=== PATIENT | female | born 1960 | race Caucasian/White ===

== ENCOUNTER 2023-07-02 19:07 | Inpatient (IN) | payer OTHER, SELFPAY ==
--- OUTSIDE RECORDS SUMMARY | 2023-07-02 19:13 | XMS_ITS | Continuity of Care Document ---
Author Name Unknown Organization [facility] Address [address] [place] [address]- Care Team Providers Care Cannon Pinion Adjuster Name Role Phone Abiel Nickerson Primary Care Physician [phone] Encounter [facility] Date(s): 03/13/20 - 04/12/20 [facility] [address] [place] [address]- [facility] Attending Physician: Admtr, Ar8 Allergies, Adverse Reactions, Alerts Substance Reaction Severity Status penicillin hives Active sulfamethoxazole hives Active Latex Active Cortisporin Active Immunizations Given and Recorded Vaccine Date Status Refusal Reason influenza virus vaccine, inactivated 08/18/19 Give n influenza virus vaccine, inactivated 07/31/16 Give n influenza virus vaccine, inactivated 06/01/14 Give n influenza virus vaccine, inactivated 04/15/13 Give n influenza virus vaccine, inactivated 1 07/20/12 Gi cheri pneumococcal 23-valent vaccine 08/17/14 Given pneumococcal 23-valent vaccine 06/11/09 Given Tet/Diphth/Acel, Pertussis (oldterm) 2 10/17/09 Gi cheri 1Admin Note: flulaval vis given vis date 01/20/2012 2Admin Note: VIS given 05/2008 Medications acetaminophen 325 mg oral tablet 650 mg, 2, tablet, By Mouth, Every 6 hours, PRN, not to exceed 4000 mg/day, # 50 tablet, Refills 11, Tot. Refills 11, Maintenance, as needed for pain, 08/04/19 10:07:00 EST, Route to Pharmacy Electronically, [facility] #[id number], 176, cm, 08/04... Start Date: 08/04/19 Status: Ordered apixaban 5 mg oral tablet 1 tablet = 5 mg, By Mouth, 2 times a day, STOPPING WARFARIN., # 60 tablet, 11 Refills, Maintenance,11/15/19 12:12:00 EDT, [facility] #[id number], 176, cm, 09/16/19 14:40:00 EST, Height, 123.2, kg, 08/21/19 20:54:00 EST, Dry Weight Start Date: 11/15/19 Status: Ordered atorvastatin 20 mg oral tablet 1 tablet, By Mouth, Daily, # 30 tablet, 0 Refills, Maintenance, 03/13/20 10:14:00 EDT, [facility] #[id number], 176, cm, 12/08/19 10:38:00 EDT, Height, 123.2, kg, 08/21/19 20:54:00 EST, Dry Weight Start Date: 03/13/20 Status: Ordered cetirizine 10 mg oral tablet 1 tablet = 10 mg, By Mouth, Daily, # 30 tablet, 5 Refills, Maintenance, 11/15/19 11:43:00 EDT, Tablet, [facility] #[id number], 176, cm, 09/16/19 14:40:00 EST, Height, 123.2, kg, 08/21/19 20:54:00 EST, Dry Weight Start Date: 11/15/19 Stop Date: 05/13/20 Status: Ordered ciclopirox 0.77% topical cream 1 application, Topically, 2 times a day, to affected area, # 30 Gm, 0 Refills, Maintenance, 05/04/19 8:30:10 EDT, Cream, 1 application Topically 2 times a day,x30 days,Instr:to affected area Start Date: 05/04/19 Stop Date: 06/03/19 Status: Ordered DOK 100 mg oral tablet 1 tablet = 100 mg, By Mouth, 2 times a day, # 60 tablet, 5 Refills, Maintenance, 11/15/19 11:45:00 EDT, Tablet, [facility] #[id number], 176, cm, 09/16/19 14:40:00 EST, Height, 123.2, kg, 08/21/19 20:54:00 EST, Dry Weight Start Date: 11/15/19 Status: Ordered Flonase 50 mcg/inh nasal spray 1 sprays, Nares, Both, 2 times a day, # 1 each, 2 Refills, Maintenance, 04/04/20 17:25:00 EDT, [place], [facility] #[id number], 1 sprays Nares, Both 2 times a day,x30 days, 176, cm, 12/08/19 10:38:00 EDT, Height, 123.2, kg, 08/21/19 20:54:00 EST, D... Start Date: 04/04/20 Stop Date: 07/03/20 Status: Ordered hydrochlorothiazide-lisinopril 25 mg-20 mg oral tablet 1 tablet, By Mouth, Daily, # 30 tablet, 2 Refills, Maintenance, 03/30/20 18:29:00 EDT, Tablet, [facility] #[id number], 1 tablet By Mouth Daily,x30 days, 176, cm, 12/08/19 10:38:00 EDT, Height, 123.2, kg, 08/21/19 20:54:00 EST, Dry Weight Start Date: 03/30/20 Stop Date: 06/28/20 Status: Ordered ketoconazole 2% topical cream See Instructions, APPLY EXTERNALLY TO THE AFFECTED AREA TWICE DAILY TO THE AFFECTED AREA, # 60 Gm, 0 Refills, Acute, [facility] #[id number], 25, APPLY EXTERNALLY TO THE AFFECTED AREA TWICE DAILYTO THE AFFECTED AREA, 176, cm, 12/08/19 10:38:00 ED... Start Date: 03/07/20 Status: Ordered lidocaine 5% topical cream 1 application, Topically, 3 times a day, # 50 Gm, 2 Refills, Maintenance, 09/16/18 12:49:49 EST, Cream, 1 application Topically 3 times a day,x14 days Start Date: 09/16/18 Stop Date: 10/28/18 Status: Ordered Metamucil 3.4 gm/5.2 gm oral powder for reconstitution = 1.7 Gm, By Mouth, 3 times a day, PRN as needed for constipation, dissolve in 8 oz of fluid. drinkplenty of water., # 570 Gm, 5 Refills, Maintenance, 09/02/19 14:32:00 EST, REC Powder, [facility] #[id number], 176, cm, 09/02/19 13:59:00 EST, Hei... Start Date: 09/02/19 Status: Ordered Metoprolol Succinate ER 50 mg oral tablet, extended release 1 tablet, By Mouth, Daily, # 60 tablet, 0 Refills, Maintenance, 03/13/20 10:14:00 EDT, [facility] #[id number], 176, cm, 12/08/19 10:38:00 EDT, Height, 123.2, kg, 08/21/19 20:54:00 EST, Dry Weight Start Date: 03/13/20 Status: Ordered MiraLax oral powder for reconstitution = 17 Gm, By Mouth, Daily, PRN Constipation, dissolve in water before taking, # 12 each, 5 Refills, Maintenance, 09/02/19 14:32:00 EST, REC Powder, [facility] #[id number], 17 Gm By Mouth Daily,PRN:Constipation,Instr:dissolve in water before taking... Start Date: 09/02/19 Status: Ordered nitroglycerin 0.4 mg sublingual tablet 1 tablet = 0.4 mg, Sublingual, Every 5 minutes, PRN for chest pain, If chest pain not relieved in 5minutes after first dose, seek immediate medical attention, # 1 tablet, 0 Refills, Maintenance, 08/19/16 10:23:57, Tablet Start Date: 08/19/16 Status: Ordered nystatin topical 575052 u/gm powder 1 application, Topically, 2 times a day, for rash under breasts, # 60 Gm, 1 Refills, Maintenance, 04/20/19 11:09:55 EDT, Powder, 1 application Topically 2 times a day,Instr:for rash under breasts Start Date: 04/20/19 Status: Ordered omeprazole 20 mg oral enteric coated capsule 1 capsule = 20 mg, By Mouth, Daily, prn acid indigestion, # 90 capsule, 0 Refills, Maintenance, 03/17/20 19:11:00 EDT, EC Capsule, [facility] #[id number], 176, cm, 12/08/19 10:38:00 EDT, Height,123.2, kg, 08/21/19 20:54:00 EST, Dry Weight Start Date: 03/17/20 Stop Date: 06/15/20 Status: Ordered PARoxetine 10 mg oral tablet 10 mg, 1, tablet, By Mouth, Daily, please d/c 7.5mg order, # 30 tablet, Refills 5, Tot. Refills 5, Maintenance, 09/17/19 13:12:00 EST, Route to Pharmacy Electronically, [facility] #[id number], 176, cm, 09/16/19 14:40:00 EST, Height, 123.2, kg, 02... Start Date: 09/17/19 Status: Ordered PARoxetine 7.5 mg oral capsule 1 capsule = 7.5 mg, By Mouth, Daily at bedtime, # 30 capsule, 2 Refills, Maintenance, 09/16/19 15:43:00 EST, [facility] #[id number], 176, cm, 09/16/19 14:40:00 EST, Height, 123.2, kg, 08/21/19 20:54:00 EST, Dry Weight Start Date: 09/16/19 Status: Ordered potassium chloride 20 mEq oral tablet, extended release 1 tablet = 20 mEq, By Mouth, Daily, # 90 tablet, 1 Refills, Maintenance, 01/12/19 17:42:00 EDT Start Date: 01/12/19 Status: Ordered triamcinolone 0.025% topical cream 1 applicator, Topically, 3 times a day, apply a thin film for eczema, # 30 Gm, 3 Refills, Maintenance, 08/18/19 10:35:00 EST, [facility] #[id number], 1 applicator Topically 3 times a day,Instr:apply a thin film for eczema, 176, cm, 08/18/19 9:16:... Start Date: 08/18/19 Status: Ordered Triple Antibiotic topical ointment 1 application, Topically, 2 times a day, # 28 Gm, 0 Refills, Acute, 11/15/19 12:12:00 EDT, [facility] #[id number], 7, APPLY 1 APPLICATION TOPICALLY TWICE DAILY, 176, cm, 09/16/19 14:40:00 EST, Height, 123.2, kg, 08/21/19 20:54:00 EST, Dry Weight Start Date: 11/15/19 Status: Ordered Vitamin D3 1000 intl units oral tablet 1 tablet = 1,000 International_Units, By Mouth, Daily, # 90 tablet, 2 Refills, Maintenance, 05/11/19 7:51:38 EDT Start Date: 05/11/19 Stop Date: 02/05/20 Status: Ordered Problem List Condition Effective Dates Status Health Status Inform ant Atrial fibrillation(Confirmed) Active Breast lump present(Confirmed) Active Carpal tunnel syndrome, bilateral(Confirmed) Active Otitis externa, chronic(Confirmed) Active Colonic polyp(Confirmed) 1 Active Core needle biopsy of breast(Confirmed) 09/11/11 Active MRSA (methicillin resistant staph aureus) culture positive(Confirmed) Active Glucose intolerance(Confirmed) Active Hypertension(Confirmed) Active Impaired Fasting Glucose(Confirmed) Active Tubular adenoma of colon(Confirmed) 01/09/17 Active Ventricular tachycardia(Confirmed) Active 1Tubular Adenoma < 1 cm. F/u in December 2016. Social History Social History Type Response Smoking Status Current every day adrián smart; Type: Cigarettes entered on: 10/29/13 Sex Female
--- OUTSIDE RECORDS SUMMARY | 2023-07-02 19:13 | XMS_ITS | Continuity of Care Document ---
Author Name Unknown Organization [facility] Address [address] [place] [address]- Care Team Providers Care Oncology Social Worker Name Role Phone Abiel Nickerson Primary Care Physician [facility] Date[facility]): 03/26/23 - 04/25/23 [facility] [address] [place] [id number]- Allergies, Adverse Reactions, Alerts Substance Reaction Severity Status penicillin hives Active sulfamethoxazole hives Active Latex Active Cortisporin Active Immunizations Given and Recorded Vaccine Date Status Refusal Reason SARS-CoV-2 mRNA ([id number]) vax 08/28/21 Given influenza virus vaccine, inactivated 05/16/21 Give n influenza virus vaccine, inactivated 07/05/20 Give n influenza virus vaccine, inactivated 08/18/19 Give n influenza virus vaccine, inactivated 07/31/16 Give n influenza virus vaccine, inactivated 06/01/14 Give n influenza virus vaccine, inactivated 04/15/13 Give n influenza virus vaccine, inactivated 1 07/20/12 Gi cheri tetanus-diphtheria toxoids (Td) 03/21/21 Given SARS-CoV-2 (COVID-19) mRNA BNT-162b2 vac 02/15/21 Given SARS-CoV-2 (COVID-19) mRNA BNT-162b2 vac 01/24/21 Given pneumococcal 23-valent vaccine 08/17/14 Given pneumococcal 23-valent vaccine 06/11/09 Given Tet/Diphth/Acel, Pertussis (oldterm) 2 10/17/09 Gi cheri 1Admin Note: flulaval vis given vis date 01/20/2012 2Admin Note: VIS given 05/2008 Medications acetaminophen 500 mg oral tablet 2 tablet = 1,000 mg, By Mouth, Every 8 hours, for pain, # 100 tablet, 1 Refills, Maintenance, 02/04/23 12:49:00 EDT, [facility] #[id number], Partial fill upon patient request if the prescriptionis for a schedule II opioid drug., 175, cm, ... Start Date: 02/04/23 Status: Ordered aspirin 81 mg oral tablet, chewable 81 mg, By Mouth, Daily, # 30 tablet, Refills 2, Tot. Refills 2, Maintenance, 03/18/23 9:59:00 EDT, Route to Pharmacy Electronically, [facility] #[id number], Partial fill upon patient request if the prescription is for a schedule II opioid drug.,... Start Date: 03/18/23 Stop Date: 12/13/23 Status: Ordered benzonatate 100 mg oral capsule 1 capsule = 100 mg, By Mouth, 3 times a day, PRN as needed for cough, # 30 capsule, 0 Refills, Maintenance, 04/18/23 17:45:00 EDT, Capsule, [facility] #[id number], Partial fill upon patient request if the prescription is for a schedule II opioid... Start Date: 04/18/23 Stop Date: 04/28/23 Status: Ordered cetirizine 10 mg oral tablet 1 tablet = 10 mg, By Mouth, Daily Start Date: 12/10/22 Status: Ordered Colace sodium 100 mg oral capsule 100 mg, 1, capsule, By Mouth, 2 times a day, take twice a day to prevent constipation., # 60 capsule, Refills 5, Tot. Refills 5, Maintenance, 03/12/23 9:37:00 EDT, Route to Pharmacy Electronically, [facility] #[id number], Partial fill upon patien... Start Date: 03/12/23 Status: Ordered Eliquis 5 mg oral tablet See Instructions, TAKE 1 TABLET BY MOUTH TWICE DAILY STOPPING WARFARIN, # 60 tablet, 11 Refills, Maintenance, 05/06/22 9:53:00 EDT, [facility] #[id number], 170, cm, 03/27/22 8:35:00 EDT, Height,113, kg, 08/28/21 19:48:00 EST, Dry Weight Start Date: 05/06/22 Status: Ordered fluticasone 50 mcg/inh nasal spray See Instructions, SHAKE LIQUID AND USE 1 SPRAY IN EACH NOSTRIL TWICE DAILY, # 16 Gm, 0 Refills, Maintenance, [facility] #[id number], 30, SHAKE LIQUID AND USE 1 SPRAY IN EACH NOSTRIL TWICE DAILY,176, cm, 07/05/20 15:49:00 EST, Height, 123.2, kg,... Start Date: 01/29/21 Status: Ordered Freestyle Lite Lancets See Instructions, # 50 each, Refills 11, Tot. Refills 11, Maintenance, check daily fasting blood sugar for type 2 DM. E11.9, 03/27/22 8:22:00 EDT, Supply, 170, cm, 03/27/22 8:17:00 EDT, Height, 113, kg, 08/28/21 19:48:00 EST, Dry Weight Start Date: 03/27/22 Status: Ordered Freestyle Lite Monitor See Instructions, # 1 each, Maintenance, check daily fasting blood sugar for type 2 DM. E11.9, 03/21/21 8:33:00 EDT, Supply, 176, cm, 03/21/21 8:05:00 EDT, Height, 123.2, kg, 08/21/19 20:54:00 EST, Dry Weight Start Date: 03/21/21 Status: Ordered Freestyle Lite Test Strips See Instructions, # 50 each, Refills 11, Tot. Refills 11, Maintenance, check daily fasting blood sugar for type 2 DM. E11.9, 03/27/22 8:22:00 EDT, Supply, 170, cm, 03/27/22 8:17:00 EDT, Height, 113, kg, 08/28/21 19:48:00 EST, Dry Weight Start Date: 03/27/22 Status: Ordered hydrochlorothiazide-lisinopril 25 mg-20 mg oral tablet 1 tablet, By Mouth, Daily, TAKE 1 TABLET BY MOUTH DAILY Start Date: 12/10/22 Status: Ordered hydrOXYzine hydrochloride 50 mg oral tablet 1 tablet = 50 mg, By Mouth, 4 times a day, PRN for anxiety, # 40 tablet, 0 Refills, Maintenance, 03/13/23 21:59:00 EDT, Tablet, Partial fill upon patient request if the prescription is for a scheduleII opioid drug. Start Date: 03/13/23 Status: Ordered ipratropium nasal 21 mcg/inh spray See Instructions, USE 2 SPRAYS IN EACH NOSTRIL TWICE DAILY IN EACH NOSTRIL, NEEDED CONGESTION, #30 mL, 5 Refills, Maintenance, 09/03/22 9:40:00 EST, [facility] #[id number], 30, USE 2 SPRAYS IN EACH NOSTRIL TWICE DAILY IN EACH NOSTRIL, NEED... Start Date: 09/03/22 Status: Ordered isopropyl alcohol 70% topical pad See Instructions, CLEANSE SKIN BEFORE TESTING BLOOD SUGAR, # 100 Unknown, 5 Refills, Maintenance, 03/26/23 18:08:00 EDT, [facility] #[id number], 30, CLEANSE SKIN BEFORE TESTING BLOOD SUGAR, 166,cm, 03/18/23 7:51:00 EDT, Height, 99, kg, 03/15/23... Start Date: 03/26/23 Status: Ordered ketoconazole 2% topical cream See Instructions, APPLY BENEATH BREAST AND GROIN AREAS TWICE DAILY, # 120 Gm, 2 Refills, Maintenance, 03/12/23 9:33:00 EDT, [facility] #[id number], 30, APPLY BENEATH BREAST AND GROIN AREAS TWICEDAILY, 175, cm, 03/12/23 8:47:00 EDT, Height, 100.5... Start Date: 03/12/23 Status: Ordered Lipitor 40 mg oral tablet 1 tablet = 40 mg, By Mouth, Daily, # 30 tablet, 0 Refills, Maintenance, 03/18/23 10:00:00 EDT, Tablet, [facility] #[id number], Partial fill upon patient request if the prescription is for a schedule II opioid drug., 166, cm, 03/18/23 7:51:00 EDT,... Start Date: 03/18/23 Stop Date: 04/17/23 Status: Ordered Metoprolol Succinate ER 50 mg oral tablet, extended release 1 tablet, By Mouth, Daily, # 90 tablet, 3 Refills, Maintenance, 02/04/23 12:35:00 EDT, [facility] #[id number], 175, cm, 01/20/23 10:13:00 EDT, Height, 108.5, kg, 11/05/22 22:16:00 EDT, Dry Weight Start Date: 02/04/23 Status: Ordered nitroglycerin 0.4 mg sublingual tablet = 0.4 mg, Sublingual, Every 5 minutes, PRN Chest Pain, not to exceed 3 doses/15 min--if pain persists, seek medical attention If chest pain not relieved in 5 minutes after first dose, seek immediate medical attention, # 25 tablet, 0 Refills, Mainte... Start Date: 03/18/23 Status: Ordered omeprazole 20 mg oral enteric coated capsule 1 capsule = 20 mg, By Mouth, Daily, PRN Dyspepsia, TAKE 1 CAPSULE BY MOUTH DAILY NEEDED ACID INDIGESTION Start Date: 12/10/22 Status: Ordered PEG-3350 with Electrolytes (Eqv-NuLYTELY) oral powder for reconstitution See Instructions, Mix powder withn water according to the product label. Drink 8 oz of prep fluid every 15-20 minutes ion the evening before the colonoscopy., # 1 each, 0 Refills, Maintenance, 08/26/22 11:04:00 EST, [facility] #[id number], Parti... Start Date: 08/26/22 Status: Ordered polyethylene glycol 3350 oral powder for reconstitution See Instructions, DISSOLVE 17 GM IN WATER EVERY DAY NEEDED FOR CONSTIPATION, # 510 Gm, 0 Refills, Maintenance, 03/26/22 8:19:00 EDT, [facility] #[id number], 30, DISSOLVE 17 GM IN WATER EVERY DAY NEEDED FOR CONSTIPATION, 170, cm, 01/24/22 18... Start Date: 03/26/22 Status: Ordered potassium chloride 20 mEq oral powder for reconstitution = 10 mEq, By Mouth, Daily, # 30 pack/packet, 0 Refills, Maintenance, 03/18/23 9:58:00 EDT, REC Powder, [facility] #[id number], Partial fill upon patient request if the prescription is for a schedule II opioid drug., 166, cm, 03/18/23 7:51:00 EDT,... Start Date: 03/18/23 Stop Date: 04/17/23 Status: Ordered risperiDONE 1 mg oral tablet 1.5 mg, 1.5, tablet, By Mouth, 2 times a day, Refills 0, Maintenance, 03/13/23 21:56:00 EDT, Partial fill upon patient request if the prescription is for a schedule II opioid drug. Start Date: 03/13/23 Status: Ordered triamcinolone 0.5% topical ointment See Instructions, APPLY TOPICALLY TO THE AFFECTED AREA TWICE DAILY FOR UP TO 14 DAYS FOR ECZEMA, # 60 Gm, 1 Refills, Maintenance, 03/12/23 9:33:00 EDT, [facility] #[id number], APPLY TOPICALLY TOTHE AFFECTED AREA TWICE DAILY FOR UP TO 14 DAYS FOR... Start Date: 03/12/23 Status: Ordered Trulicity Pen 0.75 mg/0.5 mL subcutaneous solution 0.5 mL = 0.75 mg, Subcutaneous Injection, Every week, # 2 mL, 11 Refills, Maintenance, 03/27/22 8:27:00 EDT, Solution, [facility] #[id number], Partial fill upon patient request if the prescription is for a schedule II opioid drug., 170, cm, 03/27... Start Date: 03/27/22 Status: Ordered Vitamin D3 1000 intl units oral capsule 1 capsule = 25 mcg, By Mouth, Daily, with food, # 90 capsule, 3 Refills, Maintenance, 02/03/23 17:53:00 EDT, [facility] #[id number], Partial fill upon patient request if the prescription is for a schedule II opioid drug., 175, cm, 01/20/23 10:13:... Start Date: 02/03/23 Stop Date: 01/29/24 Status: Ordered Voltaren 1% topical gel = 2 Gm, Topically, 4 times a day, PRN arthritis pain, # 150 Gm, 3 Refills, Maintenance, 08/28/21 9:02:00 EST, [facility] #[id number], Partial fill upon patient request if the prescription is fora schedule II opioid drug., 2 Gm Topically 4 times... Start Date: 08/28/21 Status: Ordered Problem List Condition Confirmation Course Effective Dates Status H ealth Status Informant Atrial fibrillation Confirmed Active Breast lump present Confirmed Active Carpal tunnel syndrome, bilateral Confirmed Active Otitis externa, chronic Confirmed Active Colonic polyp 1 Confirmed Active Core needle biopsy of breast Confirmed 09/11/11 Active MRSA (methicillin resistant staph aureus) culture positive Confirmed Active Diabetes Confirmed Active H/O colonoscopy, next due 2021 2 Confirmed 12/2016 Active Hypertension Confirmed Active Impaired Fasting Glucose Confirmed Active Major depressive disorder, single episode, mild Confirmed Active Localized osteoarthritis of right ankle Confirmed Active Severe obesity (BMI 35.0-39.9) with comorbidity Confirmed Active Tubular adenoma of colon - next colonoscopy due 2021 Confirmed 01/09/17 Active Ventricular tachycardia Confirmed Active 1Tubular Adenoma < 1 cm. F/u in December 2016. 2per GI message after colonosocpy, 2 tubular adenomas so repeat 5 years- which is due in 2021 Social History Social History Type Response Smoking Status Current every day sm oker; Type: Cigarettes entered on: 10/29/13 Sex Female Patient Care team information Care Team Personnel Name: Abiel Nickerson Position: [facility] PCO Associate Professional Member Role: PCP Address: Address: [address] [place] [address] [place] [address]- Name: Germania Wynn RN Position: S RN Member Role: Primary Care Nurse Name: Bertha Valdes RN Position: S RN Member Role: Primary Care Nurse Name: Jennifer Rodriguez RN Position: S RN Member Role: Primary Care Nurse Name: Lyndsey Macias RN Position: S RN Member Role: Primary Care Nurse Care Team Related Persons Name: KINGA ACOSTA Address: [address] [address] Name: VELVET [place]COSTA Address: [place] [address]
--- OUTSIDE RECORDS SUMMARY | 2023-07-02 19:13 | XMS_ITS | Continuity of Care Document ---
Author Name Unknown Organization [facility] Address [address] [place] [address]- Care Team Providers Care Office Specialist Name Role Phone Abiel Nickerson Primary Care Physician [facility]): [facility] - 11/14/19 [facility] [address] [place] [address]- [facility] Attending Physician: Not on Staff, Attending MD Allergies, Adverse Reactions, Alerts Substance Reaction Severity Status penicillin hives Active sulfamethoxazole hives Active Cortisporin Active Latex Active Immunizations Given and Recorded Vaccine Date [...] 08/04/19 10:07:00 EST, Route to Pharmacy Electronically, [facility] #[id number], 176, cm, 08/04... Start Date: 08/04/19 Status: Ordered apixaban 5 mg oral tablet 1 tablet = 5 mg, By Mouth, 2 times a day, STOPPING WARFARIN., # 60 tablet, 11 Refills, Maintenance,12/01/18 8:43:58 EDT Start Date: 12/01/18 Status: Ordered atorvastatin 20 mg oral tablet 1 tablet = 20 mg, By Mouth, Daily, Dose increase to 20mg qd 12/04/16., # 30 tablet, 11 Refills, Maintenance, Route to Pharmacy Electronically, [id number], [facility] [id number] Start Date: 01/19/19 Status: Ordered bacitracin/neomycin/polymyxin B topical 400 u-3.5 mg-5000 u/gm ointment 1 application, Topically, 2 times a day, # 30 Gm, 0 Refills, Maintenance, 08/04/19 10:09:00 EST, Ointment, [facility] #[id number], 1 application Topically 2 times a day, 176, cm, 08/04/19 9:12:00 EST, Height, 124, kg, 04/07/18 17:51:00 EDT, Dry W... Start Date: 08/04/19 Status: Ordered cetirizine 10 mg oral tablet 1 tablet = 10 mg, By Mouth, Daily, # 30 tablet, 5 Refills, Maintenance, 08/18/19 10:35:00 EST, Tablet, [facility] #[id number], 176, cm, 08/18/19 9:16:00 EST, Height, 124, kg, 04/07/18 17:51:00 EDT, Dry Weight Start Date: 08/18/19 Stop Date: 02/14/20 Status: Ordered ciclopirox 0.77% topical cream 1 application, Topically, 2 times a day, to affected area, # 30 Gm, 0 Refills, Maintenance, 05/04/19 8:30:10 EDT, Cream, 1 application Topically 2 times a day,x30 days,Instr:to affected area Start Date: 05/04/19 Stop Date: 06/03/19 Status: Ordered DOK 100 mg oral tablet 1 tablet = 100 mg, By Mouth, 2 times a day, # 60 tablet, 11 Refills, Maintenance, 08/24/18 16:36:27EST, Tablet Start Date: 08/24/18 Status: Ordered Flonase 50 mcg/inh nasal spray 1 sprays, Nares, Both, 2 times a day, # 1 each, 2 Refills, Maintenance, 08/24/18 16:36:46 EST, [place], 1 sprays Nares, Both 2 times a day,x30 days Start Date: 08/24/18 Stop Date: 11/22/18 Status: Ordered hydrochlorothiazide-lisinopril 25 mg-20 mg oral tablet 1 tablet, By Mouth, Daily, # 30 tablet, 11 Refills, Maintenance, 12/01/18 8:44:50 EDT, Tablet, 1 tablet By Mouth Daily,x30 days Start Date: 12/01/18 Stop Date: 11/26/19 Status: Ordered lidocaine 5% topical cream 1 [...] Refills, Maintenance, 09/02/19 14:32:00 EST, REC Powder, [facility] #[id number], 176, cm, 09/02/19 13:59:00 EST, Hei... Start Date: 09/02/19 Status: Ordered MiraLax oral powder for reconstitution = 17 Gm, By Mouth, Daily, PRN Constipation, dissolve in water before taking, # 12 each, 5 Refills, Maintenance, 09/02/19 14:32:00 EST, REC Powder, [facility] #[id number], 17 Gm By Mouth Daily,PRN:Constipation,Instr:dissolve in water before taking... Start Date: 09/02/19 Status: Ordered nitroglycerin 0.4 mg sublingual tablet 1 tablet = 0.4 mg, Sublingual, Every 5 minutes, PRN for chest pain, If chest pain not relieved in 5minutes after first dose, seek immediate medical attention, # 1 tablet, 0 Refills, Maintenance, 08/19/16 10:23:57, Tablet Start Date: 08/19/16 Status: Ordered nystatin topical 190152 u/gm powder 1 application, Topically, 2 times a day, for rash under breasts, # 60 Gm, 1 Refills, Maintenance, 04/20/19 11:09:55 EDT, Powder, 1 application Topically 2 times a day,Instr:for rash under breasts Start Date: 04/20/19 Status: Ordered omeprazole 20 mg oral enteric coated capsule 1 capsule = 20 mg, By Mouth, Daily, prn acid indigestion, # 90 capsule, 0 Refills, Maintenance, 09/02/19 15:58:00 EST, EC Capsule, [facility] #[id number], 176, cm, 09/02/19 13:59:00 EST, Height,123.2, kg, 08/21/19 20:54:00 EST, Dry Weight Start Date: 09/02/19 Stop Date: 12/01/19 Status: Ordered PARoxetine 10 mg oral tablet 10 mg, 1, tablet, By Mouth, Daily, please d/c 7.5mg order, # 30 tablet, Refills 5, Tot. Refills 5, Maintenance, 09/17/19 13:12:00 EST, Route to Pharmacy Electronically, [facility] #[id number], 176, cm, 09/16/19 14:40:00 EST, Height, 123.2, kg, 02... Start Date: 09/17/19 Status: Ordered PARoxetine 7.5 mg oral capsule 1 capsule = 7.5 mg, By Mouth, Daily at bedtime, # 30 capsule, 2 Refills, Maintenance, 09/16/19 15:43:00 EST, [facility] #[id number], 176, cm, 09/16/19 14:40:00 EST, Height, 123.2, kg, 08/21/19 20:54:00 EST, Dry Weight Start Date: 09/16/19 Status: Ordered potassium chloride 20 mEq oral tablet, extended release 1 tablet = 20 mEq, By Mouth, Daily, # 90 tablet, 1 Refills, Maintenance, 01/12/19 17:42:00 EDT Start Date: 01/12/19 Status: Ordered Toprol XL 50 mg oral tablet, extended release 50 mg, 1, tablet, By Mouth, Daily, # 60 tablet, Refills 11, Tot. Refills 11, Maintenance, 12/01/18 8:44:39 EDT, Route to Pharmacy Electronically, [id number], [facility] [id number] Start Date: 12/01/18 Status: Ordered triamcinolone 0.025% topical cream 1 applicator, Topically, 3 times a day, apply a thin film for eczema, # 30 Gm, 3 Refills, Maintenance, 08/18/19 10:35:00 EST, [facility] #[id number], 1 applicator Topically 3 times a day,Instr:apply a thin film for eczema, 176, cm, 08/18/19 9:16:... Start Date: 08/18/19 Status: Ordered Vitamin D3 1000 intl units [...]
--- OUTSIDE RECORDS SUMMARY | 2023-07-02 19:13 | XMS_ITS | Continuity of Care Document ---
Author Name Unknown Organization [facility] Address [address] [place] [address]- Care Team Providers Care Security Specialist Name Role Phone Abiel Nickerson Primary Care Physician [phone] [facility]counter [facility]): 03/10/23 - 04/09/23 [facility] [address] [place] [id number]- Allergies, Adverse Reactions, Alerts Substance Reaction Severity Status penicillin hives Active sulfamethoxazole hives Active Latex Active Cortisporin Active Immunizations Given and Recorded Vaccine Date Status Refusal Reason SARS-CoV-2 mRNA ([id number]) vax 08/28/21 Given influenza virus vaccine, inactivated [...] tablet, 1 Refills, Maintenance, 02/04/23 12:49:00 EDT, [facility] #[id number], Partial fill upon patient request if the prescriptionis for a schedule II opioid drug., 175, cm, ... Start Date: 02/04/23 Status: Ordered aspirin 81 mg oral tablet, chewable 81 mg, By Mouth, Daily, # 30 tablet, Refills 2, Tot. Refills 2, Maintenance, 03/18/23 9:59:00 EDT, Route to Pharmacy Electronically, [facility] #[id number], Partial fill upon patient request if the prescription is for a schedule II opioid drug.,... Start Date: 03/18/23 Stop Date: 12/13/23 Status: Ordered cetirizine 10 mg oral tablet 1 tablet = 10 mg, By Mouth, Daily Start Date: 12/10/22 Status: Ordered Colace sodium 100 mg oral capsule 100 mg, 1, capsule, By Mouth, 2 times a day, take twice a day to prevent constipation., # 60 capsule, Refills 5, Tot. Refills 5, Maintenance, 03/12/23 9:37:00 EDT, Route to Pharmacy Electronically, [facility] #[id number], Partial fill upon patien... Start Date: 03/12/23 Status: Ordered Eliquis 5 mg oral tablet See Instructions, TAKE 1 TABLET BY MOUTH TWICE DAILY STOPPING WARFARIN, # 60 tablet, 11 Refills, Maintenance, 05/06/22 9:53:00 EDT, [facility] #[id number], 170, cm, 03/27/22 8:35:00 EDT, Height,113, kg, 08/28/21 19:48:00 EST, Dry Weight Start Date: 05/06/22 Status: Ordered fluticasone 50 mcg/inh nasal spray See Instructions, SHAKE LIQUID AND USE 1 SPRAY IN EACH NOSTRIL TWICE DAILY, # 16 Gm, 0 Refills, Maintenance, [facility] #[id number], 30, SHAKE LIQUID AND USE 1 SPRAY [...] mL, 5 Refills, Maintenance, 09/03/22 9:40:00 EST, [facility] #[id number], 30, USE 2 SPRAYS IN EACH NOSTRIL TWICE DAILY IN EACH NOSTRIL, NEED... Start Date: 09/03/22 Status: Ordered isopropyl alcohol 70% topical pad See Instructions, CLEANSE SKIN BEFORE TESTING BLOOD SUGAR, # 100 Unknown, 5 Refills, Maintenance, 03/26/23 18:08:00 EDT, [facility] #[id number], 30, CLEANSE SKIN BEFORE TESTING BLOOD SUGAR, 166,cm, 03/18/23 7:51:00 EDT, Height, 99, kg, 03/15/23... Start Date: 03/26/23 Status: Ordered ketoconazole 2% topical cream See Instructions, APPLY BENEATH BREAST AND GROIN AREAS TWICE DAILY, # 120 Gm, 2 Refills, Maintenance, 03/12/23 9:33:00 EDT, [facility] #[id number], 30, APPLY BENEATH BREAST AND GROIN AREAS TWICEDAILY, 175, cm, 03/12/23 8:47:00 EDT, Height, 100.5... Start Date: 03/12/23 Status: Ordered Lipitor 40 mg oral tablet 1 tablet = 40 mg, By Mouth, Daily, # 30 tablet, 0 Refills, Maintenance, 03/18/23 10:00:00 EDT, Tablet, [facility] #[id number], Partial fill upon patient request if the prescription is for a schedule II opioid drug., 166, cm, 03/18/23 7:51:00 EDT,... Start Date: 03/18/23 Stop Date: 04/17/23 Status: Ordered Metoprolol Succinate ER 50 mg oral tablet, extended release 1 tablet, By Mouth, Daily, # 90 tablet, 3 Refills, Maintenance, 02/04/23 12:35:00 EDT, [facility] #[id number], 175, cm, 01/20/23 10:13:00 EDT, Height, 108.5, [...] each, 0 Refills, Maintenance, 08/26/22 11:04:00 EST, [facility] #[id number], Parti... Start Date: 08/26/22 Status: Ordered polyethylene glycol 3350 oral powder for reconstitution See Instructions, DISSOLVE 17 GM IN WATER EVERY DAY NEEDED FOR CONSTIPATION, # 510 Gm, 0 Refills, Maintenance, 03/26/22 8:19:00 EDT, [facility] #[id number], 30, DISSOLVE 17 GM IN WATER EVERY DAY NEEDED FOR CONSTIPATION, 170, cm, 01/24/22 18... Start Date: 03/26/22 Status: Ordered potassium chloride 20 mEq oral powder for reconstitution = 10 mEq, By Mouth, Daily, # 30 pack/packet, 0 Refills, Maintenance, 03/18/23 9:58:00 EDT, REC Powder, [facility] #[id number], Partial fill upon patient request if the [...] Gm, 1 Refills, Maintenance, 03/12/23 9:33:00 EDT, [facility] #[id number], APPLY TOPICALLY TOTHE AFFECTED AREA TWICE DAILY FOR UP TO 14 DAYS FOR... Start Date: 03/12/23 Status: Ordered Trulicity Pen 0.75 mg/0.5 mL subcutaneous solution 0.5 mL = 0.75 mg, Subcutaneous Injection, Every week, # 2 mL, 11 Refills, Maintenance, 03/27/22 8:27:00 EDT, Solution, [facility] #[id number], Partial fill upon patient request if the prescription is for a schedule II opioid drug., 170, cm, 03/27... Start Date: 03/27/22 Status: Ordered Vitamin D3 1000 intl units oral capsule 1 capsule = 25 mcg, By Mouth, Daily, with food, # 90 capsule, 3 Refills, Maintenance, 02/03/23 17:53:00 EDT, [facility] #[id number], Partial fill upon patient request if the prescription is for a schedule II opioid drug., 175, cm, 01/20/23 10:13:... Start Date: 02/03/23 Stop Date: 01/29/24 Status: Ordered Voltaren 1% topical gel = 2 Gm, Topically, 4 times a day, PRN arthritis pain, # 150 Gm, 3 Refills, Maintenance, 08/28/21 9:02:00 EST, [facility] #[id number], Partial fill upon patient request if the [...] Response Smoking Status Current every day adrián bing; Type: Cigarettes entered on: 10/29/13 Sex Female Patient Care team information Care Team Personnel Name: Abiel Nickerson Position: [facility] Associate Professional Member Role: PCP Address: Address: [address] [place] [address] Name: Germania Wynn RN Position: S RN Member Role: Primary Care Nurse Name: Bertha Valdes RN Position: S RN Member Role: Primary Care Nurse Name: Jennifer Rodriguez RN Position: S RN Member Role: Primary Care Nurse Name: Lyndsey Macias RN Position: S RN Member Role: Primary Care Nurse Care Team Related Persons Name: KINGA ACOSTA Address: [address] [address] Name: VELVET ACOSTA Address: [place] [address]
--- OUTSIDE RECORDS SUMMARY | 2023-07-02 19:13 | XMS_ITS | Continuity of Care Document ---
Author Name Unknown Organization [facility] Address [address] [place] [address]- Care Team Providers Care Lingo Cleaner Name Role Phone Abiel Nickerson Primary Care Physician [facility] 02[facility]27[facility]23 - 03/29/23 [facility] [address] [place] [address]- Allergies, Adverse Reactions, Alerts Substance Reaction Severity Status penicillin hives Active sulfamethoxazole hives Active Cortisporin Active Latex Active Immunizations Given and Recorded Vaccine Date Status Refusal Reason SARS-CoV-2 mRNA ([id number]) vax 08/28/21 Given influenza virus vaccine, inactivated [...] tablet, 1 Refills, Maintenance, 02/04/23 12:49:00 EDT, [facility] #[id number], Partial fill upon patient request if the prescriptionis for a schedule II opioid drug., 175, cm, ... Start Date: 02/04/23 Status: Ordered aspirin 81 mg oral tablet, chewable 81 mg, By Mouth, Daily, # 30 tablet, Refills 2, Tot. Refills 2, Maintenance, 03/18/23 9:59:00 EDT, Route to Pharmacy Electronically, [facility] #[id number], Partial fill upon patient request if the [...] 03/12/23 9:37:00 EDT, Route to Pharmacy Electronically, [facility] #[id number], Partial fill upon patien... Start Date: 03/12/23 Status: Ordered Eliquis 5 mg oral tablet See Instructions, TAKE 1 TABLET BY MOUTH TWICE DAILY STOPPING WARFARIN, # 60 tablet, 11 Refills, Maintenance, 05/06/22 9:53:00 EDT, [facility] #[id number], 170, cm, 03/27/22 8:35:00 EDT, Height,113, kg, 08/28/21 19:48:00 EST, Dry Weight Start Date: 05/06/22 Status: Ordered fluticasone 50 mcg/inh nasal spray See Instructions, SHAKE LIQUID AND USE 1 SPRAY IN EACH NOSTRIL TWICE DAILY, # 16 Gm, 0 Refills, Maintenance, [facility] #[id number], 30, SHAKE LIQUID AND USE 1 SPRAY [...] mL, 5 Refills, Maintenance, 09/03/22 9:40:00 EST, [facility] #[id number], 30, USE 2 SPRAYS IN EACH NOSTRIL TWICE DAILY IN EACH NOSTRIL, NEED... Start Date: 09/03/22 Status: Ordered isopropyl alcohol 70% topical pad See Instructions, CLEANSE SKIN BEFORE TESTING BLOOD SUGAR, # 100 Unknown, 5 Refills, Maintenance, 03/26/23 18:08:00 EDT, [facility] #[id number], 30, CLEANSE SKIN BEFORE TESTING BLOOD SUGAR, 166,cm, 03/18/23 7:51:00 EDT, Height, 99, kg, 03/15/23... Start Date: 03/26/23 Status: Ordered ketoconazole 2% topical cream See Instructions, APPLY BENEATH BREAST AND GROIN AREAS TWICE DAILY, # 120 Gm, 2 Refills, Maintenance, 03/12/23 9:33:00 EDT, [facility] #[id number], 30, APPLY BENEATH BREAST AND GROIN AREAS TWICEDAILY, 175, cm, 03/12/23 8:47:00 EDT, Height, 100.5... Start Date: 03/12/23 Status: Ordered Lipitor 40 mg oral tablet 1 tablet = 40 mg, By Mouth, Daily, # 30 tablet, 0 Refills, Maintenance, 03/18/23 10:00:00 EDT, Tablet, [facility] #[id number], Partial fill upon patient request if the prescription is for a schedule II opioid drug., 166, cm, 03/18/23 7:51:00 EDT,... Start Date: 03/18/23 Stop Date: 04/17/23 Status: Ordered melatonin 5 mg oral tablet 1 tablet = 5 mg, By Mouth, Daily at bedtime, for 30 days, to help sleep, # 30 tablet, 1 Refills, Acute 04/05/23 12:48:00 EDT, 02/04/23 12:48:00 EDT, [facility] #[id number], Partial fill upon patient request if the prescription is for a schedule I... Start Date: 02/04/23 Stop Date: 04/05/23 Status: Ordered Metoprolol Succinate ER 50 mg oral tablet, extended release 1 tablet, By Mouth, Daily, # 90 tablet, 3 Refills, Maintenance, 02/04/23 12:35:00 EDT, [facility] #[id number], 175, cm, 01/20/23 10:13:00 EDT, Height, 108.5, [...] each, 0 Refills, Maintenance, 08/26/22 11:04:00 EST, [facility] #[id number], Parti... Start Date: 08/26/22 Status: Ordered polyethylene glycol 3350 oral powder for reconstitution See Instructions, DISSOLVE 17 GM IN WATER EVERY DAY NEEDED FOR CONSTIPATION, # 510 Gm, 0 Refills, Maintenance, 03/26/22 8:19:00 EDT, [facility] #[id number], 30, DISSOLVE 17 GM IN WATER EVERY DAY NEEDED FOR CONSTIPATION, 170, cm, 01/24/22 18... Start Date: 03/26/22 Status: Ordered potassium chloride 20 mEq oral powder for reconstitution = 10 mEq, By Mouth, Daily, # 30 pack/packet, 0 Refills, Maintenance, 03/18/23 9:58:00 EDT, REC Powder, [facility] #[id number], Partial fill upon patient request if the [...] Gm, 1 Refills, Maintenance, 03/12/23 9:33:00 EDT, [facility] #[id number], APPLY TOPICALLY TOTHE AFFECTED AREA TWICE DAILY FOR UP TO 14 DAYS FOR... Start Date: 03/12/23 Status: Ordered Trulicity Pen 0.75 mg/0.5 mL subcutaneous solution 0.5 mL = 0.75 mg, Subcutaneous Injection, Every week, # 2 mL, 11 Refills, Maintenance, 03/27/22 8:27:00 EDT, Solution, [facility] #[id number], Partial fill upon patient request if the prescription is for a schedule II opioid drug., 170, cm, 03/27... Start Date: 03/27/22 Status: Ordered Vitamin D3 1000 intl units oral capsule 1 capsule = 25 mcg, By Mouth, Daily, with food, # 90 capsule, 3 Refills, Maintenance, 02/03/23 17:53:00 EDT, [facility] #[id number], Partial fill upon patient request if the prescription is for a schedule II opioid drug., 175, cm, 01/20/23 10:13:... Start Date: 02/03/23 Stop Date: 01/29/24 Status: Ordered Voltaren 1% topical gel = 2 Gm, Topically, 4 times a day, PRN arthritis pain, # 150 Gm, 3 Refills, Maintenance, 08/28/21 9:02:00 EST, [facility] #[id number], Partial fill upon patient request if the [...] Care Team Personnel Name: Abiel Nickerson Position: [facility] Associate Professional Member Role: PCP Address: Address: [address] [place] [address] [place] [address]- Name: Germania Wynn RN Position: S RN Member Role: Primary Care Nurse Name: Bertha Valdes RN Position: S RN Member Role: Primary Care Nurse Name: Jennifer Rodriguez RN Position: S RN Member Role: Primary Care Nurse Name: Lyndsey Macias RN Position: S RN Member Role: Primary Care Nurse Care Team Related Persons Name: KINGA ACOSTA Address: [address] [address] Name: VELVET ACOSTA Address: [place] [address]
--- OUTSIDE RECORDS SUMMARY | 2023-07-02 19:13 | XMS_ITS | Continuity of Care Document ---
Author Name Unknown Organization [facility] Address [address] [place] [id number]- Care Team Providers Care Associate Software Engineer Name Role Phone Abiel Nickerson Primary Care Physician [place] [facility] [place]29/22 [facility] [address] [place] [id number]- Encounter Diagnosis H/O colonoscopy with polypectomy(Discharge Diagnosis) - 04/28/22 Attending Physician: Delta Zhang MD Admitting Physician: Delta Zhang MD Referring Physician: Abiel Nickerson Allergies, Adverse Reactions, Alerts Substance Reaction Severity Status penicillin hives Active sulfamethoxazole hives Active Cortisporin Active Latex Active Immunizations Given and Recorded Vaccine Date Status Refusal Reason SARS-CoV-2 mRNA ([id number]) vax 08/28/21 Given influenza virus vaccine, inactivated [...] 01/20/2012 2Admin Note: VIS given 05/2008 Medications Alcohol Wipes See Instructions, # 100 each, Refills 11, Tot. Refills 11, Maintenance, cleanse skin before testingblood sugar, 01/08/22 9:34:00 EDT, Supply, 170, cm, 12/03/21 8:28:00 EDT, Height, 113, kg, 08/28/2218:48:00 EST, Dry Weight Start Date: 01/08/22 Status: Ordered atorvastatin 20 mg oral tablet 1 tablet, By Mouth, Daily, # 90 tablet, 1 Refills, Maintenance, 02/25/22 11:19:00 EDT, [facility] #[id number], 170, cm, 01/24/22 18:11:00 EDT, Height, 113, kg, 08/28/21 19:48:00 EST, Dry Weight Start Date: 02/25/22 Status: Ordered cetirizine 10 mg oral tablet 1 tablet, By Mouth, Daily, # 30 tablet, 5 Refills, Maintenance, 04/08/22 11:24:00 EDT, [facility] #[id number], 170, cm, 03/27/22 8:35:00 EDT, Height, 113, kg, 08/28/21 19:48:00 EST, Dry Weight Start Date: 04/08/22 Status: Ordered Eliquis 5 mg oral tablet 1 tablet, By Mouth, 2 times a day, STOPPING WARFARIN., # 60 tablet, 0 Refills, Maintenance, 05/02/22 13:12:00 EDT, [facility] #[id number], 170, cm, 03/27/22 8:35:00 EDT, Height, 113, kg, 08/28/21 19:48:00 EST, Dry Weight Start Date: 05/02/22 Status: Ordered Eliquis 5 mg oral tablet See Instructions, TAKE 1 TABLET BY MOUTH TWICE DAILY STOPPING WARFARIN, # 60 tablet, 11 Refills, Maintenance, 05/06/22 9:53:00 EDT, [facility] #[id number], 170, cm, 03/27/22 8:35:00 EDT, Height,113, kg, 08/28/21 19:48:00 EST, Dry Weight Start Date: 05/06/22 Status: Ordered fluticasone 50 mcg/inh nasal spray See Instructions, SHAKE LIQUID AND USE 1 SPRAY IN EACH NOSTRIL TWICE DAILY, # 16 Gm, 0 Refills, Maintenance, [facility] #[id number], 30, SHAKE LIQUID AND USE 1 SPRAY [...] Mouth, Daily, # 30 tablet, 11 Refills, 03/27/22 8:29:00 EDT, [facility] #[id number], 30, 1 tablet By Mouth Daily, 170, cm, 03/27/22 8:17:00 EDT, Height, 113, kg, 08/28/21 19:48:00 EST, Dry Weight Start Date: 03/27/22 Status: Ordered ipratropium nasal 21 mcg/inh spray See Instructions, USE 2 SPRAYS IN EACH NOSTRIL TWICE DAILY IN EACH NOSTRIL, NEEDED CONGESTION, #30 mL, 0 Refills, Maintenance, 05/29/22 9:42:00 EST, [facility] #[id number], 30, USE 2 SPRAYS IN EACH NOSTRIL TWICE DAILY IN EACH NOSTRIL, NEED... Start Date: 05/29/22 Status: Ordered ketoconazole 2% topical cream See Instructions, APPLY BENEATH BREAST AND GROIN AREAS TWICE DAILY, # 120 Gm, 0 Refills, Maintenance, 05/06/22 8:40:00 EDT, [facility] #[id number], 30, APPLY BENEATH BREAST AND GROIN AREAS TWICEDAILY, 170, cm, 03/27/22 8:35:00 EDT, Height, 113,... Start Date: 05/06/22 Status: Ordered Metamucil 3.4 gm/5.2 gm oral powder for reconstitution = 1.7 Gm, By Mouth, 3 times a day, PRN as needed for constipation, dissolve in 8 oz of fluid. drinkplenty of water., # 570 Gm, 5 Refills, Maintenance, 09/02/19 14:32:00 EST, REC Powder, [facility] #[id number], 176, cm, 09/02/19 13:59:00 EST, Hei... Start Date: 09/02/19 Status: Ordered Metoprolol Succinate ER 50 mg oral tablet, extended release 1 tablet, By Mouth, Daily, # 90 tablet, 0 Refills, Maintenance, 02/25/22 11:18:00 EDT, [facility] #[id number], 170, cm, 01/24/22 18:11:00 EDT, Height, 113, kg, 08/28/21 19:48:00 EST, Dry Weight Start Date: 02/25/22 Status: Ordered omeprazole 20 mg oral enteric coated capsule 1 capsule, By Mouth, Daily, PRN NEEDED, ACID INDIGESTION., # 90 capsule, 0 Refills, [facility] #[id number], 170, cm, 12/03/21 8:28:00 EDT, Height, 113, kg, 08/28/21 19:48:00 EST, Dry Weight Start Date: 01/23/22 Status: Ordered polyethylene glycol 3350 oral powder for reconstitution See Instructions, DISSOLVE 17 GM IN WATER EVERY DAY NEEDED FOR CONSTIPATION, # 510 Gm, 0 Refills, Maintenance, 03/26/22 8:19:00 EDT, [facility] #[id number], 30, DISSOLVE 17 GM IN WATER EVERY DAY NEEDED FOR CONSTIPATION, 170, cm, 01/24/22 18... Start Date: 03/26/22 Status: Ordered Potassium Chloride (Hxa-Klwh-Ymy 10) 10 mEq oral tablet, extended release 1 tablet = 10 mEq, By Mouth, Daily, # 30 tablet, 5 Refills, Maintenance, 10/02/21 16:06:00 EDT, [facility] #[id number], Partial fill upon patient request if the prescription is for a schedule IIopioid drug., 170, cm, 10/02/21 15:32:00 EDT, Heigh... Start Date: 10/02/21 Status: Ordered Shingrix intramuscular injection = 0.5 mL, Intramuscular, Once, repeat dose in 2 to 6 months, # 2 each, 0 Refills, Soft Stop, 03/21/21 8:37:00 EDT, Powder, [facility] #[id number], Partial fill upon patient request if the prescription is for a schedule II opioid drug., 0.5 mL Int... Start Date: 03/21/21 Status: Ordered triamcinolone 0.5% topical ointment See Instructions, APPLY TOPICALLY TO THE AFFECTED AREA TWICE DAILY FOR UP TO 14 DAYS FOR ECZEMA, # 60 Gm, 1 Refills, Maintenance, 03/27/22 8:23:00 EDT, [facility] #[id number], 28, APPLY TOPICALLY TO THE AFFECTED AREA TWICE DAILY FOR UP TO 14 DAYS... Start Date: 03/27/22 Status: Ordered Trulicity Pen 0.75 mg/0.5 mL subcutaneous solution 0.5 mL = 0.75 mg, Subcutaneous Injection, Every week, # 2 mL, 11 Refills, Maintenance, 03/27/22 8:27:00 EDT, Solution, [facility] #[id number], Partial fill upon patient request if the prescription is for a schedule II opioid drug., 170, cm, 03/27... Start Date: 03/27/22 Status: Ordered Voltaren 1% topical gel = 2 Gm, Topically, 4 times a day, PRN arthritis pain, # 150 Gm, 3 Refills, Maintenance, 08/28/21 9:02:00 EST, [facility] #[id number], Partial fill upon patient request if the [...] resistant staph aureus) culture positive Confirmed Active Glucose intolerance Confirmed Active H/O colonoscopy, next due 2021 2 Confirmed 12/2016 Active Hypertension Confirmed Active Impaired Fasting Glucose Confirmed Active Obese class II Confirmed Active Localized osteoarthritis of right ankle Confirmed Active Tubular adenoma of colon - next colonoscopy due 2021 Confirmed 01/09/17 Active Ventricular tachycardia Confirmed Active 1Tubular Adenoma < 1 cm. F/u in December 2016. 2per GI message after colonosocpy, 2 tubular adenomas so repeat 5 years- which is due in 2021 Diagnosis Diagnosis Type Effective Dates Health Status Clinical Service Informant H/O colonoscopy with polypectomy Discharge Diagnosis 04/28/22 Social History Social History Type Response Smoking Status Current every day sm oker; Type: Cigarettes entered on: 10/29/13 Sex Female Patient Care team information Care Team Personnel Name: Abiel Nickerson Position: [facility] PCO Associate Professional Member Role: PCP Address: Address: [address] [place] [address] [place] [address]- Name: Jennifer Rodriguez RN Position: [facility] RN Member Role: Primary Care Nurse Care Team Related Persons Name: KINGA ACOSTA Address: home [address] [place] [address]
--- OUTSIDE RECORDS SUMMARY | 2023-07-02 19:13 | XMS_ITS | Continuity of Care Document ---
Author Name Unknown Organization [facility] Address [address] [place] [address]- Care Team Providers Care Cocktail Waitress Name Role Phone Abiel Nickerson Primary Care Physician [phone] Encounter [facility] Date(s): 12/03/21 - 01/02/22 [facility] [address] [place] [id number] Attending Physician: Admtr, Ar8 Allergies, Adverse Reactions, Alerts Substance Reaction Severity Status penicillin hives Active sulfamethoxazole hives Active Cortisporin Active Latex Active Immunizations Given and Recorded Vaccine Date Status Refusal Reason SARS-CoV-2 mRNA ([id number]-nffjr) vax 08/28/21 Given influenza virus vaccine, inactivated [...] 05/2008 Medications Alcohol Wipes See Instructions, # 1 kit, Refills 1, Tot. Refills 1, Maintenance, cleanse skin before testing blood sugar, 03/21/21 8:34:00 EDT, Supply, 176, cm, 03/21/21 8:05:00 EDT, Height, 123.2, kg, 08/21/19 20:54:00 EST, Dry Weight Start Date: 03/21/21 Status: Ordered apixaban 5 mg oral tablet 1 tablet = 5 mg, By Mouth, 2 times a day, STOPPING WARFARIN., # 60 tablet, 11 Refills, Maintenance,02/19/21 8:31:00 EDT, [facility] #[id number], 176, cm, 02/19/21 8:02:00 EDT, Height, 123.2, kg, 08/21/19 20:54:00 EST, Dry Weight Start Date: 02/19/21 Status: Ordered atorvastatin 20 mg oral tablet 1 tablet, By Mouth, Daily, # 30 tablet, 11 Refills, Maintenance, 02/19/21 8:31:00 EDT, [facility] #[id number], 176, cm, 02/19/21 8:02:00 EDT, Height, 123.2, kg, 08/21/19 20:54:00 EST, Dry Weight Start Date: 02/19/21 Status: Ordered cetirizine 10 mg oral tablet 1 tablet, By Mouth, Daily, # 30 tablet, 2 Refills, [facility] #[id number], 170, cm, 12/03/21 8:28:00 EDT, Height, 113, kg, 08/28/21 19:48:00 EST, Dry Weight Start Date: 12/25/21 Status: Ordered fluticasone 50 mcg/inh nasal spray See Instructions, SHAKE LIQUID AND USE 1 SPRAY IN EACH NOSTRIL TWICE DAILY, # 16 Gm, 0 Refills, Maintenance, [facility] #[id number], 30, SHAKE LIQUID AND USE 1 SPRAY IN EACH NOSTRIL TWICE DAILY,176, cm, 07/05/20 15:49:00 EST, Height, 123.2, kg,... Start Date: 01/29/21 Status: Ordered Freestyle Lite Lancets See Instructions, # 50 each, Refills 11, Tot. Refills 11, Maintenance, check daily fasting blood sugar for type 2 DM. E11.9, 03/21/21 8:34:00 EDT, Supply, 176, cm, 03/21/21 8:05:00 EDT, Height, 123.2, kg, 08/21/19 20:54:00 EST, Dry Weight Start Date: 03/21/21 Status: Ordered Freestyle Lite Monitor See Instructions, [...] sugar for type 2 DM. E11.9, 03/21/21 8:34:00 EDT, Supply, 176, cm, 03/21/21 8:05:00 EDT, Height, 123.2, kg, 08/21/19 20:54:00 EST, Dry Weight Start Date: 03/21/21 Status: Ordered hydrochlorothiazide-lisinopril 25 mg-20 mg oral tablet 1 tablet, By Mouth, Daily, # 30 tablet, 11 Refills, 03/23/21 11:53:00 EDT, [facility] #[id number], 30, 1 tablet By Mouth Daily, 176, cm, 03/21/21 8:05:00 EDT, Height, 123.2, kg, 08/21/19 20:54:00 EST, Dry Weight Start Date: 03/23/21 Status: Ordered ipratropium nasal 21 mcg/inh spray 2 sprays, Nares, Both, 2 times a day, for 30 days, in each nostril, prn congestion, # 1 each, 2 Refills, Acute 02/18/22 8:14:00 EDT, 11/20/21 8:14:00 EDT, [place], [facility] #[id number], Partial fill upon patient request if the prescription is for... Start Date: 11/20/21 Stop Date: 02/18/22 Status: Ordered Metamucil 3.4 gm/5.2 gm oral powder for reconstitution = 1.7 Gm, By Mouth, 3 times a day, PRN as needed for constipation, dissolve in 8 oz of fluid. drinkplenty of water., # 570 Gm, 5 Refills, Maintenance, 09/02/19 14:32:00 EST, REC Powder, [facility] #[id number], 176, cm, 09/02/19 13:59:00 EST, Hei... Start Date: 09/02/19 Status: Ordered Metoprolol Succinate ER 50 mg oral tablet, extended release 1 tablet, By Mouth, Daily, # 60 tablet, 11 Refills, Maintenance, 02/19/21 8:32:00 EDT, [facility] #[id number], 176, cm, 02/19/21 8:02:00 EDT, Height, 123.2, kg, 08/21/19 20:54:00 EST, Dry Weight Start Date: 02/19/21 Status: Ordered omeprazole 20 mg oral enteric coated capsule 1 capsule, By Mouth, Daily, PRN NEEDED, ACID INDIGESTION., # 90 capsule, 0 Refills, [facility] #[id number], 170, cm, 10/23/21 14:39:00 EDT, Height, 113, kg, 08/28/21 19:48:00 EST, Dry Weight Start Date: 11/01/21 Status: Ordered Potassium Chloride (Apa-Qcui-Gpc 10) 10 mEq oral tablet, extended release 1 tablet = 10 mEq, By Mouth, Daily, # 30 tablet, 5 Refills, Maintenance, 10/02/21 16:06:00 EDT, [facility] #[id number], Partial fill upon patient request if the prescription is for a schedule IIopioid drug., 170, cm, 10/02/21 15:32:00 EDT, Heigh... Start Date: 10/02/21 Status: Ordered Shingrix intramuscular injection = 0.5 mL, Intramuscular, Once, repeat dose in 2 to 6 months, # 2 each, 0 Refills, Soft Stop, 03/21/21 8:37:00 EDT, Powder, [facility] #[id number], Partial fill upon patient request if the prescription is for a schedule II opioid drug., 0.5 mL Int... Start Date: 03/21/21 Status: Ordered triamcinolone 0.5% topical ointment See Instructions, APPLY TOPICALLY TO THE AFFECTED AREA TWICE DAILY FOR UP TO 14 DAYS FOR ECZEMA, # 60 Gm, 0 Refills, [email or web address] #[id number], 28, APPLY TOPICALLY TO THE AFFECTED AREA TWICE DAILY FOR UP TO 14 DAYS FOR ECZEMA, 170, cm, 10/23/21 14:3... Start Date: 10/24/21 Status: Ordered Trulicity Pen 0.75 mg/0.5 mL subcutaneous solution 0.5 mL = 0.75 mg, Subcutaneous Injection, Every week, please d/c metformin. cannot take glipizide as allergic to sulfa, # 2 mL, 5 Refills, Maintenance, 10/02/21 16:07:00 EDT, Solution, [email or web address] #[id number], Partial fill upon patient request if... Start Date: 10/02/21 Status: Ordered Voltaren 1% topical gel = 2 Gm, Topically, 4 times a day, PRN arthritis pain, # 150 Gm, 3 Refills, Maintenance, 08/28/21 9:02:00 EST, [email or web address] #[id number], Partial fill upon patient request if the prescription is fora schedule II opioid drug., 2 Gm Topically 4 times... Start Date: 08/28/21 Status: Ordered Problem List Condition Effective Dates Status Health Status Inform ant Atrial fibrillation(Confirmed) Active Breast lump present(Confirmed) Active Carpal tunnel syndrome, bilateral(Confirmed) Active Otitis externa, chronic(Confirmed) Active Colonic polyp(Confirmed) 1 Active Core needle biopsy of breast(Confirmed) 09/11/11 Active MRSA (methicillin resistant staph aureus) culture positive(Confirmed) Active Glucose intolerance(Confirmed) Active H/O colonoscopy, next due 2021(Confirmed) 2 12/2016 Active Hypertension(Confirmed) Active Impaired Fasting Glucose(Confirmed) Active Obese class II(Confirmed) Active Localized osteoarthritis of right ankle(Confirmed) Active Tubular adenoma of colon - n ext colonoscopy due 2021(Confirmed) 01/09/17 Active Ventricular tachycardia(Confirmed) Active 1Tubular Adenoma < 1 cm. F/u in December 2016. 2per GI message after colonosocpy, 2 tubular adenomas so repeat 5 years- which is due in 2021 Social History Social History Type Response Smoking Status Current every day adrián smart; Type: Cigarettes entered on: 10/29/13 Sex Female
--- OUTSIDE RECORDS SUMMARY | 2023-07-02 19:13 | XMS_ITS | Continuity of Care Document ---
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 treatingpsychiatrist. -Seclusion or restraint may only be used as interventions of last resort in the management of severe agitation in patient. If they are used, seclusion and restraint episodes should be as short as possible, dignified, and as safe as possible for all involved. Patient preference should always be considered when feasible. -Consider RT consult to reinitiate CPAP (see PSG titration 03/13/2010) -Follow-up expanded urine toxicology. ?? -ECG for baseline QT/QTc??given potentially??QT-prolonging polypharmacy. ?? Please feel free to contact the Psychiatry consult service (call [phone] or page [phone]) with any questions or concerns.? Recommendations??cortexted to Dr. Marcie Simental ?? Abdias Ward PA-C (he/him) Emergency Psychiatry Services Division of Consultation-Liaison Psychiatry Department of Psychiatry [facility]?? Medications Inpatient aspirin 81 mg oral tablet, chewable, 81 mg, By Mouth, Daily Eliquis, 5 mg, By Mouth, 2 times a day Lipitor 40 mg oral tablet, 40 mg, By Mouth, Daily Melatonin Tablet, 3 mg, By Mouth, Daily at bedtime, PRN Metoprolol Succinate ER 50 mg oral tablet, extended release, 50 mg, By Mouth, Daily pantoprazole 20 mg oral delayed release tablet, 20 mg, By Mouth, Daily risperiDONE 1 mg oral tablet, 1.5 mg, By Mouth, 2 times a day risperiDONE 1 mg oral tablet, 0.5 mg, By Mouth, 2 times a day, PRN Allergies Cortisporin Latex penicillin??(hives) sulfamethoxazole??(hives) Lab Results Event Name?? Event Result?? Normal Range?? Date/Time?? WBC 6.4 k/mm3 4 k/mm3 - 11 k/mm3 03/29/23 11:42:00 RBC 4.39 m/mm3 4.2 m/mm3 - 5.4 m/mm3 03/29/23 11:42:00 Hgb 11.9 Gm/dL 11.7 Gm/dL - 15.5 Gm/dL 03/29/23 11:42:00 Hct 36.7 % 35.7 % - 45.8 % 03/29/23 11:42:00 MCV 83.6 femtoliters 80 femtoliters - 100 femtoliters 03/29/23 11:42:00 MCH 27.1 pg 27 pg - 34 pg 03/29/23 11:42:00 MCHC 32.4 g/dL??Low 33 g/dL - 37 g/dL 03/29/23 11:42:00 Platelet Count 216 k/mm3 150 k/mm3 - 460 k/mm3 03/29/23 11:42:00 RDW-SD 42.4 femtoliters ?? 03/29/23 11:42:00 MPV 9.8 femtoliters 9.4 femtoliters - 12.4 femtoliters 03/29/23 11:42:00 Nucleated RBC (Automated) 0 #/100 WBC'S ?? 03/29/23 11:42:00 Abs. NRBC 0 k/mm3 ?? 03/29/23 11:42:00 Abs. Neut 3.5 k/mm3 1.3 k/mm3 - 7 k/mm3 03/29/23 11:42:00 Abs. Lymph 2.5 k/mm3 0.8 k/mm3 - 3.1 k/mm3 03/29/23 11:42:00 Abs. Posey 0.4 k/mm3 0.4 k/mm3 - 0.9 k/mm3 03/29/23 11:42:00 Abs. Eo 0.1 k/mm3 0 k/mm3 - 0.4 k/mm3 03/29/23 11:42:00 Abs. Baso 0 k/mm3 0 k/mm3 - 0.1 k/mm3 03/29/23 11:42:00 Neut % 53.7 % 44 % - 76 % 03/29/23 11:42:00 Lymph % 38.6 % 15 % - 43 % 03/29/23 11:42:00 Posey % 6.1 % 4.5 % - 10.5 % 03/29/23 11:42:00 Eos % 1.1 % 0 % - 6 % 03/29/23 11:42:00 Baso % 0.3 % 0 % - 2 % 03/29/23 11:42:00 Imm Gran 0.2 % ?? 03/29/23 11:42:00 Abs. Imm Gran 0 k/mm3 ?? 03/29/23 11:42:00 Sodium 141 mmol/L 133 mmol/L - 145 mmol/L 03/29/23 11:42:00 Potassium 3.6 mmol/L 3.6 mmol/L - 5.2 mmol/L 03/29/23 11:42:00 Chloride 103 mmol/L 98 mmol/L - 107 mmol/L 03/29/23 11:42:00 Bicarbonate Level 29 mmol/L 22 mmol/L - 29 mmol/L 03/29/23 11:42:00 Anion Gap 9 4 ??- 17 03/29/23 11:42:00 Glucose Level 110 mg/dL??High 70 mg/dL - 99 mg/dL 03/29/23 11:42:00 Glucose, POC 128 mg/dL??High 70 mg/dL - 99 mg/dL 03/29/23 09:40:00 BUN 15 mg/dL 8 mg/dL - 23 mg/dL 03/29/23 11:42:00 Creatinine-Blood 1 mg/dL 0.5 mg/dL - 1 mg/dL 03/29/23 11:42:00 Estimated GFR Creatinine 61 ML/MIN/1.73 M2 ?? 03/29/23 11:42:00 Calcium 10.1 mg/dL 8.6 mg/dL - 10.5 mg/dL 03/29/23 11:42:00 TSH 0.72 uIU/mL 0.4 uIU/mL - 4.2 uIU/mL 03/29/23 11:42:00 Ethanol, Serum or Plasma NONE DETECTED ?? 03/29/23 11:42:00 COVID-19 by RT-PCR NEGATIVE ?? 03/29/23 12:29:00 ? Diagnostic Results (03/29/2023 11:[address] Head/Brain W/O Contrast) No acute abnormality of the head or cervical spine. [1] ?? (03/04/2023 14:20 EDT MRI Brain W+W/O Contrast) FINDINGS: ?? BRAIN and EXTRA-AXIAL SPACES: The ventricles and sulci are prominent reflecting volume loss. There are scattered nonspecific FLAIR hyperintensities in the white matter. There is no evidence of restricted diffusion to suggest acute infarction.? There is no hemorrhage, midline shift, or mass effect. There is no extra-axial collection. Flow voids are preserved in the dominant intracranial vessels. ?? EXTRACRANIAL SOFT TISSUES: Orbits are unremarkable. Mild scattered paranasal sinus mucosal thickening. Mucus retention cysts in the maxillary sinuses. ?? BONES: Marrow signal is preserved. ? IMPRESSION: ?? No acute intracranial findings. Nonspecific white matter signal changes which most likely reflect chronic small vessel disease. [2] [1]??CT Head/Brain W/O Contrast; Caitlin Hanley MD 03/29/2023 11:07 EDT [2]??MRI Brain W+W/O Contrast; Not on Staff , JIM HARE 03/04/2023 14:20 EDT Patient Care team information Care Team Personnel Name: Abiel Nickerson Position: [facility] PCO Associate Professional Member Role: PCP Address: Address: [address] [place] [address] [place] [address]- Name: Germania Wynn RN Position: [facility] RN Member Role: Primary Care Nurse Name: Bertha Valdes RN Position: [facility] RN Member Role: Primary Care Nurse Name: Jennifer Rodriguez RN Position: [facility] RN Member Role: Primary Care Nurse Name: Lyndsey Macias RN Position: [facility] RN Member Role: Primary Care Nurse [facility] ED Attending Position: [facility] ED Attendings Patient Name: Kori Lawrence MD Position: [facility] Resident Member Role: Admitting Physician Address: Address: [address] [place] [address] Emergency Medicine [address] Name: Laurie Pickett RN Position: [facility] ED RN W/OE and Tasks Member Role: Patient Care Provider Name: Lyndsey Mullen Position: [facility] ED TA [facility] Member Role: Pattern Carrier Care Team Related Persons Name: KINGA ACOSTA Address: [address] [address] Name: VELVET ACOSTA Address: [place] [address]
--- OUTSIDE RECORDS SUMMARY | 2023-07-02 19:13 | XMS_ITS | Continuity of Care Document ---
Author Name Unknown Organization [facility] Adult Medicine Address [address] [place] [address]- Care Team Providers Care Savings Counselor Name Role Phone Abiel Nickerson Primary Care Physician Encounter [facility] Date(s): 07/23/19 - 09/17/19 [facility] Adult [facility] [address] [place] [address]- [facility] Attending Physician: Satish Fabian MD Admitting Physician: Satish Fabian MD Allergies, Adverse Reactions, Alerts Substance Reaction [...] 08/04/19 10:07:00 EST, Route to Pharmacy Electronically, [facility] #[id number], 176, cm, 08/04... Start Date: 08/04/19 Status: [...] 11 Refills, Maintenance, Route to Pharmacy Electronically, [id number], [facility] [id number] Start Date: 01/19/19 Status: Ordered bacitracin/neomycin/polymyxin B topical 400 u-3.5 mg-5000 u/gm ointment 1 application, Topically, 2 times a day, # 30 Gm, 0 Refills, Maintenance, 08/04/19 10:09:00 EST, Ointment, [facility] #[id number], 1 application Topically 2 times a day, 176, cm, 08/04/19 9:12:00 EST, Height, 124, kg, 04/07/18 17:51:00 EDT, Dry W... Start Date: 08/04/19 Status: Ordered cetirizine 10 mg oral tablet 1 tablet = 10 mg, By Mouth, Daily, # 30 tablet, 5 Refills, Maintenance, 08/18/19 10:35:00 EST, Tablet, [facility] #[id number], 176, cm, 08/18/19 9:16:00 EST, Height, 124, [...] each, 2 Refills, Maintenance, 08/24/18 16:36:46 EST, [place], 1 sprays Nares, Both 2 times a [...] Refills, Maintenance, 09/02/19 14:32:00 EST, REC Powder, [facility] #[id number], 176, cm, 09/02/19 13:59:00 EST, Hei... Start Date: 09/02/19 Status: Ordered MiraLax oral powder for reconstitution = 17 Gm, By Mouth, Daily, PRN Constipation, dissolve in water before taking, # 12 each, 5 Refills, Maintenance, 09/02/19 14:32:00 EST, REC Powder, [facility] #[id number], 17 Gm By Mouth Daily,PRN:Constipation,Instr:dissolve in water before taking... Start Date: 09/02/19 Status: Ordered nitroglycerin 0.4 mg sublingual tablet 1 tablet = 0.4 mg, Sublingual, Every 5 minutes, PRN for chest pain, If chest pain not relieved in 5minutes after first dose, seek immediate medical attention, # 1 tablet, 0 Refills, Maintenance, 08/19/16 10:23:57, Tablet Start Date: 08/19/16 Status: Ordered nystatin topical 226873 u/gm powder 1 application, Topically, 2 times [...] Refills, Maintenance, 09/02/19 15:58:00 EST, EC Capsule, [facility] #[id number], 176, cm, 09/02/19 13:59:00 EST, Height,123.2, kg, 08/21/19 20:54:00 EST, Dry Weight Start Date: 09/02/19 Stop Date: 12/01/19 Status: Ordered PARoxetine 10 mg oral tablet 10 mg, 1, tablet, By Mouth, Daily, please d/c 7.5mg order, # 30 tablet, Refills 5, Tot. Refills 5, Maintenance, 09/17/19 13:12:00 EST, Route to Pharmacy Electronically, [facility] #[id number], 176, cm, 09/16/19 14:40:00 EST, Height, 123.2, kg, 02... Start Date: 09/17/19 Status: Ordered PARoxetine 7.5 mg oral capsule 1 capsule = 7.5 mg, By Mouth, Daily at bedtime, # 30 capsule, 2 Refills, Maintenance, 09/16/19 15:43:00 EST, [facility] #[id number], 176, cm, 09/16/19 14:40:00 EST, Height, 123.2, [...] 12/01/18 8:44:39 EDT, Route to Pharmacy Electronically, [id number], [id number] Start Date: 12/01/18 Status: Ordered triamcinolone 0.025% topical cream 1 applicator, Topically, 3 times a day, apply a thin film for eczema, # 30 Gm, 3 Refills, Maintenance, 08/18/19 10:35:00 EST, [facility] #[id number], 1 applicator Topically 3 times a day,Instr:apply [...]
--- OUTSIDE RECORDS SUMMARY | 2023-07-02 19:13 | XMS_ITS | Continuity of Care Document ---
Author Name Unknown Organization [facility] ter Address [address] [place] [id number] Care Team Providers Care Isotope Hydrologist Name Role Phone Abiel Nickerson Primary Care Physician Encounter [facility] [place] Date(s): 03/13/23 - 03/18/[address] [address]- Encounter Diagnosis Chest pain(Final) - 03/13/23 CAD (coronary artery disease)(Final) - 03/13/23 Hypertension(Final) - 03/13/23 Discharge Disposition: A-D/C Home Attending Physician: Bobby Mccarthy MD Admitting Physician: Magaly Adamson MD Referring Physician: Not on Staff, Referring MD Allergies, Adverse Reactions, Alerts Substance Reaction Severity Status penicillin hives Active sulfamethoxazole hives Active Cortisporin Active Latex Active Immunizations Given and Recorded Vaccine Date Status Refusal Reason SARS-CoV-2 mRNA ([id number]) vax 08/28/21 Given influenza virus vaccine, inactivated [...] tablet, 1 Refills, Maintenance, 02/04/23 12:49:00 EDT, [facility] #[id number], Partial fill upon patient request if the prescriptionis for a schedule II opioid drug., 175, cm, ... Start Date: 02/04/23 Status: Ordered Alcohol Wipes See Instructions, # 100 each, Refills 11, Tot. Refills 11, Maintenance, cleanse skin before testingblood sugar, 01/08/22 9:34:00 EDT, Supply, 170, cm, 12/03/21 8:28:00 EDT, Height, 113, kg, 08/28/2218:48:00 EST, Dry Weight Start Date: 01/08/22 Status: Ordered aspirin 81 mg oral tablet, chewable 81 mg, By Mouth, Daily, # 30 tablet, Refills 2, Tot. Refills 2, Maintenance, 03/18/23 9:59:00 EDT, Route to Pharmacy Electronically, [facility] #[id number], Partial fill upon patient request if the [...] 03/12/23 9:37:00 EDT, Route to Pharmacy Electronically, [facility] #[id number], Partial fill upon patien... Start Date: 03/12/23 Status: Ordered Eliquis 5 mg oral tablet See Instructions, TAKE 1 TABLET BY MOUTH TWICE DAILY STOPPING WARFARIN, # 60 tablet, 11 Refills, Maintenance, 05/06/22 9:53:00 EDT, [facility] #[id number], 170, cm, 03/27/22 8:35:00 EDT, Height,113, kg, 08/28/21 19:48:00 EST, Dry Weight Start Date: 05/06/22 Status: Ordered fluticasone 50 mcg/inh nasal spray See Instructions, SHAKE LIQUID AND USE 1 SPRAY IN EACH NOSTRIL TWICE DAILY, # 16 Gm, 0 Refills, Maintenance, [facility] #[id number], 30, SHAKE LIQUID AND USE 1 SPRAY [...] mL, 5 Refills, Maintenance, 09/03/22 9:40:00 EST, [facility] #[id number], 30, USE 2 SPRAYS IN EACH NOSTRIL TWICE DAILY IN EACH NOSTRIL, NEED... Start Date: 09/03/22 Status: Ordered isopropyl alcohol 70% topical pad See Instructions, CLEANSE SKIN BEFORE TESTING BLOOD SUGAR, # 100 Unknown, 5 Refills, Maintenance, 02/03/23 9:08:00 EDT, [facility] #[id number], 30, CLEANSE SKIN BEFORE TESTING BLOOD SUGAR, 175, cm, 01/20/23 10:13:00 EDT, Height, 108.5, kg, 11/05/... Start Date: 02/03/23 Status: Ordered ketoconazole 2% topical cream See Instructions, APPLY BENEATH BREAST AND GROIN AREAS TWICE DAILY, # 120 Gm, 2 Refills, Maintenance, 03/12/23 9:33:00 EDT, [facility] #[id number], 30, APPLY BENEATH BREAST AND GROIN AREAS TWICEDAILY, 175, cm, 03/12/23 8:47:00 EDT, Height, 100.5... Start Date: 03/12/23 Status: Ordered Lipitor 40 mg oral tablet 1 tablet = 40 mg, By Mouth, Daily, # 30 tablet, 0 Refills, Maintenance, 03/18/23 10:00:00 EDT, Tablet, [facility] #[id number], Partial fill upon patient request if the prescription is for a schedule II opioid drug., 166, cm, 03/18/23 7:51:00 EDT,... Start Date: 03/18/23 Stop Date: 04/17/23 Status: Ordered lisinopril 20 mg oral tablet 20 mg, Tablet, By Mouth, 03/18/23 9:00:00 EDT Start Date: 03/18/23 Stop Date: 03/18/23 Status: Completed melatonin 5 mg oral tablet 1 tablet = 5 mg, By Mouth, Daily at bedtime, for 30 days, to help sleep, # 30 tablet, 1 Refills, Acute 04/05/23 12:48:00 EDT, 02/04/23 12:48:00 EDT, [facility] #[id number], Partial fill upon patient request if the prescription is for a schedule I... Start Date: 02/04/23 Stop Date: 04/05/23 Status: Ordered Metamucil 3.4 gm/5.2 gm oral powder for reconstitution = 1.7 Gm, By Mouth, 3 times a day, PRN as needed for constipation, dissolve in 8 oz of fluid. drinkplenty of water., # 570 Gm, 5 Refills, Maintenance, 09/02/19 14:32:00 EST, REC Powder, [facility] #[id number], 176, cm, 09/02/19 13:59:00 EST, Hei... Start Date: 09/02/19 Status: Ordered Metoprolol Succinate ER 50 mg oral tablet, extended release 50 mg, XL Tablet, By Mouth, 03/18/23 9:00:00 EDT Start Date: 03/18/23 Stop Date: 03/18/23 Status: Completed Metoprolol Succinate ER 50 mg oral tablet, extended release 1 tablet, By Mouth, Daily, # 90 tablet, 3 Refills, Maintenance, 02/04/23 12:35:00 EDT, [facility] #[id number], 175, cm, 01/20/23 10:13:00 EDT, Height, 108.5, [...] each, 0 Refills, Maintenance, 08/26/22 11:04:00 EST, [facility] #[id number], Parti... Start Date: 08/26/22 Status: Ordered polyethylene glycol 3350 oral powder for reconstitution See Instructions, DISSOLVE 17 GM IN WATER EVERY DAY NEEDED FOR CONSTIPATION, # 510 Gm, 0 Refills, Maintenance, 03/26/22 8:19:00 EDT, [facility] #[id number], 30, DISSOLVE 17 GM IN WATER EVERY DAY NEEDED FOR CONSTIPATION, 170, cm, 01/24/22 18... Start Date: 03/26/22 Status: Ordered potassium chloride 20 mEq oral powder for reconstitution = 10 mEq, By Mouth, Daily, # 30 pack/packet, 0 Refills, Maintenance, 03/18/23 9:58:00 EDT, REC Powder, [facility] #[id number], Partial fill upon patient request if the [...] Gm, 1 Refills, Maintenance, 03/12/23 9:33:00 EDT, [facility] #[id number], APPLY TOPICALLY TOTHE AFFECTED AREA TWICE DAILY FOR UP TO 14 DAYS FOR... Start Date: 03/12/23 Status: Ordered Trulicity Pen 0.75 mg/0.5 mL subcutaneous solution 0.5 mL = 0.75 mg, Subcutaneous Injection, Every week, # 2 mL, 11 Refills, Maintenance, 03/27/22 8:27:00 EDT, Solution, [facility] #[id number], Partial fill upon patient request if the prescription is for a schedule II opioid drug., 170, cm, 03/27... Start Date: 03/27/22 Status: Ordered Vitamin D3 1000 intl units oral capsule 1 capsule = 25 mcg, By Mouth, Daily, with food, # 90 capsule, 3 Refills, Maintenance, 02/03/23 17:53:00 EDT, [facility] #[id number], Partial fill upon patient request if the prescription is for a schedule II opioid drug., 175, cm, 01/20/23 10:13:... Start Date: 02/03/23 Stop Date: 01/29/24 Status: Ordered Voltaren 1% topical gel = 2 Gm, Topically, 4 times a day, PRN arthritis pain, # 150 Gm, 3 Refills, Maintenance, 08/28/21 9:02:00 EST, [facility] #[id number], Partial fill upon patient request if the [...] 5 years- which is due in 2021 Results Radiology Reports * Exam Date Time Procedure Performing Provider Status 03/13/23 2:[address] Angio Abdomen and Pelvis Sigifredo Bright icole; Auth (Verified) Notes: (CT Angio Abdomen and Pelvis) Reason For Exam: aortic dissection;Other: RESULT: CT Angio Abdomen and Pelvis EXAMINATION: CT Angio Chest, CT Angio Abdomen and Pelvis INDICATION: Hx of Present Illness: pt comes from home. Lives by herself. Friend called out of concern for pt not acting right - patient arrives to ED A O but states she developed chest pain and SOBaround 9:30 this morning. Hx of A Fib; Reason: Other:; Aortic disease, nontraumatic; Clinical Question(s): Other:; Aortic Dissection TECHNIQUE: An initial noncontrast CT of the chest was performed. Spiral CTA of the chest, abdomen, and pelvis was performed after rapid IV contrast administration without cardiac gating triggered by an BLAINE on the aorta. Images are formatted in multiple planes using 2-D multiplanar and 3-D maximum intensity projection. Gated axial images through the aortic root were also acquired during a [id number] injection of IV contrast with separate reconstructions of this data set formatted in multiple planes using 2-D multiplanar and 3-D maximum intensity projection. 150 cc of Omnipaque 300 was administered intravenously. Weight-based protocol using automatic tube modulation was used to optimize expo sure parameters. CTDIvol Body: 15.95 mGy, DLP Body: 2498 mGy*cm. COMPARISONS: CTA chest 11/05/2022. ANGIOGRAPHIC FINDINGS: No aortic dissection or aneurysm. No intramural hematoma. Normal three vessel arch, with mild atherosclerotic calcifications. Mild narrowing of the left proximal subclavian artery. Remaining supra aortic branches demonstrate no significant stenosis. Pulmonary arteries are normal in caliber. No evidence of central pulmonary embolism on this study performed without dedicated technique. Heart: On gated images of the aortic root and heart, there is apparent high- grade stenosis of the LAD (703:[id number]) . Abdominal aorta: No aortic aneurysm or dissection. Mild atherosclerotic calcifications. Celiac axis: Patent. Mild calcification at the origin. Superior mesenteric artery: Patent. Right renal artery: Patent. Mild calcification at the origin. Left renal artery: Patent. Mild calcification at the origin. Inferior mesenteric artery: Patent. Mild calcification at the origin. Right common iliac artery: Patent. Moderate calcification. Right internal iliac artery: Patent. Moderate calcification. Right external iliac artery: Patent. Right common femoral artery: Patent. Mild calcification. Visualized right superficial and deep femoral arteries: Patent. Left common iliac artery: Patent. Moderate calcification. Left internal iliac artery: Patent. Moderate calcification. Left external iliac artery: Patent. Left common femoral artery: Patent. Mild calcification. Visualized left superficial and deep femoral arteries: Patent. NON-ANGIOGRAPHIC FINDINGS: Chronic Disease Manager View Findings, Lines and Tubes: None. Trachea and Airways: Patent without evidence of tracheal or endobronchial lesion. Lungs and Pleura: Clear lungs. No effusion or pneumothorax. Mediastinum and toni: No mass or hematoma. Enlarged subcarinal node measuring 1.8 cm short axis is not significantly changed. There is a well-circumscribed intrinsically dense oval focus in the distal esophagus immediately above the gastroesophageal junction measuring 1.5 x 0.5 cm, which is unchanged in position and configuration on noncontrast, arterial phase, and gated images. Esophagus is otherwise unremarkable. No thyroid nodule large enough to warrant follow up. Heart: Heart is normal in size. No pericardial effusion. Mild coronary artery calcification. Chest Wall Soft Tissues: Normal. Diaphragm: No significant abnormality. Liver: Normal. Gallbladder: No CT evidence of gallbladder pathology. Bile ducts: No biliary ductal dilation. Spleen: Normal. Pancreas: Normal. Adrenal glands: Normal. Kidneys and ureters: No hydronephrosis, stones, or suspicious masses. Bladder: Normal. Reproductive organs: Unremarkable. Stomach, small bowel, and large bowel: Moderate retained stool in the ascending colon. Small amountof stool in the rectum. No evidence of obstruction or inflammatory change.. Appendix: Normal. Peritoneum and retroperitoneum: No ascites or pneumoperitoneum. No omental or mesenteric lesions. Lymph nodes: No enlarged lymph nodes. Abdominal and pelvic wall: Unremarkable. Bones: No acute abnormality. Partial lumbarization of S1 is noted. There is mild stairstep grade 1 anterolisthesis between L4 and S1 with facet hypertrophy at L4-5 and L5-S1. Scattered endplate osteophyte formation. IMPRESSION: 1. No aortic aneurysm or dissection. 2. Suspected high-grade stenosis of the LAD. Correlate with any symptoms of coronary artery disease. 3. 1.5 cm hyperdense focus in the distal esophagus, likely retained pill. Correlate with history. The impression above was relayed to Verena Gore DO by Dr. Norma Costello over the phone on 03/13/2023 at 2:47 PM. WSN: [id number] Ordering Physician: Verena Gore Dictated By: Norma Costello MD Dictated Date/Time: 03/13/23 2:47 pm Reviewed By: Norma Costello MD Signed By: Norma Costello MD Signed Date/Time: 03/13/23 2:47 pm Transcribed By: STANLEY Transcribed Date/Time: 03/13/23 2:21 pm * Exam Date Time Procedure Performing Provider Status 03/13/23 2:[address] Angio Chest Debby Bright; Auth ( Verified) Notes: (CT Angio Chest) Reason For Exam: Aortic disease, nontraumatic;Other: RESULT: CT Angio Chest EXAMINATION: CT Angio Chest, CT Angio Abdomen and Pelvis INDICATION: Hx of Present Illness: pt comes from home. Lives by herself. Friend called out of concern for pt not acting right - patient arrives to ED A O but states she developed chest pain and SOBaround 9:30 this morning. Hx of A Fib; Reason: Other:; Aortic disease, nontraumatic; Clinical Question(s): Other:; Aortic Dissection TECHNIQUE: An initial noncontrast CT of the chest was performed. Spiral CTA of the chest, abdomen, and pelvis was performed after rapid IV contrast administration without cardiac gating triggered by an BLAINE on the aorta. Images are formatted in multiple planes using 2-D multiplanar and 3-D maximum intensity projection. Gated axial images through the aortic root were also acquired during a [id number] injection of IV contrast with separate reconstructions of this data set formatted in multiple planes using 2-D multiplanar and 3-D maximum intensity projection. 150 cc of Omnipaque 300 was administered intravenously. Weight-based protocol using automatic tube modulation was used to optimize expo sure parameters. CTDIvol Body: 15.95 mGy, DLP Body: 2498 mGy*cm. COMPARISONS: CTA chest 11/05/2022. ANGIOGRAPHIC FINDINGS: No aortic dissection or aneurysm. No intramural hematoma. Normal three vessel arch, with mild atherosclerotic calcifications. Mild narrowing of the left proximal subclavian artery. Remaining supra aortic branches demonstrate no significant stenosis. Pulmonary arteries are normal in caliber. No evidence of central pulmonary embolism on this study performed without dedicated technique. Heart: On gated images of the aortic root and heart, there is apparent high- grade stenosis of the LAD (703:269) . Abdominal aorta: No aortic aneurysm or dissection. Mild atherosclerotic calcifications. Celiac axis: Patent. Mild calcification at the origin. Superior mesenteric artery: Patent. Right renal artery: Patent. Mild calcification at the origin. Left renal artery: Patent. Mild calcification at the origin. Inferior mesenteric artery: Patent. Mild calcification at the origin. Right common iliac artery: Patent. Moderate calcification. Right internal iliac artery: Patent. Moderate calcification. Right external iliac artery: Patent. Right common femoral artery: Patent. Mild calcification. Visualized right superficial and deep femoral arteries: Patent. Left common iliac artery: Patent. Moderate calcification. Left internal iliac artery: Patent. Moderate calcification. Left external iliac artery: Patent. Left common femoral artery: Patent. Mild calcification. Visualized left superficial and deep femoral arteries: Patent. NON-ANGIOGRAPHIC FINDINGS: Chronic Disease Manager View Findings, Lines and Tubes: None. Trachea and Airways: Patent without evidence of tracheal or endobronchial lesion. Lungs and Pleura: Clear lungs. No effusion or pneumothorax. Mediastinum and toni: No mass or hematoma. Enlarged subcarinal node measuring 1.8 cm short axis is not significantly changed. There is a well-circumscribed intrinsically dense oval focus in the distal esophagus immediately above the gastroesophageal junction measuring 1.5 x 0.5 cm, which is unchanged in position and configuration on noncontrast, arterial phase, and gated images. Esophagus is otherwise unremarkable. No thyroid nodule large enough to warrant follow up. Heart: Heart is normal in size. No pericardial effusion. Mild coronary artery calcification. Chest Wall Soft Tissues: Normal. Diaphragm: No significant abnormality. Liver: Normal. Gallbladder: No CT evidence of gallbladder pathology. Bile ducts: No biliary ductal dilation. Spleen: Normal. Pancreas: Normal. Adrenal glands: Normal. Kidneys and ureters: No hydronephrosis, stones, or suspicious masses. Bladder: Normal. Reproductive organs: Unremarkable. Stomach, small bowel, and large bowel: Moderate retained stool in the ascending colon. Small amountof stool in the rectum. No evidence of obstruction or inflammatory change.. Appendix: Normal. Peritoneum and retroperitoneum: No ascites or pneumoperitoneum. No omental or mesenteric lesions. Lymph nodes: No enlarged lymph nodes. Abdominal and pelvic wall: Unremarkable. Bones: No acute abnormality. Partial lumbarization of S1 is noted. There is mild stairstep grade 1 anterolisthesis between L4 and S1 with facet hypertrophy at L4-5 and L5-S1. Scattered endplate osteophyte formation. IMPRESSION: 1. No aortic aneurysm or dissection. 2. Suspected high-grade stenosis of the LAD. Correlate with any symptoms of coronary artery disease. 3. 1.5 cm hyperdense focus in the distal esophagus, likely retained pill. Correlate with history. The impression above was relayed to Verena Gore DO by Dr. Norma Costello over the phone on 03/13/2023 at 2:47 PM. WSN: [id number] Ordering Physician: Verena Gore Dictated By: Norma Costello MD Dictated Date/Time: 03/13/23 2:47 pm Reviewed By: Norma Costello MD Signed By: Norma Costello MD Signed Date/Time: 03/13/23 2:47 pm Transcribed By: STANLEY Transcribed Date/Time: 03/13/23 2:21 pm Vital Signs Most recent to oldest [Reference Range]: 1 2 3 Height 166 cm (03/18/23 7:51 AM) 166 cm (03/18/23 5:24 AM) 166 cm (03/17/23 10:53 PM) Weight 100.4 kg (03/15/23 11:29 AM) 99 kg (03/13/23 8:23 PM) 99 kg (03/13/23 3:55 PM) Oxygen Saturation [94-100 %] 97 % (03/18/23 7:51 AM) 98 % (03/18/23 5:24 AM) 98 % (03/17/23 10:53 PM) Pulse Rate [55-90 bpm] 71 bpm (03/18/23 9:15 AM) 70 bpm (03/18/23 7:51 AM) 74 bpm (03/18/23 5:24 AM) Body Mass Index [18.5-24.99 kg/m2] 36.43 kg/m2 *>HHI* (03/15/23 11:29 AM) 35.93 kg/m2 *>HHI* (03/13/23 8:23 PM) 35.93 kg/m2 *>HHI* (03/13/23 3:55 PM) Blood Pressure [90-138/55-84 mm Hg] 122/76mm Hg (03/18/23 9:15 AM) 122/76mm Hg (03/18/23 9:14 AM) 98/47mm Hg (03/18/23 7:51 AM) Respiratory Rate [16-30 br/min] 16 br/min (03/18/23 7:51 AM) 20 br/min (03/18/23 5:24 AM) 20 br/min (03/17/23 10:53 PM) Temperature [96.8-100.4 DegF] 97.3 DegF (03/18/23 7:51 AM) 98.3 DegF (03/18/23 5:24 AM) 98.2 DegF (03/17/23 10:53 PM) Mode of Delivery (Oxygen) Room air (03/18/23 7:51 AM) Room air (03/18/23 5:24 AM) Room air (03/17/23 10:53 PM) Blood pressure sites Arm, left (03/18/23 7:51 AM) Arm, left (03/18/23 5:24 AM) Arm, left (03/17/23 10:53 PM) Temperature Route Oral (03/18/23 7:51 AM) Oral (03/18/23 5:24 AM) Oral (03/17/23 10:53 PM) Dry Weight 99 kg (03/15/23 11:29 AM) 99 kg (03/13/23 8:23 PM) 99 kg (03/13/23 3:55 PM) Social History Social History Type Response Smoking Status Current every day adrián smart; Type: Cigarettes entered on: 10/29/13 Sex Female Admission evaluation note * Maulik Prieto: PERFORM Event Display: Admission Note Authored Date: Patient: ??BRITTANY ACOSTA ? Age:??62 Years?Sex:??Female?:??1960?? Chief Complaint/Reason for Consultation Chest pain History of Present Illness 62-year-old female??with history??of A-fib on Eliquis, diabetes, hypertension, TIA??presents with chest pain.?? She is a poor historian. ??From what I can gather??the onset was at 9:30 AM while playing cards.?? She describes it as a pressure in the center of her chest.?? It radiated to her back. ??It did not seem to be??related to physical activity/exertional. ??She had some associated shortness of breath.?? In the emergency department serial troponin were??flat??17-16. ??EKG with nonspecific Twave inversions.?? In the emergency department??CT angiogram ruled out??a dissection??but noted??likely severe??LAD occlusion.?? She was admitted for ACS rule out.?? Her chest pain has resolved. ??I calculated her HEART score??as 6??so she is high risk. ??She had a pharmacologic??nuclear stress test??1-1/2 years ago??09/11??that was normal??and they thought she was having??atypical chest pain.?? Spoke with her daughter??who says her mother has dealing??with??psychiatric illness??and she has beenplaced on a medicine to help her with hallucinations.?? She said the medicine is working??well??buther mother often skips doses??and becomes agitated. 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 denies fever, CP, SOB, abdominal pain, bowel or bladder complaints. Review of Systems CONSTITUTIONAL: ??Denies any fever, chills, changes to weight or fatigue. EYES: Denies any changes to vision, burning or diplopia. HEENT: Denies any VIRK, nasal d/c, nose bleeds, changes to voice, vertigo, photophobia, hearing changes or dental problems. CV: See HPI PULM: See HPI ABD: Denies any abdominal pain, N/V/D, heartburn, PRBPR, melena, or changes to bowel habits. : Denies any changes to frequency. ??Denies dysuria, urgency, straining, hematuria, incontinence.? MS: Denies any joint or muscle pain, falls or changes to gait. NEURO: Denies any weakness, numbness, changes to speech confusion or memory loss. SKIN: Denies any rashes or lesions. ?? PSYCH: Denies any depression or anxiety. SIGECAPS negative. FUNCTIONAL: At baseline the patient is able to??walks with a cane Objective Vital Signs?? Temperature: 98 DegF (03/13/23 20:23:00) Temperature Route: Oral (03/13/23 20:23:00) Pulse Rate: 77 bpm (03/13/23 20:23:00) Respiratory Rate: 20 br/min (03/13/23 20:23:00) Systolic Blood Pressure: 137 mm Hg (03/13/23 20:23:00) Diastolic Blood Pressure:??90 mm Hg??High (03/13/23 20:23:00) Blood pressure sites: Arm, right (03/13/23 20:23:00) Mean Arterial Pressure: 106 mm Hg (03/13/23 20:23:00) Pulse Pressure: 47 mm Hg (03/13/23 20:23:00) Oxygen Saturation: 99 % (03/13/23 20:23:00) Mode of Delivery (Oxygen): Room air (03/13/23 20:23:00) Early Warning Score: 0 (03/13/23 20:24:06) ? Physical Exam General:??62 year old female??lies in bed comfortably in no acute distress HEENT: NCAT, moist oral mucosa, good dentition, oropharynx without erythema Card: RRR no murmur, non displaced PMI, no JVD, 2+ radial pulse B/L Resp: CTA B/L, no wheezing, rales, ronchi Abdomen: soft and non tender, bowel sounds WNL Extremities: no pitted edema B/L lower extremities Skin: Without rashes or lesions, good turgor Hem/Lymph: without bruising or lymphadenopathy Psych: appropriate affect Neuro: A&OX3, no focal motor deficits Assessment/Plan 62-year-old female??with history??of A-fib on Eliquis, diabetes, hypertension, TIA??presents with chest pain. ?? CAD (coronary artery disease) (I25.10):??. Chest pain (R07.9):?? ACS rule out . Patient is now chest pain-free considered dissection. CTA negative??for dissection??but noted likely??severe LAD occlusion Considered PE??less likely given no??tachycardia, shortness of breath,??signs??of DVT Presentation atypical for ACS, onset was??was while playing cards, nonexertional Troponin flat??17-16??EKG with nonspecific T wave changes She did have a negative??pharmacologic stress test??about??1-1/2 years ago??09/11 However, given her high heart score of 6??and stress test was over a year ago??and CTA with likely severe LAD occlusion??we will admit for formal echocardiogram If there are no new wall motion abnormalities??or CHF??she can??be discharged ?? Plan Telemetry Echo ordered Continue atorvastatin, metoprolol ?? Atrial fibrillation (I48.91):??Continue metoprolol and Eliquis ?? Hypertension (I10):??Continue lisinopril and hydrochlorothiazide ?? Psychosis (F29):??She is calm and cooperative with me.?Not actively endorsing any visual or auditory hallucinations . Does not seem to be??in need of??acute psychiatric evaluation at this time. 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 Plan Continue risperidone??and as needed hydroxyzine Outpatient MRI already ordered Follow-up??with psychiatrist outpatient??for further work-up and management ? Diabetes (E11.9):??On Trulicity at home We will use sliding scale while inpatient ?? VTE Prophylaxis:??On Eliquis ?VTE Prophylaxis Assessment:??VTE Prophylaxis Ordered ?? Code Status:??Full code, discussed at bedside ?Order Code Status:??Code Status Ordered ?? Ongoing Medical Necessity:??ACS rule out, echocardiogram ?? Discharge Planning:??Can likely go home??tomorrow after echocardiogram??if there are no??new wall motion abnormalities or CHF ? Histories Allergies Allergies ?(Active and Proposed Allergies Only) Cortisporin? (Severity: Unknown severity, Onset: Unknown) Latex? (Severity: Unknown severity, Onset: Unknown) sulfamethoxazole? (Severity: Unknown severity, Onset: Unknown) ?Reactions: hives penicillin? (Severity: Unknown severity, Onset: Unknown) ?Reactions: hives ? Past Medical History/Problem List Active Problems??(17) Atrial fibrillation Breast lump present Carpal tunnel syndrome, bilateral Colonic polyp Core needle biopsy of breast Diabetes H/O colonoscopy, next due 2021 Hypertension Impaired Fasting Glucose Localized osteoarthritis of right ankle Major depressive disorder, single episode, mild MRSA (methicillin resistant staph aureus) culture positive Otitis externa, chronic Severe obesity (BMI 35.0-39.9) with comorbidity TIA [Transient ischemic attack] Tubular adenoma of colon - next colonoscopy due 2021 Ventricular tachycardia ? Past Surgical History Colonoscopy: 12/30/16 Colonoscopy: 01/14/12 ? Social History Alcohol Details:??Use: Never. Substance Abuse Details:??Use: Never. Tobacco Details:??Use: Current every day smoker. ??Type: Cigarettes. ? Family History Mother: CAD - Coronary artery disease; Hypertension Father: Diabetes mellitus type II Mat. Grandmother: Cancer of lung ? Medications Home Medications Acetaminophen (acetaminophen 500 mg oral tablet)?2?tab(s)?1,000?Milligram?By Mouth?Every 8 hours?for pain apixaban (Eliquis 5 mg oral tablet)?See Instructions?TAKE 1 TABLET BY MOUTH TWICE DAILY STOPPING WARFARIN Atorvastatin (atorvastatin 20 mg oral tablet)?1?tab(s)?By Mouth?Daily Atorvastatin (atorvastatin 20 mg oral tablet)?1?tab(s)?20?Milligram?By Mouth?Daily?TAKE 1 TABLET BY MOUTH DAILY Cetirizine (cetirizine 10 mg oral tablet)?1?tab(s)?10?Milligram?By Mouth?Daily Cholecalciferol (Vitamin D3 1000 intl units oral capsule)?1?capsule?25?Microgram?By Mouth?Daily?for 90?Days?with food Diclofenac Topical (Voltaren 1% topical gel)?2?gram?Topically?4 times a day?as needed?arthritis pain Docusate (Colace sodium 100 mg oral capsule)?100?Milligram?1?capsule?By Mouth?2 times a day?take twice a day to prevent constipation. dulaglutide (Trulicity Pen 0.75 mg/0.5 mL subcutaneous solution)?0.5?Milliliter?0.75?Milligram?Subcutaneous Injection?Every week Durable Medical Equipment (Freestyle Lite Monitor)?See Instructions?check daily fasting bloodsugar for type 2 DM. E11.9 Durable Medical Equipment (Alcohol Wipes)?See Instructions?cleanse skin before testing blood sugar Durable Medical Equipment (Freestyle Lite Lancets)?See Instructions?check daily fasting bloodsugar for type 2 DM. E11.9 Durable Medical Equipment (Freestyle Lite Test Strips)?See Instructions?check daily fasting blood sugar for type 2 DM. E11.9 Fluticasone Nasal (fluticasone 50 mcg/inh nasal spray)?See Instructions?SHAKE LIQUID AND USE 1 SPRAY IN EACH NOSTRIL TWICE DAILY Hydrochlorothiazide-Lisinopril (hydrochlorothiazide-lisinopril 25 mg-20 mg oral tablet)?1?tab(s)?By Mouth?Daily?TAKE 1 TABLET BY MOUTH DAILY HydrOXYzine (hydrOXYzine hydrochloride 50 mg oral tablet)?1?tab(s)?50?Milligram?By Mouth?4 times a day?as needed?for anxiety Ipratropium Nasal (ipratropium nasal 21 mcg/inh spray)?See Instructions?USE 2 SPRAYS IN EACH NOSTRIL TWICE DAILY IN EACH NOSTRIL, NEEDED CONGESTION Isopropyl Alcohol Topical (isopropyl alcohol 70% topical pad)?See Instructions?CLEANSE SKIN BEFORE TESTING BLOOD SUGAR Ketoconazole (ketoconazole 2% topical cream)?See Instructions?APPLY BENEATH BREAST AND GROIN AREAS TWICE DAILY Melatonin (melatonin 5 mg oral tablet)?1?tab(s)?5?Milligram?By Mouth?Daily at bedtime?for 30?Days?to help sleep Metoprolol (Metoprolol Succinate ER 50 mg oral tablet, extended release)?1?tab(s)?By Mouth?Daily Milk of Magnesia (Hurt Milk of Magnesia 8% oral suspension)?30?Milliliter?2.4?gram?By Mouth?Daily at bedtime?as needed?for constipation Omeprazole (omeprazole 20 mg oral enteric coated capsule)?1?capsule?20?Milligram?By Mouth?Daily?as needed?Dyspepsia?TAKE 1 CAPSULE BY MOUTH DAILY NEEDED ACID INDIGESTION PEG Electrolyte Solution (PEG-3350 with Electrolytes (Eqv-NuLYTELY) oral powder for reconstitution)?See Instructions?Mix powder withn water according to the product label.Drink 8 oz of prep fluid every 15-20 minutes ion the evening before the colonoscopy. Polyethylene Glycol 3350 (polyethylene glycol 3350 oral powder for reconstitution)?See Instructions?DISSOLVE 17 GM IN WATER EVERY DAY NEEDED FOR CONSTIPATION Potassium Chloride (Potassium Chloride (Hxk-Hped-Bwc 10) 10 mEq oral tablet, extended release)?1?tab(s)?10?Milliequivalent?By Mouth?Daily Psyllium (Metamucil 3.4 gm/5.2 gm oral powder for reconstitution)?1.7?gram?By Mouth?3 times a day?as needed?as needed for constipation?dissolve in 8 oz of fluid. drink plenty of water. Risperidone (risperiDONE 1 mg oral tablet)?1.5?Milligram?1.5?tablet?By Mouth?2 times a day Senna (senna 8.8 mg/5 mL oral syrup)?10?Milliliter?17.6?Milligram?By Mouth?Daily at bedtime?as needed?for constipation Triamcinolone Topical (triamcinolone 0.5% topical ointment)?See Instructions?APPLY TOPICALLY TO THE AFFECTED AREA TWICE DAILY FOR UP TO 14 DAYS FOR ECZEMA ? Results Recent Labs BLOOD COUNT & DIFF WBC 7.4 k/mm3 ()?? 03/13/2023 13:36 RBC 5.26 m/mm3 ()?? 03/13/2023 13:36 Hgb 13.9 Gm/dL ()?? 03/13/2023 13:36 Hct 43.8 % ()?? 03/13/2023 13:36 MCV 83.3 femtoliters ()?? 03/13/2023 13:36 MCH 26.4 pg (Low)?? 03/13/2023 13:36 MCHC 31.7 g/dL (Low)?? 03/13/2023 13:36 Platelet Count 267 k/mm3 ()?? 03/13/2023 13:36 RDW-SD 41.1 femtoliters ()?? 03/13/2023 13:36 MPV 9.9 femtoliters ()?? 03/13/2023 13:36 Nucleated RBC (Automated) 0.0 #/100 WBC'S ()?? 03/13/2023 13:36 Abs. NRBC 0.0 k/mm3 ()?? 03/13/2023 13:36 Abs. Neut 3.5 k/mm3 ()?? 03/13/2023 13:36 Abs. Lymph 3.2 k/mm3 (High)?? 03/13/2023 13:36 Abs. [place] 0.4 k/mm3 ()?? 03/13/2023 13:36 Abs. Eo 0.1 k/mm3 ()?? 03/13/2023 13:36 Abs. Baso 0.0 k/mm3 ()?? 03/13/2023 13:36 Neut % 47.9 % ()?? 03/13/2023 13:36 Lymph % 43.8 % (High)?? 03/13/2023 13:36 [place] % 5.9 % ()?? 03/13/2023 13:36 Eos % 1.6 % ()?? 03/13/2023 13:36 Baso % 0.4 % ()?? 03/13/2023 13:36 Imm Gran 0.4 % ()?? 03/13/2023 13:36 Abs. Imm Gran 0.0 k/mm3 ()?? 03/13/2023 13:36 ?? BLOOD GAS pH, Venous 7.39 ()?? 03/13/2023 14:30 ?? CARDIAC Nt-Probnp 54 pg/mL ()?? 03/13/2023 13:36 High Sensitivity Troponin (HSTnT) 16 ng/L (High)?? 03/13/2023 16:35 ?? CHEM GENERAL Sodium 141 mmol/L ()?? 03/13/2023 13:36 Potassium 3.4 mmol/L (Low)?? 03/13/2023 13:36 Chloride 96 mmol/L (Low)?? 03/13/2023 13:36 Bicarbonate Level 29 mmol/L ()?? 03/13/2023 13:36 Anion Gap 16 ()?? 03/13/2023 13:36 Glucose Level 99 mg/dL ()?? 03/13/2023 13:36 BUN 8 mg/dL ()?? 03/13/2023 13:36 Creatinine-Blood 1.0 mg/dL ()?? 03/13/2023 13:36 Estimated GFR Creatinine 68 ML/MIN/1.73 M2 ()?? 03/13/2023 13:36 Calcium 11.1 mg/dL (High)?? 03/13/2023 13:36 Magnesium 2.4 mg/dL (High)?? 03/13/2023 13:36 Protein, Total 8.1 Gm/dL ()?? 03/13/2023 13:36 Albumin 4.6 Gm/dL ()?? 03/13/2023 13:36 AG Ratio 1.3 ()?? 03/13/2023 13:36 Alkaline Phosphatase 247 units/L (High)?? 03/13/2023 13:36 Lipase 40 units/L ()?? 03/13/2023 13:36 AST (SGOT) 29 units/L ()?? 03/13/2023 13:36 ALT (SGPT) 28 units/L ()?? 03/13/2023 13:36 Bilirubin, Total 0.5 mg/dL ()?? 03/13/2023 13:36 Lactate 1.5 mmol/L ()?? 03/13/2023 16:35 POC ??HBA1C 6.0 % (High)?? 03/12/2023 08:54 ?? ENDOCRINE/TUMOR MARKER TSH 1.35 uIU/mL ()?? 03/13/2023 13:36 ?? HEME OTHER Hold Blue Top SPECIMEN DISCARDED AFTER 4 HOURS. ()?? 03/13/2023 13:36 ?? TOXICOLOGY/TDM Barbiturate Screen, Urine NONE DETECTED ()?? 03/13/2023 13:00 Cannabinoid Screen, Urine NONE DETECTED ()?? 03/13/2023 13:00 Cocaine Metabolite Screen, Urine NONE DETECTED ()?? 03/13/2023 13:00 Benzodiazepine Screen, Urine NONE DETECTED ()?? 03/13/2023 13:00 Amphetamine Screen, Urine NONE DETECTED ()?? 03/13/2023 13:00 Opiate Screen, Urine NONE DETECTED ()?? 03/13/2023 13:00 ?? UA/URINALYSIS Appear/Color, Urine COLORLESS ()?? 03/13/2023 13:00 Specific [place], Urine 1.005 ()?? 03/13/2023 13:00 pH, Urine 6.5 ()?? 03/13/2023 13:00 Albumin, Urine NEGATIVE ()?? 03/13/2023 13:00 Glucose, Urine NEGATIVE ()?? 03/13/2023 13:00 Ketones, Urine NEGATIVE ()?? 03/13/2023 13:00 Bilirubin, Urine NEGATIVE ()?? 03/13/2023 13:00 Hemoglobin, Urine NEGATIVE ()?? 03/13/2023 13:00 Nitrite, Urine NEGATIVE ()?? 03/13/2023 13:00 Leukocyte, Urine NEGATIVE ()?? 03/13/2023 13:00 Urobilinogen NORMAL mg/dL ()?? 03/13/2023 13:00 WBC's, Urine 1 /HPF ()?? 03/13/2023 13:00 RBC's, Urine NONE SEEN /HPF ()?? 03/13/2023 13:00 Bacteria SLIGHT HPF (Abnormal)?? 03/13/2023 13:00 Squamous Epith 2 /HPF ()?? 03/13/2023 13:00 Hold Urine Culture Testing available 48 hours from time of collection. ()?? 03/13/2023 13:00 ?? URINE OTHER Est Creatinine Clearance 53.92 mL/min ()?? 03/13/2023 15:12 ?? VIROLOGY COVID-19 by RT-PCR NEGATIVE ()?? 03/13/2023 17:45 ? RESULT: CT Angio Chest EXAMINATION: CT Angio Chest, CT Angio Abdomen and Pelvis? IMPRESSION:? 1. ??No aortic aneurysm or dissection. 2. ??Suspected high-grade stenosis of the LAD. Correlate with any symptoms of coronary artery disease. 3. ??1.5 cm hyperdense focus in the distal esophagus, likely retained pill. Correlate with history. EKG study * Event Display: EKG Authored Date: * Event Display: ECG 12-Lead Authored Date: Please click on pdf link to open report * Event Display: ECG 12-Lead Authored Date: Ventricular Rate: 66 BPM Atrial Rate: 66 BPM P-R Interval: 208 ms QRS Duration: 104 ms Q-T Interval: 398 ms QTC Calculation(Bazett): 417 ms P [place]: 64 degrees R [place]: 21 degrees T [place]: 35 degrees Normal sinus rhythm Normal ECG When compared with ECG of 13-MAR-2023 13:26, Sinus rhythm has replaced Atrial fibrillation QT has shortened Confirmed by WALDEMAR COLMENARES MD ([id number]) on 03/17/2023 1:11:24 PM [place]: WALDEMAR COLMENARES MD * Event Display: ECG 12-Lead Authored Date: Please click on pdf link to open report * Event Display: ECG 12-Lead Authored Date: Ventricular Rate: 97 BPM QRS Duration: 106 ms Q-T Interval: 390 ms QTC Calculation(Bazett): 495 ms R [place]: 10 degrees T [place]: 51 degrees Atrial fibrillation Minimal voltage criteria for LVH, may be normal variant ( Pepito product ) Nonspecific T wave abnormality Prolonged QT Abnormal ECG When compared with ECG of 08-MAR-2023 16:03, Atrial fibrillation has replaced Sinus rhythm Vent. rate has increased BY 42 BPM QT has lengthened Confirmed by TREE TORRES ([id number]) on 03/13/2023 1:58:59 PM [place]: TREE TORRES Heart * Event Display: Echocardiogram - Complete Authored Date: [id number] Transthoracic Echocardiography Report (TTE) Patient Demographics Patient Name BRITTANY ACOSTA Date of Study 03/14/2023 Corporate Gender Female Facility Race Black Ethnicity Date of 1960 Height: 65.35 inches Age 62 year(s) Weight: 218.26 pounds Accession Number [id number] BSA: 2.06 m2 Room Number [id number] BMI: 35.93 kg/m2 Referring Physician Negro Willingham Interpreting Jeanna Gordon MD PA Physician Business Office Technician Mellisa Jeramy Indications Chest pain. Clinical History Hypertension. Diabetes Mellitus. Atrial fibrillation. Obesity. TIA. vtach Study Data Type of Study TTE procedure:Echo Complete-Doppler, Colorflow, M-Mode. Study Date03/14/2023 Start Time: 08:41 AM Study Location: [facility] – [place] Adult Echo Study Status: Echo lab Patient Status: Routine Technical Quality: Adequate Blood Pressure:115/76 mmHg EKG: Normal sinus rhythm HR: 73 bpm 2D Measurements LV Diastolic Dimension: 5 cm LV Systolic Dimension: 3.2 cm LV Septum Diastolic: 0.9 cm LV PW Diastolic: 1 cm AO Root Dimension: 2.7 cm LA ESV (BP):59.1 ml LVOT Stroke Volume: 60.93 ml LA ESV Index: 29 ml/m2 Stroke Volume Index29.58 ml/m2 LVOT: 1.9 cm Cardiac Index:2.16 l/min/m2 Ascending Aorta:2.6 cm Doppler Measurements AV Peak Velocity: 163 cm/s MV Peak E-Wave: 67.5 cm/s AV Peak Gradient: 10.63 mmHg MV Peak A-Wave: 94.4 cm/s MV E/A Ratio: 0.72 LVOT Peak Velocity: 110 cm/s LVOT VTI21.5 cm MV Deceleration Time: 259 msec E' Septal Velocity: 6.42 cm/s PV Peak Velocity: 129 cm/s E' Lateral Velocity: 11.4 cm/s PV Peak Gradient: 6.66 mmHg E/Med E':10.96442 E/Lat E':[id number] Cardiac Anatomy Left Ventricle/Interventricular Septum The left ventricle is upper limit of normal in size. Ejection fraction is 50-60%. No definite wall motion abnormalities detected. Diastolic function could not be determined. Left Atrium/Interatrial Septum The left atrium is normal in size. Aortic Valve No significant regurgitation or stenosis. Mitral Valve No significant regurgitation. Aorta The ascending aorta and aortic root are normal in size when indexed. Right Ventricle The right ventricle is normal in size. Function is preserved. Right Atrium The right atrial size is at the upper limit of normal. Pulmonic Valve No significant regurgitation. Tricuspid Valve No significant regurgitation. Pumonary Artery An accurate pulmonary artery pressure could not be obtained. Venous Structures IVC is normal in size. Inspiratory collapse is normal. Pericardium/Extracardiac No significant pericardial effusion detected. Summary The left ventricle is upper limit of normal in size. Ejection fraction is 50-60%. No definite wall motion abnormalities detected. Diastolic function could not be determined. The left atrium is normal in size. The right ventricle is normal in size. Function is preserved. The right atrial size is at the upper limit of normal. Signature * Event Display: Echocardiogram - Complete Authored Date: Hospital Progress note * Megan Herrera RN: VERIFY, PERFORM, MODIFY, SIGN Event Display: Progress Note Hospital Authored Date: [id number] Patient: BRITTANY ACOSTA Age: 62 years Sex: Female : 1960 Associated Diagnoses: None Author: Megan Herrera RN Findings Problem Related to Alteration in Cardiac Function (new) : Alteration in Cardiac Function/new 03/18/2023 1:03 EDT Alteration in Cardiac Status Related to ACS, Chest pain Goals & Outcomes, Cardiac Status Pt will resume/maintain adequate cardiac output Cardiac Interventions Implemented Assess/monitor cardiac status BH Goals/Interventions, Cardiac Yes Cardiac, Problem Start 03/15/2023 19:00 Reviewed Plan with, Cardiac Status Patient Patient Progression, Cardiac Status Patient progressing according to plan . Evaluation Pt. admitted for chest pain. Pt. underwent CTA that showed LAD stenosis. Plan to follow up outpt. to consider investigation of coronary ischemia. Pt. A+Ox4, on RA, denies pain. Pt. planned on potential discharge today if no chest pain. Call batista within reach. See biophysical for further assessment.. * Fabio HARE, Bobby Cassidy: PERFORM Event Display: Progress Note Hospital Authored Date: Patient: ??BRITTANY ACOSTA ? Age:??62 Years?Sex:??Female?:??1960?? Subjective She denied having any chest pain or shortness of breath or any symptoms Appeared calm and comfortable??during encounter. Review of Systems As noted above Allergies Allergies ?(Active and Proposed Allergies Only) Cortisporin? (Severity: Unknown severity, Onset: Unknown) Latex? (Severity: Unknown severity, Onset: Unknown) sulfamethoxazole? (Severity: Unknown severity, Onset: Unknown) ?Reactions: hives penicillin? (Severity: Unknown severity, Onset: Unknown) ?Reactions: hives ? Objective Measurements?? Height: 166 cm (03/17/23) Weight: 100.4 kg (03/15/23) Dry Weight: 99 kg (03/15/23) Body Mass Index:??36.43 kg/m2??Critical (03/15/23) ? Vital Signs?? Temperature: 97.9 DegF (03/17/23 16:37:00) Temperature Route: Oral (03/17/23 16:37:00) Pulse Rate: 73 bpm (03/17/23 16:37:00) Respiratory Rate: 18 br/min (03/17/23 16:37:00) Systolic Blood Pressure: 115 mm Hg (03/17/23 16:37:00) Diastolic Blood Pressure: 59 mm Hg (03/17/23 16:37:00) Blood pressure sites: Arm, left (03/17/23 16:37:00) Mean Arterial Pressure: 78 mm Hg (03/17/23 16:37:00) Pulse Pressure: 56 mm Hg (03/17/23 16:37:00) Oxygen Saturation: 100 % (03/17/23 16:37:00) Mode of Delivery (Oxygen): Room air (03/17/23 16:37:00) Early Warning Score: 2 (03/17/23 16:39:28) ? Intake/Output? 03/13 12:33 03/17 07:00 03/16 07:00 03/15 07:00 03/14 07:00 ?? 03/17 18:20 03/17 18:20 03/17 06:59 03/16 06:59 03/15 06:59 Intake ?360 ?0 ?360 ?0 ?0 Output ? 1550 ?0 ? 1550 ?0 ?0 Net Total ?-1190 ?0 ?-1190 ?0 ?0 ? Urine Count ?2 ?0 ?0 ?2 ?0 ? Physical Exam Constitutional: Alert, in no acute distress. Mental Status: Oriented to person, place and time. Head: Normocephalic. Respiratory: Clear to auscultation Cardiovascular: Regular rate and rythm. Gastrointestinal: Abdomen soft, non-tender, non-distended. Normal bowel sounds.?? Neurologic: Lying in bed Appears alert and oriented x4??to her medical situation Musculoskeletal: No Leg edema?? _ Inpatient Medications Medications (24) Active SCHEDULED: (10) Apixaban 5 mg Tablet (Eliquis) ??5 mg, By Mouth, 2 times a day Aspirin 81 mg Chew Tablet (aspirin 81 mg oral tablet, chewable) ??81 mg, By Mouth, Daily Atorvastatin 20 mg Tablet (atorvastatin 20 mg oral tablet) ??20 mg, By Mouth, Daily Hydrochlorothiazide 25 mg Tablet (hydrochlorothiazide 25 mg oral tablet) ??25 mg, By Mouth, Daily Insulin Lispro 100 units/mL Inj (3mL) (Insulin LISPRO Sliding Scale) ??2-10 units, Subcutaneous Injection, 3 times a day before meals Lisinopril 20 mg Tablet (lisinopril 20 mg oral tablet) ??20 mg, By Mouth, Daily Metoprolol 50 mg XL Tablet (Metoprolol Succinate ER 50 mg oral tablet, extended release) ??50 mg, By Mouth, Daily NaCl 0.9% Flush 3ml (NaCL 0.9% Flush) ??3 mL, IV Push, Every 8 hours Pantoprazole 20 mg EC Tablet (pantoprazole 20 mg oral delayed release tablet) ??20 mg, By Mouth, Daily Risperidone 1 mg Tablet (risperiDONE 1 mg oral tablet) ??1.5 mg, By Mouth, 2 times a day CONTINUOUS: (0) PRN: (14) Acetaminophen 325 mg Tablet (Acetaminophen Tablet) ??650 mg, By Mouth, Every 4 hours Dextromethorphan-Guaifenesin 20 mg-200 mg/10 mL Liqu UD (Robitussin DM Liquid) ??10 mL, By Mouth, Every 4 hours Dextrose Inj Syringe (Dextrose 50% Inj Syringe (25Gm)) ??12.5 Gm, IV Push Slowly, Every 20 minutes Dextrose Inj Syringe (Dextrose 50% Inj Syringe (25Gm)) ??25 Gm, IV Push Slowly, Every 15 minutes Glucagon 1 mg Inj (Glucagon Inj) ??1 mg, Intramuscular, Once Glucose 40% Gel (15 Gm) (Glucose Gel) ??15 Gm, By Mouth, Every 20 minutes Glucose 40% Gel (15 Gm) (Glucose Gel) ??30 Gm, By Mouth, Every 20 minutes HydrOXYzine Pamoate 25mg Capsule (hydrOXYzine pamoate 25 mg oral capsule) ??50 mg, By Mouth, 4 times a day Melatonin 3 mg Tablet (Melatonin Tablet) ??3 mg, By Mouth, Daily at bedtime NaCl 0.9% Flush 3ml (NaCL 0.9% Flush) ??3 mL, IV Push, Every 8 hours Nitroglycerin 0.4 mg Sublingual Tablet (nitroglycerin 0.4 mg sublingual tablet) ??0.4 mg, Sublingual, Every 5 minutes Polyethylene Glycol 17 Gm Powder (MiraLax Powder) ??17 Gm 1 pack/packet, By Mouth, Daily Senna 8.6 mg / Docusate 50 mg tablet (Docusate/Senna Tablet) ??1 tablet, By Mouth, 2 times a day Simethicone 80 mg Chewable Tablet (Simethicone Tablet) ??80 mg, Chew, 3 times a day ? Assessment/Plan Chief Complaint: Pt arrives via EMS from home. Friend at the house called because pt began to act off On EMS arrival, patient answering some questions and following some commands. Very hard to get further history or S/S from patient ??62-year-old female with history of A-fib on Eliquis, diabetes, hypertension, TIA presents with chest pain. ?? Chest pain LAD stenosis on CTA chest Presentation atypical for ACS, onset was was while playing cards, nonexertional Troponin flat 17-16 EKG with nonspecific T wave changes 08/[address] angio chest negative for PE,however showed severe LAD stenosis. Also retained large pill in distal esophagus Echo without any wall motion abnormalities. Continue atorvastatin, metoprolol, aspirin Cardiology consulted and discussed options with the patient and patient opted to pursue medical management only at this time. Outpatient f/u with Cardiology negative troponins She had an episode of chest pain on 03/17, resolved with sublingual nitro Troponin negative EKG normal sinus rhythm without significant ST-T changes Continue overnight monitoring ?? Possible retained pill in the distal esophagus At home on potassium tablets Ct chest shows large pill in the distal esophagus, likely potassium supplement. DCed tablets at discharge and switch to powder form. Patient denies current chest/ abdominal pain or dysphagia. Patient has a pillbox with multiple tablets filled on the same chamber and recognizes pills based on their size and shape. None of the pills are as large as described on the CT. She recently is out of potassium supplements. ?? Atrial fibrillation Continue metoprolol and Eliquis ?? Hypertension Continue lisinopril and hydrochlorothiazide ?? Recent diagnosis of psychotic disorder Unclear psychotic disorder developed in the past year. She is being maintained on risperidone currently 1.5 mg twice daily. She has an outpatient MRI ordered for further work-up Continue risperidone and as needed hydroxyzine She was noted to be medically stable for discharge. However, family members were unable to be reached at. ax survey worker followed the patient and expressed concern about safety??for discharge to home alone.??Refer to social problems specialist note from 03/16. Psychiatric consultation requested and??they have completed consultation ??from their standpoint,??no plans for inpatient psychiatric admission??and have cleared her. Patient asked to talk to her ??over the phone while in room Discussed with her further @[phone] He reports??that patient having??auditory hallucinations, delusions, paranoid behavior??since July and for his own safety, he has moved out??and living with one of his??daughters. He said that??patient lives by herself??and he does not want to stay with her for his safety.?He states that he is living with??his daughter??and he can have one of his daughters check on herfrequently??if she is discharged home ?? Diabetes ?? On Trulicity at home currently on sliding scale insulin Sliding scale insulin? OMN: If no further episodes of chest pain, plan to discharge 03/18/2023 to home.?? Will await further recommendations from social problems specialist??if any. * Lyndsey Macias RN: PERFORM, SIGN, VERIFY Event Display: Progress Note Hospital Authored Date: Patient: BRITTANY ACOSTA Age: 62 years Sex: Female : 1960 Associated Diagnoses: None Author: Lyndsey Macias RN patient c/o CP that radiated towards the abd 12/28 made aware new orders placed for troponin, EKG and nitro, nitro given x1 with good effect. [id number] BS was noted to be 64 at lunch patient was given juice and crackers, recheck was 67, protocol followed and recheck was 88, made aware Consult note * Lisa Meek MD: PERFORM, MODIFY Event Display: Consultation Note Authored Date: Patient: ??BRITTANY ACOSTA ? Age:??62 Years?Sex:??Female?:??1960?? Chief Complaint/Reason for Consultation safety due to mental health issues History of Present Illness ?? Pt is a 62-year-old female??with a history of unspecified psychotic disorder, major depressive disorder, and unspecified neurocognitive impairment, as well with history??of A-fib on Eliquis, diabetes, hypertension, TIA??presents with chest pain. ?? Pt known to this service through previous consults and recent outpatient behavioral health consult. ?? Pt seen in her room using a walker to ambulate from the restroom. She reports she came to the hospital due to CP and feels well and hoping to go home. Pt reports she lives alone in [place] but reports daughter helps her with errands and cleaning. Pt reports she remembers seeing a psychiatrist afew weeks ago due to her depression. Pt reports she does want to go home and feels safe at home butdoes endorse she often hears her neighbors talking about her. She currently denies depression, denies SI/HI, denies current [facility], denies darron symptoms. She endorses she does feel confused from time to time. She is able to use her phone, family called during the interview as well. ?? Psychiatric History Past??and??current psychiatric diagnoses: Major depressive disorder,??unspecified psychotic disorder, unspecified neurocognitive impairment History of psychiatric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 Risperidone 1 mg Tablet (risperiDONE 1 mg oral tablet) ??1.5 mg, By Mouth, 2 times a day CONTINUOUS: (0) PRN: (14) Acetaminophen 325 mg Tablet (Acetaminophen Tablet) ??650 mg, By Mouth, Every 4 hours Dextromethorphan-Guaifenesin 20 mg-200 mg/10 mL Liqu UD (Robitussin DM Liquid) ??10 mL, By Mouth, Every 4 hours Dextrose Inj Syringe (Dextrose 50% Inj Syringe (25Gm)) ??12.5 Gm, IV Push Slowly, Every 20 minutes Dextrose Inj Syringe (Dextrose 50% Inj Syringe (25Gm)) ??25 Gm, IV Push Slowly, Every 15 minutes Glucagon 1 mg Inj (Glucagon Inj) ??1 mg, Intramuscular, Once Glucose 40% Gel (15 Gm) (Glucose Gel) ??15 Gm, By Mouth, Every 20 minutes Glucose 40% Gel (15 Gm) (Glucose Gel) ??30 Gm, By Mouth, Every 20 minutes HydrOXYzine Pamoate 25mg Capsule (hydrOXYzine pamoate 25 mg oral capsule) ??50 mg, By Mouth, 4 times a day Melatonin 3 mg Tablet (Melatonin Tablet) ??3 mg, By Mouth, Daily at bedtime NaCl 0.9% Flush 3ml (NaCL 0.9% Flush) ??3 mL, IV Push, Every 8 hours Nitroglycerin 0.4 mg Sublingual Tablet (nitroglycerin 0.4 mg sublingual tablet) ??0.4 mg, Sublingual, Every 5 minutes Polyethylene Glycol 17 Gm Powder (MiraLax Powder) ??17 Gm 1 pack/packet, By Mouth, Daily Senna 8.6 mg / Docusate 50 mg tablet (Docusate/Senna Tablet) ??1 tablet, By Mouth, 2 times a day Simethicone 80 mg Chewable Tablet (Simethicone Tablet) ??80 mg, Chew, 3 times a day ? Medications Started aspirin, lipitor,?? nitro Allergies Allergies ?(Active and Proposed Allergies Only) Cortisporin? (Severity: Unknown severity, Onset: Unknown) Latex? (Severity: Unknown severity, Onset: Unknown) sulfamethoxazole? (Severity: Unknown severity, Onset: Unknown) ?Reactions: hives penicillin? (Severity: Unknown severity, Onset: Unknown) ?Reactions: hives ? PCP Follow-Up/Heads-Up Follow for recurrence of chest pain, OP followup with Cardiology for elective cardiac cath if needed Monitor blood counts periodically to ensure no occult bleeding ?? Future Appointments 2022 1:30 PM EDT ?? Where: [facility] [place] [facility] Status: Pending Hospital Course Chief Complaint: Pt arrives via EMS from home. Friend at the house called because pt began to act off On EMS arrival, patient answering some questions and following some commands. Very hard to get further history or S/S from patient ?62-year-old female with history of A-fib on Eliquis, diabetes, hypertension, TIA presents with chest pain. ?Chest pain???resolved ??LAD stenosis on CTA chest; CAD ??Presentation atypical for ACS, onset was was while playing cards, nonexertional ??Troponin flat - EKG with nonspecific T wave changes ??08/2021 negative pharmacologic stress test ??CT angio chest negative for PE,however??showed severe LAD stenosis. Also retained large pill in distal esophagus (takes potassium tablets at home) ??Echo without any wall motion abnormalities. ??Continue aspirin, atorvastatin, metoprolol Cardiology consulted and discussed options with the patient and patient opted to pursue medical management only at this time. Outpatient f/u with Cardiology negative troponins On 03/17, complained of chest pain, which resolved with sublingual nitro, however EKG was reassuringand negative troponins. Continue PPI ?? Possible retained pill in the distal esophagus ??At home on potassium supplements History of GERD ??Ct chest shows large pill in the distal esophagus, likely potassium supplement. DCed tablets at discharge and switched to powder form. Patient denies current??chest/ abdominal pain or dysphagia. Patient has a pillbox with multiple tablets filled on the same chamber and recognizes pills based on their size and shape. ??None of the pills are as large as described on the CT. She recently is out of potassium supplements. ?? Atrial fibrillation?? Continue metoprolol and Eliquis Monitor blood counts periodically to ensure??no evidence of occult bleeding. ? Hypertension Continue lisinopril and hydrochlorothiazide ? Recent diagnosis of psychotic disorder, auditory hallucinations, paranoia behavior, delusions Unclear psychotic disorder developed in the past year. She is being maintained on risperidone currently 1.5 mg twice daily. She has an outpatient MRI ordered for further work-up Continue risperidone and as needed hydroxyzine Psychiatry consulted??on 03/17???from their standpoint, no need of inpatient psychiatric??admission and has cleared. ax survey worker followed the patient while in hospital. Discussed with her further @[phone] He reports??that patient having??auditory hallucinations, delusions, paranoid behavior??since July and for his own safety, he has moved out??and living with one of his??daughters. He said that??patient lives by herself??and he does not want to stay with her for his safety.?He states that he is living with??his daughter??and he can have one of his daughters check on herfrequently??if she is discharged home. Home with [facility] upon discharge ? Diabetes ?On Trulicity at home ? Objective Vital Signs?? Temperature: 97.8 DegF (03/16/23 07:56:00) Temperature Route: Oral (03/16/23 07:56:00) Pulse Rate: 69 bpm (03/16/23 07:56:00) Respiratory Rate: 18 br/min (03/16/23 07:56:00) Systolic Blood Pressure:??148 mm Hg??High (03/16/23 07:56:00) Diastolic Blood Pressure: 82 mm Hg (03/16/23 07:56:00) Blood pressure sites: Arm, left (03/16/23 07:56:00) Mean Arterial Pressure: 104 mm Hg (03/16/23 07:56:00) Pulse Pressure: 66 mm Hg (03/16/23 07:56:00) Oxygen Saturation: 100 % (03/16/23 07:56:00) Mode of Delivery (Oxygen): Room air (03/16/23 07:56:00) Early Warning Score: 2 (03/16/23 07:57:10) ? . Physical Exam Constitutional: Alert, in no acute distress. Mental Status: Oriented to person, place and time. Head: Normocephalic. Respiratory: Clear to auscultation Cardiovascular: Regular rate and rythm. Gastrointestinal: Abdomen soft, non-tender, non-distended. Normal bowel sounds.?? Neurologic: No new focal deficits, uses a walker at baseline. Musculoskeletal: No Leg edema?? Consultants ax survey worker, cardiology, Psych Pending Results Hold Lavender Tube (BB) ordered on 03/13/2023 Patient Instructions During this hospitalization you were??treated for: Chest pain ? You will go home with the following NEW medications: aspirin Nitroglycerin tablets ? The following medications were CHANGED : ? lipitor ?? The following medications were?? STOPPED: ? Activity changes: -?As tolerated. - Monitor for any stool color changes to watch for bleeding ?? Who to follow up with after being discharged from the hospital: -??Please follow up at your primary??care doctor's office in 1-2 weeks. - FOllow up with your behavioral health provider - Follow up with Cardiology as an outpatient as needed Home Health Face to Face *Denotes mandatory roberts ?? *I certify that this patient is under my care and that I or an allowed non- physician working with me had a face to face encounter with the patient on this date:??03/18/2023 10:23 ?? *The encounter with the patient was in whole, or in part, for the following medical condition, which is the primary diagnosis(es) for home health care:??Atrial fibrillation (I48.91) CAD (coronary artery disease) (I25.10) Chest pain (R07.9) Diabetes (E11.9) Hypertension (I10) Psychosis (F29) ? *Select the indications for the discipline/s that are being arranged for this patient. Nursing (select all that apply): [_] None [x_] Medication management (reconciliation, teaching)?? [x_] Chronic disease management?? [_] Wound care and treatment?? [_] Home safety evaluation [_] Administer SQ/IM/IV medications?? [_] Cath care?? [_] Drain care?? [_] Trach or GT care?? Other _ Occupation Therapy (select all that apply): [_] None [_] ADL Management [_] Fall prevention training [_] Energy conservation [_] Cognitive training Other _ Physical Therapy (select all that apply): [_] None [_] Functional mobility training [_] Home exercise program to strengthen [_] Increase ROM?? [_] Falls prevention training [_] Home maintenance program for chronic disease Other _ Speech Therapy (select all that apply): [_] None [_] Swallow evaluation and training [_] Speech and language training [_] Cognitive training to process, organize, and/or recall information Other _ ? *Homebound due to (select all that apply): [x_] Inability to leave home without assistance/supervision [_] Inability to ambulate without assistance [_] Pain [_] Decreased strength and endurance [x_] Unsteady gait [_] Severe SOB and fatigue [_] Impaired transfers [_] Inability to negotiate stairs [_] Limited weight bearing [_x] Mental status change? *Physician Signature: Bobby mccarthy MD ?? *By signing this, I certify that I have personally evaluated the patient and agree with the findings and recommendations as documented above. ? HealthFTF Results Discharge Labs BLOOD COUNT & DIFF WBC 7.4 k/mm3 ()?? 03/13/2023 13:36 RBC 5.26 m/mm3 ()?? 03/13/2023 13:36 Hgb 13.9 Gm/dL ()?? 03/13/2023 13:36 Hct 43.8 % ()?? 03/13/2023 13:36 MCV 83.3 femtoliters ()?? 03/13/2023 13:36 MCH 26.4 pg (Low)?? 03/13/2023 13:36 MCHC 31.7 g/dL (Low)?? 03/13/2023 13:36 Platelet Count 267 k/mm3 ()?? 03/13/2023 13:36 RDW-SD 41.1 femtoliters ()?? 03/13/2023 13:36 MPV 9.9 femtoliters ()?? 03/13/2023 13:36 Nucleated RBC (Automated) 0.0 #/100 WBC'S ()?? 03/13/2023 13:36 Abs. NRBC 0.0 k/mm3 ()?? 03/13/2023 13:36 Abs. Neut 3.5 k/mm3 ()?? 03/13/2023 13:36 Abs. Lymph 3.2 k/mm3 (High)?? 03/13/2023 13:36 Abs. [place] 0.4 k/mm3 ()?? 03/13/2023 13:36 Abs. Eo 0.1 k/mm3 ()?? 03/13/2023 13:36 Abs. Baso 0.0 k/mm3 ()?? 03/13/2023 13:36 Neut % 47.9 % ()?? 03/13/2023 13:36 Lymph % 43.8 % (High)?? 03/13/2023 13:36 [place] % 5.9 % ()?? 03/13/2023 13:36 Eos % 1.6 % ()?? 03/13/2023 13:36 Baso % 0.4 % ()?? 03/13/2023 13:36 Imm Gran 0.4 % ()?? 03/13/2023 13:36 Abs. Imm Gran 0.0 k/mm3 ()?? 03/13/2023 13:36 ?? BLOOD GAS pH, Venous 7.39 ()?? 03/13/2023 14:30 ? CARDIAC Nt-Probnp 54 pg/mL ()?? 03/13/2023 13:36 High Sensitivity Troponin (HSTnT) 16 ng/L (High)?? 03/13/2023 16:35 ?? CHEM GENERAL Sodium 141 mmol/L ()?? 03/13/2023 13:36 Potassium 4.4 mmol/L ()?? 03/14/2023 04:20 Chloride 96 mmol/L (Low)?? 03/13/2023 13:36 Bicarbonate Level 29 mmol/L ()?? 03/13/2023 13:36 Anion Gap 16 ()?? 03/13/2023 13:36 Glucose Level 99 mg/dL ()?? 03/13/2023 13:36 Glucose, POC 106 mg/dL (High)?? 03/16/2023 07:49 BUN 8 mg/dL ()?? 03/13/2023 13:36 Creatinine-Blood 1.0 mg/dL ()?? 03/13/2023 13:36 Estimated GFR Creatinine 68 ML/MIN/1.73 M2 ()?? 03/13/2023 13:36 Calcium 11.1 mg/dL (High)?? 03/13/2023 13:36 Magnesium 2.4 mg/dL (High)?? 03/13/2023 13:36 Protein, Total 8.1 Gm/dL ()?? 03/13/2023 13:36 Albumin 4.6 Gm/dL ()?? 03/13/2023 13:36 AG Ratio 1.3 ()?? 03/13/2023 13:36 Alkaline Phosphatase 247 units/L (High)?? 03/13/2023 13:36 Lipase 40 units/L ()?? 03/13/2023 13:36 AST (SGOT) 29 units/L ()?? 03/13/2023 13:36 ALT (SGPT) 28 units/L ()?? 03/13/2023 13:36 Bilirubin, Total 0.5 mg/dL ()?? 03/13/2023 13:36 Lactate 1.5 mmol/L ()?? 03/13/2023 16:35 ? ENDOCRINE/TUMOR MARKER TSH 1.35 uIU/mL ()?? 03/13/2023 13:36 ? HEME OTHER Hold Lavender Top SPECIMEN DISCARDED AFTER 24 HOURS. ()?? 03/14/2023 04:20 Hold Blue Top SPECIMEN DISCARDED AFTER 4 HOURS. ()?? 03/13/2023 13:36 ?? TOXICOLOGY/TDM Barbiturate Screen, Urine NONE DETECTED ()?? 03/13/2023 13:00 Cannabinoid Screen, Urine NONE DETECTED ()?? 03/13/2023 13:00 Cocaine Metabolite Screen, Urine NONE DETECTED ()?? 03/13/2023 13:00 Benzodiazepine Screen, Urine NONE DETECTED ()?? 03/13/2023 13:00 Amphetamine Screen, Urine NONE DETECTED ()?? 03/13/2023 13:00 Opiate Screen, Urine NONE DETECTED ()?? 03/13/2023 13:00 ?? UA/URINALYSIS Appear/Color, Urine COLORLESS ()?? 03/13/2023 13:00 Specific [place], Urine 1.005 ()?? 03/13/2023 13:00 pH, Urine 6.5 ()?? 03/13/2023 13:00 Albumin, Urine NEGATIVE ()?? 03/13/2023 13:00 Glucose, Urine NEGATIVE ()?? 03/13/2023 13:00 Ketones, Urine NEGATIVE ()?? 03/13/2023 13:00 Bilirubin, Urine NEGATIVE ()?? 03/13/2023 13:00 Hemoglobin, Urine NEGATIVE ()?? 03/13/2023 13:00 Nitrite, Urine NEGATIVE ()?? 03/13/2023 13:00 Leukocyte, Urine NEGATIVE ()?? 03/13/2023 13:00 Urobilinogen NORMAL mg/dL ()?? 03/13/2023 13:00 WBC's, Urine 1 /HPF ()?? 03/13/2023 13:00 RBC's, Urine NONE SEEN /HPF ()?? 03/13/2023 13:00 Bacteria SLIGHT HPF (Abnormal)?? 03/13/2023 13:00 Squamous Epith 2 /HPF ()?? 03/13/2023 13:00 Hold Urine Culture Testing available 48 hours from time of collection. ()?? 03/13/2023 13:00 ?? URINE OTHER Est Creatinine Clearance 53.92 mL/min ()?? 03/13/2023 15:12 ? VIROLOGY COVID-19 by RT-PCR NEGATIVE ()?? 03/13/2023 17:45 ? 29 minutes spent on discharge * Abelardo HO, Neelam Soriano: PERFORM Event Display: Patient Education/Instruction Authored Date: [id number] Inpatient Adult Discharge Instructions [address] [address] Name: BRITTANY ACOSTA : 1960 Visit: 03/13/2023 12:33:00 Current Date: 03/18/2023 11:22 Account: [id number] Inpatient Adult Discharge Instructions We would like to thank you for allowing us to assist you with your healthcare needs. The following includes patient education materials and information regarding your injury/illness. Our entire staffstrives to provide an excellent experience for our patients and their families. PLEASE ENSURE YOU FOLLOW-UP PER THE INSTRUCTIONS BELOW! ?? YOUR OPINION IS IMPORTANT TO US! Please complete the survey you may receive by mail or email. Your feedback will be used to make improvements to the healthcare experiences of our patients and their families. Surveys are administered by [employer] ?? If further treatment with your primary care physician or another doctor is recommended, it is important for you to keep the appointment. Call your primary care physician or return to the Emergency Department immediately if your condition worsens, fails to improve, or new symptoms develop. If you need to find a doctor, you can call [facility] for a referral at [phone] or toll free at [phone] ([phone]) or log in to [email or web address] ?? [facility], in keeping with [facility] guidance, no longer requires face masks for staff, patientsor visitors in most situations. Similiar to time spent indoors at other locations, there is the chance that you were exposed to repiratory viruses during your time with us (such as flu or COVID-19). If you develop symptoms concerning for a viral respiratory infection, please seek testing (and treatment if indicated) from your medical provider or home test kit. ?? You can view and manage your care through the patient portal or by using a health care tj of your choosing. [employer] is a website that allows you to securely view your medical information including your hospital discharge summary, office visit summaries, medications and follow-up visits. You can also request appointments, renew medications, and request access to your medical information using a health care tj of your choosing, or just ask a question. You can enroll at [email or web address] or register during your next office visit. You have been discharged from [facility], Patient Care Unit: S3. If you have any questions regarding these instructions after you leave, please call us and we will be happy to assist you. [facility] Your Care Team Attending Physician Fabio HARE, Bobby Cassidy Consulting Providers Lisa Meek MD Discharging Providers Fabio HARE, Bobby Cassidy Reason for Admission Pt arrives via EMS from home. Friend at the house called because pt began to act off On EMS arrival, patient answering some questions and following some commands. Very hard to get further history or S/S from patient Your Diagnosis Chest pain CAD (coronary artery disease) Hypertension Atrial fibrillation Psychosis Diabetes Tests Performed Below is a partial list of the tests performed during your hospitalization. You may have had other tests and procedures not included in this list. Please discuss all test results with your provider. Amphetamine Urine Screen Barbiturate Urine Screen Benzodiazepine Urine Screen Cannabinoid Urine Screen CBC w/ Differential Cocaine Urine Screen Comprehensive Metabolic Panel COVID-19 (Novel Coronavirus), Rapid PCR GLUCOSE POC High??Sensitivity??Troponin T Hold Blue Top Tube HOLD LAVENDER TUBE Lactate Level Lipase Magnesium Level Opiate Screen Urine PH, VENOUS BLOOD Potassium Level ProBNP Troponin T, High Sensitivity TSH with T4 Reflex (Adults Only) Urinalysis w/hold for Urine Culture CT Angio Abdomen and Pelvis CT Angio Chest Primary Care Provider Abiel Nickerson Advance Directive Health Care Proxy on File Yes - Health Care Proxy Discharge Vitals Temperature: 97.3 DegF Height: 166 cm Pulse Rate: 71 bpm Weight: 100.4 kg Respiratory Rate: 16 br/min Body Mass Index:??36.43 kg/m2??Critical Systolic Blood Pressure: 122 mm Hg Body surface area: 2.15 Diastolic Blood Pressure: 76 mm Hg ?? Oxygen Saturation: 97 % ?? Studies Pending All tests and labs ordered during this hospital stay have been completed unless listed below. Please discuss all pending results with your provider listed above in these instructions. ?? Hold Lavender Tube (BB) What to do next Instructions From Your Doctor During this hospitalization you were??treated for: Chest pain ? You will go home with the following NEW medications: aspirin Nitroglycerin tablets ? The following medications were CHANGED : ? lipitor ?? The following medications were?? STOPPED: ? Activity changes: -?As tolerated. - Monitor for any stool color changes to watch for bleeding ?? Who to follow up with after being discharged from the hospital: -??Please follow up at your primary??care doctor's office in 1-2 weeks. - FOllow up with your behavioral health provider - Follow up with Cardiology as an outpatient as needed Discharge Orders Diet:??Cardiac diet Scheduled Follow-Up Appointments 2022 1:30 PM EDT ?? Where: [facility] [place] [facility] Status: Pending You Need to Schedule the Following Appointments Follow Up with??Abiel Nickerson When:??In 1 week Why: To schedule f/u appointment as soon as possible Where: ?? Discharge Medications BRITTANY ACOSTA :1960 Visit Date:03/13/2023 Medications: Please continue your medications until treatment is completed or stopped by your provider. Medications not listed below should be discontinued. Discuss any questions related to medications with your provider. What How Much When Instructions Next Dose New Aspirin (aspirin 81 mg oral tablet, chewable) 81 Milligram Oral Daily Duration: 90 Days Refills: 2 Pickup at [facility] #[id number] 03/19 tomorrow morning New Nitroglycerin (nitroglycerin 0.4 mg sublingual tablet) 0.4 Milligram Sublingual Every 5 minutes as needed for Chest Pain Duration: 3 doses/times not to exceed 3 doses/ 15 min--if pain persists, seek medical attention ?? If chest pain not relieved in 5 minutes after first dose, seek immediate medical attention ?? Pickup at [facility] #[id number] as needed Changed Atorvastatin (Lipitor 40 mg oral tablet) 1 tab(s) Oral Daily Duration: 30 Days Pickup at [facility] #[id number] 03/19 tomorrow morning Changed Cetirizine (cetirizine 10 mg oral tablet) 1 tab(s) Oral Daily 03/19 tomorrow morning Changed Hydrochlorothiazide-Lisinopril (hydrochlorothiazide-lisinopril 25 mg-20 mg oral tablet) 1 tab(s) Oral Daily TAKE 1 TABLET BY MOUTH DAILY ?? 03/19 tomorrow morning Changed Metoprolol (Metoprolol Succinate ER 50 mg oral tablet, extended release) 1 tab(s) Oral Daily 03/19 tomorrow morning Changed Omeprazole (omeprazole 20 mg oral enteric coated capsule) 1 capsule Oral Daily as needed for Dyspepsia TAKE 1 CAPSULE BY MOUTH DAILY NEEDED ACID INDIGESTION ?? as needed Changed Potassium Chloride (potassium chloride 20 mEq oral powder for reconstitution) 10 Milliequivalent Oral Daily Duration: 30 Days Pickup at [facility] #[id number] 03/19 tomorrow morning Changed Psyllium (Metamucil 3.4 gm/ 5.2 gm oral powder for reconstitution) 1.7 gram Oral 3 times a day as needed for as needed for constipation dissolve in 8 oz of fluid. drink plenty of water. ?? as needed Changed Risperidone (risperiDONE 1 mg oral tablet) 1.5 tab(s) Oral Twice a day 03/18 ton Changed apixaban (Eliquis 5 mg oral tablet) See instructions TAKE 1 TABLET BY MOUTH TWICE DAILY STOPPING WARFARIN ?? 03/18 tonight Unchanged Acetaminophen (acetaminophen 500 mg oral tablet) 2 tab(s) Oral Every 8 hours for pain ?? 03/18 at 3pm Unchanged Cholecalciferol (Vitamin D3 1000 intl units oral capsule) 1 capsule Oral Daily Duration: 90 Days with food ?? 03/19 tomorrow morning Unchanged Diclofenac Topical (Voltaren 1% topical gel) 2 gram Topically 4 times a day as needed for arthritis pain as needed Unchanged Docusate (Colace sodium 100 mg oral capsule) 1 capsule Oral Twice a day take twice a day to prevent constipation. ?? 03/18 tonight Unchanged dulaglutide (Trulicity Pen 0.75 mg/ 0.5 mL subcutaneous solution) 0.5 Milliliter Subcutaneous Injection Every week resume home schedule Unchanged Fluticasone Nasal (fluticasone 50 mcg/ inh nasal spray) See instructions SHAKE LIQUID AND USE 1 SPRAY IN EACH NOSTRIL TWICE DAILY ?? 03/18 ton Unchanged HydrOXYzine (hydrOXYzine hydrochloride 50 mg oral tablet) 1 tab(s) Oral 4 times a day as needed for for anxiety as?? needed Unchanged Ipratropium Nasal (ipratropium nasal 21 mcg/ inh spray) See instructions USE 2 SPRAYS IN EACH NOSTRIL TWICE DAILY IN EACH NOSTRIL, NEEDED CONGESTION ?? as needed Unchanged Ketoconazole (ketoconazole 2% topical cream) See instructions APPLY BENEATH BREAST AND GROIN AREAS TWICE DAILY ?? 03/18 tonight Unchanged Melatonin (melatonin 5 mg oral tablet) 1 tab(s) Oral Daily at Bedtime Duration: 30 Days to help sleep ?? 03/18 tonight Unchanged Polyethylene Glycol 3350 (polyethylene glycol 3350 oral powder for reconstitution) See instructions DISSOLVE 17 GM IN WATER EVERY DAY NEEDED FOR CONSTIPATION ?? as needed Unchanged Triamcinolone Topical (triamcinolone 0.5% topical ointment) See instructions APPLY TOPICALLY TO THE AFFECTED AREA TWICE DAILY FOR UP TO 14 DAYS FOR ECZEMA ?? 03/18 tonight Pharmacy Information [facility] #[id number]: [address] [place], [place] [id number] [phone] ?? What How Much When Comments Stop Taking Mineral Oil (Fleet Mineral Oil Enema 100% rectal enema) 60 Milliliter Per rectum Once as needed for as needed for constipation Stop Taking zoster vaccine, inactivated (Shingrix intramuscular injection) 0.5 Milliliter Intramuscular Once repeat dose in 2 to 6 months ?? Test Results Below is a partial list of the most recent Laboratory test results done prior to this discharge. You may have had other tests and procedures not included in this list. Please discuss all test resultswith your provider. Est Creatinine Clearance - 53.92 mL/min (03/13/2023) Amphetamine Urine Screen (03/13/2023) ???Amphetamine Screen, Urine - NONE DETECTED Barbiturate Urine Screen (03/13/2023) ???Barbiturate Screen, Urine - NONE DETECTED Benzodiazepine Urine Screen (03/13/2023) ???Benzodiazepine Screen, Urine - NONE DETECTED Cannabinoid Urine Screen (03/13/2023) ???Cannabinoid Screen, Urine - NONE DETECTED CBC w/ Differential (03/13/2023) ???WBC - 7.4 k/mm3???RBC - 5.26 m/mm3???Hgb - 13.9 Gm/dL???Hct - 43.8 %???MCV - 83.3 femtoliters???MCH - 26.4 pg???MCHC - 31.7 g/dL???Platelet Count - 267 k/mm3???RDW-SD - 41.1 femtoliters???MPV - 9.9 femtoliters???Nucleated RBC (Automated) - 0.0 #/100 WBC'S???Abs. NRBC - 0.0 k/mm3???Abs. Neut - 3.5 k/mm3???Abs. Lymph - 3.2 k/mm3???Abs. [place] - 0.4 k/mm3???Abs. Eo - 0.1 k/mm3???Abs. Baso - 0.0 k/mm3???Neut % - 47.9 %???Lymph % - 43.8 %???[place] % - 5.9 %???Eos % - 1.6 %???Baso % - 0.4 %???Imm Gran- 0.4 %???Abs. Imm Gran - 0.0 k/mm3 Cocaine Urine Screen (03/13/2023) ???Cocaine Metabolite Screen, Urine - NONE DETECTED Comprehensive Metabolic Panel (03/13/2023) ???Sodium - 141 mmol/L???Potassium - 3.4 mmol/L???Chloride - 96 mmol/L???Bicarbonate Level - 29 mmol/L???Anion Gap - 16???Glucose Level - 99 mg/dL???BUN - 8 mg/dL???Creatinine-Blood - 1.0 mg/dL???Estimated GFR Creatinine - 68 ML/MIN/1.73 M2???Calcium - 11.1 mg/dL???Protein, Total - 8.1 Gm/dL???Album in - 4.6 Gm/dL???AG Ratio - 1.3???Alkaline Phosphatase - 247 units/L???AST (SGOT) - 29 units/L???ALT (SGPT) - 28 units/L???Bilirubin, Total - 0.5 mg/dL COVID-19 (Novel Coronavirus), Rapid PCR (03/13/2023) ???COVID-19 by RT-PCR - NEGATIVE GLUCOSE POC (03/18/2023) ???Glucose, POC - 111 mg/dL High??Sensitivity??Troponin T (03/13/2023) ???High Sensitivity Troponin (HSTnT) - 15 ng/L Hold Blue Top Tube (03/13/2023) ???Hold Blue Top - SPECIMEN DISCARDED AFTER 4 HOURS. HOLD LAVENDER TUBE (03/14/2023) ???Hold Lavender Top - SPECIMEN DISCARDED AFTER 24 HOURS. Lactate Level (03/13/2023) ???Lactate - 1.5 mmol/L Lipase (03/13/2023) ???Lipase - 40 units/L Magnesium Level (03/13/2023) ???Magnesium - 2.4 mg/dL Opiate Screen Urine (03/13/2023) ???Opiate Screen, Urine - NONE DETECTED PH, VENOUS BLOOD (03/13/2023) ???pH, Venous - 7.39 Potassium Level (03/14/2023) ???Potassium - 4.4 mmol/L ProBNP (03/13/2023) ???Nt-Probnp - 54 pg/mL Troponin T, High Sensitivity (03/17/2023) ???High Sensitivity Troponin (HSTnT) - 9 ng/L TSH with T4 Reflex (Adults Only) (03/13/2023) ???TSH - 1.35 uIU/mL Urinalysis w/hold for Urine Culture (03/13/2023) ???Appear/Color, Urine - COLORLESS???Specific [place], Urine - 1.005???pH, Urine - 6.5???Albumin, Urine - NEGATIVE???Glucose, Urine - NEGATIVE???Ketones, Urine - NEGATIVE???Bilirubin, Urine - NEGATIVE???Hemoglobin, Urine - NEGATIVE???Nitrite, Urine - NEGATIVE???Leukocyte, Urine - NEGATIVE???Urobilin ogen - NORMAL???WBC's, Urine - 1 /HPF???RBC's, Urine - NONE SEEN???Bacteria - SLIGHT???Squamous Epith - 2 /HPF???Hold Urine Culture - Testing available 48 hours from time of collection. Allergies (NKA means No Known Allergies) Cortisporin Latex penicillin??(hives) sulfamethoxazole??(hives) Problems Active Problems??(18) Atrial fibrillation?? Breast lump present?? Carpal tunnel syndrome, bilateral?? Colonic polyp?? Colonoscopy?? Core needle biopsy of breast?? Diabetes?? H/O colonoscopy, next due 2021?? Hypertension?? Impaired Fasting Glucose?? Localized osteoarthritis of right ankle?? Major depressive disorder, single episode, mild?? MRSA (methicillin resistant staph aureus) culture positive?? Otitis externa, chronic?? Severe obesity (BMI 35.0-39.9) with comorbidity?? TIA [Transient ischemic attack]?? Tubular adenoma of colon - next colonoscopy due 2021?? Ventricular tachycardia?? Education Materials Below is the list of Educational Leaflet Providered with your Discharge Instructions. Uncertain Causes of Chest Pain?? Nitroglycerin Sublingual Tablet?? Atorvastatin Oral Tablet?? Aspirin Chewable Tablet?? Valuables and Belongings I fully understand and agree that [facility] accepts no responsibility for all my personal property including clothing, toilet articles, radios, jewelry, dentures, hearing aids, rings, money, or any other property that is in my possession or is brought to me after admission. I understand certain valuables may be placed in a hospital safe for a short period of time. I understand that the hospital is not liable for loss or damage due to accident, fire, or other natural occurrence while said property is in the safe. I accept full responsibility for any personal property that I keep with me, and will not hold the hospital responsible in case of loss or disappearance. I acknowledge that i have been encouraged to send valuables and belongings home. ?? Review of Valuable and Belonging List: With patient Possessions released to: No ??Medical ??Advices Date for Pt to Sign Valuables/Belongings: 03/14/23 00:25:00 ?? Other Discharge Information ? Case Management Discharge Plan?? Discharge Plan?? Discharge Level of Care at Discharge: Home/Retirement/Foster Care ?? Pulmonary Rehab Status?? Pulmonary Rehab Discharge Status?? Respiratory Rate: 16 br/min ? Common Emergency Awareness Tips IS IT A STROKE? Act FAST and Check for these signs: FACE Does the face look uneven? ARM Does one arm drift down? SPEECH Does their speech sound strange? TIME Call at any sign of stroke ?? Heart Attack Signs Chest discomfort: Most heart attacks involve discomfort in the center of the chest and lasts more than a few minutes, or goes away and comes back. It can feel like uncomfortable pressure, squeezing, fullness or pain. Discomfort in upper body: Symptoms can include pain or discomfort in one or both arms, back, neck, jaw or stomach. Shortness of breath: With or without discomfort. Other signs: Breaking out in a cold sweat, nausea, or lightheaded. Remember, MINUTES DO MATTER. If you experience any of these heart attack warning signs, call to get immediate medical attention! ?? Smoking can increase your chances of developing chronic health problems and can cause harmful effects to other family members in your house. If you smoke, you are strongly encouraged to quit. Please call [facility] at [phone] or [phone] (0017) or log in to [email or web address] for referrals to smoking cessation programs. ?? 984 Suicide & Crisis Lifeline is available 10/02 if you or someone you know needs to find a reason to keep living. By calling 081 you'll be connected to a skilled, trained counselor at a crisis center in your area. INPATIENT DISCHARGE INSTRUCTIONS SIGNATURE BRITTANY JUAREZ Location:[facility] Registration Date and Time:03/13/2023 12:33 EDT Primary Care Physician: Abiel Nickerson, Attending Physician: Fabio HARE, Bobby Cassidy, I BRITTANY ACOSTA, have received the above patient education materials/instructions and have verbalized understanding. If ambulance or transport services are being used I further acknowledge being given a choice of service. ?? If you need to contact me, please call me at this number: . Patient/Straightening Press Operator Helper Name: Patient/Straightening Press Operator Helper Signature: Relationship to Patient: Witness Name/Signature: Date: * Abelardo HO, Neelam Soriano: PERFORM Event Display: Patient Education Leaflets Authored Date: Uncertain Causes of Chest Pain ?? [id number] Uncertain Causes of Chest Pain Chest pain can happen for a number of reasons. Sometimes the cause can't be determined. If your??condition does not seem serious, and your pain does not appear to be coming from your heart, your healthcare provider may recommend watching it closely. Sometimes the signs of a serious problem take more time to appear. Many problems not related to your heart can cause chest pain. These include: ??? Musculoskeletal. Costochondritis is an inflammation of the tissues around the ribs that can occur from trauma or overuse injuries, or a strain of the muscles of the chest wall. ??? Respiratory. Pneumonia, collapsed lung (pneumothorax), or inflammation of the lining of the chest and lungs (pleurisy). ??? Gastrointestinal. Esophageal reflux, heartburn, ulcers, or gallbladder disease. ??? Anxiety and panic disorders ??? Nerve compression and inflammation ??? Rare problems such as aortic aneurysm or aortic dissection (a swelling of the large artery coming out of the heart or a tear in the wall of the artery), or pulmonary embolism (a blood clot in the lungs). Home care After your visit, follow these recommendations: ??? Rest today and avoid strenuous activity. ??? Take any prescribed medicine as directed. ??? Be aware of any recurrent chest pain and notice any changes ?? Follow-up care Follow up with your healthcare provider if you don't start to feel better within 24 hours, or as advised. ?? Call 911 Call 911 if any of these occur: ??? A change in the type of pain: if it feels different, becomes more severe, lasts longer, or begins to spread into your shoulder, arm, neck, jaw or back ??? Shortness of breath or increased pain with breathing ??? Weakness, dizziness, or fainting ??? Rapid heartbeat ??? Crushing sensation in your chest ??? Coughing up more than a small amount of blood. ?? When to seek medical advice Call your healthcare provider right away if any of the following occur: ??? Cough with dark coloredsputum (phlegm) or small amount of blood ??? Fever of 100.4??F??(38??C) or higher, or as directed by your healthcare provider ??? Swelling, pain or redness in one leg ?? Last Reviewed Date: 2021 ?? 2372-9115 [employer]. All rights reserved. This information is not intended as a substitute for professional medical care. Always follow your healthcare professional's instructions. ?? * Abelardo HO, Neelam Soriano: PERFORM Event Display: Patient Education Leaflets Authored Date: [id number] Nitroglycerin Sublingual Tablet ?? 68509-01 Nitroglycerin Sublingual Tablet Brands: Nitrostat Uses This medicine is used for the following purposes: ??? angina ??? heart attack ?? Instructions Place the pill under the tongue and let it dissolve. Keep the medicine in its original container. Use 1 tablet 5-10 minutes before activity to try to prevent chest pain. Keep this medicine at room temperature. Protect from moisture and high humidity. Keep the medicine away from heat and light. Drug interactions can change how medicines work or increase risk for side effects. Tell your healthcare providers about all medicines taken. Include prescription and gfly-pff-dbrdrxm medicines, vitamins, and herbal medicines. Speak with your doctor or pharmacist before starting or stopping any medicine. Tell your doctor if symptoms do not get better or if they get worse. ?? Cautions Tell your doctor and pharmacist if you ever had an allergic reaction to a medicine. Do not use the medication any more than instructed. Your ability to stay alert or to react quickly may be impaired by this medicine. Do not drive or operate machinery until you know how this medicine will affect you. It is unknown if this medicine passes into breast milk. Ask your doctor before . During , this medicine should be used only when clearly needed. Talk to your doctor about the risks and benefits. Do not take this medicine with other medicines called PDE5 inhibitors (Viagra, Levitra, Cialis). Your doctor will let you know if it is safe for you to do so. Do not share this medicine with anyone who has not been prescribed this medicine. ?? Side Effects The following is a list of some common side effects from this medicine. Please speak with your doctor about what you should do if you experience these or other side effects. ??? dizziness ??? feeling of heat or flushing ??? headaches ??? low blood pressure ??? nausea Call your doctor or get medical help right away if you notice any of these more serious side effects: ??? fainting ??? rapid heartbeat A few people may have an allergic reaction to this medicine. Symptoms can include difficulty breathing, skin rash, itching, swelling, or severe dizziness. If you notice any of these symptoms, seek medical help quickly. ?? Extra Please speak with your doctor, nurse, or pharmacist if you have any questions about this medicine. ?? [email or web address] IMPORTANT NOTE: This document tells you briefly how to take your medicine, but it does not tell youall there is to know about it. Your doctor or pharmacist may give you other documents about your medicine. Please talk to them if you have any questions. Always follow their advice. There is a more complete description of this medicine available in [employer]. Scan this code on your smartphone or tablet or use the web address below. You can also ask your pharmacist for a printout. If you have any questions, please ask your pharmacist. The display and use of this drug information is subject to Terms of Use. Copyright(c) 2022 [employer]. ?? [employer]. All rights reserved. This information is not intended as a substitute for professional medical care. Always follow your healthcare professional's instructions. ?? * Abelardo HO, Neelam Soriano: PERFORM Event Display: Patient Education Leaflets Authored Date: [id number] Atorvastatin Oral Tablet ?? [id number] Atorvastatin Oral Tablet Brands: Lipitor Uses To lower high fat levels in blood. ?? Instructions This medicine may be taken with or without food. Keep the medicine at room temperature. Avoid heat and direct light. Avoid grapefruit and grapefruit juice while on this medicine. It is important that you keep taking each dose of this medicine on time even if you are feeling well. If you forget to take a dose on time, take it as soon as you remember. If it is less than 12 hours to the next dose, do not take the missed dose. Return to your normal dosing schedule. Do not take 2 doses of this medicine at one time. Drug interactions can change how medicines work or increase risk for side effects. Tell your healthcare providers about all medicines taken. Include prescription and zhzt-qva-wvchvsa medicines, vitamins, and herbal medicines. Speak with your doctor or pharmacist before starting or stopping any medicine. It is very important that you follow your doctor's instructions for all blood tests. ?? Cautions Tell your doctor and pharmacist if you ever had an allergic reaction to a medicine. Do not use the medication any more than instructed. Please check with your doctor before drinking alcohol while on this medicine. Do not breastfeed while on this medicine. During , this medicine should be used only when clearly needed. Talk to your doctor about the risks and benefits. Do not share this medicine with anyone who has not been prescribed this medicine. ?? Side Effects Call your doctor or get medical help right away if you notice any of these more serious side effects: ??? signs of kidney damage (such as change in urine color or bubbly urine) ??? signs of liver damage (such as yellowing of eye or skin, dark urine, or unusual tiredness) ??? muscle pain ??? nausea ??? stomach upset or abdominal pain A few people may have an allergic reaction to this medicine. Symptoms can include difficulty breathing, skin rash, itching, swelling, or severe dizziness. If you notice any of these symptoms, seek medical help quickly. ?? Extra Please speak with your doctor, nurse, or pharmacist if you have any questions about this medicine. ?? [email or web address] IMPORTANT NOTE: This document tells you briefly how to take your medicine, but it does not tell youall there is to know about it. Your doctor or pharmacist may give you other documents about your medicine. Please talk to them if you have any questions. Always follow their advice. There is a more complete description of this medicine available in [employer]. Scan this code on your smartphone or tablet or use the web address below. You can also ask your pharmacist for a printout. If you have any questions, please ask your pharmacist. The display and use of this drug information is subject to Terms of Use. Copyright(c) 2022 [employer]. ?? [employer]. All rights reserved. This information is not intended as a substitute for professional medical care. Always follow your healthcare professional's instructions. ?? Patient Care team information Care Team Personnel Name: Abiel Nickerson Position: [facility] PCO Associate Professional Member Role: PCP Address: Address: [address] [place] [id number] Name: Germania Wynn RN Position: [facility] RN Member Role: Primary Care Nurse Name: Bertha Valdes RN Position: S RN Member Role: Primary Care Nurse Name: Jennifer Rodriguez RN Position: [facility] RN Member Role: Primary Care Nurse Name: Lyndsey Macias RN Position: [facility] RN Member Role: Primary Care Nurse Name: Paresh MONGE Attending Position: [facility] ED Medicine MD Name: Edith Moore Position: [facility] ED TA [facility] Member Role: Patient Care Provider Name: Max Aldana RN Position: [facility] ED RN W/OE and Tasks Member Role: Patient Care Provider Care Team Related Persons Name: KINGA ACOSTA Address: [facility] [address] [place] [id number] Name: VELVET ACOSTA Address: [place] [address]
--- OUTSIDE RECORDS SUMMARY | 2023-07-02 19:13 | XMS_ITS | Continuity of Care Document ---
Author Name Unknown Organization [facility] ter Address [address] [place] [address]- Care Team Providers Care Cloth Washer Operator Name Role Phone Abiel Nickerson Primary Care Physician [facility] Date[facility]): [facility]23 - 06/17/[address] [address]- Discharge Disposition: A-D/C Home Attending Physician: Marine Knox DO Admitting Physician: Marine Knox DO Referring Physician: Not on Staff, Referring MD Allergies, Adverse Reactions, Alerts Substance Reaction Severity Status penicillin hives Active sulfamethoxazole hives Active Cortisporin Active Latex Active Immunizations Given and Recorded Vaccine Date Status Refusal Reason SARS-CoV-2 mRNA ([id number]) vax 08/28/21 Given influenza virus vaccine, inactivated [...] tablet, 1 Refills, Maintenance, 02/04/23 12:49:00 EDT, [facility] #[id number], Partial fill upon patient request if the prescriptionis for a schedule II opioid drug., 175, cm, ... Start Date: 02/04/23 Status: Ordered aspirin 81 mg oral tablet, chewable 81 mg, By Mouth, Daily, # 30 tablet, Refills 2, Tot. Refills 2, Maintenance, 03/18/23 9:59:00 EDT, Route to Pharmacy Electronically, [facility] #[id number], Partial fill upon patient request if the prescription is for a schedule II opioid drug.,... Start Date: 03/18/23 Stop Date: 12/13/23 Status: Ordered benzonatate 100 mg oral capsule 1 capsule = 100 mg, By Mouth, 3 times a day, PRN as needed for cough, # 30 capsule, 0 Refills, Maintenance, 04/18/23 17:45:00 EDT, Capsule, [facility] #[id number], Partial fill upon patient request if the [...] 03/12/23 9:37:00 EDT, Route to Pharmacy Electronically, [facility] #[id number], Partial fill upon patien... Start Date: 03/12/23 Status: Ordered Eliquis 5 mg oral tablet See Instructions, TAKE 1 TABLET BY MOUTH TWICE DAILY STOPPING WARFARIN, # 60 tablet, 11 Refills, Maintenance, 05/01/23 17:19:00 EDT, [facility] #[id number], 166, cm, 05/01/23 16:30:00 EDT, Height, 99, kg, 03/15/23 11:34:00 EDT, Dry Weight Start Date: 05/01/23 Status: Ordered fluocinolone 0.01% otic solution See Instructions, Instill 2 drops into affected ear twice a week, as needed., # 20 mL, 0 Refills, Maintenance, 05/01/23 17:04:00 EDT, [facility] #[id number], Partial fill upon patient request ifthe prescription is for a schedule II opioid drug.,... Start Date: 05/01/23 Status: Ordered fluticasone 50 mcg/inh nasal spray See Instructions, SHAKE LIQUID AND USE 1 SPRAY IN EACH NOSTRIL TWICE DAILY, # 16 Gm, 0 Refills, Maintenance, [facility] #[id number], 30, SHAKE LIQUID AND USE 1 SPRAY [...] Mouth, Daily, TAKE 1 TABLET BY MOUTH DAILY, # 30 tablet, 11 Refills, Maintenance, 05/01/23 17:24:00 EDT, Tablet, [facility] #[id number], Partial fill upon patient request if the prescription is for a schedule II opioid drug., 1 table... Start Date: 05/01/23 Status: Ordered hydrOXYzine hydrochloride 50 mg oral [...] IN EACH NOSTRIL, NEEDED CONGESTION, #30 mL, 3 Refills, Maintenance, 05/01/23 17:20:00 EDT, [facility] #[id number], 30, USE 2 SPRAYSIN EACH NOSTRIL TWICE DAILY IN EACH NOSTRIL, NEE... Start Date: 05/01/23 Status: Ordered isopropyl alcohol 70% topical pad See Instructions, CLEANSE SKIN BEFORE TESTING BLOOD SUGAR, # 100 Unknown, 5 Refills, Maintenance, 03/26/23 18:08:00 EDT, [facility] #[id number], 30, CLEANSE SKIN BEFORE TESTING BLOOD SUGAR, 166,cm, 03/18/23 7:51:00 EDT, Height, 99, kg, 03/15/23... Start Date: 03/26/23 Status: Ordered ketoconazole 2% topical cream See Instructions, APPLY BENEATH BREAST AND GROIN AREAS TWICE DAILY, # 120 Gm, 2 Refills, Maintenance, 03/12/23 9:33:00 EDT, [facility] #[id number], 30, APPLY BENEATH BREAST AND GROIN AREAS TWICEDAILY, 175, cm, 03/12/23 8:47:00 EDT, Height, 100.5... Start Date: 03/12/23 Status: Ordered lactulose 10 gm/15 ml oral syrup 15 mL = 10 Gm, By Mouth, Daily, PRN as needed for constipation, # 480 mL, 0 Refills, Acute :02:00 EST, 06/17/23 7:02:00 EST, Syrup, [facility] #[id number], Partial fill upon patient request if the prescription is for a schedule II opioi... Start Date: 06/17/23 Stop Date: 06/18/24 Status: Ordered Lipitor 40 mg oral tablet 1 tablet = 40 mg, By Mouth, Daily, # 30 tablet, 11 Refills, Maintenance, 05/01/23 17:20:00 EDT, Tablet, [facility] #[id number], Partial fill upon patient request if the prescription is for a schedule II opioid drug., 166, cm, 05/01/23 16:30:00 ED... Start Date: 05/01/23 Stop Date: 04/25/24 Status: Ordered magnesium citrate 8.85% oral liquid 150 mL = 8.725 Gm, By Mouth, Once, # 300 mL, 0 Refills, Soft Stop, 06/17/23 7:02:00 EST, Liquid, [facility] #[id number], Partial fill upon patient request if the prescription is for a schedule II opioid drug., 150 mL By Mouth Once, 175, cm, 06/16... Start Date: 06/17/23 Status: Ordered Metoprolol Succinate ER 50 mg oral tablet, extended release 1 tablet, By Mouth, Daily, # 90 tablet, 3 Refills, Maintenance, 02/04/23 12:35:00 EDT, [facility] #[id number], 175, cm, 01/20/23 10:13:00 EDT, Height, 108.5, [...] ACID INDIGESTION., # 90 capsule, 0 Refills, Maintenance,06/13/23 17:30:00 EST, [facility] #[id number], 166, cm, 05/05/23 20:17:00 EDT, Height, 99, kg,03/15/23 11:34:00 EDT, Dry Weight Start Date: 06/13/23 Status: Ordered PEG-3350 with Electrolytes (Eqv-NuLYTELY) oral powder for reconstitution See Instructions, Mix powder withn water according to the product label. Drink 8 oz of prep fluid every 15-20 minutes ion the evening before the colonoscopy., # 1 each, 0 Refills, Maintenance, 08/26/22 11:04:00 EST, [facility] #[id number], Parti... Start Date: 08/26/22 Status: Ordered polyethylene glycol 3350 oral powder for reconstitution See Instructions, DISSOLVE 17 GM IN WATER EVERY DAY NEEDED FOR CONSTIPATION, # 510 Gm, 1 Refills, Maintenance, 05/01/23 17:21:00 EDT, [facility] #[id number], 30, DISSOLVE 17 GM IN WATER EVERYDAY NEEDED FOR CONSTIPATION, 166, cm, 05/01/23 1... Start Date: 05/01/23 Status: Ordered potassium chloride 20 mEq oral powder for reconstitution = 10 mEq, By Mouth, Daily, # 30 pack/packet, 0 Refills, Maintenance, 03/18/23 9:58:00 EDT, REC Powder, [facility] #[id number], Partial fill upon patient request if the [...] ECZEMA, # 60 Gm, 1 Refills, Maintenance, 05/01/23 17:23:00 EDT, [facility] #[id number], APPLY TOPICALLY TO THE AFFECTED AREA TWICE DAILY FOR UP TO 14 DAYS FO... Start Date: 05/01/23 Status: Ordered Vitamin D3 1000 intl units oral capsule 1 capsule = 25 mcg, By Mouth, Daily, with food, # 90 capsule, 3 Refills, Maintenance, 02/03/23 17:53:00 EDT, [facility] #[id number], Partial fill upon patient request if the prescription is for a schedule II opioid drug., 175, cm, 01/20/23 10:13:... Start Date: 02/03/23 Stop Date: 01/29/24 Status: Ordered Voltaren 1% topical gel = 2 Gm, Topically, 4 times a day, PRN arthritis pain, # 150 Gm, 3 Refills, Maintenance, 08/28/21 9:02:00 EST, [facility] #[id number], Partial fill upon patient request if the [...] depressive disorder, single episode, mild Confirmed Active Obese class I Confirmed Active Localized osteoarthritis of right ankle Confirmed Active Tubular adenoma of colon - next colonoscopy due 2021 Confirmed 01/09/17 Active Ventricular tachycardia Confirmed Active 1Tubular Adenoma < 1 cm. F/u in December 2016. 2per GI message after colonosocpy, 2 tubular adenomas so repeat 5 years- which is due in 2021 Results Radiology Reports * Exam Date Time Procedure Performing Provider Status 06/17/23 6:[address] Abd/Pelvis W/ IV Contrast Only Noy Atkins; Auth (Verified) Notes: (CT Abd/Pelvis W/ IV Contrast Only) Reason For Exam: RLQ abdominal pain;Other: RESULT: CT Abd/Pelvis W/ IV Contrast Only CT Abd/Pelvis W/ IV Contrast Only INDICATION: ABD pain; Reason: Other:; RLQ abdominal pain; Clinical Question(s): Appendicitis; OrderComment: TECHNIQUE: Spiral CT through the abdomen and pelvis with IV contrast formatted in 3 planes. 100 cc of Omnipaque 300 was administered intravenously. This study was performed without oral contrast. Weight-based protocol using automatic tube modulation was used to optimize exposure parameters. CTDIvol Body: 18.90 mGy, DLP Body: 1006 mGy*cm. COMPARISON: CT abdomen and pelvis 03/09/2023 and 08/21/2019 FINDINGS: Lamina Searcher View Findings, Lines and Tubes: None. Visualized Chest: Lung bases are clear. No pleural effusion. The heart is normal in size. No pericardial effusion. Diaphragm: Normal. Liver: Subcentimeter hypodensity left hepatic lobe is too small to characterize and unchanged from 2020.. Gallbladder: No CT evidence of gallbladder pathology. Bile ducts: No biliary ductal dilation. Spleen: Normal. Pancreas: Normal. Adrenal glands: Normal. Kidneys and ureters: No hydronephrosis, stones, or suspicious masses. Bladder: Normal. Reproductive organs: Status post hysterectomy. Stomach, small bowel, and large bowel: Normal. Appendix: Normal. Peritoneum and retroperitoneum: No ascites or pneumoperitoneum. No omental or mesenteric lesions. Lymph nodes: No enlarged lymph nodes. Blood vessels: Moderate atherosclerotic vascular calcification. No aortic aneurysm. No evidence of venous thrombosis. Abdominal and pelvic wall: Unremarkable. Bones: Mild degenerative changes of the thoracolumbar spine. IMPRESSION: No acute intra-abdominal pathology. I have personally reviewed the images and I agree with this report. WSN: [id number] Ordering Physician: Verena Gore Dictated By: Michelle King MD Dictated Date/Time: 06/17/23 7:49 am Reviewed By: Cuate Coyle MD Signed By: Cuate Coyle MD Signed Date/Time: 06/17/23 7:54 am Transcribed By: STANLEY Transcribed Date/Time: 06/17/23 6:39 am Vital Signs Most recent to oldest [Reference Range]: 1 2 3 Height 175 cm (06/16/23 8:37 PM) 175 cm (06/16/23 6:26 PM) Weight 100 kg (06/16/23 8:37 PM) 100 kg (06/16/23 6:26 PM) Oxygen Saturation [94-100 %] 100 % (06/17/23 2:59 AM) 99 % (06/17/23 1:20 AM) 100 % (06/16/23 6:26 PM) Pulse Rate [55-90 bpm] 65 bpm (06/17/23 2:59 AM) 68 bpm (06/17/23 1:20 AM) 74 bpm (06/16/23 6:26 PM) Body Mass Index [18.5-24.99 kg/m2] 32.65 kg/m2 *>HHI* (06/16/23 6:26 PM) Blood Pressure [90-138/55-84 mm Hg] 136/80mm Hg (06/17/23 2:59 AM) 153/85mm Hg *H* (06/17/23 1:20 AM) 151/77mm Hg *H* (06/16/23 6:26 PM) Respiratory Rate [16-30 br/min] 16 br/min (06/17/23 2:59 AM) 16 br/min (06/17/23 1:20 AM) 24 br/min (06/16/23 6:26 PM) Temperature [96.8-100.4 DegF] 97.4 DegF (06/17/23 2:59 AM) 97.8 DegF (06/17/23 1:20 AM) 98.0 DegF (06/16/23 6:26 PM) Mode of Delivery (Oxygen) Room air (06/17/23 2:59 AM) Room air (06/17/23 1:20 AM) Room air (06/16/23 6:26 PM) Blood pressure sites Arm, left (06/17/23 2:59 AM) Arm, left (06/17/23 1:20 AM) Arm, left (06/16/23 6:26 PM) Temperature Route Oral (06/17/23 2:59 AM) Oral (06/17/23 1:20 AM) Oral (06/16/23 6:26 PM) Weight Obtained Via Patient/family state d (06/16/23 6:26 PM) Social History Social History Type Response Smoking Status Current every day sm oker; Type: Cigarettes entered on: 10/29/13 Sex Female EKG study * Event Display: EKG Authored Date: Patient Care team information Care Team Personnel Name: Abiel Nickerson Position: [facility] PCO Associate Professional Member Role: PCP Address: Address: [address] [place] [address] [place] [address]- Name: Germania Wynn RN Position: [facility] RN Member Role: Primary Care Nurse Name: Bertha Valdes RN Position: [facility] RN Member Role: Primary Care Nurse Name: Jennifer Rodriguez RN Position: [facility] RN Member Role: Primary Care Nurse Name: Verena Gore DO Position: [facility] Resident Member Role: ED Resident Address: Address: [address] [place] [address] Name: Isha Crouch RN Position: [facility] ED RN W/OE and Tasks Member Role: Patient Care Provider Name: Marine Knox DO Position: [facility] ED Medicine MD Member Role: ED Attending Physician Address: Address: [address] [place] [address] [place] [address]- Care Team Related Persons Name: KINGA ACOSTA Address: [address] [address] Name: VELVET [place]COSTA Address: [place] [address]
--- OUTSIDE RECORDS SUMMARY | 2023-07-02 19:13 | XMS_ITS | Continuity of Care Document ---
Author Name Unknown Organization [facility] Address [address] [place] [address]- Care Team Providers Care Tankage Grinder Operator Name Role Phone Abiel Nickerson Primary Care Physician [phone] [facility] Date[facility]s): 08/18/19 - 08/28/19 [facility] [address] [place] [address]- [facility] Attending Physician: Admtr, Ar8 Allergies, [...] 08/04/19 10:07:00 EST, Route to Pharmacy Electronically, [facility] #[id number], 176, cm, 08/04... Start Date: 08/04/19 Status: [...] 11 Refills, Maintenance, Route to Pharmacy Electronically, [id number], [facility] [id number] Start Date: 01/19/19 Status: Ordered bacitracin/neomycin/polymyxin B topical 400 u-3.5 mg-5000 u/gm ointment 1 application, Topically, 2 times a day, # 30 Gm, 0 Refills, Maintenance, 08/04/19 10:09:00 EST, Ointment, [facility] #[id number], 1 application Topically 2 times a day, 176, cm, 08/04/19 9:12:00 EST, Height, 124, kg, 04/07/18 17:51:00 EDT, Dry W... Start Date: 08/04/19 Status: Ordered cetirizine 10 mg oral tablet 1 tablet = 10 mg, By Mouth, Daily, # 30 tablet, 5 Refills, Maintenance, 08/18/19 10:35:00 EST, Tablet, [facility] #[id number], 176, cm, 08/18/19 9:16:00 EST, Height, 124, [...] each, 2 Refills, Maintenance, 08/24/18 16:36:46 EST, [place], 1 sprays Nares, Both 2 times a [...] Date: 09/16/18 Stop Date: 10/28/18 Status: Ordered nitroglycerin 0.4 mg sublingual tablet 1 tablet = 0.4 mg, Sublingual, Every 5 minutes, PRN for chest pain, If chest pain not relieved in 5minutes after first dose, seek immediate medical attention, # 1 tablet, 0 Refills, Maintenance, 08/19/16 10:23:57, Tablet Start Date: 08/19/16 Status: Ordered nystatin topical 246953 u/gm powder 1 application, Topically, 2 times a day, for rash under breasts, # 60 Gm, 1 Refills, Maintenance, 04/20/19 11:09:55 EDT, Powder, 1 application Topically 2 times a day,Instr:for rash under breasts Start Date: 04/20/19 Status: Ordered omeprazole 20 mg oral enteric coated capsule 1 capsule = 20 mg, By Mouth, Daily, prn acid indigestion, # 30 capsule, 2 Refills, Maintenance, 05/04/19 8:34:32 EDT, EC Capsule Start Date: 05/04/19 Stop Date: 08/02/19 Status: Ordered potassium chloride 20 mEq oral tablet, extended release 1 tablet = 20 mEq, By Mouth, Daily, # 90 tablet, 1 Refills, Maintenance, 01/12/19 17:42:00 EDT Start Date: 01/12/19 Status: Ordered Toprol XL 50 mg oral tablet, extended release 50 mg, 1, tablet, By Mouth, Daily, # 60 tablet, Refills 11, Tot. Refills 11, Maintenance, 12/01/18 8:44:39 EDT, Route to Pharmacy Electronically, [id number], [facility] [id number] Start Date: 12/01/18 Status: Ordered triamcinolone 0.025% topical cream 1 applicator, Topically, 3 times a day, apply a thin film for eczema, # 30 Gm, 3 Refills, Maintenance, 08/18/19 10:35:00 EST, [facility] #[id number], 1 applicator Topically 3 times a day,Instr:apply [...]
--- OUTSIDE RECORDS SUMMARY | 2023-07-02 19:13 | XMS_ITS | Continuity of Care Document ---
Author Name Unknown Organization [facility] Address [address] [place] [address]- Care Team Providers Care Riveter Name Role Phone Abiel Nickerson Primary Care Physician [phone] [facility]): 12/18[facility]22 - 01/29/23 [facility] [address] [place] [address]- Attending Physician: Satish Fabian MD Admitting Physician: Satish Fabian MD Allergies, Adverse Reactions, Alerts Substance Reaction Severity Status penicillin hives Active sulfamethoxazole hives Active Latex Active Cortisporin Active Immunizations Given and Recorded Vaccine Date Status Refusal Reason SARS-CoV-2 mRNA (bacvltp-hpol-cebrq) vax 08/28/21 Given influenza virus vaccine, inactivated [...] Daily, # 90 tablet, 3 Refills, Maintenance, 09/30/22 10:07:00 EDT, [facility] #[id number], 170, cm, 09/30/22 9:28:00 EDT, Height, 113, kg, 08/28/21 19:48:00 EST, Dry Weight Start Date: 09/30/22 Status: Ordered atorvastatin 20 mg oral tablet 1 tablet = 20 mg, By Mouth, Daily, TAKE 1 TABLET BY MOUTH DAILY Start Date: 12/10/22 Status: Ordered cetirizine 10 mg oral tablet 1 tablet, By Mouth, Daily, # 30 tablet, 5 Refills, Maintenance, 11/26/22 17:55:00 EDT, [facility] #[id number], 175, cm, 11/05/22 22:16:00 EDT, Height, 108.5, kg, 11/05/22 22:16:00 EDT, Dry Weight Start Date: 11/26/22 Status: Ordered cetirizine 10 mg oral tablet 1 tablet = 10 mg, By Mouth, Daily Start Date: 12/10/22 Status: Ordered Eliquis 5 mg oral tablet 1 tablet, By Mouth, 2 times a day, STOPPING WARFARIN., # 60 tablet, 0 Refills, Maintenance, 05/02/22 13:12:00 EDT, [facility] #[id number], 170, cm, 03/27/22 8:35:00 EDT, Height, 113, kg, 08/28/21 19:48:00 EST, Dry Weight Start Date: 05/02/22 Status: Ordered Eliquis 5 mg oral tablet See Instructions, TAKE 1 TABLET BY MOUTH TWICE DAILY STOPPING WARFARIN, # 60 tablet, 11 Refills, Maintenance, 05/06/22 9:53:00 EDT, [facility] #[id number], 170, cm, 03/27/22 8:35:00 EDT, Height,113, kg, 08/28/21 19:48:00 EST, Dry Weight Start Date: 05/06/22 Status: Ordered Eliquis 5 mg oral tablet 1 tablet = 5 mg, By Mouth, 2 times a day, TAKE 1 TABLET BY MOUTH TWICE DAILY STOPPING WARFARIN Start Date: 12/10/22 Status: Ordered fluticasone 50 mcg/inh nasal spray See Instructions, SHAKE LIQUID AND USE 1 SPRAY IN EACH NOSTRIL TWICE DAILY, # 16 Gm, 0 Refills, Maintenance, [facility] #[id number], 30, SHAKE LIQUID AND USE 1 SPRAY [...] MOUTH DAILY Start Date: 12/10/22 Status: Ordered hydrochlorothiazide-lisinopril 25 mg-20 mg oral tablet 1 tablet, By Mouth, Daily, # 30 tablet, 11 Refills, 03/27/22 8:29:00 EDT, [facility] #[id number], 30, 1 tablet By Mouth Daily, 170, cm, 03/27/22 8:17:00 EDT, Height, 113, kg, 08/28/21 19:48:00 EST, Dry Weight Start Date: 03/27/22 Status: Ordered ipratropium nasal 21 mcg/inh spray See Instructions, USE 2 SPRAYS IN EACH NOSTRIL TWICE DAILY IN EACH NOSTRIL, NEEDED CONGESTION, #30 mL, 5 Refills, Maintenance, 09/03/22 9:40:00 EST, [facility] #[id number], 30, USE 2 SPRAYS IN EACH NOSTRIL TWICE DAILY IN EACH NOSTRIL, NEED... Start Date: 09/03/22 Status: Ordered ketoconazole 2% topical cream See Instructions, APPLY BENEATH BREAST AND GROIN AREAS TWICE DAILY, # 120 Gm, 2 Refills, Maintenance, 09/30/22 10:09:00 EDT, [facility] #[id number], 30, APPLY BENEATH BREAST AND GROIN AREAS TWICE DAILY, 170, cm, 09/30/22 9:28:00 EDT, Height, 113,... Start Date: 09/30/22 Status: Ordered Metamucil 3.4 gm/5.2 gm oral powder for reconstitution = 1.7 Gm, By Mouth, 3 times a day, PRN as needed for constipation, dissolve in 8 oz of fluid. drinkplenty of water., # 570 Gm, 5 Refills, Maintenance, 09/02/19 14:32:00 EST, REC Powder, [facility] #[id number], 176, cm, 09/02/19 13:59:00 EST, Hei... Start Date: 09/02/19 Status: Ordered Metoprolol Succinate ER 50 mg oral tablet, extended release 1 tablet = 50 mg, By Mouth, Daily, TAKE 1 TABLET BY MOUTH DAILY Start Date: 12/10/22 Status: Ordered Metoprolol Succinate ER 50 mg oral tablet, extended release 1 tablet, By Mouth, Daily, # 90 tablet, 0 Refills, Maintenance, 11/24/22 20:53:00 EDT, [facility] #[id number], 175, cm, 11/05/22 22:16:00 EDT, Height, 108.5, kg, 11/05/22 22:16:00 EDT, Dry Weight Start Date: 11/24/22 Status: Ordered omeprazole 20 mg oral enteric coated capsule 1 capsule = 20 mg, By Mouth, Daily, PRN Dyspepsia, TAKE 1 CAPSULE BY MOUTH DAILY NEEDED ACID INDIGESTION Start Date: 12/10/22 Status: Ordered omeprazole 20 mg oral enteric coated capsule 1 capsule, By Mouth, Daily, PRN NEEDED, ACID INDIGESTION., # 90 capsule, 0 Refills, Maintenance,11/24/22 20:54:00 EDT, [facility] #[id number], 175, cm, 11/05/22 22:16:00 EDT, Height, 108.5, kg, 11/05/22 22:16:00 EDT, Dry Weight Start Date: 11/24/22 Status: Ordered PEG-3350 with Electrolytes (Eqv-NuLYTELY) oral powder for reconstitution See Instructions, Mix powder withn water according to the product label. Drink 8 oz of prep fluid every 15-20 minutes ion the evening before the colonoscopy., # 1 each, 0 Refills, Maintenance, 08/26/22 11:04:00 EST, [facility] #[id number], Parti... Start Date: 08/26/22 Status: Ordered polyethylene glycol 3350 oral powder for reconstitution See Instructions, DISSOLVE 17 GM IN WATER EVERY DAY NEEDED FOR CONSTIPATION, # 510 Gm, 0 Refills, Maintenance, 03/26/22 8:19:00 EDT, [facility] #[id number], 30, DISSOLVE 17 GM IN WATER EVERY DAY NEEDED FOR CONSTIPATION, 170, cm, 01/24/22 18... Start Date: 03/26/22 Status: Ordered Potassium Chloride (Nyg-Iltj-Zji 10) 10 mEq oral tablet, extended release 1 tablet = 10 mEq, By Mouth, Daily, # 30 tablet, 5 Refills, Maintenance, 10/02/21 16:06:00 EDT, [facility] #[id number], Partial fill upon patient request if the prescription is for a schedule IIopioid drug., 170, cm, 10/02/21 15:32:00 EDT, Heigh... Start Date: 10/02/21 Status: Ordered Shingrix intramuscular injection = 0.5 mL, Intramuscular, Once, repeat dose in 2 to 6 months, # 2 each, 0 Refills, Soft Stop, 03/21/21 8:37:00 EDT, Powder, [facility] #[id number], Partial fill upon patient request if the prescription is for a schedule II opioid drug., 0.5 mL Int... Start Date: 03/21/21 Status: Ordered traZODone 50 mg oral tablet 75 mg, 1.5, tablet, By Mouth, Daily at bedtime, # 45 tablet, Refills 5, Tot. Refills 5, Maintenance, 10/21/22 15:02:00 EDT, Route to Pharmacy Electronically, [facility] #[id number], dose increase to 75mg qhs 10/21/22., 170, cm, 10/21/22 14:25:00 ED... Start Date: 10/21/22 Stop Date: 04/19/23 Status: Ordered traZODone 50 mg oral tablet 75 mg, 1.5, tablet, By Mouth, Daily at bedtime, TAKE 1 AND 1/2 TABLETS BY MOUTH DAILY AT BEDTIME Start Date: 12/10/22 Status: Ordered triamcinolone 0.5% topical ointment See Instructions, APPLY TOPICALLY TO THE AFFECTED AREA TWICE DAILY FOR UP TO 14 DAYS FOR ECZEMA, # 60 Gm, 1 Refills, Maintenance, 12/04/22 16:55:00 EDT, [facility] #[id number], APPLY TOPICALLY TO THE AFFECTED AREA TWICE DAILY FOR UP TO 14 DAYS FO... Start Date: 12/04/22 Status: Ordered Trulicity Pen 0.75 mg/0.5 mL subcutaneous solution 0.5 mL = 0.75 mg, Subcutaneous Injection, Every week, # 2 mL, 11 Refills, Maintenance, 03/27/22 8:27:00 EDT, Solution, [facility] #[id number], Partial fill upon patient request if the prescription is for a schedule II opioid drug., 170, cm, 03/27... Start Date: 03/27/22 Status: Ordered Vitamin D3 50,000 intl units oral capsule 1 capsule = 1,250 mcg, By Mouth, Every week, with food, # 4 each, 1 Refills, Maintenance, 10/23/22 16:25:00 EDT, [facility] #[id number], Partial fill upon patient request if the prescription is for a schedule II opioid drug., 170, cm, 10/21/22 14... Start Date: 10/23/22 Stop Date: 02/12/23 Status: Ordered Voltaren 1% topical gel = 2 Gm, Topically, 4 times a day, PRN arthritis pain, # 150 Gm, 3 Refills, Maintenance, 08/28/21 9:02:00 EST, [facility] #[id number], Partial fill upon patient request if the [...] Care Team Personnel Name: Abiel Nickerson Position: [facility]O Associate Professional Member Role: PCP Address: Address: [address] [place] [address] [place] [address]- [place] Name: Jennifer Rodriguez RN Position: S RN Member Role: Primary Care Nurse Care Team Related Persons Name: KINGA ACOSTA Address: home [address] [place] [address] Name: VELVET ACOSTA Address: [place] [address]
--- OUTSIDE RECORDS SUMMARY | 2023-07-02 19:13 | XMS_ITS | Continuity of Care Document ---
Author Name Unknown Organization [facility] Address [address] [place] [address]- Care Team Providers Care Single Pointed Operator Name Role Phone Abiel Nickerson Primary Care Physician [facility] Date[facility]): 02/06/23 - 03/08/23 [facility] [address] [place] [address]- Allergies, Adverse Reactions, Alerts Substance Reaction Severity Status penicillin hives Active sulfamethoxazole hives Active Cortisporin Active Latex Active Immunizations Given and Recorded Vaccine Date Status Refusal Reason SARS-CoV-2 mRNA ([id number]) vax 08/28/21 Given influenza virus vaccine, inactivated [...] tablet, 1 Refills, Maintenance, 02/04/23 12:49:00 EDT, [facility] #[id number], Partial fill upon patient request if the [...] tablet, 3 Refills, Maintenance, 09/30/22 10:07:00 EDT, [facility] #[id number], 170, cm, 09/30/22 9:28:00 EDT, Height, 113, kg, 08/28/21 19:48:00 EST, Dry Weight Start Date: 09/30/22 Status: Ordered atorvastatin 20 mg oral tablet 1 tablet = 20 mg, By Mouth, Daily, TAKE 1 TABLET BY MOUTH DAILY Start Date: 12/10/22 Status: Ordered cetirizine 10 mg oral tablet 1 tablet, By Mouth, Daily, # 30 tablet, 5 Refills, Maintenance, 11/26/22 17:55:00 EDT, [facility] #[id number], 175, cm, 11/05/22 22:16:00 EDT, Height, 108.5, kg, 11/05/22 22:16:00 EDT, Dry Weight Start Date: 11/26/22 Status: Ordered cetirizine 10 mg oral tablet 1 tablet = 10 mg, By Mouth, Daily Start Date: 12/10/22 Status: Ordered Eliquis 5 mg oral tablet 1 tablet, By Mouth, 2 times a day, STOPPING WARFARIN., # 60 tablet, 0 Refills, Maintenance, 05/02/22 13:12:00 EDT, [facility] #[id number], 170, cm, 03/27/22 8:35:00 EDT, Height, 113, kg, 08/28/21 19:48:00 EST, Dry Weight Start Date: 05/02/22 Status: Ordered Eliquis 5 mg oral tablet See Instructions, TAKE 1 TABLET BY MOUTH TWICE DAILY STOPPING WARFARIN, # 60 tablet, 11 Refills, Maintenance, 05/06/22 9:53:00 EDT, [facility] #[id number], 170, cm, 03/27/22 8:35:00 EDT, Height,113, kg, [...] DAILY, # 16 Gm, 0 Refills, Maintenance, [facility] #[id number], 30, SHAKE LIQUID AND USE 1 SPRAY [...] Mouth, Daily, # 30 tablet, 11 Refills, 02/04/23 12:38:00 EDT, [facility] #[id number], 30, 1 tablet By Mouth Daily, 175, cm, 01/20/23 10:13:00 EDT, Height, 108.5, kg, 11/05/22 22:16:00 EDT, Dry Weight Start Date: 02/04/23 Status: Ordered hydrochlorothiazide-lisinopril 25 mg-20 mg oral tablet 1 tablet, By Mouth, Daily, TAKE 1 TABLET BY MOUTH DAILY Start Date: 12/10/22 Status: Ordered hydrOXYzine hydrochloride 50 mg oral tablet 1 tablet = 50 mg, By Mouth, 2 times a day, PRN as needed for anxiety, # 60 tablet, 1 Refills, Maintenance, 02/04/23 12:47:00 EDT, [facility] #[id number], Partial fill upon patient request if theprescription is for a schedule II opioid drug., 175... Start Date: 02/04/23 Status: Ordered ipratropium nasal 21 mcg/inh spray See Instructions, USE 2 SPRAYS IN EACH NOSTRIL TWICE DAILY IN EACH NOSTRIL, NEEDED CONGESTION, #30 mL, 5 Refills, Maintenance, 09/03/22 9:40:00 EST, [facility] #[id number], 30, USE 2 SPRAYS IN EACH NOSTRIL TWICE DAILY IN EACH NOSTRIL, NEED... Start Date: 09/03/22 Status: Ordered isopropyl alcohol 70% topical pad See Instructions, CLEANSE SKIN BEFORE TESTING BLOOD SUGAR, # 100 Unknown, 5 Refills, Maintenance, 02/03/23 9:08:00 EDT, [facility] #[id number], 30, CLEANSE SKIN BEFORE TESTING BLOOD SUGAR, 175, cm, 01/20/23 10:13:00 EDT, Height, 108.5, kg, 04/18/... Start Date: 02/03/23 Status: Ordered ketoconazole 2% topical cream See Instructions, APPLY BENEATH BREAST AND GROIN AREAS TWICE DAILY, # 120 Gm, 2 Refills, Maintenance, 09/30/22 10:09:00 EDT, [facility] #[id number], 30, APPLY BENEATH BREAST AND GROIN AREAS TWICE DAILY, 170, cm, 09/30/22 9:28:00 EDT, Height, 113,... Start Date: 09/30/22 Status: Ordered melatonin 5 mg oral tablet 1 tablet = 5 mg, By Mouth, Daily at bedtime, for 30 days, to help sleep, # 30 tablet, 1 Refills, Acute 04/05/23 12:48:00 EDT, 02/04/23 12:48:00 EDT, [facility] #[id number], Partial fill upon patient request if the prescription is for a schedule I... Start Date: 02/04/23 Stop Date: 04/05/23 Status: Ordered Metamucil 3.4 gm/5.2 gm oral powder for reconstitution = 1.7 Gm, By Mouth, 3 times a day, PRN as needed for constipation, dissolve in 8 oz of fluid. drinkplenty of water., # 570 Gm, 5 Refills, Maintenance, 09/02/19 14:32:00 EST, REC Powder, [facility] #[id number], 176, cm, 09/02/19 13:59:00 EST, Hei... Start Date: 09/02/19 Status: Ordered Metoprolol Succinate ER 50 mg oral tablet, extended release 1 tablet, By Mouth, Daily, # 90 tablet, 3 Refills, Maintenance, 02/04/23 12:35:00 EDT, [facility] #[id number], 175, cm, 01/20/23 10:13:00 EDT, Height, 108.5, kg, 11/05/22 22:16:00 EDT, Dry Weight Start Date: 02/04/23 Status: Ordered Metoprolol Succinate ER 50 mg oral tablet, extended release 1 tablet = 50 mg, By Mouth, Daily, TAKE 1 TABLET BY MOUTH DAILY Start Date: 12/10/22 Status: Ordered omeprazole 20 mg oral enteric coated capsule 1 capsule, By Mouth, Daily, PRN NEEDED, ACID INDIGESTION., # 90 capsule, 0 Refills, Maintenance,02/04/23 12:36:00 EDT, [facility] #[id number], 175, cm, 01/20/23 10:13:00 EDT, Height, 108.5, kg, 11/05/22 22:16:00 EDT, Dry Weight Start Date: 02/04/23 Status: Ordered omeprazole 20 mg oral enteric [...] each, 0 Refills, Maintenance, 08/26/22 11:04:00 EST, [facility] #[id number], Parti... Start Date: 08/26/22 Status: Ordered polyethylene glycol 3350 oral powder for reconstitution See Instructions, DISSOLVE 17 GM IN WATER EVERY DAY NEEDED FOR CONSTIPATION, # 510 Gm, 0 Refills, Maintenance, 03/26/22 8:19:00 EDT, [facility] #[id number], 30, DISSOLVE 17 GM IN WATER EVERY DAY NEEDED FOR CONSTIPATION, 170, cm, 01/24/22 18... Start Date: 03/26/22 Status: Ordered Potassium Chloride ([id number] 10) 10 mEq oral tablet, extended release 1 tablet = 10 mEq, By Mouth, Daily, # 30 tablet, 5 Refills, Maintenance, 10/02/21 16:06:00 EDT, [facility] #[id number], Partial fill upon patient request if the prescription is for a schedule IIopioid drug., 170, cm, 10/02/21 15:32:00 EDT, [facility]... Start Date: 10/02/21 Status: Ordered risperiDONE 0.5 mg oral tablet 0.5 mg, 1, tablet, By Mouth, Daily, # 30 tablet, Refills 1, Tot. Refills 1, Maintenance, 02/04/23 12:45:00 EDT, Route to Pharmacy Electronically, [facility] #[id number], Partial fill upon patient request if the prescription is for a schedule II o... Start Date: 02/04/23 Status: Ordered Shingrix intramuscular injection = 0.5 mL, Intramuscular, Once, repeat dose in 2 to 6 months, # 2 each, 0 Refills, Soft Stop, 03/21/21 8:37:00 EDT, Powder, [facility] #[id number], Partial fill upon patient request if the [...] Gm, 1 Refills, Maintenance, 12/04/22 16:55:00 EDT, [facility] #[id number], APPLY TOPICALLY TO THE AFFECTED AREA TWICE DAILY FOR UP TO 14 DAYS FO... Start Date: 12/04/22 Status: Ordered Trulicity Pen 0.75 mg/0.5 mL subcutaneous solution 0.5 mL = 0.75 mg, Subcutaneous Injection, Every week, # 2 mL, 11 Refills, Maintenance, 03/27/22 8:27:00 EDT, Solution, [facility] #[id number], Partial fill upon patient request if the prescription is for a schedule II opioid drug., 170, cm, 03/27... Start Date: 03/27/22 Status: Ordered Vitamin D3 1000 intl units oral capsule 1 capsule = 25 mcg, By Mouth, Daily, with food, # 90 capsule, 3 Refills, Maintenance, 02/03/23 17:53:00 EDT, [facility] #[id number], Partial fill upon patient request if the prescription is for a schedule II opioid drug., 175, cm, 01/20/23 10:13:... Start Date: 02/03/23 Stop Date: 01/29/24 Status: Ordered Voltaren 1% topical gel = 2 Gm, Topically, 4 times a day, PRN arthritis pain, # 150 Gm, 3 Refills, Maintenance, 08/28/21 9:02:00 [facility], [email or web address] #[id number], Partial fill upon patient request if the [...] Care Team Personnel Name: Abiel Nickerson Position: [facility] PCO Associate Professional Member Role: PCP Address: Address: [address] [place] [address] [place] [address]- Name: Jennifer Rodriguez RN Position: [facility] RN Member Role: Primary Care Nurse Care Team Related Persons Name: KINGA ACOSTA Address: [address] [address] Name: VELVET ACOSTA Address: [place] [address]
--- OUTSIDE RECORDS SUMMARY | 2023-07-02 19:13 | XMS_ITS | Continuity of Care Document ---
Author Name Unknown Organization [facility] Address [address] [place] [address]- Care Team Providers Care Cotton Ginner Helper Name Role Phone Abiel Nickerson Primary Care Physician [facility]): [facility]23 - 05/03/23 [facility] [address] [place], [place] [address] Attending Physician: Not on Staff, Attending MD Allergies, Adverse Reactions, Alerts Substance Reaction Severity Status penicillin hives Active sulfamethoxazole hives Active Latex Active Cortisporin Active Immunizations Given and Recorded Vaccine Date Status Refusal Reason SARS-CoV-2 mRNA ([id number]) vax 08/28/21 Given influenza virus vaccine, inactivated [...] tablet, 1 Refills, Maintenance, 02/04/23 12:49:00 EDT, [facility] #[id number], Partial fill upon patient request if the prescriptionis for a schedule II opioid drug., 175, cm, ... Start Date: 02/04/23 Status: Ordered aspirin 81 mg oral tablet, chewable 81 mg, By Mouth, Daily, # 30 tablet, Refills 2, Tot. Refills 2, Maintenance, 03/18/23 9:59:00 EDT, Route to Pharmacy Electronically, [facility] #[id number], Partial fill upon patient request if the prescription is for a schedule II opioid drug.,... Start Date: 03/18/23 Stop Date: 12/13/23 Status: Ordered benzonatate 100 mg oral capsule 1 capsule = 100 mg, By Mouth, 3 times a day, PRN as needed for cough, # 30 capsule, 0 Refills, Maintenance, 04/18/23 17:45:00 EDT, Capsule, [facility] #[id number], Partial fill upon patient request if the [...] 03/12/23 9:37:00 EDT, Route to Pharmacy Electronically, [facility] #[id number], Partial fill upon patien... Start Date: 03/12/23 Status: Ordered Eliquis 5 mg oral tablet See Instructions, TAKE 1 TABLET BY MOUTH TWICE DAILY STOPPING WARFARIN, # 60 tablet, 11 Refills, Maintenance, 05/01/23 17:19:00 EDT, [facility] #[id number], 166, cm, 05/01/23 16:30:00 EDT, Height, 99, kg, 03/15/23 11:34:00 EDT, Dry Weight Start Date: 05/01/23 Status: Ordered fluocinolone 0.01% otic solution See Instructions, Instill 2 drops into affected ear twice a week, as needed., # 20 mL, 0 Refills, Maintenance, 05/01/23 17:04:00 EDT, [facility] #[id number], Partial fill upon patient request ifthe prescription is for a schedule II opioid drug.,... Start Date: 05/01/23 Status: Ordered fluticasone 50 mcg/inh nasal spray See Instructions, SHAKE LIQUID AND USE 1 SPRAY IN EACH NOSTRIL TWICE DAILY, # 16 Gm, 0 Refills, Maintenance, [facility] #[id number], 30, SHAKE LIQUID AND USE 1 SPRAY [...] 11 Refills, Maintenance, 05/01/23 17:24:00 EDT, Tablet, [facility] #[id number], Partial fill upon patient request if the [...] mL, 3 Refills, Maintenance, 05/01/23 17:20:00 EDT, [facility] #[id number], 30, USE 2 SPRAYSIN EACH NOSTRIL TWICE DAILY IN EACH NOSTRIL, NEE... Start Date: 05/01/23 Status: Ordered isopropyl alcohol 70% topical pad See Instructions, CLEANSE SKIN BEFORE TESTING BLOOD SUGAR, # 100 Unknown, 5 Refills, Maintenance, 03/26/23 18:08:00 EDT, [facility] #[id number], 30, CLEANSE SKIN BEFORE TESTING BLOOD SUGAR, 166,cm, 03/18/23 7:51:00 EDT, Height, 99, kg, 03/15/23... Start Date: 03/26/23 Status: Ordered ketoconazole 2% topical cream See Instructions, APPLY BENEATH BREAST AND GROIN AREAS TWICE DAILY, # 120 Gm, 2 Refills, Maintenance, 03/12/23 9:33:00 EDT, [facility] #[id number], 30, APPLY BENEATH BREAST AND GROIN AREAS TWICEDAILY, 175, cm, 03/12/23 8:47:00 EDT, Height, 100.5... Start Date: 03/12/23 Status: Ordered Lipitor 40 mg oral tablet 1 tablet = 40 mg, By Mouth, Daily, # 30 tablet, 11 Refills, Maintenance, 05/01/23 17:20:00 EDT, Tablet, [facility] #[id number], Partial fill upon patient request if the prescription is for a schedule II opioid drug., 166, cm, 05/01/23 16:30:00 ED... Start Date: 05/01/23 Stop Date: 04/25/24 Status: Ordered Metoprolol Succinate ER 50 mg oral tablet, extended release 1 tablet, By Mouth, Daily, # 90 tablet, 3 Refills, Maintenance, 02/04/23 12:35:00 EDT, [facility] #[id number], 175, cm, 01/20/23 10:13:00 EDT, Height, 108.5, [...] each, 0 Refills, Maintenance, 08/26/22 11:04:00 EST, [facility] #[id number], Parti... Start Date: 08/26/22 Status: Ordered polyethylene glycol 3350 oral powder for reconstitution See Instructions, DISSOLVE 17 GM IN WATER EVERY DAY NEEDED FOR CONSTIPATION, # 510 Gm, 1 Refills, Maintenance, 05/01/23 17:21:00 EDT, [facility] #[id number], 30, DISSOLVE 17 GM IN WATER EVERYDAY NEEDED FOR CONSTIPATION, 166, cm, 05/01/23 1... Start Date: 05/01/23 Status: Ordered potassium chloride 20 mEq oral powder for reconstitution = 10 mEq, By Mouth, Daily, # 30 pack/packet, 0 Refills, Maintenance, 03/18/23 9:58:00 EDT, REC Powder, [facility] #[id number], Partial fill upon patient request if the [...] Gm, 1 Refills, Maintenance, 05/01/23 17:23:00 EDT, [facility] #[id number], APPLY TOPICALLY TO THE AFFECTED AREA TWICE DAILY FOR UP TO 14 DAYS FO... Start Date: 05/01/23 Status: Ordered Vitamin D3 1000 intl units oral capsule 1 capsule = 25 mcg, By Mouth, Daily, with food, # 90 capsule, 3 Refills, Maintenance, 02/03/23 17:53:00 EDT, [facility] #[id number], Partial fill upon patient request if the prescription is for a schedule II opioid drug., 175, cm, 01/20/23 10:13:... Start Date: 02/03/23 Stop Date: 01/29/24 Status: Ordered Voltaren 1% topical gel = 2 Gm, Topically, 4 times a day, PRN arthritis pain, # 150 Gm, 3 Refills, Maintenance, 08/28/21 9:02:00 EST, [facility] #[id number], Partial fill upon patient request if the [...] Care Team Personnel Name: Abiel Nickerson Position: [facility] PCO Associate Professional Member Role: PCP Address: Address: [address] [place] [address] [place] [address]- Name: Germania Wynn RN Position: S RN Member Role: Primary Care Nurse Name: Bertha Valdes RN Position: S RN Member Role: Primary Care Nurse Name: Jennifer Rodriguez RN Position: S RN Member Role: Primary Care Nurse Name: Lyndsey Macias RN Position: S RN Member Role: Primary Care Nurse Care Team Related Persons Name: KINGA ACOSTA Address: [address] [address] Name: VELVET ACOSTA Address: [place] [address]
--- OUTSIDE RECORDS SUMMARY | 2023-07-02 19:13 | XMS_ITS | Continuity of Care Document ---
Author Name Unknown Organization [facility] ter Address [address] [place] [address]- Care Team Providers Care Apparel Machinery Instructor Name Role Phone Abiel Nickerson Primary Care Physician [facility] Date[facility] 09[facility]22 - 04/26/[address] [address] Attending Physician: Justine Medina MD Admitting Physician: Justine Medina MD Allergies, Adverse Reactions, Alerts Substance Reaction Severity Status penicillin hives Active sulfamethoxazole hives Active Latex Active Cortisporin Active Immunizations Given and Recorded Vaccine Date Status Refusal Reason SARS-CoV-2 mRNA ([id number]) vax 08/28/21 Given influenza virus vaccine, inactivated [...] tablet, 1 Refills, Maintenance, 02/04/23 12:49:00 EDT, [facility] #[id number], Partial fill upon patient request if the prescriptionis for a schedule II opioid drug., 175, cm, ... Start Date: 02/04/23 Status: Ordered aspirin 81 mg oral tablet, chewable 81 mg, By Mouth, Daily, # 30 tablet, Refills 2, Tot. Refills 2, Maintenance, 03/18/23 9:59:00 EDT, Route to Pharmacy Electronically, [facility] #[id number], Partial fill upon patient request if the prescription is for a schedule II opioid drug.,... Start Date: 03/18/23 Stop Date: 12/13/23 Status: Ordered benzonatate 100 mg oral capsule 1 capsule = 100 mg, By Mouth, 3 times a day, PRN as needed for cough, # 30 capsule, 0 Refills, Maintenance, 04/18/23 17:45:00 EDT, Capsule, [facility] #[id number], Partial fill upon patient request if the [...] 03/12/23 9:37:00 EDT, Route to Pharmacy Electronically, [facility] #[id number], Partial fill upon patien... Start Date: 03/12/23 Status: Ordered Eliquis 5 mg oral tablet See Instructions, TAKE 1 TABLET BY MOUTH TWICE DAILY STOPPING WARFARIN, # 60 tablet, 11 Refills, Maintenance, 05/06/22 9:53:00 EDT, [facility] #[id number], 170, cm, 03/27/22 8:35:00 EDT, Height,113, kg, 08/28/21 19:48:00 EST, Dry Weight Start Date: 05/06/22 Status: Ordered fluticasone 50 mcg/inh nasal spray See Instructions, SHAKE LIQUID AND USE 1 SPRAY IN EACH NOSTRIL TWICE DAILY, # 16 Gm, 0 Refills, Maintenance, [facility] #[id number], 30, SHAKE LIQUID AND USE 1 SPRAY [...] mL, 5 Refills, Maintenance, 09/03/22 9:40:00 EST, [facility] #[id number], 30, USE 2 SPRAYS IN EACH NOSTRIL TWICE DAILY IN EACH NOSTRIL, NEED... Start Date: 09/03/22 Status: Ordered isopropyl alcohol 70% topical pad See Instructions, CLEANSE SKIN BEFORE TESTING BLOOD SUGAR, # 100 Unknown, 5 Refills, Maintenance, 03/26/23 18:08:00 EDT, [facility] #[id number], 30, CLEANSE SKIN BEFORE TESTING BLOOD SUGAR, 166,cm, 03/18/23 7:51:00 EDT, Height, 99, kg, 03/15/23... Start Date: 03/26/23 Status: Ordered ketoconazole 2% topical cream See Instructions, APPLY BENEATH BREAST AND GROIN AREAS TWICE DAILY, # 120 Gm, 2 Refills, Maintenance, 03/12/23 9:33:00 EDT, [facility] #[id number], 30, APPLY BENEATH BREAST AND GROIN AREAS TWICEDAILY, 175, cm, 03/12/23 8:47:00 EDT, Height, 100.5... Start Date: 03/12/23 Status: Ordered Lipitor 40 mg oral tablet 1 tablet = 40 mg, By Mouth, Daily, # 30 tablet, 0 Refills, Maintenance, 03/18/23 10:00:00 EDT, Tablet, [facility] #[id number], Partial fill upon patient request if the prescription is for a schedule II opioid drug., 166, cm, 03/18/23 7:51:00 EDT,... Start Date: 03/18/23 Stop Date: 04/17/23 Status: Ordered Metoprolol Succinate ER 50 mg oral tablet, extended release 1 tablet, By Mouth, Daily, # 90 tablet, 3 Refills, Maintenance, 02/04/23 12:35:00 EDT, [facility] #[id number], 175, cm, 01/20/23 10:13:00 EDT, Height, 108.5, [...] each, 0 Refills, Maintenance, 08/26/22 11:04:00 EST, [facility] #[id number], Parti... Start Date: 08/26/22 Status: Ordered polyethylene glycol 3350 oral powder for reconstitution See Instructions, DISSOLVE 17 GM IN WATER EVERY DAY NEEDED FOR CONSTIPATION, # 510 Gm, 0 Refills, Maintenance, 03/26/22 8:19:00 EDT, [facility] #[id number], 30, DISSOLVE 17 GM IN WATER EVERY DAY NEEDED FOR CONSTIPATION, 170, cm, 01/24/22 18... Start Date: 03/26/22 Status: Ordered potassium chloride 20 mEq oral powder for reconstitution = 10 mEq, By Mouth, Daily, # 30 pack/packet, 0 Refills, Maintenance, 03/18/23 9:58:00 EDT, REC Powder, [facility] #[id number], Partial fill upon patient request if the [...] Gm, 1 Refills, Maintenance, 03/12/23 9:33:00 EDT, [facility] #[id number], APPLY TOPICALLY TOTHE AFFECTED AREA TWICE DAILY FOR UP TO 14 DAYS FOR... Start Date: 03/12/23 Status: Ordered Trulicity Pen 0.75 mg/0.5 mL subcutaneous solution 0.5 mL = 0.75 mg, Subcutaneous Injection, Every week, # 2 mL, 11 Refills, Maintenance, 03/27/22 8:27:00 EDT, Solution, [facility] #[id number], Partial fill upon patient request if the prescription is for a schedule II opioid drug., 170, cm, 03/27... Start Date: 03/27/22 Status: Ordered Vitamin D3 1000 intl units oral capsule 1 capsule = 25 mcg, By Mouth, Daily, with food, # 90 capsule, 3 Refills, Maintenance, 02/03/23 17:53:00 EDT, [facility] #[id number], Partial fill upon patient request if the prescription is for a schedule II opioid drug., 175, cm, 01/20/23 10:13:... Start Date: 02/03/23 Stop Date: 01/29/24 Status: Ordered Voltaren 1% topical gel = 2 Gm, Topically, 4 times a day, PRN arthritis pain, # 150 Gm, 3 Refills, Maintenance, 08/28/21 9:02:00 EST, [facility] #[id number], Partial fill upon patient request if the [...] 5 years- which is due in 2021 Vital Signs Most recent to oldest [Reference Range]: 1 Height 166 cm (03/26/23 6:11 PM) Weight 100.4 kg (03/26/23 6:11 PM) Social History Social History Type Response Smoking Status Current every day bing; Type: Cigarettes entered on: 10/29/13 Sex Female Patient Care team information Care Team Personnel Name: Abiel Nickerson Position: [facility] PCO Associate Professional Member Role: PCP Address: Address: [address] [place] [address] [place] [address]- Name: Germania Wynn RN Position: S RN Member Role: Primary Care Nurse Name: Bertha Valdes RN Position: S RN Member Role: Primary Care Nurse Name: Jennifer Rodriguez RN Position: S RN Member Role: Primary Care Nurse Name: Lyndsey Macias RN Position: S RN Member Role: Primary Care Nurse Care Team Related Persons Name: KINGA ACOSTA Address: [address] [address] Name: VELVET ACOSTA Address: [place] [address]
--- OUTSIDE RECORDS SUMMARY | 2023-07-02 19:13 | XMS_ITS | Continuity of Care Document ---
Author Name Unknown Organization [facility] Address [address] [place] [address]- Care Team Providers Care Assembly Technician Name Role Phone Abiel Nickerson Primary Care Physician Encounter [facility] Date(s): 03/20/23 - 04/19/23 [facility] [address] [place] [address]- Allergies, Adverse Reactions, Alerts Substance Reaction Severity Status penicillin hives Active sulfamethoxazole hives Active Latex Active Cortisporin Active Immunizations Given and Recorded Vaccine Date Status Refusal Reason SARS-CoV-2 mRNA (pvtesoo-kcwb-urxad) vax 08/28/21 Given influenza virus vaccine, inactivated [...] tablet, 1 Refills, Maintenance, 02/04/23 12:49:00 EDT, [facility] #[id number], Partial fill upon patient request if the prescriptionis for a schedule II opioid drug., 175, cm, ... Start Date: 02/04/23 Status: Ordered aspirin 81 mg oral tablet, chewable 81 mg, By Mouth, Daily, # 30 tablet, Refills 2, Tot. Refills 2, Maintenance, 03/18/23 9:59:00 EDT, Route to Pharmacy Electronically, [facility] #[id number], Partial fill upon patient request if the prescription is for a schedule II opioid drug.,... Start Date: 03/18/23 Stop Date: 12/13/23 Status: Ordered benzonatate 100 mg oral capsule 1 capsule = 100 mg, By Mouth, 3 times a day, PRN as needed for cough, # 30 capsule, 0 Refills, Maintenance, 04/18/23 17:45:00 EDT, Capsule, [facility] #[id number], Partial fill upon patient request if the [...] 03/12/23 9:37:00 EDT, Route to Pharmacy Electronically, [facility] #[id number], Partial fill upon patien... Start Date: 03/12/23 Status: Ordered Eliquis 5 mg oral tablet See Instructions, TAKE 1 TABLET BY MOUTH TWICE DAILY STOPPING WARFARIN, # 60 tablet, 11 Refills, Maintenance, 05/06/22 9:53:00 EDT, [facility] #[id number], 170, cm, 03/27/22 8:35:00 EDT, Height,113, kg, 08/28/21 19:48:00 EST, Dry Weight Start Date: 05/06/22 Status: Ordered fluticasone 50 mcg/inh nasal spray See Instructions, SHAKE LIQUID AND USE 1 SPRAY IN EACH NOSTRIL TWICE DAILY, # 16 Gm, 0 Refills, Maintenance, [facility] #[id number], 30, SHAKE LIQUID AND USE 1 SPRAY [...] mL, 5 Refills, Maintenance, 09/03/22 9:40:00 EST, [facility] #[id number], 30, USE 2 SPRAYS IN EACH NOSTRIL TWICE DAILY IN EACH NOSTRIL, NEED... Start Date: 09/03/22 Status: Ordered isopropyl alcohol 70% topical pad See Instructions, CLEANSE SKIN BEFORE TESTING BLOOD SUGAR, # 100 Unknown, 5 Refills, Maintenance, 03/26/23 18:08:00 EDT, [facility] #[id number], 30, CLEANSE SKIN BEFORE TESTING BLOOD SUGAR, 166,cm, 03/18/23 7:51:00 EDT, Height, 99, kg, 03/15/23... Start Date: 03/26/23 Status: Ordered ketoconazole 2% topical cream See Instructions, APPLY BENEATH BREAST AND GROIN AREAS TWICE DAILY, # 120 Gm, 2 Refills, Maintenance, 03/12/23 9:33:00 EDT, [facility] #[id number], 30, APPLY BENEATH BREAST AND GROIN AREAS TWICEDAILY, 175, cm, 03/12/23 8:47:00 EDT, Height, 100.5... Start Date: 03/12/23 Status: Ordered Lipitor 40 mg oral tablet 1 tablet = 40 mg, By Mouth, Daily, # 30 tablet, 0 Refills, Maintenance, 03/18/23 10:00:00 EDT, Tablet, [facility] #[id number], Partial fill upon patient request if the prescription is for a schedule II opioid drug., 166, cm, 03/18/23 7:51:00 EDT,... Start Date: 03/18/23 Stop Date: 04/17/23 Status: Ordered Metoprolol Succinate ER 50 mg oral tablet, extended release 1 tablet, By Mouth, Daily, # 90 tablet, 3 Refills, Maintenance, 02/04/23 12:35:00 EDT, [facility] #[id number], 175, cm, 01/20/23 10:13:00 EDT, Height, 108.5, [...] each, 0 Refills, Maintenance, 08/26/22 11:04:00 EST, [facility] #[id number], Parti... Start Date: 08/26/22 Status: Ordered polyethylene glycol 3350 oral powder for reconstitution See Instructions, DISSOLVE 17 GM IN WATER EVERY DAY NEEDED FOR CONSTIPATION, # 510 Gm, 0 Refills, Maintenance, 03/26/22 8:19:00 EDT, [facility] #[id number], 30, DISSOLVE 17 GM IN WATER EVERY DAY NEEDED FOR CONSTIPATION, 170, cm, 01/24/22 18... Start Date: 03/26/22 Status: Ordered potassium chloride 20 mEq oral powder for reconstitution = 10 mEq, By Mouth, Daily, # 30 pack/packet, 0 Refills, Maintenance, 03/18/23 9:58:00 EDT, REC Powder, [facility] #[id number], Partial fill upon patient request if the [...] Gm, 1 Refills, Maintenance, 03/12/23 9:33:00 EDT, [facility] #[id number], APPLY TOPICALLY TOTHE AFFECTED AREA TWICE DAILY FOR UP TO 14 DAYS FOR... Start Date: 03/12/23 Status: Ordered Trulicity Pen 0.75 mg/0.5 mL subcutaneous solution 0.5 mL = 0.75 mg, Subcutaneous Injection, Every week, # 2 mL, 11 Refills, Maintenance, 03/27/22 8:27:00 EDT, Solution, [facility] #[id number], Partial fill upon patient request if the prescription is for a schedule II opioid drug., 170, cm, 03/27... Start Date: 03/27/22 Status: Ordered Vitamin D3 1000 intl units oral capsule 1 capsule = 25 mcg, By Mouth, Daily, with food, # 90 capsule, 3 Refills, Maintenance, 02/03/23 17:53:00 EDT, [facility] #[id number], Partial fill upon patient request if the prescription is for a schedule II opioid drug., 175, cm, 01/20/23 10:13:... Start Date: 02/03/23 Stop Date: 01/29/24 Status: Ordered Voltaren 1% topical gel = 2 Gm, Topically, 4 times a day, PRN arthritis pain, # 150 Gm, 3 Refills, Maintenance, 08/28/21 9:02:00 EST, [facility] #[id number], Partial fill upon patient request if the [...] Care Team Personnel Name: Abiel Nickerson Position: [facility]O Associate Professional Member Role: PCP Address: Address: [address] [place] [address] [place] [address]- Name: Germania Wynn RN Position: S RN Member Role: Primary Care Nurse Name: Bertha Valdes RN Position: S RN Member Role: Primary Care Nurse Name: Jennifer Rodriguez RN Position: S RN Member Role: Primary Care Nurse Name: Lyndsey Macias RN Position: S RN Member Role: Primary Care Nurse Care Team Related Persons Name: KINGA ACOSTA Address: [address] [address] Name: VELVET ACOSTA Address: [place] [address]
--- OUTSIDE RECORDS SUMMARY | 2023-07-02 19:13 | XMS_ITS | Continuity of Care Document ---
Author Name Unknown Organization [facility] ter Address [address] [place] [address]- Care Team Providers Care Journeyman Welder Name Role Phone Abiel Nickerson Primary Care Physician Encounter [facility] Date(s): 12/10/22 - 12/10/[address] [address]- Encounter Diagnosis Auditory hallucinations(Final) - 12/10/22 Depression(Final) - 12/10/22 Discharge Disposition: Transfer to Psych Facility Attending Physician: Edith Flores MD Admitting Physician: Edith Flores MD Referring Physician: Not on Staff, Referring MD Allergies, Adverse Reactions, Alerts Substance Reaction Severity Status penicillin hives Active sulfamethoxazole hives Active Cortisporin Active Latex Active Immunizations Given and Recorded Vaccine Date Status Refusal Reason SARS-CoV-2 mRNA (nvsvmhj-wuag-jmhpi) vax 08/28/21 Given influenza virus vaccine, inactivated [...] tablet, 3 Refills, Maintenance, 09/30/22 10:07:00 EDT, [facility] #[id number], 170, cm, 09/30/22 9:28:00 EDT, Height, 113, kg, 08/28/21 19:48:00 EST, Dry Weight Start Date: 09/30/22 Status: Ordered atorvastatin 20 mg oral tablet 1 tablet = 20 mg, By Mouth, Daily, TAKE 1 TABLET BY MOUTH DAILY Start Date: 12/10/22 Status: Ordered cetirizine 10 mg oral tablet 1 tablet, By Mouth, Daily, # 30 tablet, 5 Refills, Maintenance, 11/26/22 17:55:00 EDT, [facility] #[id number], 175, cm, 11/05/22 22:16:00 EDT, Height, 108.5, kg, 11/05/22 22:16:00 EDT, Dry Weight Start Date: 11/26/22 Status: Ordered cetirizine 10 mg oral tablet 1 tablet = 10 mg, By Mouth, Daily Start Date: 12/10/22 Status: Ordered Eliquis 5 mg oral tablet 1 tablet, By Mouth, 2 times a day, STOPPING WARFARIN., # 60 tablet, 0 Refills, Maintenance, 05/02/22 13:12:00 EDT, [facility] #[id number], 170, cm, 03/27/22 8:35:00 EDT, Height, 113, kg, 08/28/21 19:48:00 EST, Dry Weight Start Date: 05/02/22 Status: Ordered Eliquis 5 mg oral tablet See Instructions, TAKE 1 TABLET BY MOUTH TWICE DAILY STOPPING WARFARIN, # 60 tablet, 11 Refills, Maintenance, 05/06/22 9:53:00 EDT, [facility] #[id number], 170, cm, 03/27/22 8:35:00 EDT, Height,113, kg, [...] DAILY, # 16 Gm, 0 Refills, Maintenance, [facility] #[id number], 30, SHAKE LIQUID AND USE 1 SPRAY [...] 30 tablet, 11 Refills, 03/27/22 8:29:00 EDT, [facility] #[id number], 30, 1 tablet By Mouth Daily, 170, cm, 03/27/22 8:17:00 EDT, Height, 113, kg, 08/28/21 19:48:00 EST, Dry Weight Start Date: 03/27/22 Status: Ordered ipratropium nasal 21 mcg/inh spray See Instructions, USE 2 SPRAYS IN EACH NOSTRIL TWICE DAILY IN EACH NOSTRIL, NEEDED CONGESTION, #30 mL, 5 Refills, Maintenance, 09/03/22 9:40:00 EST, [facility] #[id number], 30, USE 2 SPRAYS IN EACH NOSTRIL TWICE DAILY IN EACH NOSTRIL, NEED... Start Date: 09/03/22 Status: Ordered ketoconazole 2% topical cream See Instructions, APPLY BENEATH BREAST AND GROIN AREAS TWICE DAILY, # 120 Gm, 2 Refills, Maintenance, 09/30/22 10:09:00 EDT, [facility] #[id number], 30, APPLY BENEATH BREAST AND GROIN AREAS TWICE DAILY, 170, cm, 09/30/22 9:28:00 EDT, Height, 113,... Start Date: 09/30/22 Status: Ordered Metamucil 3.4 gm/5.2 gm oral powder for reconstitution = 1.7 Gm, By Mouth, 3 times a day, PRN as needed for constipation, dissolve in 8 oz of fluid. drinkplenty of water., # 570 Gm, 5 Refills, Maintenance, 09/02/19 14:32:00 EST, REC Powder, [facility] #[id number], 176, cm, 09/02/19 13:59:00 EST, Hei... Start Date: 09/02/19 Status: Ordered Metoprolol Succinate ER 50 mg oral tablet, extended release 1 tablet = 50 mg, By Mouth, Daily, TAKE 1 TABLET BY MOUTH DAILY Start Date: 12/10/22 Status: Ordered Metoprolol Succinate ER 50 mg oral tablet, extended release 1 tablet, By Mouth, Daily, # 90 tablet, 0 Refills, Maintenance, 11/24/22 20:53:00 EDT, [facility] #[id number], 175, cm, 11/05/22 22:16:00 EDT, Height, 108.5, [...] 90 capsule, 0 Refills, Maintenance,11/24/22 20:54:00 EDT, [facility] #[id number], 175, cm, 11/05/22 22:16:00 EDT, Height, 108.5, kg, 11/05/22 22:16:00 EDT, Dry Weight Start Date: 11/24/22 Status: Ordered PEG-3350 with Electrolytes (Eqv-NuLYTELY) oral powder for reconstitution See Instructions, Mix powder withn water according to the product label. Drink 8 oz of prep fluid every 15-20 minutes ion the evening before the colonoscopy., # 1 each, 0 Refills, Maintenance, 08/26/22 11:04:00 EST, [facility] #[id number], Parti... Start Date: 08/26/22 Status: Ordered polyethylene glycol 3350 oral powder for reconstitution See Instructions, DISSOLVE 17 GM IN WATER EVERY DAY NEEDED FOR CONSTIPATION, # 510 Gm, 0 Refills, Maintenance, 03/26/22 8:19:00 EDT, [facility] #[id number], 30, DISSOLVE 17 GM IN WATER EVERY DAY NEEDED FOR CONSTIPATION, 170, cm, 01/24/22 18... Start Date: 03/26/22 Status: Ordered Potassium Chloride (Tvw-Pnak-Dzj 10) 10 mEq oral tablet, extended release 1 tablet = 10 mEq, By Mouth, Daily, # 30 tablet, 5 Refills, Maintenance, 10/02/21 16:06:00 EDT, [facility] #[id number], Partial fill upon patient request if the prescription is for a schedule IIopioid drug., 170, cm, 10/02/21 15:32:00 EDT, [facility]... Start Date: 10/02/21 Status: Ordered Shingrix intramuscular injection = 0.5 mL, Intramuscular, Once, repeat dose in 2 to 6 months, # 2 each, 0 Refills, Soft Stop, 03/21/21 8:37:00 EDT, Powder, [facility] #[id number], Partial fill upon patient request if the prescription is for a schedule II opioid drug., 0.5 mL Int... Start Date: 03/21/21 Status: Ordered traZODone 50 mg oral tablet 75 mg, 1.5, tablet, By Mouth, Daily at bedtime, # 45 tablet, Refills 5, Tot. Refills 5, Maintenance, 10/21/22 15:02:00 EDT, Route to Pharmacy Electronically, [facility] #[id number], dose increase to 75mg qhs 10/21/22., 170, [...] Gm, 1 Refills, Maintenance, 12/04/22 16:55:00 EDT, [facility] #[id number], APPLY TOPICALLY TO THE AFFECTED AREA TWICE DAILY FOR UP TO 14 DAYS FO... Start Date: 12/04/22 Status: Ordered Trulicity Pen 0.75 mg/0.5 mL subcutaneous solution 0.5 mL = 0.75 mg, Subcutaneous Injection, Every week, # 2 mL, 11 Refills, Maintenance, 03/27/22 8:27:00 EDT, Solution, [facility] #[id number], Partial fill upon patient request if the prescription is for a schedule II opioid drug., 170, cm, 03/27... Start Date: 03/27/22 Status: Ordered Vitamin D3 50,000 intl units oral capsule 1 capsule = 1,250 mcg, By Mouth, Every week, with food, # 4 each, 1 Refills, Maintenance, 10/23/22 16:25:00 EDT, [facility] #[id number], Partial fill upon patient request if the prescription is for a schedule II opioid drug., 170, cm, 10/21/22 14... Start Date: 10/23/22 Stop Date: 02/12/23 Status: Ordered Voltaren 1% topical gel = 2 Gm, Topically, 4 times a day, PRN arthritis pain, # 150 Gm, 3 Refills, Maintenance, 08/28/21 9:02:00 EST, [facility] #[id number], Partial fill upon patient request if the [...] 3 Oxygen Saturation [94-100 %] 100 % (12/10/22 2:00 PM) 100 % (12/10/22 9:35 AM) 100 % (12/10/22 6:32 AM) Pulse Rate [55-90 bpm] 72 bpm (12/10/22 2:00 PM) 82 bpm (12/10/22 9:35 AM) 86 bpm (12/10/22 6:32 AM) Blood Pressure [90-138/55-84 mm Hg] 90/68mm Hg (12/10/22 2:00 PM) 90/72mm Hg (12/10/22 9:35 AM) 98/64mm Hg (12/10/22 6:32 AM) Respiratory Rate [16-30 br/min] 18 br/min (12/10/22 2:00 PM) 18 br/min (12/10/22 9:35 AM) 24 br/min (12/10/22 6:32 AM) Temperature [96.8-100.4 DegF] 98 DegF (12/10/22 2:00 PM) 98.1 DegF (12/10/22 9:35 AM) 98.2 DegF (12/10/22 2:03 AM) Mode of Delivery (Oxygen) Room air (12/10/22 2:00 PM) Room air (12/10/22 9:35 AM) Room air (12/10/22 6:32 AM) Blood pressure sites Arm, right (12/10/22 2:00 PM) Arm, right (12/10/22 9:35 AM) Arm, right (12/10/22 6:32 AM) Temperature Route Oral (12/10/22 2:00 PM) Oral (12/10/22 9:35 AM) Oral (12/10/22 2:03 AM) Social History Social History Type Response Smoking Status Current every day sm oker; Type: Cigarettes entered on: 10/29/13 Sex Female EKG study * Event Display: EKG Authored Date: Hospital Progress note * Event Display: Progress Note Hospital Authored Date: Patient Care team information Care Team Personnel Name: Abiel Nickerson Position: [facility] Associate Professional Member Role: PCP Address: Address: [address] [place] [address] Name: Jennifer Rodriguez RN Position: [facility] RN Member Role: Primary Care Nurse Name: *[facility], ED Attending Position: [facility] ED Attendings Patient Name: Adela Veliz Position: [facility] ED RN W/OE and Tasks Member Role: Patient Care Provider Name: Matilda Bar Position: [facility] ED TA [facility] Member Role: Servicenow Administrator Name: Sandra HARE, Edith Huggins Position: [facility] ED Medicine MD Member Role: Admitting Physician Address: Address: [address] [place] [address] [place] [address]- [place] Care Team Related Persons Name: ACOSTAKINGA Address: [address] [address] Name: VELVET ACOSTA Address: [place] [address]
--- OUTSIDE RECORDS SUMMARY | 2023-07-02 19:13 | XMS_ITS | Continuity of Care Document ---
Author Name Unknown Organization [facility] Address [address] [place] [address]- Care Team Providers Care Patient Manager Name Role Phone Abiel Nickerson Primary Care Physician [facility]counter [facility] Date(s): 11/05/22 - 12/05/22 [facility] [address] [place], [place] [address] [[email or web address]] Allergies, Adverse Reactions, Alerts Substance Reaction Severity Status penicillin hives Active sulfamethoxazole hives Active Cortisporin Active Latex Active Immunizations Given and Recorded Vaccine Date Status Refusal Reason SARS-CoV-2 mRNA (kpqleys-sizo-angcv) vax 08/28/21 Given influenza virus vaccine, inactivated [...] tablet, 3 Refills, Maintenance, 09/30/22 10:07:00 EDT, [facility] #[id number], 170, cm, 09/30/22 9:28:00 EDT, Height, 113, kg, 08/28/21 19:48:00 EST, Dry Weight Start Date: 09/30/22 Status: Ordered cetirizine 10 mg oral tablet 1 tablet, By Mouth, Daily, # 30 tablet, 5 Refills, Maintenance, 11/26/22 17:55:00 EDT, [facility] #[id number], 175, cm, 11/05/22 22:16:00 EDT, Height, 108.5, kg, 11/05/22 22:16:00 EDT, Dry Weight Start Date: 11/26/22 Status: Ordered Eliquis 5 mg oral tablet 1 tablet, By Mouth, 2 times a day, STOPPING WARFARIN., # 60 tablet, 0 Refills, Maintenance, 05/02/22 13:12:00 EDT, [facility] #[id number], 170, cm, 03/27/22 8:35:00 EDT, Height, 113, kg, 08/28/21 19:48:00 EST, Dry Weight Start Date: 05/02/22 Status: Ordered Eliquis 5 mg oral tablet See Instructions, TAKE 1 TABLET BY MOUTH TWICE DAILY STOPPING WARFARIN, # 60 tablet, 11 Refills, Maintenance, 05/06/22 9:53:00 EDT, [facility] #[id number], 170, cm, 03/27/22 8:35:00 EDT, Height,113, kg, 08/28/21 19:48:00 EST, Dry Weight Start Date: 05/06/22 Status: Ordered fluticasone 50 mcg/inh nasal spray See Instructions, SHAKE LIQUID AND USE 1 SPRAY IN EACH NOSTRIL TWICE DAILY, # 16 Gm, 0 Refills, Maintenance, [facility] #[id number], 30, SHAKE LIQUID AND USE 1 SPRAY [...] 30 tablet, 11 Refills, 03/27/22 8:29:00 EDT, [facility] #[id number], 30, 1 tablet By Mouth Daily, 170, cm, 03/27/22 8:17:00 EDT, Height, 113, kg, 08/28/21 19:48:00 EST, Dry Weight Start Date: 03/27/22 Status: Ordered ipratropium nasal 21 mcg/inh spray See Instructions, USE 2 SPRAYS IN EACH NOSTRIL TWICE DAILY IN EACH NOSTRIL, NEEDED CONGESTION, #30 mL, 5 Refills, Maintenance, 09/03/22 9:40:00 EST, [facility] #[id number], 30, USE 2 SPRAYS IN EACH NOSTRIL TWICE DAILY IN EACH NOSTRIL, NEED... Start Date: 09/03/22 Status: Ordered ketoconazole 2% topical cream See Instructions, APPLY BENEATH BREAST AND GROIN AREAS TWICE DAILY, # 120 Gm, 2 Refills, Maintenance, 09/30/22 10:09:00 EDT, [facility] #[id number], 30, APPLY BENEATH BREAST AND GROIN AREAS TWICE DAILY, 170, cm, 09/30/22 9:28:00 EDT, Height, 113,... Start Date: 09/30/22 Status: Ordered Metamucil 3.4 gm/5.2 gm oral powder for reconstitution = 1.7 Gm, By Mouth, 3 times a day, PRN as needed for constipation, dissolve in 8 oz of fluid. drinkplenty of water., # 570 Gm, 5 Refills, Maintenance, 09/02/19 14:32:00 EST, REC Powder, [facility] #[id number], 176, cm, 09/02/19 13:59:00 EST, Hei... Start Date: 09/02/19 Status: Ordered Metoprolol Succinate ER 50 mg oral tablet, extended release 1 tablet, By Mouth, Daily, # 90 tablet, 0 Refills, Maintenance, 11/24/22 20:53:00 EDT, [facility] #[id number], 175, cm, 11/05/22 22:16:00 EDT, Height, 108.5, kg, 11/05/22 22:16:00 EDT, Dry Weight Start Date: 11/24/22 Status: Ordered omeprazole 20 mg oral enteric coated capsule 1 capsule, By Mouth, Daily, PRN NEEDED, ACID INDIGESTION., # 90 capsule, 0 Refills, Maintenance,11/24/22 20:54:00 EDT, [facility] #[id number], 175, cm, 11/05/22 22:16:00 EDT, Height, 108.5, kg, 11/05/22 22:16:00 EDT, Dry Weight Start Date: 11/24/22 Status: Ordered PEG-3350 with Electrolytes (Eqv-NuLYTELY) oral powder for reconstitution See Instructions, Mix powder withn water according to the product label. Drink 8 oz of prep fluid every 15-20 minutes ion the evening before the colonoscopy., # 1 each, 0 Refills, Maintenance, 08/26/22 11:04:00 EST, [facility] #[id number], Parti... Start Date: 08/26/22 Status: Ordered polyethylene glycol 3350 oral powder for reconstitution See Instructions, DISSOLVE 17 GM IN WATER EVERY DAY NEEDED FOR CONSTIPATION, # 510 Gm, 0 Refills, Maintenance, 03/26/22 8:19:00 EDT, [facility] #[id number], 30, DISSOLVE 17 GM IN WATER EVERY DAY NEEDED FOR CONSTIPATION, 170, cm, 01/24/22 18... Start Date: 03/26/22 Status: Ordered Potassium Chloride (Mus-Vloz-Uxm 10) 10 mEq oral tablet, extended release 1 tablet = 10 mEq, By Mouth, Daily, # 30 tablet, 5 Refills, Maintenance, 10/02/21 16:06:00 EDT, [facility] #[id number], Partial fill upon patient request if the prescription is for a schedule IIopioid drug., 170, cm, 10/02/21 15:32:00 EDT, [facility]... Start Date: 10/02/21 Status: Ordered Shingrix intramuscular injection = 0.5 mL, Intramuscular, Once, repeat dose in 2 to 6 months, # 2 each, 0 Refills, Soft Stop, 03/21/21 8:37:00 EDT, Powder, [facility] #[id number], Partial fill upon patient request if the prescription is for a schedule II opioid drug., 0.5 mL Int... Start Date: 03/21/21 Status: Ordered traZODone 50 mg oral tablet 75 mg, 1.5, tablet, By Mouth, Daily at bedtime, # 45 tablet, Refills 5, Tot. Refills 5, Maintenance, 10/21/22 15:02:00 EDT, Route to Pharmacy Electronically, [facility] #[id number], dose increase to 75mg qhs 10/21/22., 170, cm, 10/21/22 14:25:00 ED... Start Date: 10/21/22 Stop Date: 04/19/23 Status: Ordered triamcinolone 0.5% topical ointment See Instructions, APPLY TOPICALLY TO THE AFFECTED AREA TWICE DAILY FOR UP TO 14 DAYS FOR ECZEMA, # 60 Gm, 1 Refills, Maintenance, 12/04/22 16:55:00 EDT, [facility] #[id number], APPLY TOPICALLY TO THE AFFECTED AREA TWICE DAILY FOR UP TO 14 DAYS FO... Start Date: 12/04/22 Status: Ordered Trulicity Pen 0.75 mg/0.5 mL subcutaneous solution 0.5 mL = 0.75 mg, Subcutaneous Injection, Every week, # 2 mL, 11 Refills, Maintenance, 03/27/22 8:27:00 EDT, [facility], [facility] #[id number], Partial fill upon patient request if the prescription is for a schedule II opioid drug., 170, cm, 03/27... Start Date: 03/27/22 Status: Ordered Vitamin D3 50,000 intl units oral capsule 1 capsule = 1,250 mcg, By Mouth, Every week, with food, # 4 each, 1 Refills, Maintenance, 10/23/22 16:25:00 EDT, [facility] #[id number], Partial fill upon patient request if the prescription is for a schedule II opioid drug., 170, cm, 10/21/22 14... Start Date: 10/23/22 Stop Date: 02/12/23 Status: Ordered Voltaren 1% topical gel = 2 Gm, Topically, 4 times a day, PRN arthritis pain, # 150 Gm, 3 Refills, Maintenance, 08/28/21 9:02:00 EST, [facility] #[id number], Partial fill upon patient request if the [...] Care Team Personnel Name: Abiel Nickerson Position: [facility] PCO Associate Professional Member Role: PCP Address: Address: [address] [place] [address] [place] [address]- Name: Jennifer Rodriguez RN Position: S RN Member Role: Primary Care Nurse Care Team Related Persons Name: KINGA ACOSTA Address: home [address] [place] [id number] Name: VELVET [place]STA [place]: [place] [address]
--- OUTSIDE RECORDS SUMMARY | 2023-07-02 19:14 | XMS_ITS | Continuity of Care Document ---
Author Name Unknown Organization [facility] Address [address] [place] [address]- Care Team Providers Care Antiquer Name Role Phone Abiel Nickerson Primary Care Physician [facility] Date[facility]): 03/27/22 - 04/26/22 [facility] [address] [place] [id number] Attending Physician: Paulina Gay Allergies, Adverse Reactions, Alerts Substance Reaction Severity Status penicillin hives Active sulfamethoxazole hives Active Latex Active Cortisporin Active Immunizations Given and Recorded Vaccine Date Status Refusal Reason SARS-CoV-2 mRNA (rlmqzme-bveb-jxplq) vax 08/28/21 Given influenza virus vaccine, inactivated [...] tablet, 1 Refills, Maintenance, 02/25/22 11:19:00 EDT, [facility] #[id number], 170, cm, 01/24/22 18:11:00 EDT, Height, 113, kg, 08/28/21 19:48:00 EST, Dry Weight Start Date: 02/25/22 Status: Ordered cetirizine 10 mg oral tablet 1 tablet, By Mouth, Daily, # 30 tablet, 5 Refills, Maintenance, 04/08/22 11:24:00 EDT, [facility] #[id number], 170, cm, 03/27/22 8:35:00 EDT, Height, 113, kg, 08/28/21 19:48:00 EST, Dry Weight Start Date: 04/08/22 Status: Ordered Eliquis 5 mg oral tablet 1 tablet, By Mouth, 2 times a day, STOPPING WARFARIN., # 60 tablet, 0 Refills, Maintenance, 04/08/22 11:24:00 EDT, [facility] #[id number], 170, cm, 03/27/22 8:35:00 EDT, Height, 113, kg, 08/28/21 19:48:00 EST, Dry Weight Start Date: 04/08/22 Status: Ordered fluticasone 50 mcg/inh nasal spray See Instructions, SHAKE LIQUID AND USE 1 SPRAY IN EACH NOSTRIL TWICE DAILY, # 16 Gm, 0 Refills, Maintenance, [facility] #[id number], 30, SHAKE LIQUID AND USE 1 SPRAY [...] 30 tablet, 11 Refills, 03/27/22 8:29:00 EDT, [facility] #[id number], 30, 1 tablet By Mouth Daily, 170, cm, 03/27/22 8:17:00 EDT, Height, 113, kg, 08/28/21 19:48:00 EST, Dry Weight Start Date: 03/27/22 Status: Ordered ipratropium nasal 21 mcg/inh spray See Instructions, USE 2 SPRAYS IN EACH NOSTRIL TWICE DAILY IN EACH NOSTRIL, NEEDED CONGESTION, #30 mL, 0 Refills, Maintenance, 03/27/22 13:39:00 EDT, [facility] #[id number], 30, USE 2 SPRAYSIN EACH NOSTRIL TWICE DAILY IN EACH NOSTRIL, NEE... Start Date: 03/27/22 Status: Ordered ketoconazole 2% topical cream See Instructions, APPLY BENEATH BREAST AND GROIN AREAS TWICE DAILY, # 120 Gm, 0 Refills, [facility] #[id number], 30, APPLY BENEATH BREAST AND GROIN AREAS TWICE DAILY, 170, cm, 01/24/22 18:11:00 EDT, Height, 113, kg, 08/28/21 19:48:00 EST, Dry Weight Start Date: 02/25/22 Status: Ordered Metamucil 3.4 gm/5.2 gm oral powder for reconstitution = 1.7 Gm, By Mouth, 3 times a day, PRN as needed for constipation, dissolve in 8 oz of fluid. drinkplenty of water., # 570 Gm, 5 Refills, Maintenance, 09/02/19 14:32:00 EST, REC Powder, [facility] #[id number], 176, cm, 09/02/19 13:59:00 EST, Hei... Start Date: 09/02/19 Status: Ordered Metoprolol Succinate ER 50 mg oral tablet, extended release 1 tablet, By Mouth, Daily, # 90 tablet, 0 Refills, Maintenance, 02/25/22 11:18:00 EDT, [facility] #[id number], 170, cm, 01/24/22 18:11:00 EDT, Height, 113, kg, 08/28/21 19:48:00 EST, Dry Weight Start Date: 02/25/22 Status: Ordered omeprazole 20 mg oral enteric coated capsule 1 capsule, By Mouth, Daily, PRN NEEDED, ACID INDIGESTION., # 90 capsule, 0 Refills, [facility] #54132, 170, cm, 12/03/21 8:28:00 EDT, Height, 113, kg, 08/28/21 19:48:00 EST, Dry Weight Start Date: 01/23/22 Status: Ordered polyethylene glycol 3350 oral powder for reconstitution See Instructions, DISSOLVE 17 GM IN WATER EVERY DAY NEEDED FOR CONSTIPATION, # 510 Gm, 0 Refills, Maintenance, 03/26/22 8:19:00 EDT, [facility] #[id number], 30, DISSOLVE 17 GM IN WATER EVERY DAY NEEDED FOR CONSTIPATION, 170, cm, 01/24/22 18... Start Date: 03/26/22 Status: Ordered Potassium Chloride (Hbl-Dygj-Hoj 10) 10 mEq oral tablet, extended release 1 tablet = 10 mEq, By Mouth, Daily, # 30 tablet, 5 Refills, Maintenance, 10/02/21 16:06:00 EDT, [facility] #[id number], Partial fill upon patient request if the prescription is for a schedule IIopioid drug., 170, cm, 10/02/21 15:32:00 EDT, [facility]... Start Date: 10/02/21 Status: Ordered Shingrix intramuscular injection = 0.5 mL, Intramuscular, Once, repeat dose in 2 to 6 months, # 2 each, 0 Refills, Soft Stop, 03/21/21 8:37:00 EDT, Powder, [facility] #[id number], Partial fill upon patient request if the prescription is for a schedule II opioid drug., 0.5 mL Int... Start Date: 03/21/21 Status: Ordered triamcinolone 0.5% topical ointment See Instructions, APPLY TOPICALLY TO THE AFFECTED AREA TWICE DAILY FOR UP TO 14 DAYS FOR ECZEMA, # 60 Gm, 1 Refills, Maintenance, 03/27/22 8:23:00 EDT, [facility] #[id number], 28, APPLY TOPICALLY TO THE AFFECTED AREA TWICE DAILY FOR UP TO 14 DAYS... Start Date: 03/27/22 Status: Ordered Trulicity Pen 0.75 mg/0.5 mL subcutaneous solution 0.5 mL = 0.75 mg, Subcutaneous Injection, Every week, # 2 mL, 11 Refills, Maintenance, 03/27/22 8:27:00 EDT, Solution, [facility] #[id number], Partial fill upon patient request if the prescription is for a schedule II opioid drug., 170, cm, 03/27... Start Date: 03/27/22 Status: Ordered Voltaren 1% topical gel = 2 Gm, Topically, 4 times a day, PRN arthritis pain, # 150 Gm, 3 Refills, Maintenance, 08/28/21 9:02:00 EST, [facility] #[id number], Partial fill upon patient request if the [...] 10/29/13 Sex Female Patient Care team information Personnel Name: Abiel Nickerson Address: Address: [address] [place] [address]
--- OUTSIDE RECORDS SUMMARY | 2023-07-02 19:14 | XMS_ITS | Continuity of Care Document ---
Author Name Unknown Organization [facility] Address [address] [place] [address]- Care Team Providers Care Mixer Diamond Powder Name Role Phone Abiel Nickerson Primary Care Physician [facility]): 02/26/23 - 03/28/23 [facility] [address] [place], [place] [address] Allergies, Adverse Reactions, Alerts Substance Reaction Severity Status penicillin hives Active sulfamethoxazole hives Active Cortisporin Active Latex Active Immunizations Given and Recorded Vaccine Date Status Refusal Reason SARS-CoV-2 mRNA (fdjbkhs-ggkj-arghy) vax 08/28/21 Given influenza virus vaccine, inactivated [...] tablet, 1 Refills, Maintenance, 02/04/23 12:49:00 EDT, [facility] #[id number], Partial fill upon patient request if the prescriptionis for a schedule II opioid drug., 175, cm, ... Start Date: 02/04/23 Status: Ordered aspirin 81 mg oral tablet, chewable 81 mg, By Mouth, Daily, # 30 tablet, Refills 2, Tot. Refills 2, Maintenance, 03/18/23 9:59:00 EDT, Route to Pharmacy Electronically, [facility] #[id number], Partial fill upon patient request if the [...] 03/12/23 9:37:00 EDT, Route to Pharmacy Electronically, [facility] #[id number], Partial fill upon patien... Start Date: 03/12/23 Status: Ordered Eliquis 5 mg oral tablet See Instructions, TAKE 1 TABLET BY MOUTH TWICE DAILY STOPPING WARFARIN, # 60 tablet, 11 Refills, Maintenance, 05/06/22 9:53:00 EDT, [facility] #[id number], 170, cm, 03/27/22 8:35:00 EDT, Height,113, kg, 08/28/21 19:48:00 EST, Dry Weight Start Date: 05/06/22 Status: Ordered fluticasone 50 mcg/inh nasal spray See Instructions, SHAKE LIQUID AND USE 1 SPRAY IN EACH NOSTRIL TWICE DAILY, # 16 Gm, 0 Refills, Maintenance, [facility] #[id number], 30, SHAKE LIQUID AND USE 1 SPRAY [...] mL, 5 Refills, Maintenance, 09/03/22 9:40:00 EST, [facility] #[id number], 30, USE 2 SPRAYS IN EACH NOSTRIL TWICE DAILY IN EACH NOSTRIL, NEED... Start Date: 09/03/22 Status: Ordered isopropyl alcohol 70% topical pad See Instructions, CLEANSE SKIN BEFORE TESTING BLOOD SUGAR, # 100 Unknown, 5 Refills, Maintenance, 03/26/23 18:08:00 EDT, [facility] #[id number], 30, CLEANSE SKIN BEFORE TESTING BLOOD SUGAR, 166,cm, 03/18/23 7:51:00 EDT, Height, 99, kg, 03/15/23... Start Date: 03/26/23 Status: Ordered ketoconazole 2% topical cream See Instructions, APPLY BENEATH BREAST AND GROIN AREAS TWICE DAILY, # 120 Gm, 2 Refills, Maintenance, 03/12/23 9:33:00 EDT, [facility] #[id number], 30, APPLY BENEATH BREAST AND GROIN AREAS TWICEDAILY, 175, cm, 03/12/23 8:47:00 EDT, Height, 100.5... Start Date: 03/12/23 Status: Ordered Lipitor 40 mg oral tablet 1 tablet = 40 mg, By Mouth, Daily, # 30 tablet, 0 Refills, Maintenance, 03/18/23 10:00:00 EDT, Tablet, [facility] #[id number], Partial fill upon patient request if the prescription is for a schedule II opioid drug., 166, cm, 03/18/23 7:51:00 EDT,... Start Date: 03/18/23 Stop Date: 04/17/23 Status: Ordered melatonin 5 mg oral tablet 1 tablet = 5 mg, By Mouth, Daily at bedtime, for 30 days, to help sleep, # 30 tablet, 1 Refills, Acute 04/05/23 12:48:00 EDT, 02/04/23 12:48:00 EDT, [facility] #[id number], Partial fill upon patient request if the prescription is for a schedule I... Start Date: 02/04/23 Stop Date: 04/05/23 Status: Ordered Metoprolol Succinate ER 50 mg oral tablet, extended release 1 tablet, By Mouth, Daily, # 90 tablet, 3 Refills, Maintenance, 02/04/23 12:35:00 EDT, [facility] #[id number], 175, cm, 01/20/23 10:13:00 EDT, Height, 108.5, [...] each, 0 Refills, Maintenance, 08/26/22 11:04:00 EST, [facility] #[id number], Parti... Start Date: 08/26/22 Status: Ordered polyethylene glycol 3350 oral powder for reconstitution See Instructions, DISSOLVE 17 GM IN WATER EVERY DAY NEEDED FOR CONSTIPATION, # 510 Gm, 0 Refills, Maintenance, 03/26/22 8:19:00 EDT, [facility] #[id number], 30, DISSOLVE 17 GM IN WATER EVERY DAY NEEDED FOR CONSTIPATION, 170, cm, 01/24/22 18... Start Date: 03/26/22 Status: Ordered potassium chloride 20 mEq oral powder for reconstitution = 10 mEq, By Mouth, Daily, # 30 pack/packet, 0 Refills, Maintenance, 03/18/23 9:58:00 EDT, REC Powder, [facility] #[id number], Partial fill upon patient request if the [...] Gm, 1 Refills, Maintenance, 03/12/23 9:33:00 EDT, [facility] #[id number], APPLY TOPICALLY TOTHE AFFECTED AREA TWICE DAILY FOR UP TO 14 DAYS FOR... Start Date: 03/12/23 Status: Ordered Trulicity Pen 0.75 mg/0.5 mL subcutaneous solution 0.5 mL = 0.75 mg, Subcutaneous Injection, Every week, # 2 mL, 11 Refills, Maintenance, 03/27/22 8:27:00 EDT, Solution, [facility] #[id number], Partial fill upon patient request if the prescription is for a schedule II opioid drug., 170, cm, 03/27... Start Date: 03/27/22 Status: Ordered Vitamin D3 1000 intl units oral capsule 1 capsule = 25 mcg, By Mouth, Daily, with food, # 90 capsule, 3 Refills, Maintenance, 02/03/23 17:53:00 EDT, [facility] #[id number], Partial fill upon patient request if the prescription is for a schedule II opioid drug., 175, cm, 01/20/23 10:13:... Start Date: 02/03/23 Stop Date: 01/29/24 Status: Ordered Voltaren 1% topical gel = 2 Gm, Topically, 4 times a day, PRN arthritis pain, # 150 Gm, 3 Refills, Maintenance, 08/28/21 9:02:00 EST, [facility] #[id number], Partial fill upon patient request if the [...] Care Team Personnel Name: Abiel Nickerson Position: [facility] Associate Professional Member Role: PCP Address: Address: [address] [place] [address] [place] [address]- Name: Germania Wynn RN Position: S RN Member Role: Primary Care Nurse Name: Bertha Valdes RN Position: S RN Member Role: Primary Care Nurse Name: Jennifer Rodriguez RN Position: S RN Member Role: Primary Care Nurse Name: Lyndsey Macias RN Position: S RN Member Role: Primary Care Nurse Care Team Related Persons Name: KINGA ACOSTA Address: [address] [address] Name: VELVET ACOSTA Address: [place] [address]
--- OUTSIDE RECORDS SUMMARY | 2023-07-02 19:14 | XMS_ITS | Continuity of Care Document ---
Author Name Unknown Organization [facility] ter Address [address] [place] [address]- Care Team Providers Care Senior Mechanical Project Manager Name Role Phone Abiel Nickerson Primary Care Physician [phone] Encounter [facility] Date(s): 08/21/19 - 08/21/[address] [address]- [facility] Encounter Diagnosis Abdominal pain(Final) - 08/21/19 Discharge Disposition: A-D/C Home Attending Physician: Barney Balderas DO Admitting Physician: Banrey Balderas DO Referring Physician: Not on Staff, Referring [...] 08/04/19 10:07:00 EST, Route to Pharmacy Electronically, [facility] #[id number], 827, cm, 01/15... Start Date: 08/04/19 Status: Ordered apixaban 5 [...] 11 Refills, Maintenance, Route to Pharmacy Electronically, [id number], [facility] [id number] Start Date: 01/19/19 Status: Ordered bacitracin/neomycin/polymyxin B topical 400 u-3.5 mg-5000 u/gm ointment 1 application, Topically, 2 times a day, # 30 Gm, 0 Refills, Maintenance, 08/04/19 10:09:00 EST, Ointment, [facility] #[id number], 1 application Topically 2 times a day, 176, cm, 08/04/19 9:12:00 EST, Height, 124, kg, 04/07/18 17:51:00 EDT, Dry W... Start Date: 08/04/19 Status: Ordered cetirizine 10 mg oral tablet 1 tablet = 10 mg, By Mouth, Daily, # 30 tablet, 5 Refills, Maintenance, 08/18/19 10:35:00 EST, Tablet, [facility] #[id number], 176, cm, 08/18/19 9:16:00 EST, Height, 124, [...] each, 2 Refills, Maintenance, 08/24/18 16:36:46 EST, [place], 1 sprays Nares, Both 2 times a [...] Start Date: 08/19/16 Status: Ordered nystatin topical 669261 u/gm powder 1 application, Topically, 2 times [...] 12/01/18 8:44:39 EDT, Route to Pharmacy Electronically, [id number], [facility] [id number] Start Date: 12/01/18 Status: Ordered triamcinolone 0.025% topical cream 1 applicator, Topically, 3 times a day, apply a thin film for eczema, # 30 Gm, 3 Refills, Maintenance, 08/18/19 10:35:00 EST, [facility] #[id number], 1 applicator Topically 3 times a day,Instr:apply [...] < 1 cm. F/u in December 2016. Vital Signs Most recent to oldest [Reference Range]: 1 2 3 Weight 123.2 kg (08/21/19 8:54 PM) 123.2 kg (08/21/19 6:00 PM) 123.2 kg (08/21/19 3:30 PM) Oxygen Saturation [94-100 %] 100 % (08/21/19 8:54 PM) 98 % (08/21/19 6:00 PM) 100 % (08/21/19 3:30 PM) Pulse Rate [55-90 bpm] 66 bpm (08/21/19 8:54 PM) 83 bpm (08/21/19 6:00 PM) 79 bpm (08/21/19 3:30 PM) Blood Pressure [90-138/55-84 mm Hg] 166/93mm Hg *H* (08/21/19 8:54 PM) 167/69mm Hg *H* (08/21/19 6:00 PM) 164/71mm Hg *H* (08/21/19 3:30 PM) Respiratory Rate [16-30 br/min] 16 br/min (08/21/19 8:54 PM) 18 br/min (08/21/19 8:17 PM) 15 br/min *L* (08/21/19 6:00 PM) Temperature [96.8-100.4 DegF] 97.9 DegF (08/21/19 3:30 PM) 97.8 DegF (08/21/19 1:17 PM) Mode of Delivery (Oxygen) Room air (08/21/19 8:54 PM) Room air (08/21/19 6:00 PM) Room air (08/21/19 3:30 PM) Blood pressure sites Arm, left (08/21/19 6:00 PM) Arm, right (08/21/19 3:30 PM) Temperature Route Oral (08/21/19 3:30 PM) Oral (08/21/19 1:17 PM) Dry Weight 123.2 kg (08/21/19 8:54 PM) 123.2 kg (08/21/19 6:00 PM) 123.2 kg (08/21/19 3:30 PM) Social History Social History Type Response Smoking Status Current every day adrián smart; Type: Cigarettes entered on: 10/29/13 Sex Female
--- OUTSIDE RECORDS SUMMARY | 2023-07-02 19:14 | XMS_ITS | Continuity of Care Document ---
Author Name Unknown Organization [facility] Address [address] [place] [address]- Care Team Providers Care Projection Welding Machine Operator Name Role Phone Abiel Nickerson Primary Care Physician [facility]): 10/11/22 - 11/10/22 [facility] [address] [place], [place] [address] Allergies, Adverse Reactions, Alerts Substance Reaction Severity Status penicillin hives Active sulfamethoxazole hives Active Cortisporin Active Latex Active Immunizations Given and Recorded Vaccine Date Status Refusal Reason SARS-CoV-2 mRNA (stlrdja-fned-[id number]) vax 08/28/21 Given influenza virus vaccine, inactivated [...] tablet, 3 Refills, Maintenance, 09/30/22 10:07:00 EDT, [facility] #[id number], 170, cm, 09/30/22 9:28:00 EDT, Height, 113, kg, 08/28/21 19:48:00 EST, Dry Weight Start Date: 09/30/22 Status: Ordered cetirizine 10 mg oral tablet 1 tablet, By Mouth, Daily, # 30 tablet, 5 Refills, Maintenance, 09/30/22 10:07:00 EDT, [facility] #[id number], 170, cm, 09/30/22 9:28:00 EDT, Height, 113, kg, 08/28/21 19:48:00 EST, Dry Weight Start Date: 09/30/22 Status: Ordered Eliquis 5 mg oral tablet 1 tablet, By Mouth, 2 times a day, STOPPING WARFARIN., # 60 tablet, 0 Refills, Maintenance, 05/02/22 13:12:00 EDT, [facility] #[id number], 170, cm, 03/27/22 8:35:00 EDT, Height, 113, kg, 08/28/21 19:48:00 EST, Dry Weight Start Date: 05/02/22 Status: Ordered Eliquis 5 mg oral tablet See Instructions, TAKE 1 TABLET BY MOUTH TWICE DAILY STOPPING WARFARIN, # 60 tablet, 11 Refills, Maintenance, 05/06/22 9:53:00 EDT, [facility] #[id number], 170, cm, 03/27/22 8:35:00 EDT, Height,113, kg, 08/28/21 19:48:00 EST, Dry Weight Start Date: 05/06/22 Status: Ordered fluticasone 50 mcg/inh nasal spray See Instructions, SHAKE LIQUID AND USE 1 SPRAY IN EACH NOSTRIL TWICE DAILY, # 16 Gm, 0 Refills, Maintenance, [facility] #[id number], 30, SHAKE LIQUID AND USE 1 SPRAY [...] 30 tablet, 11 Refills, 03/27/22 8:29:00 EDT, [facility] #[id number], 30, 1 tablet By Mouth Daily, 170, cm, 03/27/22 8:17:00 EDT, Height, 113, kg, 08/28/21 19:48:00 EST, Dry Weight Start Date: 03/27/22 Status: Ordered ipratropium nasal 21 mcg/inh spray See Instructions, USE 2 SPRAYS IN EACH NOSTRIL TWICE DAILY IN EACH NOSTRIL, NEEDED CONGESTION, #30 mL, 5 Refills, Maintenance, 09/03/22 9:40:00 EST, [facility] #[id number], 30, USE 2 SPRAYS IN EACH NOSTRIL TWICE DAILY IN EACH NOSTRIL, NEED... Start Date: 09/03/22 Status: Ordered ketoconazole 2% topical cream See Instructions, APPLY BENEATH BREAST AND GROIN AREAS TWICE DAILY, # 120 Gm, 2 Refills, Maintenance, 09/30/22 10:09:00 EDT, [facility] #[id number], 30, APPLY BENEATH BREAST AND GROIN AREAS TWICE DAILY, 170, cm, 09/30/22 9:28:00 EDT, Height, 113,... Start Date: 09/30/22 Status: Ordered Metamucil 3.4 gm/5.2 gm oral powder for reconstitution = 1.7 Gm, By Mouth, 3 times a day, PRN as needed for constipation, dissolve in 8 oz of fluid. drinkplenty of water., # 570 Gm, 5 Refills, Maintenance, 09/02/19 14:32:00 EST, REC Powder, [facility] #[id number], 176, cm, 09/02/19 13:59:00 EST, Hei... Start Date: 09/02/19 Status: Ordered Metoprolol Succinate ER 50 mg oral tablet, extended release 1 tablet, By Mouth, Daily, # 90 tablet, 0 Refills, Maintenance, 09/03/22 9:40:00 EST, [facility] #[id number], 170, cm, 08/28/22 14:45:00 EST, Height, 113, kg, 08/28/21 19:48:00 EST, Dry Weight Start Date: 09/03/22 Status: Ordered omeprazole 20 mg oral enteric coated capsule 1 capsule, By Mouth, Daily, PRN NEEDED, ACID INDIGESTION., # 90 capsule, 0 Refills, Maintenance,09/03/22 9:40:00 EST, [facility] #[id number], 170, cm, 08/28/22 14:45:00 EST, Height, 113, kg,08/28/21 19:48:00 EST, Dry Weight Start Date: 09/03/22 Status: Ordered PEG-3350 with Electrolytes (Eqv-NuLYTELY) oral powder for reconstitution See Instructions, Mix powder withn water according to the product label. Drink 8 oz of prep fluid every 15-20 minutes ion the evening before the colonoscopy., # 1 each, 0 Refills, Maintenance, 08/26/22 11:04:00 EST, [facility] #[id number], Parti... Start Date: 08/26/22 Status: Ordered polyethylene glycol 3350 oral powder for reconstitution See Instructions, DISSOLVE 17 GM IN WATER EVERY DAY NEEDED FOR CONSTIPATION, # 510 Gm, 0 Refills, Maintenance, 03/26/22 8:19:00 EDT, [facility] #[id number], 30, DISSOLVE 17 GM IN WATER EVERY DAY NEEDED FOR CONSTIPATION, 170, cm, 01/24/22 18... Start Date: 03/26/22 Status: Ordered Potassium Chloride (Xxm-Sgbv-Wcd 10) 10 mEq oral tablet, extended release 1 tablet = 10 mEq, By Mouth, Daily, # 30 tablet, 5 Refills, Maintenance, 10/02/21 16:06:00 EDT, [facility] #[id number], Partial fill upon patient request if the prescription is for a schedule IIopioid drug., 170, cm, 10/02/21 15:32:00 EDT, [facility]... Start Date: 10/02/21 Status: Ordered Shingrix intramuscular injection = 0.5 mL, Intramuscular, Once, repeat dose in 2 to 6 months, # 2 each, 0 Refills, Soft Stop, 03/21/21 8:37:00 EDT, Powder, [facility] #[id number], Partial fill upon patient request if the prescription is for a schedule II opioid drug., 0.5 mL Int... Start Date: 03/21/21 Status: Ordered traZODone 50 mg oral tablet 75 mg, 1.5, tablet, By Mouth, Daily at bedtime, # 45 tablet, Refills 5, Tot. Refills 5, Maintenance, 10/21/22 15:02:00 EDT, Route to Pharmacy Electronically, [facility] #[id number], dose increase to 75mg qhs 10/21/22., 170, cm, 10/21/22 14:25:00 ED... Start Date: 10/21/22 Stop Date: 04/19/23 Status: Ordered triamcinolone 0.5% topical ointment See Instructions, APPLY TOPICALLY TO THE AFFECTED AREA TWICE DAILY FOR UP TO 14 DAYS FOR ECZEMA, # 60 Gm, 1 Refills, Maintenance, 09/30/22 10:09:00 EDT, [facility] #[id number], 28, APPLY TOPICALLY TO THE AFFECTED AREA TWICE DAILY FOR UP TO 14 DAY... Start Date: 09/30/22 Status: Ordered Trulicity Pen 0.75 mg/0.5 mL subcutaneous solution 0.5 mL = 0.75 mg, Subcutaneous Injection, Every week, # 2 mL, 11 Refills, Maintenance, 03/27/22 8:27:00 EDT, Solution, [facility] #[id number], Partial fill upon patient request if the prescription is for a schedule II opioid drug., 170, cm, 03/27... Start Date: 03/27/22 Status: Ordered Vitamin D3 50,000 intl units oral capsule 1 capsule = 1,250 mcg, By Mouth, Every week, with food, # 4 each, 1 Refills, Maintenance, 10/23/22 16:25:00 EDT, [facility] #[id number], Partial fill upon patient request if the prescription is for a schedule II opioid drug., 170, cm, 10/21/22 14... Start Date: 10/23/22 Stop Date: 02/12/23 Status: Ordered Voltaren 1% topical gel = 2 Gm, Topically, 4 times a day, PRN arthritis pain, # 150 Gm, 3 Refills, Maintenance, 08/28/21 9:02:00 EST, [facility] #[id number], Partial fill upon patient request if the [...] Care Team Personnel Name: Abiel Nickerson Position: [facility] PCO Associate Professional Member Role: PCP Address: Address: [address] [place] [address] [place] [address]- Name: Jennifer Rodriguez RN Position: [facility] RN Member Role: Primary Care Nurse Care Team Related Persons Name: KINGA ACOSTA Address: [address] [address] Name: VELVET ACOSTA Address: [place] [address]
--- OUTSIDE RECORDS SUMMARY | 2023-07-02 19:14 | XMS_ITS | Continuity of Care Document ---
Author Name Unknown Organization [facility] Address [address] [place] [address]- Care Team Providers Care Language Assistant Name Role Phone Abiel Nickerson Primary Care Physician [phone] [place] [facility] [place]): [place]22 [facility] [address] [place] [id number]- Attending Physician: Paulina Gay Admitting Physician: Paulina Gay Referring Physician: Paulina Gay Allergies, Adverse Reactions, Alerts Substance Reaction Severity Status penicillin hives Active sulfamethoxazole hives Active Cortisporin Active Latex Active Immunizations Given and Recorded Vaccine Date Status Refusal Reason SARS-CoV-2 mRNA ([id number]) vax 08/28/21 Given influenza virus vaccine, inactivated [...] tablet, 1 Refills, Maintenance, 02/25/22 11:19:00 EDT, [facility] #[id number], 170, cm, 01/24/22 18:11:00 EDT, Height, 113, kg, 08/28/21 19:48:00 EST, Dry Weight Start Date: 02/25/22 Status: Ordered cetirizine 10 mg oral tablet 1 tablet, By Mouth, Daily, # 30 tablet, 5 Refills, Maintenance, 04/08/22 11:24:00 EDT, [facility] #[id number], 170, cm, 03/27/22 8:35:00 EDT, Height, 113, kg, 08/28/21 19:48:00 EST, Dry Weight Start Date: 04/08/22 Status: Ordered Eliquis 5 mg oral tablet 1 tablet, By Mouth, 2 times a day, STOPPING WARFARIN., # 60 tablet, 0 Refills, Maintenance, 05/02/22 13:12:00 EDT, [facility] #[id number], 170, cm, 03/27/22 8:35:00 EDT, Height, 113, kg, 08/28/21 19:48:00 EST, Dry Weight Start Date: 05/02/22 Status: Ordered Eliquis 5 mg oral tablet See Instructions, TAKE 1 TABLET BY MOUTH TWICE DAILY STOPPING WARFARIN, # 60 tablet, 11 Refills, Maintenance, 05/06/22 9:53:00 EDT, [facility] #[id number], 170, cm, 03/27/22 8:35:00 EDT, Height,113, kg, 08/28/21 19:48:00 EST, Dry Weight Start Date: 05/06/22 Status: Ordered fluticasone 50 mcg/inh nasal spray See Instructions, SHAKE LIQUID AND USE 1 SPRAY IN EACH NOSTRIL TWICE DAILY, # 16 Gm, 0 Refills, Maintenance, [facility] #[id number], 30, SHAKE LIQUID AND USE 1 SPRAY [...] 30 tablet, 11 Refills, 03/27/22 8:29:00 EDT, [facility] #[id number], 30, 1 tablet By Mouth Daily, 170, cm, 03/27/22 8:17:00 EDT, Height, 113, kg, 08/28/21 19:48:00 EST, Dry Weight Start Date: 03/27/22 Status: Ordered ipratropium nasal 21 mcg/inh spray See Instructions, USE 2 SPRAYS IN EACH NOSTRIL TWICE DAILY IN EACH NOSTRIL, NEEDED CONGESTION, #30 mL, 0 Refills, Maintenance, 05/29/22 9:42:00 EST, [facility] #[id number], 30, USE 2 SPRAYS IN EACH NOSTRIL TWICE DAILY IN EACH NOSTRIL, NEED... Start Date: 05/29/22 Status: Ordered ketoconazole 2% topical cream See Instructions, APPLY BENEATH BREAST AND GROIN AREAS TWICE DAILY, # 120 Gm, 0 Refills, Maintenance, 05/06/22 8:40:00 EDT, [facility] #[id number], 30, APPLY BENEATH BREAST AND GROIN AREAS TWICEDAILY, 170, cm, 03/27/22 8:35:00 EDT, Height, 113,... Start Date: 05/06/22 Status: Ordered Metamucil 3.4 gm/5.2 gm oral powder for reconstitution = 1.7 Gm, By Mouth, 3 times a day, PRN as needed for constipation, dissolve in 8 oz of fluid. drinkplenty of water., # 570 Gm, 5 Refills, Maintenance, 09/02/19 14:32:00 EST, REC Powder, [facility] #[id number], 176, cm, 09/02/19 13:59:00 EST, Hei... Start Date: 09/02/19 Status: Ordered Metoprolol Succinate ER 50 mg oral tablet, extended release 1 tablet, By Mouth, Daily, # 90 tablet, 0 Refills, Maintenance, 02/25/22 11:18:00 EDT, [facility] #[id number], 170, cm, 01/24/22 18:11:00 EDT, Height, 113, kg, 08/28/21 19:48:00 EST, Dry Weight Start Date: 02/25/22 Status: Ordered omeprazole 20 mg oral enteric coated capsule 1 capsule, By Mouth, Daily, PRN NEEDED, ACID INDIGESTION., # 90 capsule, 0 Refills, [facility] #[id number], 170, cm, 12/03/21 8:28:00 EDT, Height, 113, kg, 08/28/21 19:48:00 EST, Dry Weight Start Date: 01/23/22 Status: Ordered polyethylene glycol 3350 oral powder for reconstitution See Instructions, DISSOLVE 17 GM IN WATER EVERY DAY NEEDED FOR CONSTIPATION, # 510 Gm, 0 Refills, Maintenance, 03/26/22 8:19:00 EDT, [facility] #[id number], 30, DISSOLVE 17 GM IN WATER EVERY DAY NEEDED FOR CONSTIPATION, 170, cm, 01/24/22 18... Start Date: 03/26/22 Status: Ordered Potassium Chloride ([id number]) 10 mEq oral tablet, extended release 1 tablet = 10 mEq, By Mouth, Daily, # 30 tablet, 5 Refills, Maintenance, 10/02/21 16:06:00 EDT, [facility] #[id number], Partial fill upon patient request if the prescription is for a schedule IIopioid drug., 170, cm, 10/02/21 15:32:00 EDT, Heigh... Start Date: 10/02/21 Status: Ordered Shingrix intramuscular injection = 0.5 mL, Intramuscular, Once, repeat dose in 2 to 6 months, # 2 each, 0 Refills, Soft Stop, 03/21/21 8:37:00 EDT, Powder, [facility] #[id number], Partial fill upon patient request if the prescription is for a schedule II opioid drug., 0.5 mL Int... Start Date: 03/21/21 Status: Ordered triamcinolone 0.5% topical ointment See Instructions, APPLY TOPICALLY TO THE AFFECTED AREA TWICE DAILY FOR UP TO 14 DAYS FOR ECZEMA, # 60 Gm, 1 Refills, Maintenance, 03/27/22 8:23:00 EDT, [facility] #[id number], 28, APPLY TOPICALLY TO THE AFFECTED AREA TWICE DAILY FOR UP TO 14 DAYS... Start Date: 03/27/22 Status: Ordered Trulicity Pen 0.75 mg/0.5 mL subcutaneous solution 0.5 mL = 0.75 mg, Subcutaneous Injection, Every week, # 2 mL, 11 Refills, Maintenance, 03/27/22 8:27:00 EDT, Solution, [facility] #[id number], Partial fill upon patient request if the prescription is for a schedule II opioid drug., 170, cm, 03/27... Start Date: 03/27/22 Status: Ordered Voltaren 1% topical gel = 2 Gm, Topically, 4 times a day, PRN arthritis pain, # 150 Gm, 3 Refills, Maintenance, 08/28/21 9:02:00 [facility] #[id number], Partial fill upon patient request if the [...] Care Team Personnel Name: Abiel Nickerson Position: [facility] Associate Professional Member Role: PCP Address: Address: [address] [place] [address] [place] [address]- Name: Jennifer Rodriguez RN Position: S RN Member Role: Primary Care Nurse Care Team Related Persons Name: KINGA ACOSTA Address: home [address] [place] [address]
--- OUTSIDE RECORDS SUMMARY | 2023-07-02 19:14 | XMS_ITS | Continuity of Care Document ---
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 Name Role Phone Abiel Nickerson Primary Care Physician [phone] Encounter [facility] Date(s): 03/08/23 - 03/09/[address] [address]- Encounter Diagnosis Abdominal pain(Final) - 03/09/23 Discharge Disposition: A-D/C Home Attending Physician: Anthony Jolley MD Admitting Physician: Anthony Jolley MD Referring Physician: Not on Staff, Referring MD Allergies, Adverse Reactions, Alerts Substance Reaction Severity Status penicillin hives Active sulfamethoxazole hives Active Latex Active Cortisporin Active Immunizations Given and Recorded Vaccine Date Status Refusal Reason SARS-CoV-2 mRNA ([id number]) vax 08/28/21 Given influenza virus vaccine, inactivated [...] tablet, 1 Refills, Maintenance, 02/04/23 12:49:00 EDT, [facility] #[id number], Partial fill upon patient request if the [...] tablet, 3 Refills, Maintenance, 09/30/22 10:07:00 EDT, [id number], 170, cm, 09/30/22 9:28:00 EDT, Height, 113, kg, 08/28/21 19:48:00 EST, Dry Weight Start Date: 09/30/22 Status: Ordered atorvastatin 20 mg oral tablet 1 tablet = 20 mg, By Mouth, Daily, TAKE 1 TABLET BY MOUTH DAILY Start Date: 12/10/22 Status: Ordered cetirizine 10 mg oral tablet 1 tablet, By Mouth, Daily, # 30 tablet, 5 Refills, Maintenance, 11/26/22 17:55:00 EDT, [facility] #[id number], 175, cm, 11/05/22 22:16:00 EDT, Height, 108.5, kg, 11/05/22 22:16:00 EDT, Dry Weight Start Date: 11/26/22 Status: Ordered cetirizine 10 mg oral tablet 1 tablet = 10 mg, By Mouth, Daily Start Date: 12/10/22 Status: Ordered Eliquis 5 mg oral tablet 1 tablet, By Mouth, 2 times a day, STOPPING WARFARIN., # 60 tablet, 0 Refills, Maintenance, 05/02/22 13:12:00 EDT, [facility] #[id number], 170, cm, 03/27/22 8:35:00 EDT, Height, 113, kg, 08/28/21 19:48:00 EST, Dry Weight Start Date: 05/02/22 Status: Ordered Eliquis 5 mg oral tablet See Instructions, TAKE 1 TABLET BY MOUTH TWICE DAILY STOPPING WARFARIN, # 60 tablet, 11 Refills, Maintenance, 05/06/22 9:53:00 EDT, [facility] #[id number], 170, cm, 03/27/22 8:35:00 EDT, Height,113, kg, 08/28/21 19:48:00 EST, Dry Weight Start Date: 05/06/22 Status: Ordered Eliquis 5 mg oral tablet 1 tablet = 5 mg, By Mouth, 2 times a day, TAKE 1 TABLET BY MOUTH TWICE DAILY STOPPING WARFARIN Start Date: 12/10/22 Status: Ordered Fleet Mineral Oil Enema 100% rectal enema 60 mL, Rectally, Once, PRN as needed for constipation, # 133 mL, 0 Refills, Soft Stop, 03/09/23 16:40:00 EDT, Enema, [facility] #[id number], Partial fill upon patient request if the prescriptionis for a schedule II opioid drug., 60 mL Rectally O... Start Date: 03/09/23 Status: Ordered fluticasone 50 mcg/inh nasal spray See Instructions, SHAKE LIQUID AND USE 1 SPRAY IN EACH NOSTRIL TWICE DAILY, # 16 Gm, 0 Refills, Maintenance, [facility] #[id number], 30, SHAKE LIQUID AND USE 1 SPRAY [...] 30 tablet, 11 Refills, 02/04/23 12:38:00 EDT, [facility] #[id number], 30, 1 tablet By Mouth Daily, 175, [...] tablet, 1 Refills, Maintenance, 02/04/23 12:47:00 EDT, [facility] #[id number], Partial fill upon patient request if theprescription is for a schedule II opioid drug., 175... Start Date: 02/04/23 Status: Ordered ipratropium nasal 21 mcg/inh spray See Instructions, USE 2 SPRAYS IN EACH NOSTRIL TWICE DAILY IN EACH NOSTRIL, NEEDED CONGESTION, #30 mL, 5 Refills, Maintenance, 09/03/22 9:40:00 EST, [facility] #[id number], 30, USE 2 SPRAYS IN EACH NOSTRIL TWICE DAILY IN EACH NOSTRIL, NEED... Start Date: 09/03/22 Status: Ordered isopropyl alcohol 70% topical pad See Instructions, CLEANSE SKIN BEFORE TESTING BLOOD SUGAR, # 100 Unknown, 5 Refills, Maintenance, 02/03/23 9:08:00 EDT, [facility] #[id number], 30, CLEANSE SKIN BEFORE TESTING BLOOD SUGAR, 175, cm, 01/20/23 10:13:00 EDT, Height, 108.5, kg, ... Start Date: 02/03/23 Status: Ordered ketoconazole 2% topical cream See Instructions, APPLY BENEATH BREAST AND GROIN AREAS TWICE DAILY, # 120 Gm, 2 Refills, Maintenance, 09/30/22 10:09:00 EDT, [facility] #[id number], 30, APPLY BENEATH BREAST AND GROIN AREAS TWICE DAILY, 170, cm, 09/30/22 9:28:00 EDT, Height, 113,... Start Date: 09/30/22 Status: Ordered melatonin 5 mg oral tablet 1 tablet = 5 mg, By Mouth, Daily at bedtime, for 30 days, to help sleep, # 30 tablet, 1 Refills, Acute 04/05/23 12:48:00 EDT, 02/04/23 12:48:00 EDT, [facility] #[id number], Partial fill upon patient request if the prescription is for a schedule I... Start Date: 02/04/23 Stop Date: 04/05/23 Status: Ordered Metamucil 3.4 gm/5.2 gm oral powder for reconstitution = 1.7 Gm, By Mouth, 3 times a day, PRN as needed for constipation, dissolve in 8 oz of fluid. drinkplenty of water., # 570 Gm, 5 Refills, Maintenance, 09/02/19 14:32:00 EST, REC Powder, [facility] #[id number], 176, cm, 09/02/19 13:59:00 EST, Hei... Start Date: 09/02/19 Status: Ordered Metoprolol Succinate ER 50 mg oral tablet, extended release 1 tablet, By Mouth, Daily, # 90 tablet, 3 Refills, Maintenance, 02/04/23 12:35:00 EDT, [facility] #[id number], 175, cm, 01/20/23 10:13:00 EDT, Height, 108.5, [...] 90 capsule, 0 Refills, Maintenance,02/04/23 12:36:00 EDT, [facility] #[id number], 175, cm, 01/20/23 10:13:00 EDT, Height, 108.5, [...] each, 0 Refills, Maintenance, 08/26/22 11:04:00 EST, [facility] #[id number], Parti... Start Date: 08/26/22 Status: Ordered Hurt Milk of Magnesia 8% oral suspension 30 mL = 2.4 Gm, By Mouth, Daily at bedtime, PRN for constipation, # 300 mL, 0 Refills, Acute 03/16/23 12:00:00 EDT, 03/09/23 16:39:00 EDT, Suspension, [facility] #[id number], Partial fill upon patient request if the prescription is for a schedule... Start Date: 03/09/23 Stop Date: 03/16/23 Status: Ordered polyethylene glycol 3350 oral powder for reconstitution See Instructions, DISSOLVE 17 GM IN WATER EVERY DAY NEEDED FOR CONSTIPATION, # 510 Gm, 0 Refills, Maintenance, 03/26/22 8:19:00 EDT, [facility] #[id number], 30, DISSOLVE 17 GM IN WATER EVERY DAY NEEDED FOR CONSTIPATION, 170, cm, 01/24/22 18... Start Date: 03/26/22 Status: Ordered Potassium Chloride ([id number] 10) 10 mEq oral tablet, extended release 1 tablet = 10 mEq, By Mouth, Daily, # 30 tablet, 5 Refills, Maintenance, 10/02/21 16:06:00 EDT, [facility] #[id number], Partial fill upon patient request if the prescription is for a schedule IIopioid drug., 170, cm, 10/02/21 15:32:00 EDT, Heigh... Start Date: 10/02/21 Status: Ordered risperiDONE 0.5 mg oral tablet 0.5 mg, 1, tablet, By Mouth, Daily, # 30 tablet, Refills 1, Tot. Refills 1, Maintenance, 02/04/23 12:45:00 EDT, Route to Pharmacy Electronically, [facility] #[id number], Partial fill upon patient request if the prescription is for a schedule II o... Start Date: 02/04/23 Status: Ordered senna 8.8 mg/5 mL oral syrup 10 mL = 17.6 mg, By Mouth, Daily at bedtime, PRN for constipation, # 240 mL, 0 Refills, Acute 03/16/23 12:00:00 EDT, 03/09/23 16:39:00 EDT, Syrup, [facility] #[id number], Partial fill upon patient request if the prescription is for a schedule II... Start Date: 03/09/23 Stop Date: 03/16/23 Status: Ordered Shingrix intramuscular injection = 0.5 mL, Intramuscular, Once, repeat dose in 2 to 6 months, # 2 each, 0 Refills, Soft Stop, 03/21/21 8:37:00 EDT, Powder, [facility][id number], Partial fill upon patient request if the [...] Gm, 1 Refills, Maintenance, 12/04/22 16:55:00 EDT, [facility] #[id number], APPLY TOPICALLY TO THE AFFECTED AREA TWICE DAILY FOR UP TO 14 DAYS FO... Start Date: 12/04/22 Status: Ordered Trulicity Pen 0.75 mg/0.5 mL subcutaneous solution 0.5 mL = 0.75 mg, Subcutaneous Injection, Every week, # 2 mL, 11 Refills, Maintenance, 03/27/22 8:27:00 EDT, Solution, [facility] #[id number], Partial fill upon patient request if the prescription is for a schedule II opioid drug., 170, cm, 03/27... Start Date: 03/27/22 Status: Ordered Vitamin D3 1000 intl units oral capsule 1 capsule = 25 mcg, By Mouth, Daily, with food, # 90 capsule, 3 Refills, Maintenance, 02/03/23 17:53:00 EDT, [facility] #[id number], Partial fill upon patient request if the prescription is for a schedule II opioid drug., 175, cm, 01/20/23 10:13:... Start Date: 02/03/23 Stop Date: 01/29/24 Status: Ordered Voltaren 1% topical gel = 2 Gm, Topically, 4 times a day, PRN arthritis pain, # 150 Gm, 3 Refills, Maintenance, 08/28/21 9:02:00 EST, [facility] #[id number], Partial fill upon patient request if the [...] Exam Date Time Procedure Performing Provider Status 03/09/23 2:[address] Abd/Pelvis W/ IV Contrast Only Liyah Bruno; Auth (Verified) Notes: (CT Abd/Pelvis W/ IV Contrast Only) Reason For Exam: LLQ abdominal pain;Other: RESULT: CT Abd/Pelvis W/ IV Contrast Only CT Abd/Pelvis W/ IV Contrast Only HX OF PRESENT ILLNESS: Pt here with mulitiple complaints- lower abd pain and constipaiton, headache, chest pain and weakness. Symptoms have improved per pt.; Reason: LLQ abdominal pain; Clinical Question(s): Appendicitis; TECHNIQUE: Spiral CT through the abdomen and pelvis with IV contrast formatted in 3 planes. 100 cc of Omnipaque 300 was administered intravenously. This study was performed without oral contrast. Weight-based protocol using automatic tube modulation was used to optimize exposure parameters. CTDIvol Body: 20.10 mGy, DLP Body: 1154 mGy*cm. COMPARISON: CT abdomen and pelvis from 08/21/2019. FINDINGS: Metal Tube Cutter View Findings, Lines and Tubes: None. Visualized Chest: Lung bases are clear. No pleural effusion. The heart is normal in size. No pericardial effusion. Diaphragm: Normal. Liver: Mild focal fatty sparing surrounding the falciform ligament. Gallbladder: No CT evidence of gallbladder pathology. Bile ducts: No biliary ductal dilation. Spleen: Normal. Pancreas: Normal. Adrenal glands: Normal. Kidneys and ureters: No hydronephrosis, stones, or suspicious masses. Bladder: Normal. Reproductive organs: Status post hysterectomy. Stomach, small bowel, and large bowel: Stomach is underdistended. Normal caliber small bowel loops.Significant colonic stool retention without evidence of acute obstruction. Redundant sigmoid with mild gaseous distention measuring up to 6 cm. There is a large stool ball within the rectum resultingin mild rectal wall thickness and perirectal fat stranding, raising concern for stercoral colitis/fe fawn impaction. Appendix: Normal. Peritoneum and retroperitoneum: No ascites or pneumoperitoneum. No omental or mesenteric lesions. Lymph nodes: No enlarged lymph nodes. Blood vessels: Mild vascular calcifications but no aneurysm. No evidence of venous thrombosis. Abdominal and pelvic wall: Unremarkable. Bones: No acute abnormality. Mild degenerative changes of the lumbosacral spine, with mild right facet hypertrophy at the L4-L5 level. IMPRESSION: 1. Rectal stool ball with surrounding wall thickening and perirectal fat stranding, raising concernfor fecal impaction/stercoral colitis with diffuse upstream gaseous distention of the colon, potentially partially obstructive. Normal caliber small bowel loops. No pneumatosis or pneumoperitoneum. 2. No evidence of acute appendicitis. I have personally reviewed the images and I agree with this report. WSN: [id number] Ordering Physician: Paolo Montes De Oca Dictated By: Gissell Rae MD Dictated Date/Time: 03/09/23 3:06 pm Reviewed By: Danial Waite MD Signed By: Danial Waite MD Signed Date/Time: 03/09/23 3:11 pm Transcribed By: STANLEY Transcribed Date/Time: 03/09/23 2:48 pm * Exam Date Time Procedure Performing Provider Status 03/08/23 4:28 PM Chest 2 Views Frontal and Lat Elsa Antonio; Esdras (Verified) Notes: (Chest 2 Views Frontal and Lat) Reason For Exam: Shortness of Breath RESULT: Chest 2 Views Frontal and Lat Chest 2 Views Frontal and Lat Reason: Shortness of Breath; Clinical Question(s): CHF COMPARISON: Multiple prior chest x-rays, the most recent of which is dated 11/05/2022. FINDINGS: LINES AND TUBES: None. LUNGS AND PLEURA: Clear lungs. Normal pulmonary vascularity. No pleural effusion. No pneumothorax. HEART, MEDIASTINUM AND KRISTIAN: Heart is normal in size. Normal mediastinal and hilar contour. BONES AND SOFT TISSUES: No acute abnormality. IMPRESSION: No acute abnormality. WSN: [id number] Ordering Physician: Marine Knox Dictated By: Holly Berg MD Dictated Date/Time: 03/08/23 4:46 pm Reviewed By: Holly Berg MD Signed By: Holly Berg MD Signed Date/Time: 03/08/23 4:46 pm Transcribed By: STANLEY Transcribed Date/Time: 03/08/23 4:45 pm Vital Signs Most recent to oldest [Reference Range]: 1 2 3 Height 175 cm (03/08/23 3:28 PM) Oxygen Saturation [94-100 %] 100 % (03/09/23 6:30 PM) 100 % (03/09/23 3:18 PM) 100 % (03/09/23 11:12 AM) Pulse Rate [55-90 bpm] 58 bpm (03/09/23 6:30 PM) 69 bpm (03/09/23 3:18 PM) 78 bpm (03/09/23 11:12 AM) Blood Pressure [90-138/55-84 mm Hg] 147/74mm Hg *H* (03/09/23 6:30 PM) 147/89mm Hg *H* (03/09/23 3:18 PM) 130/78mm Hg (03/09/23 11:12 AM) Respiratory Rate [16-30 br/min] 18 br/min (03/09/23 6:30 PM) 19 br/min (03/09/23 3:18 PM) 18 br/min (03/09/23 11:12 AM) Temperature [96.8-100.4 DegF] 98.3 DegF (03/09/23 6:30 PM) 98.1 DegF (03/09/23 3:18 PM) 98.0 DegF (03/09/23 9:58 AM) Liters per Minute 2 L/min (03/08/23 3:17 PM) Mode of Delivery (Oxygen) Room air (03/09/23 6:30 PM) Room air (03/09/23 3:18 PM) Room air (03/09/23 11:12 AM) Blood pressure sites Arm, right (03/09/23 6:30 PM) Arm, right (03/09/23 3:18 PM) Arm, left (03/09/23 11:12 AM) Temperature Route Oral (03/09/23 6:30 PM) Oral (03/09/23 3:18 PM) Oral (03/09/23 9:58 AM) Dry Weight 100.5 kg (03/08/23 3:28 PM) Social History Social History Type Response Smoking Status Current every day adrián smart; Type: Cigarettes entered on: 10/29/13 Sex Female EKG study * Event Display: ECG 12-Lead Authored Date: Please click on pdf link to open report * Event Display: ECG 12-Lead Authored Date: Ventricular Rate: 55 BPM Atrial Rate: 55 BPM P-R Interval: 204 ms QRS Duration: 116 ms Q-T Interval: 454 ms QTC Calculation(Bazett): 434 ms P [place]: 68 degrees R [place]: 14 degrees T [place]: 42 degrees Sinus bradycardia Minimal voltage criteria for LVH, may be normal variant ( Marcus product ) Borderline ECG When compared with ECG of 07-JAN-2023 14:17, No significant change was found Confirmed by ANTHONY ZARAGOZA ([id number]) on 03/09/2023 8:01:25 AM [place]: ANTHONY ZARAGOZA Note * Falguni CERON, Paolo: PERFORM Event Display: Patient Education Leaflets Authored Date: [id number] Constipation (Adult) ?? [id number] Constipation (Adult) Constipation means that you have bowel movements that are less frequent than usual. Stools often become very hard and difficult to pass. Constipation is very common. At some point in life, it affects almost everyone. Since everyone's bowel habits are different, what is constipation to one person may not be to another. Your healthcare provider may do tests to diagnose constipation. It depends on what??they??find when evaluating you. Symptoms of constipation include: ??? Abdominal pain ??? Bloating ??? Vomiting ??? Painful bowel movements ??? Itching, swelling, bleeding, or pain around the anus Causes Constipation can have many causes. These include: ??? Diet low in fiber ??? Too much dairy ??? Not drinking enough liquids ??? Lack of exercise or physical activity (especially true for older adults)??? Changes in lifestyle or daily routine, including , aging, work, and travel ??? Frequent use or misuse of laxatives ??? Ignoring the urge to have a bowel movement or delaying it until later ??? Medicines, such as certain prescription pain medicines, iron supplements, antacids, certain antidepressants, and calcium supplements ??? Diseases like irritable bowel syndrome, bowel obstructions, stroke, diabetes, thyroid disease, Parkinson disease, hemorrhoids, and colon cancer ?? Complications Possible complications of constipation can include: ??? Hemorrhoids ??? Rectal bleeding from hemorrhoids or anal fissures??(skin tears) ??? Hernias ??? Chronic constipation ??? Fecal impaction, a severe form of constipation in which a large amount of hard stool is in your rectum that you can't pass??? Bowel obstruction or perforation ?? Home care All treatment should be done after talking with your healthcare provider. This is especially true if you have another medical problem, are taking prescription medicines, or are an older adult. Treatment most often involves lifestyle changes. You may also need medicines. Your healthcare provider will tell you which will work best for you. Follow the advice below to help avoid this problem in the future. ?? Lifestyle changes These lifestyle changes can help prevent constipation: ??? Diet. Eat a high- fiber diet, with fresh fruit and vegetables, and reduce dairy intake, meats, and processed foods ??? Fluids. It's importantto get enough fluids each day. Drink plenty of water when you eat more fiber. If you are on diet that limits the amount of fluid you can have, talk about this with your healthcare provider. ??? Regular exercise. Check with your healthcare provider first. ?? Medicines Take any medicines as directed. Some laxatives are safe to use only every now and then. Others can be taken on a regular basis. While laxatives don't cause bowel dependence, they are treating the symptoms. So your constipation may return if you don't make other changes. Talk with your healthcare provider or pharmacist if you have questions. Prescription pain medicines can cause constipation. If you are taking this kind of medicine, ask your healthcare provider if you should also take a stool softener. Medicines you may take to treat constipation include: ??? Fiber supplements ??? Stool softeners ???Laxatives ??? Enemas ??? Rectal suppositories ?? Follow-up care Follow up with your healthcare provider if symptoms don't get better in the next few days. You may need to have more tests or see a specialist. ?? Call 911 Call 911 if any of these occur: ??? Trouble breathing ??? Stiff, rigid abdomen that is severely painful to touch ??? Large amount of blood in the stool ??? Confusion ??? Fainting or loss of consciousness ??? Rapid heart rate ??? Chest pain ?? When to seek medical advice Call your healthcare provider right away if any of these occur: ??? Fever of 100.4??F (38??C) or higher, or as directed by your healthcare provider ??? Failure to resume normal bowel movements ??? Pain in your abdomen or back gets worse ??? Nausea or vomiting ??? Swelling in your abdomen ??? Small amount of blood in the stool ??? Black, tarry stool ??? Involuntary weight loss ??? Weakness ?? Last Reviewed Date: 2021 ?? [id number] [employer]. All rights reserved. This information is not intended as a substitute for professional medical care. Always follow your healthcare professional's instructions. ?? Patient Care team information Care Team Personnel Name: Abiel Nickerson Position: [facility] PCO Associate Professional Member Role: PCP Address: Address: [address] [place] [address] [place] [address]- Name: Jennifer Rodriguez RN Position: [facility] RN Member Role: Primary Care Nurse Name: Paolo Montes De Oca DO Position: [facility] Resident Member Role: ED Resident Address: Address: [address] [place] [address] Emergency Medicine [place], [place] [address]R[place] Name: Anthoyn Jolley MD Position: [facility] ED Medicine MD Member Role: Admitting Physician Address: Address: [address] [place] [address]- Name: Meliza Sewell Position: [facility] ED TA [facility] Member Role: Safety And Occupational Health Manager Care Team Related Persons Name: KINGA ACOSTA Address: [address] [address] Name: VELVET ACOSTA Address: [place] [address]
--- OUTSIDE RECORDS SUMMARY | 2023-07-02 19:14 | XMS_ITS | Continuity of Care Document ---
Author Name Unknown Organization [facility] Address [address] [place] [address]- Care Team Providers Care Avp Name Role Phone Abiel Nickerson Primary Care Physician [facility]counter [facility] Date(s): 04/17/20 - 05/17/20 [facility] [address] [place] [address]- [facility] Attending Physician: AdmtrPaulina Allergies, Adverse Reactions, Alerts Substance Reaction Severity [...] 08/04/19 10:07:00 EST, Route to Pharmacy Electronically, [facility] #[id number], 904, cm, 08/04... Start Date: 08/04/19 Status: Ordered apixaban 5 mg oral tablet 1 tablet = 5 mg, By Mouth, 2 times a day, STOPPING WARFARIN., # 60 tablet, 11 Refills, Maintenance,11/15/19 12:12:00 EDT, [facility] #[id number], 176, cm, 09/16/19 14:40:00 EST, Height, 123.2, kg, 08/21/19 20:54:00 EST, Dry Weight Start Date: 11/15/19 Status: Ordered atorvastatin 20 mg oral tablet 1 tablet, By Mouth, Daily, # 30 tablet, 11 Refills, Maintenance, 04/21/20 12:04:00 EDT, [facility] #[id number], 176, cm, 04/17/20 16:08:00 EDT, Height, 123.2, kg, 08/21/19 20:54:00 EST, Dry Weight Start Date: 04/21/20 Status: Ordered cetirizine 10 mg oral tablet 1 tablet = 10 mg, By Mouth, Daily, # 30 tablet, 5 Refills, Maintenance, 11/15/19 11:43:00 EDT, Tablet, [facility] #[id number], 176, cm, 09/16/19 14:40:00 EST, Height, 123.2, [...] 5 Refills, Maintenance, 11/15/19 11:45:00 EDT, Tablet, [facility] #[id number], 176, cm, 09/16/19 14:40:00 EST, Height, 123.2, kg, 08/21/19 20:54:00 EST, Dry Weight Start Date: 11/15/19 Status: Ordered Flonase 50 mcg/inh nasal spray 1 sprays, Nares, Both, 2 times a day, # 1 each, 2 Refills, Maintenance, 04/04/20 17:25:00 EDT, [place], [facility] #[id number], 1 sprays Nares, Both 2 times a day,x30 days, 176, cm, 12/08/19 10:38:00 EDT, Height, 123.2, kg, 08/21/19 20:54:00 EST, D... Start Date: 04/04/20 Stop Date: 07/03/20 Status: Ordered hydrochlorothiazide-lisinopril 25 mg-20 mg oral tablet 1 tablet, By Mouth, Daily, # 30 tablet, 2 Refills, Maintenance, 03/30/20 18:29:00 EDT, Tablet, [facility] #[id number], 1 tablet By Mouth Daily,x30 days, 176, cm, 12/08/19 10:38:00 EDT, Height, 123.2, kg, 08/21/19 20:54:00 EST, Dry Weight Start Date: 03/30/20 Stop Date: 06/28/20 Status: Ordered ketoconazole 2% topical cream See Instructions, APPLY EXTERNALLY TO THE AFFECTED AREA TWICE DAILY TO THE AFFECTED AREA, # 100 Gm,2 Refills, Maintenance, 04/17/20 16:42:00 EDT, [facility] #[id number], APPLY EXTERNALLY TO THEAFFECTED AREA TWICE DAILY TO THE AFFECTED AREA, 176... Start Date: 04/17/20 Status: Ordered lidocaine 5% topical cream 1 application, Topically, 3 times a day, # 100 Gm, 2 Refills, Maintenance, 04/17/20 16:42:00 EDT, Cream, [facility] #[id number], 1 application Topically 3 times a day,x14 days, 176, cm, 04/17/2016:08:00 EDT, Height, 123.2, kg, 08/21/19 20:54:00... Start Date: 04/17/20 Stop Date: 05/29/20 Status: Ordered Metamucil 3.4 gm/5.2 gm oral powder for reconstitution = 1.7 Gm, By Mouth, 3 times a day, PRN as needed for constipation, dissolve in 8 oz of fluid. drinkplenty of water., # 570 Gm, 5 Refills, Maintenance, 09/02/19 14:32:00 EST, REC Powder, [facility] #[id number], 176, cm, 09/02/19 13:59:00 EST, Hei... Start Date: 09/02/19 Status: Ordered Metoprolol Succinate ER 50 mg oral tablet, extended release 1 tablet, By Mouth, Daily, # 60 tablet, 0 Refills, Maintenance, 03/13/20 10:14:00 EDT, [facility] #[id number], 176, cm, 12/08/19 10:38:00 EDT, Height, 123.2, kg, 08/21/19 20:54:00 EST, Dry Weight Start Date: 03/13/20 Status: Ordered MiraLax oral powder for reconstitution = 17 Gm, By Mouth, Daily, PRN Constipation, dissolve in water before taking, # 12 each, 5 Refills, Maintenance, 09/02/19 14:32:00 EST, REC Powder, [facility] #[id number], 17 Gm By Mouth Daily,PRN:Constipation,Instr:dissolve in water before taking... Start Date: 09/02/19 Status: Ordered nitroglycerin 0.4 mg sublingual tablet 1 tablet = 0.4 mg, Sublingual, Every 5 minutes, PRN for chest pain, If chest pain not relieved in 5minutes after first dose, seek immediate medical attention, # 1 tablet, 0 Refills, Maintenance, 08/19/16 10:23:57, Tablet Start Date: 08/19/16 Status: Ordered nystatin topical 755273 u/gm powder 1 application, Topically, 2 times [...] Refills, Maintenance, 03/17/20 19:11:00 EDT, EC Capsule, [facility] #[id number], 176, cm, 12/08/19 10:38:00 EDT, Height,123.2, kg, 08/21/19 20:54:00 EST, Dry Weight Start Date: 03/17/20 Stop Date: 06/15/20 Status: Ordered PARoxetine 10 mg oral tablet 1, tablet, By Mouth, Daily, # 30 tablet, Refills 0, Tot. Refills 0, Maintenance, 05/05/20 17:32:00 EDT, Route to Pharmacy Electronically, [facility] #[id number], 176, cm, 04/17/20 16:08:00 EDT, Height, 123.2, kg, 08/21/19 20:54:00 EST, Dry Weight Start Date: 05/05/20 Status: Ordered potassium chloride 20 mEq oral tablet, extended release 1 tablet = 20 mEq, By Mouth, Daily, # 90 tablet, 1 Refills, Maintenance, 01/12/19 17:42:00 EDT Start Date: 01/12/19 Status: Ordered triamcinolone 0.025% topical cream 1 applicator, Topically, 3 times a day, apply a thin film for eczema, # 30 Gm, 3 Refills, Maintenance, 08/18/19 10:35:00 EST, [facility] #[id number], 1 applicator Topically 3 times a day,Instr:apply a thin film for eczema, 176, cm, 08/18/19 9:16:... Start Date: 08/18/19 Status: Ordered Triple Antibiotic topical ointment 1 application, Topically, 2 times a day, # 28 Gm, 0 Refills, Acute, 11/15/19 12:12:00 EDT, [facility] #[id number], 7, APPLY 1 APPLICATION TOPICALLY TWICE DAILY, [...] Active Hypertension(Confirmed) Active Impaired Fasting Glucose(Confirmed) Active Localized osteoarthritis of right ankle(Confirmed) Active Tubular adenoma of colon(Confirmed) 01/09/17 Active Ventricular tachycardia(Confirmed) Active 1Tubular Adenoma < 1 cm. F/u in December 2016. Social History Social History Type Response Smoking Status Current every day adrián smart; Type: Cigarettes entered on: 10/29/13 Sex Female
--- OUTSIDE RECORDS SUMMARY | 2023-07-02 19:14 | XMS_ITS | Continuity of Care Document ---
Author Name Unknown Organization [facility] Address [address] [place] [address]- Care Team Providers Care Jewel Hole Rough Opener Name Role Phone Abiel Nickerson Primary Care Physician [phone] Encounter [facility] Date(s): 03/29/21 - 04/28/21 [facility] [address] [place] [address]- Allergies, Adverse Reactions, Alerts Substance Reaction Severity Status penicillin hives Active sulfamethoxazole hives Active Cortisporin Active Latex Active Immunizations Given and Recorded Vaccine Date Status Refusal Reason tetanus-diphtheria toxoids (Td) 03/21/21 Given SARS-CoV-2 (COVID-19) mRNA BNT-162b2 vac 02/15/21 Given SARS-CoV-2 (COVID-19) mRNA BNT-162b2 vac 01/24/21 Given influenza virus vaccine, inactivated 07/05/20 Give n [...] 08/04/19 10:07:00 EST, Route to Pharmacy Electronically, [facility] #[id number], 176, cm, 08/04... Start Date: 08/04/19 Status: Ordered Alcohol Wipes See Instructions, # 1 kit, [...] 60 tablet, 11 Refills, Maintenance,02/19/21 8:31:00 EDT, [facility] #[id number], 176, cm, 02/19/21 8:02:00 EDT, Height, 123.2, kg, 08/21/19 20:54:00 EST, Dry Weight Start Date: 02/19/21 Status: Ordered atorvastatin 20 mg oral tablet 1 tablet, By Mouth, Daily, # 30 tablet, 11 Refills, Maintenance, 02/19/21 8:31:00 EDT, [facility] #[id number], 176, cm, 02/19/21 8:02:00 EDT, Height, 123.2, kg, 08/21/19 20:54:00 EST, Dry Weight Start Date: 02/19/21 Status: Ordered cetirizine 10 mg oral tablet See Instructions, TAKE 1 TABLET BY MOUTH DAILY, # 30 tablet, 0 Refills, Maintenance, [facility] #[id number], 176, cm, 02/19/21 8:02:00 EDT, Height, 123.2, kg, 08/21/19 20:54:00 EST, Dry Weight Start Date: 02/19/21 Status: Ordered cetirizine 10 mg oral tablet 1 tablet = 10 mg, By Mouth, Daily, # 90 tablet, 1 Refills, Maintenance, 12/29/20 8:36:00 EDT, Tablet, [facility] #[id number], 176, cm, 07/05/20 15:49:00 EST, Height, 123.2, kg, 08/21/19 20:54:00EST, Dry Weight Start Date: 12/29/20 Status: Ordered ciclopirox 0.77% topical cream 1 [...] day, # 60 tablet, 11 Refills, Maintenance, 07/05/20 17:16:00EST, Tablet, [facility] #[id number], 176, cm, 07/05/20 15:49:00 EST, Height, 123.2, kg, 08/21/19 20:54:00 EST, Dry Weight Start Date: 07/05/20 Status: Ordered fluticasone 50 mcg/inh nasal spray See Instructions, SHAKE LIQUID AND USE 1 SPRAY IN EACH NOSTRIL TWICE DAILY, # 16 Gm, 0 Refills, Maintenance, [facility] #[id number], 30, SHAKE LIQUID AND USE 1 SPRAY [...] 30 tablet, 11 Refills, 03/23/21 11:53:00 EDT, [facility] #[id number], 30, 1 tablet By Mouth Daily, 176, cm, 03/21/21 8:05:00 EDT, Height, 123.2, kg, 08/21/19 20:54:00 EST, Dry Weight Start Date: 03/23/21 Status: Ordered ketoconazole 2% topical cream See Instructions, APPLY EXTERNALLY TO THE AFFECTED AREA TWICE DAILY TO THE AFFECTED AREA, # 100 Gm,2 Refills, Maintenance, 02/19/21 8:43:00 EDT, [facility] #[id number], APPLY EXTERNALLY TO THE AFFECTED AREA TWICE DAILY TO THE AFFECTED AREA, 176,... Start Date: 02/19/21 Status: Ordered lidocaine 5% topical cream 1 application, Topically, 3 times a day, # 100 Gm, 2 Refills, Maintenance, 04/17/20 16:42:00 EDT, Cream, [facility] #[id number], 1 application Topically 3 times a day,x14 [...] Refills, Maintenance, 09/02/19 14:32:00 EST, REC Powder, [facility] #[id number], 176, cm, 09/02/19 13:59:00 EST, Hei... Start Date: 09/02/19 Status: Ordered metFORMIN 500 mg oral tablet, extended release 1 tablet = 500 mg, By Mouth, Daily, with evening meal, # 30 tablet, 5 Refills, Maintenance, 03/21/21 8:33:00 EDT, [facility] #[id number], Partial fill upon patient request if the prescription isfor a schedule II opioid drug., 176, cm, 03/21/21 8... Start Date: 03/21/21 Status: Ordered Metoprolol Succinate ER 50 mg oral tablet, extended release 1 tablet, By Mouth, Daily, # 60 tablet, 11 Refills, Maintenance, 02/19/21 8:32:00 EDT, [facility] #[id number], 176, cm, 02/19/21 8:02:00 EDT, Height, 123.2, kg, 08/21/19 20:54:00 EST, Dry Weight Start Date: 02/19/21 Status: Ordered MiraLax oral powder for reconstitution = 17 Gm, By Mouth, Daily, PRN Constipation, dissolve in water before taking, # 12 each, 5 Refills, Maintenance, 09/04/20 11:17:00 EST, REC Powder, [email or web address] #[id number], 17 Gm By Mouth Daily,PRN:Constipation,Instr:dissolve in water before taking... Start Date: 09/04/20 Status: Ordered nitroglycerin 0.4 mg sublingual tablet 1 tablet = 0.4 mg, Sublingual, Every 5 minutes, PRN for chest pain, If chest pain not relieved in 5minutes after first dose, seek immediate medical attention, # 1 tablet, 0 Refills, Maintenance, 08/19/16 10:23:57, Tablet Start Date: 08/19/16 Status: Ordered nystatin topical 479201 u/gm powder 1 application, Topically, 2 times a day, for rash under breasts, # 60 Gm, 1 Refills, Maintenance, 04/20/19 11:09:55 EDT, Powder, 1 application Topically 2 times a day,Instr:for rash under breasts Start Date: 04/20/19 Status: Ordered omeprazole 20 mg oral enteric coated capsule 1 capsule, By Mouth, Daily, PRN NEEDED, ACID INDIGESTION., # 90 capsule, 0 Refills, [facility] #[id number], 176, cm, 03/21/21 8:05:00 EDT, Height, 123.2, kg, 08/21/19 20:54:00 EST, Dry Weight Start Date: 03/29/21 Status: Ordered potassium chloride 20 mEq oral tablet, extended release 1 tablet = 20 mEq, By Mouth, Daily, # 90 tablet, 1 Refills, Maintenance, 01/12/19 17:42:00 EDT Start Date: 01/12/19 Status: Ordered Shingrix intramuscular injection = 0.5 mL, Intramuscular, Once, repeat dose in 2 to 6 months, # 2 each, 0 Refills, Soft Stop, 03/21/21 8:37:00 EDT, Powder, [facility] #[id number], Partial fill upon patient request if the prescription is for a schedule II opioid drug., 0.5 mL Int... Start Date: 03/21/21 Status: Ordered triamcinolone 0.025% topical cream 1 applicator, Topically, 3 times a day, apply a thin film for eczema, # 30 Gm, 3 Refills, Maintenance, 02/19/21 8:34:00 EDT, [facility] #[id number], 1 applicator Topically 3 times a day,Instr:apply a thin film for eczema, 176, cm, 02/19/21 8:02:0... Start Date: 02/19/21 Status: Ordered Triple Antibiotic topical ointment 1 application, Topically, 2 times a day, # 28 Gm, 0 Refills, Acute, 11/15/19 12:12:00 EDT, [facility] #[id number], 7, APPLY 1 APPLICATION TOPICALLY TWICE DAILY, [...]
--- OUTSIDE RECORDS SUMMARY | 2023-07-02 19:14 | XMS_ITS | Continuity of Care Document ---
Author Name Unknown Organization [facility] Address [address] [place] [address]- Care Team Providers Care Learning And Development Coordinator Name Role Phone Abiel Nickerson Primary Care Physician [phone] [place] [facility] [place]s): 10/27/19 - 02/24/20 [facility] [address] [place] [address] Attending Physician: Zenon Wilson MD Admitting Physician: Zenon Wilson MD Referring Physician: Abiel Nickerson Allergies, Adverse [...] 08/04/19 10:07:00 EST, Route to Pharmacy Electronically, [facility] #[id number], 912, cm, 08/04... Start Date: 08/04/19 Status: Ordered apixaban 5 mg oral tablet 1 tablet = 5 mg, By Mouth, 2 times a day, STOPPING WARFARIN., # 60 tablet, 11 Refills, Maintenance,11/15/19 12:12:00 EDT, [facility] #[id number], 176, cm, 09/16/19 14:40:00 EST, Height, 123.2, kg, 08/21/19 20:54:00 EST, Dry Weight Start Date: 11/15/19 Status: Ordered atorvastatin 20 mg oral tablet 1 tablet, By Mouth, Daily, # 30 tablet, 0 Refills, Maintenance, 02/09/20 8:24:00 EDT, [facility] #[id number], 176, cm, 12/08/19 10:38:00 EDT, Height, 123.2, kg, 08/21/19 20:54:00 EST, Dry Weight Start Date: 02/09/20 Status: Ordered cetirizine 10 mg oral tablet 1 tablet = 10 mg, By Mouth, Daily, # 30 tablet, 5 Refills, Maintenance, 11/15/19 11:43:00 EDT, Tablet, [facility] #[id number], 176, cm, 09/16/19 14:40:00 EST, Height, 123.2, [...] 5 Refills, Maintenance, 11/15/19 11:45:00 EDT, Tablet, [facility] #[id number], 176, cm, 09/16/19 14:40:00 EST, Height, 123.2, kg, 08/21/19 20:54:00 EST, Dry Weight Start Date: 11/15/19 Status: Ordered Flonase 50 mcg/inh nasal spray 1 sprays, Nares, Both, 2 times a day, # 1 each, 2 Refills, Maintenance, 12/31/19 12:09:00 EDT, [place], [facility] #[id number], 1 sprays Nares, Both 2 times a day,x30 days, 176, cm, 12/08/19 10:38:00 EDT, Height, 123.2, kg, 08/21/19 20:54:00 EST, D... Start Date: 12/31/19 Stop Date: 03/30/20 Status: Ordered hydrochlorothiazide-lisinopril 25 mg-20 mg oral tablet 1 tablet, By Mouth, Daily, # 30 tablet, 2 Refills, Maintenance, 12/31/19 9:24:00 EDT, Tablet, [facility] #[id number], 1 tablet By Mouth Daily,x30 days, 176, cm, 12/08/19 10:38:00 EDT, Height, 123.2, kg, 08/21/19 20:54:00 EST, Dry Weight Start Date: 12/31/19 Stop Date: 03/30/20 Status: Ordered lidocaine 5% topical cream 1 [...] Refills, Maintenance, 09/02/19 14:32:00 EST, REC Powder, [facility] #[id number], 176, cm, 09/02/19 13:59:00 EST, Hei... Start Date: 09/02/19 Status: Ordered MiraLax oral powder for reconstitution = 17 Gm, By Mouth, Daily, PRN Constipation, dissolve in water before taking, # 12 each, 5 Refills, Maintenance, 09/02/19 14:32:00 EST, REC Powder, [facility] #[id number], 17 Gm By Mouth Daily,PRN:Constipation,Instr:dissolve in water before taking... Start Date: 09/02/19 Status: Ordered nitroglycerin 0.4 mg sublingual tablet 1 tablet = 0.4 mg, Sublingual, Every 5 minutes, PRN for chest pain, If chest pain not relieved in 5minutes after first dose, seek immediate medical attention, # 1 tablet, 0 Refills, Maintenance, 08/19/16 10:23:57, Tablet Start Date: 08/19/16 Status: Ordered nystatin topical 571423 u/gm powder 1 application, Topically, 2 times a day, for rash under breasts, # 60 Gm, 1 Refills, Maintenance, 04/20/19 11:09:55 EDT, Powder, 1 application Topically 2 times a day,Instr:for rash under breasts Start Date: 04/20/19 Status: Ordered omeprazole 20 mg oral enteric coated capsule 1 capsule = 20 mg, By Mouth, Daily, prn acid indigestion, # 90 capsule, 0 Refills, Maintenance, 11/15/19 11:44:00 EDT, EC Capsule, [facility] #[id number], 176, cm, 09/16/19 14:40:00 EST, Height,123.2, kg, 08/21/19 20:54:00 EST, Dry Weight Start Date: 11/15/19 Stop Date: 02/13/20 Status: Ordered PARoxetine 10 mg oral tablet 10 mg, 1, tablet, By Mouth, Daily, please d/c 7.5mg order, # 30 tablet, Refills 5, Tot. Refills 5, Maintenance, 09/17/19 13:12:00 EST, Route to Pharmacy Electronically, [facility] #[id number], 176, cm, 09/16/19 14:40:00 EST, Height, 123.2, kg, 02... Start Date: 09/17/19 Status: Ordered PARoxetine 7.5 mg oral capsule 1 capsule = 7.5 mg, By Mouth, Daily at bedtime, # 30 capsule, 2 Refills, Maintenance, 09/16/19 15:43:00 EST, [facility] #[id number], 176, cm, 09/16/19 14:40:00 EST, Height, 123.2, [...] By Mouth, Daily, # 60 tablet, Refills 1, Tot. Refills 1, Maintenance, 12/14/19 8:51:00 EDT, Route to Pharmacy Electronically, [facility] #[id number], 176, cm, 12/08/19 10:38:00EDT, Height, 123.2, kg, 08/21/19 20:54:00 EST, Dry... Start Date: 12/14/19 Status: Ordered triamcinolone 0.025% topical cream 1 applicator, Topically, 3 times a day, apply a thin film for eczema, # 30 Gm, 3 Refills, Maintenance, 08/18/19 10:35:00 EST, [facility] #[id number], 1 applicator Topically 3 times a day,Instr:apply a thin film for eczema, 176, cm, 08/18/19 9:16:... Start Date: 08/18/19 Status: Ordered Triple Antibiotic topical ointment 1 application, Topically, 2 times a day, # 28 Gm, 0 Refills, Acute, 11/15/19 12:12:00 EDT, [facility] #[id number], 7, APPLY 1 APPLICATION TOPICALLY TWICE DAILY, [...]
--- OUTSIDE RECORDS SUMMARY | 2023-07-02 19:14 | XMS_ITS | Continuity of Care Document ---
Author Name Unknown Organization [facility] ter Address [address] [place] [address]- Care Team Providers Care Mathematics Technician Name Role Phone Abiel Nickerson Primary Care Physician Encounter [facility] Date(s): 11/05/22 - 11/05/[address] [address]- Encounter Diagnosis Chest pain(Final) - 11/05/22 Discharge Disposition: A-D/C Home Attending Physician: Shilpa Nino MD Admitting Physician: Shilpa Nino MD Referring Physician: Not on Staff, Referring MD Allergies, Adverse Reactions, Alerts Substance Reaction Severity Status penicillin hives Active sulfamethoxazole hives Active Cortisporin Active Latex Active Immunizations Given and Recorded Vaccine Date Status Refusal Reason SARS-CoV-2 mRNA (atydesy-vnew-ysypv) vax 08/28/21 Given influenza virus vaccine, inactivated [...] tablet, 3 Refills, Maintenance, 09/30/22 10:07:00 EDT, [facility] #[id number], 170, cm, 09/30/22 9:28:00 EDT, Height, 113, kg, 08/28/21 19:48:00 EST, Dry Weight Start Date: 09/30/22 Status: Ordered cetirizine 10 mg oral tablet 1 tablet, By Mouth, Daily, # 30 tablet, 5 Refills, Maintenance, 09/30/22 10:07:00 EDT, [facility] #[id number], 170, cm, 09/30/22 9:28:00 EDT, Height, 113, kg, 08/28/21 19:48:00 EST, Dry Weight Start Date: 09/30/22 Status: Ordered Eliquis 5 mg oral tablet 1 tablet, By Mouth, 2 times a day, STOPPING WARFARIN., # 60 tablet, 0 Refills, Maintenance, 05/02/22 13:12:00 EDT, [facility] #[id number], 170, cm, 03/27/22 8:35:00 EDT, Height, 113, kg, 08/28/21 19:48:00 EST, Dry Weight Start Date: 05/02/22 Status: Ordered Eliquis 5 mg oral tablet See Instructions, TAKE 1 TABLET BY MOUTH TWICE DAILY STOPPING WARFARIN, # 60 tablet, 11 Refills, Maintenance, 05/06/22 9:53:00 EDT, [facility] #[id number], 170, cm, 03/27/22 8:35:00 EDT, Height,113, kg, 08/28/21 19:48:00 EST, Dry Weight Start Date: 05/06/22 Status: Ordered fluticasone 50 mcg/inh nasal spray See Instructions, SHAKE LIQUID AND USE 1 SPRAY IN EACH NOSTRIL TWICE DAILY, # 16 Gm, 0 Refills, Maintenance, [facility] #[id number], 30, SHAKE LIQUID AND USE 1 SPRAY [...] 30 tablet, 11 Refills, 03/27/22 8:29:00 EDT, [facility] #[id number], 30, 1 tablet By Mouth Daily, 170, cm, 03/27/22 8:17:00 EDT, Height, 113, kg, 08/28/21 19:48:00 EST, Dry Weight Start Date: 03/27/22 Status: Ordered ipratropium nasal 21 mcg/inh spray See Instructions, USE 2 SPRAYS IN EACH NOSTRIL TWICE DAILY IN EACH NOSTRIL, NEEDED CONGESTION, #30 mL, 5 Refills, Maintenance, 09/03/22 9:40:00 EST, [facility] #[id number], 30, USE 2 SPRAYS IN EACH NOSTRIL TWICE DAILY IN EACH NOSTRIL, NEED... Start Date: 09/03/22 Status: Ordered ketoconazole 2% topical cream See Instructions, APPLY BENEATH BREAST AND GROIN AREAS TWICE DAILY, # 120 Gm, 2 Refills, Maintenance, 09/30/22 10:09:00 EDT, [facility] #[id number], 30, APPLY BENEATH BREAST AND GROIN AREAS TWICE DAILY, 170, cm, 09/30/22 9:28:00 EDT, Height, 113,... Start Date: 09/30/22 Status: Ordered Metamucil 3.4 gm/5.2 gm oral powder for reconstitution = 1.7 Gm, By Mouth, 3 times a day, PRN as needed for constipation, dissolve in 8 oz of fluid. drinkplenty of water., # 570 Gm, 5 Refills, Maintenance, 09/02/19 14:32:00 EST, REC Powder, [facility] #[id number], 176, cm, 09/02/19 13:59:00 EST, Hei... Start Date: 09/02/19 Status: Ordered Metoprolol Succinate ER 50 mg oral tablet, extended release 1 tablet, By Mouth, Daily, # 90 tablet, 0 Refills, Maintenance, 09/03/22 9:40:00 EST, [facility] #[id number], 170, cm, 08/28/22 14:45:00 EST, Height, 113, kg, 08/28/21 19:48:00 EST, Dry Weight Start Date: 09/03/22 Status: Ordered omeprazole 20 mg oral enteric coated capsule 1 capsule, By Mouth, Daily, PRN NEEDED, ACID INDIGESTION., # 90 capsule, 0 Refills, Maintenance,09/03/22 9:40:00 EST, [facility] #[id number], 170, cm, 08/28/22 14:45:00 EST, Height, 113, kg,08/28/21 19:48:00 EST, Dry Weight Start Date: 09/03/22 Status: Ordered PEG-3350 with Electrolytes (Eqv-NuLYTELY) oral powder for reconstitution See Instructions, Mix powder withn water according to the product label. Drink 8 oz of prep fluid every 15-20 minutes ion the evening before the colonoscopy., # 1 each, 0 Refills, Maintenance, 08/26/22 11:04:00 EST, [facility] #[id number], Parti... Start Date: 08/26/22 Status: Ordered polyethylene glycol 3350 oral powder for reconstitution See Instructions, DISSOLVE 17 GM IN WATER EVERY DAY NEEDED FOR CONSTIPATION, # 510 Gm, 0 Refills, Maintenance, 03/26/22 8:19:00 EDT, [facility] #[id number], 30, DISSOLVE 17 GM IN WATER EVERY DAY NEEDED FOR CONSTIPATION, 170, cm, 01/24/22 18... Start Date: 03/26/22 Status: Ordered Potassium Chloride (Okl-Ujbl-Igr 10) 10 mEq oral tablet, extended release 1 tablet = 10 mEq, By Mouth, Daily, # 30 tablet, 5 Refills, Maintenance, 10/02/21 16:06:00 EDT, [facility] #[id number], Partial fill upon patient request if the prescription is for a schedule IIopioid drug., 170, cm, 10/02/21 15:32:00 EDT, Heigh... Start Date: 10/02/21 Status: Ordered Shingrix intramuscular injection = 0.5 mL, Intramuscular, Once, repeat dose in 2 to 6 months, # 2 each, 0 Refills, Soft Stop, 03/21/21 8:37:00 EDT, Powder, [facility] #[id number], Partial fill upon patient request if the prescription is for a schedule II opioid drug., 0.5 mL Int... Start Date: 03/21/21 Status: Ordered traZODone 50 mg oral tablet 75 mg, 1.5, tablet, By Mouth, Daily at bedtime, # 45 tablet, Refills 5, Tot. Refills 5, Maintenance, 10/21/22 15:02:00 EDT, Route to Pharmacy Electronically, [facility] #[id number], dose increase to 75mg qhs 10/21/22., 170, cm, 10/21/22 14:25:00 ED... Start Date: 10/21/22 Stop Date: 04/19/23 Status: Ordered triamcinolone 0.5% topical ointment See Instructions, APPLY TOPICALLY TO THE AFFECTED AREA TWICE DAILY FOR UP TO 14 DAYS FOR ECZEMA, # 60 Gm, 1 Refills, Maintenance, 09/30/22 10:09:00 EDT, [facility] #[id number], 28, APPLY TOPICALLY TO THE AFFECTED AREA TWICE DAILY FOR UP TO 14 DAY... Start Date: 09/30/22 Status: Ordered Trulicity Pen 0.75 mg/0.5 mL subcutaneous solution 0.5 mL = 0.75 mg, Subcutaneous Injection, Every week, # 2 mL, 11 Refills, Maintenance, 03/27/22 8:27:00 EDT, Solution, [facility] #[id number], Partial fill upon patient request if the prescription is for a schedule II opioid drug., 170, cm, 03/27... Start Date: 03/27/22 Status: Ordered Vitamin D3 50,000 intl units oral capsule 1 capsule = 1,250 mcg, By Mouth, Every week, with food, # 4 each, 1 Refills, Maintenance, 10/23/22 16:25:00 EDT, [facility] #[id number], Partial fill upon patient request if the prescription is for a schedule II opioid drug., 170, cm, 10/21/22 14... Start Date: 10/23/22 Stop Date: 02/12/23 Status: Ordered Voltaren 1% topical gel = 2 Gm, Topically, 4 times a day, PRN arthritis pain, # 150 Gm, 3 Refills, Maintenance, 08/28/21 9:02:00 EST, [facility] #[id number], Partial fill upon patient request if the [...] Exam Date Time Procedure Performing Provider Status 11/05/22 7:[address] Angio Chest Pura Ch; Au th (Verified) Notes: (CT Angio Chest) Reason For Exam: PE suspected, Intermediate prob, positive D-dimer;Other: RESULT: CT Angio Chest EXAMINATION: CT Angio Chest INDICATION: Hx of Present Illness: CP started this morning and continues. Feels like bricks that are traveling from arm to back to chest. Trace SOB. Received nitro from EMS. Pain in lefts agus of chest. C o b l flank pain as well.; Reason: Other:; PE suspected, Intermediate probe, positive D-dimer; Clinical Question(s): Pulmonary Embolism; Order Comment: TECHNIQUE: Spiral CTA of the chest was performed after rapid IV contrast administration without cardiac gating, triggered by an BLAINE on the main pulmonary artery. Images are formatted in multiple planes using 2-D multiplanar and 3-D maximum intensity projection. 100 cc of Omnipaque 300 was administered intravenously. Weight-based protocol using automatic tube modulation was used to optimize exposure parameters. CTDIvol Body: 13.90 mGy, DLP Body: 773 mGy*cm. COMPARISONS: None. ANGIOGRAPHIC FINDINGS: No pulmonary embolism to the subsegmental level. Normal caliber pulmonary arteries. No acute aortic abnormality seen on this study performed without cardiac gating. 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 Trachea and Airways: Patent without evidence of tracheal or endobronchial lesion. Lungs and Pleura: Bibasilar atelectasis. No effusion or pneumothorax. Mediastinum and toni: No mass or hematoma. As on the prior examination there is a enlarged subcarinal lymph node measuring 3 x 1.8 cm, not significantly changed. No esophageal abnormality. Heart: Heart is normal in size. No pericardial effusion. Chest Wall Soft Tissues: Normal. Diaphragm and upper abdomen: No significant abnormality. Bones: No acute abnormality. IMPRESSION: No evidence of pulmonary embolism. Stable enlarged subcarinal lymph node when compared to previous exam from 08/11/2015. WSN: [id number] Ordering Physician: Sharlene Larson Dictated By: Brian Kaplan MD Dictated Date/Time: 11/05/22 7:42 pm Reviewed By: Brian Kaplan MD Signed By: Brian Kaplan MD Signed Date/Time: 11/05/22 7:42 pm Transcribed By: STANLEY Transcribed Date/Time: 11/05/22 7:33 pm * Exam Date Time Procedure Performing Provider Status 11/05/22 1:36 PM Chest 2 Views Frontal and Lat Esther Waite (Verified) Notes: (Chest 2 Views Frontal and Lat) Reason For Exam: Chest Pain;Other: RESULT: Chest 2 Views Frontal and Lat Chest 2 Views Frontal and Lat Hx of Present Illness: Left chest pain, chest pressure and mild shortness of breath COMPARISON: 08/28/2021 FINDINGS: LINES AND TUBES: None. LUNGS AND PLEURA: Clear lungs. Normal pulmonary vascularity. No pleural effusion. No pneumothorax. HEART, MEDIASTINUM AND TONI: Heart is normal in size. Normal mediastinal and hilar contour. BONES AND SOFT TISSUES: Normal. IMPRESSION: Normal. WSN: [id number] Ordering Physician: Wallace Ac Dictated By: Prakash Ross MD Dictated Date/Time: 11/05/22 1:37 pm Reviewed By: Prakash Ross MD Signed By: Prakash Ross MD Signed Date/Time: 11/05/22 1:37 pm Transcribed By: STANLEY Transcribed Date/Time: 11/05/22 1:36 pm Vital Signs Most recent to oldest [Reference Range]: 1 2 3 Height 175 cm (11/05/22 10:16 PM) 175 cm (11/05/22 2:28 PM) Oxygen Saturation [94-100 %] 100 % (11/05/22 10:16 PM) 100 % (11/05/22 6:14 PM) 100 % (11/05/22 2:28 PM) Pulse Rate [55-90 bpm] 80 bpm (11/05/22 10:16 PM) 64 bpm (11/05/22 6:14 PM) 64 bpm (11/05/22 2:28 PM) Blood Pressure [90-138/55-84 mm Hg] 142/88mm Hg *H* (11/05/22 10:16 PM) 111/68mm Hg (11/05/22 6:14 PM) 114/67mm Hg (11/05/22 2:28 PM) Respiratory Rate [16-30 br/min] 18 br/min (11/05/22 10:16 PM) 18 br/min (11/05/22 6:14 PM) Temperature [96.8-100.4 DegF] 98.1 DegF (11/05/22 6:14 PM) 98.3 DegF (11/05/22 2:28 PM) Mode of Delivery (Oxygen) Room air (11/05/22 10:16 PM) Room air (11/05/22 6:14 PM) Room air (11/05/22 2:28 PM) Blood pressure sites Arm, left (11/05/22 10:16 PM) Temperature Route Oral (11/05/22 6:14 PM) Oral (11/05/22 2:28 PM) Dry Weight 108.5 kg (11/05/22 10:16 PM) 108.5 kg (11/05/22 2:28 PM) Dry Weight Obtained Via Patient/family s tated (11/05/22 2:28 PM) Social History Social History Type Response Smoking Status Current every day adrián smart; Type: Cigarettes entered on: 10/29/13 Sex Female Note * Sharlene Larson DO: PERFORM Event Display: Patient Education Leaflets Authored Date: [id number] Uncertain Causes of Chest Pain ?? [id number] Uncertain Causes of Chest Pain Chest pain [...] leg ?? Last Reviewed Date: 2021 ?? [id number] [employer]. All rights reserved. This information is not intended as a substitute for professional medical care. Always follow your healthcare professional's instructions. ?? * BHSPowerscriabdullahi , CIS S: TRANSCRIPrakash Rodriguez MD: VERIFY Event Display: Result: Authored Date: [id number] Chest 2 Views Frontal and Lat Hx of Present Illness: Left chest pain, chest pressure and mild shortness of breath COMPARISON: 08/28/2021 FINDINGS: LINES AND TUBES: None. LUNGS AND PLEURA: Clear lungs. Normal pulmonary vascularity. No pleural effusion. No pneumothorax. HEART, MEDIASTINUM AND TONI: Heart is normal in size. Normal mediastinal and hilar contour. BONES AND SOFT TISSUES: Normal. IMPRESSION: Normal. WSN: [id number] Ordering Physician: Wallace Ac Dictated By: Prakash Ross MD Dictated Date/Time: 11/05/22 1:37 pm Reviewed By: Prakash Ross MD Signed By: Prakash Ross MD Signed Date/Time: 11/05/22 1:37 pm Transcribed By: STANLEY Transcribed Date/Time: 11/05/22 1:36 pm CTA Chest vessels W contrast IV * BHSPowerscribe , CIS S: TRANSCRIBE Eusebio HARE, Brian H: VERIFY Event Display: Result: Authored Date: [id number] EXAMINATION: CT Angio Chest INDICATION: Hx of Present Illness: CP started this morning and continues. Feels like bricks that are traveling from arm to back to chest. Trace SOB. Received nitro from EMS. Pain in lefts agus of chest. C o b l flank pain as well.; Reason: Other:; PE suspected, Intermediate probe, positive D-dimer; Clinical Question(s): Pulmonary Embolism; Order Comment: TECHNIQUE: Spiral CTA of the chest was performed after rapid IV contrast administration without cardiac gating, triggered by an BLAINE on the main pulmonary artery. Images are formatted in multiple planes using 2-D multiplanar and 3-D maximum intensity projection. 100 cc of Omnipaque 300 was administered intravenously. Weight-based protocol using automatic tube modulation was used to optimize exposure parameters. CTDIvol Body: 13.90 mGy, DLP Body: 773 mGy*cm. COMPARISONS: None. ANGIOGRAPHIC FINDINGS: No pulmonary embolism to the subsegmental level. Normal caliber pulmonary arteries. No acute aortic abnormality seen on this study performed without cardiac gating. 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 Trachea and Airways: Patent without evidence of tracheal or endobronchial lesion. Lungs and Pleura: Bibasilar atelectasis. No effusion or pneumothorax. Mediastinum and toni: No mass or hematoma. As on the prior examination there is a enlarged subcarinal lymph node measuring 3 x 1.8 cm, not significantly changed. No esophageal abnormality. Heart: Heart is normal in size. No pericardial effusion. Chest Wall Soft Tissues: Normal. Diaphragm and upper abdomen: No significant abnormality. Bones: No acute abnormality. IMPRESSION: No evidence of pulmonary embolism. Stable enlarged subcarinal lymph node when compared to previous exam from 08/11/2015. WSN: [id number] Ordering Physician: Sharlene Larson Dictated By: Brian Kaplan MD Dictated Date/Time: 11/05/22 7:42 pm Reviewed By: Brian Kaplan MD Signed By: Brian Kaplan MD Signed Date/Time: 11/05/22 7:42 pm Transcribed By: STANLEY Transcribed Date/Time: 11/05/22 7:33 pm Patient Care team information Care Team Personnel Name: Abiel Nickerson Position: [facility] PCO Associate Professional Member Role: PCP Address: Address: [address] [place] [address] Name: Jennifer Rodriguez RN Position: [facility] RN Member Role: Primary Care Nurse Name: Shilpa Nino MD Position: [facility] ED Medicine MD Member Role: Admitting Physician Address: Address: [address] [place] [address] Emergency Medicine [address] Name: Yoanna Bonner RN Position: [facility] ED RN W/OE and Tasks Member Role: Patient Care Provider Name: Sharlene Larson DO Position: [facility] Resident Member Role: ED Resident Address: Address: [address] [place] [address] Name: Kia Mahmood Position: [facility] ED TA [facility] Member Role: Cone Classifier Tender Care Team Related Persons Name: KINAG ACOSTA Address: [address] [address] Name: VELVET ACOSTA Address: [place] [address]
--- OUTSIDE RECORDS SUMMARY | 2023-07-02 19:14 | XMS_ITS | Continuity of Care Document ---
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 week, 11 refills Vitamin D3 50,000 intl units oral capsule, 1250 mcg= 1 capsule, By Mouth, Every week, 1 refills Voltaren 1% topical gel, 2 Gm, Topically, 4 times a day, PRN, 3 refills Allergies Cortisporin Latex penicillin??(hives) sulfamethoxazole??(hives) Social History Alcohol Use: Never. Substance Abuse Use: Never. Tobacco Use: Current every day smoker. Type: Cigarettes. Family History CAD - Coronary artery disease: Mother. Cancer of lung: Mat. Grandmother. Diabetes mellitus type II: Father. Hypertension: Mother. Immunizations Vaccine Date Status SARS-CoV-2 mRNA (attirki-eaoh-imdrt) vax 08/28/2021 Given influenza virus vaccine, inactivated - Not Given Comments : Expectation Not Necessary influenza virus vaccine, inactivated 05/16/2021 Given tetanus-diphtheria toxoids (Td) 03/21/2021 Given SARS-CoV-2 (COVID-19) mRNA BNT-162b2 vac 02/15/2021 Given SARS-CoV-2 (COVID-19) mRNA BNT-162b2 vac 01/24/2021 Given influenza virus vaccine, inactivated 07/05/2020 Given influenza virus vaccine, inactivated 08/18/2019 Given influenza virus vaccine, inactivated 07/31/2016 Given pneumococcal 23-valent vaccine 08/17/2014 Given influenza virus vaccine, inactivated 06/01/2014 Given influenza virus vaccine, inactivated 04/15/2013 Given influenza virus vaccine, inactivated 07/20/2012 Given Comments : flulaval vis given vis date 01/20/2012 Tet/Diphth/Acel, Pertussis (oldterm) 10/17/2009 Given Comments : VIS given 05/2008 pneumococcal 23-valent vaccine 06/11/2009 Given influenza virus vaccine, inactivated - Not Given Comments : Not Appropriate at this Time Patient Care team information Care Team Personnel Name: Abiel Nickerson Position: [facility] PCO Associate Professional Member Role: PCP Address: Address: [address] [place] [address] [place] [address]- Name: Jennifer Rodriguez RN Position: [facility] RN Member Role: Primary Care Nurse Name: *[facility], ED Attending Position: [facility] ED Attendings Patient Name: Pankaj Crouch RN Position: [facility] ED RN W/OE and Tasks Member Role: Patient Care Provider Name: Analy Nguyen Position: [facility] ED TA [facility] Name: Ghislaine Gamboa RN Position: [facility] ED RN W/OE and Tasks Name: Bre Lassiter DO Position: [facility] Resident Member Role: ED Resident Address: Address: [address] [place] [address] [place] [address]- Care Team Related Persons Name: KINGA BEST Address: [address] [address] Name: VELVET BEST Address: [place] [address]
--- OUTSIDE RECORDS SUMMARY | 2023-07-02 19:14 | XMS_ITS | Continuity of Care Document ---
Author Name Unknown Organization [facility] Address [address] [place] [address]- Care Team Providers Care Crater And Packer Name Role Phone Abiel Nickerson Primary Care Physician [facility]counter [facility] Date(s): 05/24/23 - 06/23/23 [facility] [address] [place], [place] [address] Allergies, Adverse Reactions, Alerts Substance Reaction Severity Status penicillin hives Active sulfamethoxazole hives Active Cortisporin Active Latex Active Immunizations Given and Recorded Vaccine Date Status Refusal Reason SARS-CoV-2 mRNA ([id number]-dimk-[id number]) vax 08/28/21 Given influenza virus vaccine, inactivated [...] tablet, 1 Refills, Maintenance, 02/04/23 12:49:00 EDT, [facility] #[id number], Partial fill upon patient request if the prescriptionis for a schedule II opioid drug., 175, cm, ... Start Date: 02/04/23 Status: Ordered aspirin 81 mg oral tablet, chewable 81 mg, By Mouth, Daily, # 30 tablet, Refills 2, Tot. Refills 2, Maintenance, 03/18/23 9:59:00 EDT, Route to Pharmacy Electronically, [facility] #[id number], Partial fill upon patient request if the prescription is for a schedule II opioid drug.,... Start Date: 03/18/23 Stop Date: 12/13/23 Status: Ordered benzonatate 100 mg oral capsule 1 capsule = 100 mg, By Mouth, 3 times a day, PRN as needed for cough, # 30 capsule, 0 Refills, Maintenance, 04/18/23 17:45:00 EDT, Capsule, [facility] #[id number], Partial fill upon patient request if the [...] 03/12/23 9:37:00 EDT, Route to Pharmacy Electronically, [facility] #[id number], Partial fill upon patien... Start Date: 03/12/23 Status: Ordered Eliquis 5 mg oral tablet See Instructions, TAKE 1 TABLET BY MOUTH TWICE DAILY STOPPING WARFARIN, # 60 tablet, 11 Refills, Maintenance, 05/01/23 17:19:00 EDT, [facility] #[id number], 166, cm, 05/01/23 16:30:00 EDT, Height, 99, kg, 03/15/23 11:34:00 EDT, Dry Weight Start Date: 05/01/23 Status: Ordered fluocinolone 0.01% otic solution See Instructions, Instill 2 drops into affected ear twice a week, as needed., # 20 mL, 0 Refills, Maintenance, 05/01/23 17:04:00 EDT, [facility] #[id number], Partial fill upon patient request ifthe prescription is for a schedule II opioid drug.,... Start Date: 05/01/23 Status: Ordered fluticasone 50 mcg/inh nasal spray See Instructions, SHAKE LIQUID AND USE 1 SPRAY IN EACH NOSTRIL TWICE DAILY, # 16 Gm, 0 Refills, Maintenance, [facility] #[id number], 30, SHAKE LIQUID AND USE 1 SPRAY [...] 11 Refills, Maintenance, 05/01/23 17:24:00 EDT, Tablet, [facility] #[id number], Partial fill upon patient request if the [...] mL, 3 Refills, Maintenance, 05/01/23 17:20:00 EDT, [facility] #[id number], 30, USE 2 SPRAYSIN EACH NOSTRIL TWICE DAILY IN EACH NOSTRIL, NEE... Start Date: 05/01/23 Status: Ordered isopropyl alcohol 70% topical pad See Instructions, CLEANSE SKIN BEFORE TESTING BLOOD SUGAR, # 100 Unknown, 5 Refills, Maintenance, 03/26/23 18:08:00 EDT, [facility] #[id number], 30, CLEANSE SKIN BEFORE TESTING BLOOD SUGAR, 166,cm, 03/18/23 7:51:00 EDT, Height, 99, kg, 03/15/23... Start Date: 03/26/23 Status: Ordered ketoconazole 2% topical cream See Instructions, APPLY BENEATH BREAST AND GROIN AREAS TWICE DAILY, # 120 Gm, 2 Refills, Maintenance, 03/12/23 9:33:00 EDT, [facility] #[id number], 30, APPLY BENEATH BREAST AND GROIN AREAS TWICEDAILY, 175, cm, 03/12/23 8:47:00 EDT, Height, 100.5... Start Date: 03/12/23 Status: Ordered lactulose 10 gm/15 ml oral syrup 15 mL = 10 Gm, By Mouth, Daily, PRN as needed for constipation, # 480 mL, 0 Refills, Acute 247:02:00 EST, 06/17/23 7:02:00 EST, Syrup, [facility] #[id number], Partial fill upon patient request if the prescription is for a schedule II opioi... Start Date: 06/17/23 Stop Date: 06/18/24 Status: Ordered Lipitor 40 mg oral tablet 1 tablet = 40 mg, By Mouth, Daily, # 30 tablet, 11 Refills, Maintenance, 05/01/23 17:20:00 EDT, Tablet, [facility] #[id number], Partial fill upon patient request if the prescription is for a schedule II opioid drug., 166, cm, 05/01/23 16:30:00 ED... Start Date: 05/01/23 Stop Date: 04/25/24 Status: Ordered magnesium citrate 8.85% oral liquid 150 mL = 8.725 Gm, By Mouth, Once, # 300 mL, 0 Refills, Soft Stop, 06/17/23 7:02:00 EST, Liquid, [facility] #[id number], Partial fill upon patient request if the prescription is for a schedule II opioid drug., 150 mL By Mouth Once, 175, cm, 06/16... Start Date: 06/17/23 Status: Ordered Metoprolol Succinate ER 50 mg oral tablet, extended release 1 tablet, By Mouth, Daily, # 90 tablet, 3 Refills, Maintenance, 02/04/23 12:35:00 EDT, [facility] #[id number], 175, cm, 01/20/23 10:13:00 EDT, Height, 108.5, [...] 90 capsule, 0 Refills, Maintenance,06/13/23 17:30:00 EST, [facility] #[id number], 166, cm, 05/05/23 20:17:00 EDT, Height, 99, kg,03/15/23 11:34:00 EDT, Dry Weight Start Date: 06/13/23 Status: Ordered PEG-3350 with Electrolytes (Eqv-NuLYTELY) oral powder for reconstitution See Instructions, Mix powder withn water according to the product label. Drink 8 oz of prep fluid every 15-20 minutes ion the evening before the colonoscopy., # 1 each, 0 Refills, Maintenance, 08/26/22 11:04:00 EST, [facility] #[id number], Parti... Start Date: 08/26/22 Status: Ordered polyethylene glycol 3350 oral powder for reconstitution See Instructions, DISSOLVE 17 GM IN WATER EVERY DAY NEEDED FOR CONSTIPATION, # 510 Gm, 1 Refills, Maintenance, 05/01/23 17:21:00 EDT, [facility] #[id number], 30, DISSOLVE 17 GM IN WATER EVERYDAY NEEDED FOR CONSTIPATION, 166, cm, 05/01/23 1... Start Date: 05/01/23 Status: Ordered potassium chloride 20 mEq oral powder for reconstitution = 10 mEq, By Mouth, Daily, # 30 pack/packet, 0 Refills, Maintenance, 03/18/23 9:58:00 EDT, REC Powder, [facility] #[id number], Partial fill upon patient request if the [...] Gm, 1 Refills, Maintenance, 05/01/23 17:23:00 EDT, [facility] #[id number], APPLY TOPICALLY TO THE AFFECTED AREA TWICE DAILY FOR UP TO 14 DAYS FO... Start Date: 05/01/23 Status: Ordered Vitamin D3 1000 intl units oral capsule 1 capsule = 25 mcg, By Mouth, Daily, with food, # 90 capsule, 3 Refills, Maintenance, 02/03/23 17:53:00 EDT, [facility] #[id number], Partial fill upon patient request if the prescription is for a schedule II opioid drug., 175, cm, 01/20/23 10:13:... Start Date: 02/03/23 Stop Date: 01/29/24 Status: Ordered Voltaren 1% topical gel = 2 Gm, Topically, 4 times a day, PRN arthritis pain, # 150 Gm, 3 Refills, Maintenance, 08/28/21 9:02:00 EST, [facility] #[id number], Partial fill upon patient request if the [...] Response Smoking Status Current every day adrián oker; Type: Cigarettes entered on: 10/29/13 Sex Female Patient Care team information Care Team Personnel Name: Abiel Nickerson Position: S PCO Associate Professional Member Role: PCP Address: Address: [address] [place] [address] [place] [address]- Name: Germania Wynn RN Position: S RN Member Role: Primary Care Nurse Name: Bertha Valdes RN Position: S RN Member Role: Primary Care Nurse Name: Jennifer Rodriguez RN Position: S RN Member Role: Primary Care Nurse Care Team Related Persons Name: KINGA ACOSTA Address: [address] [address] Name: VELVET ACOSTA Address: [place] [address]
--- OUTSIDE RECORDS SUMMARY | 2023-07-02 19:14 | XMS_ITS | Continuity of Care Document ---
Author Name Unknown Organization [facility] Address [address] [place] [address]- Care Team Providers Care Cut Out Press Operator Name Role Phone Abiel Nickerson Primary Care Physician [facility]counter [facility] Date[facility]): 06[facility]21 - 09/07/21 [facility] [address] [place] [id number] Attending Physician: Abiel Nickerson Admitting Physician: Abiel Nickerson Referring Physician: Abiel Nickerson Allergies, Adverse Reactions, Alerts Substance Reaction Severity Status penicillin hives Active sulfamethoxazole hives Active Cortisporin Active Latex Active Immunizations Given and Recorded Vaccine Date Status Refusal Reason SARS-CoV-2 mRNA (wswdqaz-[id number]-[id number]) vax 08/28/21 Given influenza virus vaccine, inactivated [...] 08/04/19 10:07:00 EST, Route to Pharmacy Electronically, [facility] #[id number], 176, cm, 08/04... Start Date: 08/04/19 Status: [...] 60 tablet, 11 Refills, Maintenance,02/19/21 8:31:00 EDT, [facility] #[id number], 176, cm, 02/19/21 8:02:00 EDT, Height, 123.2, kg, 08/21/19 20:54:00 EST, Dry Weight Start Date: 02/19/21 Status: Ordered atorvastatin 20 mg oral tablet 1 tablet, By Mouth, Daily, # 30 tablet, 11 Refills, Maintenance, 02/19/21 8:31:00 EDT, [facility] #[id number], 176, cm, 02/19/21 8:02:00 EDT, Height, 123.2, kg, 08/21/19 20:54:00 EST, Dry Weight Start Date: 02/19/21 Status: Ordered cetirizine 10 mg oral tablet 1 tablet = 10 mg, By Mouth, Daily, # 30 tablet, 5 Refills, Maintenance, 06/04/21 8:15:00 EST, Tablet, [facility] #[id number], 176, cm, 06/04/21 8:04:00 EST, Height, 123.2, kg, 08/21/19 20:54:00 EST, Dry Weight Start Date: 06/04/21 Stop Date: 12/01/21 Status: Ordered ciclopirox 0.77% topical cream 1 [...] tablet, 11 Refills, Maintenance, 07/05/20 17:16:00EST, Tablet, [facility] #[id number], 176, cm, 07/05/20 15:49:00 EST, Height, 123.2, kg, 08/21/19 20:54:00 EST, Dry Weight Start Date: 07/05/20 Status: Ordered fluticasone 50 mcg/inh nasal spray See Instructions, SHAKE LIQUID AND USE 1 SPRAY IN EACH NOSTRIL TWICE DAILY, # 16 Gm, 0 Refills, Maintenance, [facility] #[id number], 30, SHAKE LIQUID AND USE 1 SPRAY [...] 30 tablet, 11 Refills, 03/23/21 11:53:00 EDT, [facility] #[id number], 30, 1 tablet By Mouth Daily, 176, cm, 03/21/21 8:05:00 EDT, Height, 123.2, kg, 08/21/19 20:54:00 EST, Dry Weight Start Date: 03/23/21 Status: Ordered lidocaine 5% topical cream 1 application, Topically, 3 times a day, # 100 Gm, 2 Refills, Maintenance, 04/17/20 16:42:00 EDT, Cream, [facility] #[id number], 1 application Topically 3 times a day,x14 [...] Refills, Maintenance, 09/02/19 14:32:00 EST, REC Powder, [facility] #[id number], 176, cm, 09/02/19 13:59:00 EST, Hei... Start Date: 09/02/19 Status: Ordered Metoprolol Succinate ER 50 mg oral tablet, extended release 1 tablet, By Mouth, Daily, # 60 tablet, 11 Refills, Maintenance, 02/19/21 8:32:00 EDT, [facility] #[id number], 176, cm, 02/19/21 8:02:00 EDT, Height, 123.2, kg, 08/21/19 20:54:00 EST, Dry Weight Start Date: 02/19/21 Status: Ordered nitroglycerin 0.4 mg sublingual tablet 1 tablet = 0.4 mg, Sublingual, Every 5 minutes, PRN for chest pain, If chest pain not relieved in 5minutes after first dose, seek immediate medical attention, # 1 tablet, 0 Refills, Maintenance, 08/19/16 10:23:57, Tablet Start Date: 08/19/16 Status: Ordered omeprazole 20 mg oral enteric coated capsule 1 capsule, By Mouth, Daily, PRN NEEDED, ACID INDIGESTION., # 90 capsule, 0 Refills, 05/18/21 13:29:00 EDT, [facility] #[id number], 176, cm, 05/04/21 16:07:00 EDT, Height, 123.2, kg, 08/21/19 20:54:00 EST, Dry Weight Start Date: 05/18/21 Status: Ordered Potassium Chloride ([id number]-Mtpn-Vot 10) 10 mEq oral tablet, extended release 1 tablet = 10 mEq, By Mouth, Daily, # 30 tablet, 1 Refills, Maintenance, 08/29/21 14:12:00 EST[facility], Partial fill upon patient request if the prescription is for a schedule II opioid drug., 170, cm, 08/29/21 10:56:00 EST, Height,... Start Date: 08/29/21 Status: Ordered Shingrix intramuscular injection = 0.5 mL, Intramuscular, Once, repeat dose in 2 to 6 months, # 2 each, 0 Refills, Soft Stop, 03/21/21 8:37:00 EDT, Powder, [facility] #[id number], Partial fill upon patient request if the prescription is for a schedule II opioid drug., 0.5 mL Int... Start Date: 03/21/21 Status: Ordered triamcinolone 0.5% topical ointment See Instructions, apply to areas of eczema twice a day for up to 14 days., # 60 Gm, 0 Refills, Maintenance, 08/28/21 9:20:00 EST, [facility] #[id number], 28, apply to areas of eczema twice a dayfor up to 14 days., 176, cm, 08/28/21 8:23:00 EST,... Start Date: 08/28/21 Status: Ordered Triple Antibiotic topical ointment 1 application, Topically, 2 times a day, # 28 Gm, 0 Refills, Acute, 11/15/19 12:12:00 EDT, [facility] #[id number], 7, APPLY 1 APPLICATION TOPICALLY TWICE DAILY, 176, cm, 09/16/19 14:40:00 EST, Height, 123.2, kg, 08/21/19 20:54:00 EST, Dry Weight Start Date: 11/15/19 Status: Ordered Trulicity Pen 0.75 mg/0.5 mL subcutaneous solution 0.5 mL = 0.75 mg, Subcutaneous Injection, Every week, please d/c metformin. cannot take glipizide as allergic to sulfa, # 2 mL, 5 Refills, Maintenance, 05/10/21 14:46:00 EDT, Solution, [facility] #[id number], Partial fill upon patient request if... Start Date: 05/10/21 Status: Ordered Vitamin D3 1000 intl units oral tablet 1 tablet = 1,000 International_Units, By Mouth, Daily, # 90 tablet, 2 Refills, Maintenance, 05/11/19 7:51:38 EDT Start Date: 05/11/19 Stop Date: 02/05/20 Status: Ordered Voltaren 1% topical gel = 2 Gm, Topically, 4 times a day, PRN arthritis pain, # 150 Gm, 3 Refills, Maintenance, 08/28/21 9:02:00 EST, [facility] #[id number], Partial fill upon patient request if the [...]
--- OUTSIDE RECORDS SUMMARY | 2023-07-02 19:14 | XMS_ITS | Continuity of Care Document ---
Author Name Unknown Organization [facility] ter Address [address] [place] [address]- Care Team Providers Care Ag Equipment Field Service Technician Name Role Phone Abiel Nickerson Primary Care Physician [place] [facility] [place] 08/28/21 - 08/29/[address] [address]- Encounter Diagnosis Chest pain(Final) - 08/28/21 DM (diabetes mellitus)(Final) - 08/28/21 HTN (hypertension)(Final) - 08/28/21 Afib(Final) - 08/28/21 T wave inversion in EKG(Final) - 08/28/21 Discharge Disposition: A-D/C Home Attending Physician: Whit Live MD Admitting Physician: Jon Hill MD Referring Physician: Not on Staff, Referring MD Allergies, Adverse Reactions, Alerts Substance Reaction Severity Status penicillin hives Active sulfamethoxazole hives Active Cortisporin Active Latex Active Immunizations Given and Recorded Vaccine Date Status Refusal Reason SARS-CoV-2 mRNA (fdpzeet-[id number]-[id number]) vax 08/28/21 Given influenza virus vaccine, inactivated 05/16/21 Give n influenza virus vaccine, inactivated 07/05/20 Give n influenza virus vaccine, inactivated 08/18/19 Give n influenza virus vaccine, inactivated 07/31/16 Give n influenza virus vaccine, inactivated 06/01/14 Give n influenza virus vaccine, inactivated 04/15/13 Give n influenza virus vaccine, inactivated 07/20/12 Gi cheri tetanus-diphtheria toxoids (Td) 03/21/21 [...] 08/04/19 10:07:00 EST, Route to Pharmacy Electronically, [facility] #[id number], 176, cm, 08/04... Start Date: 08/04/19 Status: [...] 60 tablet, 11 Refills, Maintenance,02/19/21 8:31:00 EDT, [facility] #[id number], 176, cm, 02/19/21 8:02:00 EDT, Height, 123.2, kg, 08/21/19 20:54:00 EST, Dry Weight Start Date: 02/19/21 Status: Ordered atorvastatin 20 mg oral tablet 1 tablet, By Mouth, Daily, # 30 tablet, 11 Refills, Maintenance, 02/19/21 8:31:00 EDT, [facility] #[id number], 176, cm, 02/19/21 8:02:00 EDT, Height, 123.2, kg, 08/21/19 20:54:00 EST, Dry Weight Start Date: 02/19/21 Status: Ordered cetirizine 10 mg oral tablet 1 tablet = 10 mg, By Mouth, Daily, # 30 tablet, 5 Refills, Maintenance, 06/04/21 8:15:00 EST, Tablet, [facility] #[id number], 176, cm, 06/04/21 8:04:00 EST, Height, 123.2, [...] tablet, 11 Refills, Maintenance, 07/05/20 17:16:00EST, Tablet, [facility] #[id number], 176, cm, 07/05/20 15:49:00 EST, Height, 123.2, kg, 08/21/19 20:54:00 EST, Dry Weight Start Date: 07/05/20 Status: Ordered fluticasone 50 mcg/inh nasal spray See Instructions, SHAKE LIQUID AND USE 1 SPRAY IN EACH NOSTRIL TWICE DAILY, # 16 Gm, 0 Refills, Maintenance, [facility] #[id number], 30, SHAKE LIQUID AND USE 1 SPRAY [...] 30 tablet, 11 Refills, 03/23/21 11:53:00 EDT, [facility] #[id number], 30, 1 tablet By Mouth Daily, 176, cm, 03/21/21 8:05:00 EDT, Height, 123.2, kg, 08/21/19 20:54:00 EST, Dry Weight Start Date: 03/23/21 Status: Ordered lidocaine 5% topical cream 1 application, Topically, 3 times a day, # 100 Gm, 2 Refills, Maintenance, 04/17/20 16:42:00 EDT, Cream, [facility] #[id number], 1 application Topically 3 times a day,x14 days, 176, cm, 04/17/2016:08:00 EDT, Height, 123.2, kg, 08/21/19 20:54:00... Start Date: 04/17/20 Stop Date: 05/29/20 Status: Ordered lisinopril 20 mg oral tablet 20 mg, Tablet, By Mouth, 08/29/21 9:00:00 EST Start Date: 08/29/21 Stop Date: 08/29/21 Status: Completed Metamucil 3.4 gm/5.2 gm oral powder for reconstitution = 1.7 Gm, By Mouth, 3 times a day, PRN as needed for constipation, dissolve in 8 oz of fluid. drinkplenty of water., # 570 Gm, 5 Refills, Maintenance, 09/02/19 14:32:00 EST, [facility]der[id number], 176, cm, 09/02/19 13:59:00 EST, Hei... Start Date: 09/02/19 Status: Ordered Metoprolol Succinate ER 50 mg oral tablet, extended release 1 tablet, By Mouth, Daily, # 60 tablet, 11 Refills, Maintenance, 02/19/21 8:32:00 EDT, [id number], 176, cm, 02/19/21 8:02:00 EDT, Height, 123.2, [...] 90 capsule, 0 Refills, 05/18/21 13:29:00 EDT, [id number], 176, cm, 05/04/21 16:07:00 EDT, Height, 123.2, kg, 08/21/19 20:54:00 EST, Dry Weight Start Date: 05/18/21 Status: Ordered Potassium Chloride (Vip-Vvtp-Odx 10) 10 mEq oral tablet, extended release 1 tablet = 10 mEq, By Mouth, Daily, # 30 tablet, 1 Refills, Maintenance, 08/29/21 14:12:00 EST, [facility], Partial fill upon patient request if the prescription is for a schedule II opioid drug., 170, cm, 08/29/21 10:56:00 EST, Height,... Start Date: 08/29/21 Status: Ordered Shingrix intramuscular injection = 0.5 mL, Intramuscular, Once, repeat dose in 2 to 6 months, # 2 each, 0 Refills, Soft Stop, 03/21/21 8:37:00 EDT, Powder, [facility] #[id number], Partial fill upon patient request if the prescription is for a schedule II opioid drug., 0.5 mL Int... Start Date: 03/21/21 Status: Ordered Toprol XL 50 mg oral tablet, extended release 50 mg, XL Tablet, By Mouth, 08/29/21 9:00:00 EST Start Date: 08/29/21 Stop Date: 08/29/21 Status: Completed triamcinolone 0.5% topical ointment See Instructions, apply to areas of eczema twice a day for up to 14 days., # 60 Gm, 0 Refills, Maintenance, 08/28/21 9:20:00 EST, [facility] #[id number], 28, apply to areas of eczema twice a dayfor up to 14 days., 176, cm, 08/28/21 8:23:00 EST,... Start Date: 08/28/21 Status: Ordered Triple Antibiotic topical ointment 1 application, Topically, 2 times a day, # 28 Gm, 0 Refills, Acute, 11/15/19 12:12:00 EDT, [facility] #[id number], 7, APPLY 1 APPLICATION TOPICALLY TWICE DAILY, 176, cm, 09/16/19 14:40:00 EST, Height, 123.2, kg, 08/21/19 20:54:00 EST, Dry Weight Start Date: 11/15/19 Status: Ordered Trulicity Pen 0.75 mg/0.5 mL subcutaneous solution 0.5 mL = 0.75 mg, Subcutaneous Injection, Every week, please d/c metformin. cannot take glipizide as allergic to sulfa, # 2 mL, 5 Refills, Maintenance, 05/10/21 14:46:00 EDT, Solution, [facility] #[id number], Partial fill upon patient request if... Start [...] 150 Gm, 3 Refills, Maintenance, 08/28/21 9:02:[address] [facility] #[id number], Partial fill upon patient request if the [...] Exam Date Time Procedure Performing Provider Status 08/28/21 1:56 PM Chest 2 Views Frontal and Lat Juany Menchaca; Auth (Verified) Notes: (Chest 2 Views Frontal and Lat) Reason For Exam: Chest Pain;Other: RESULT: Chest 2 Views Frontal and Lat Chest 2 Views Frontal and Lat Hx of Present Illness: pt had Pfizer booster at 10 am, started having cp and dizziness found to have T wave abnormalities on EKG; COMPARISON: 06/14/2018. FINDINGS: LINES AND TUBES: None. LUNGS AND PLEURA: Clear lungs. Normal pulmonary vascularity. No pleural effusion. No pneumothorax. HEART, MEDIASTINUM AND KRISTIAN: Heart is normal in size. Normal upper mediastinal and hilar contour. BONES AND SOFT TISSUES: No acute abnormality. IMPRESSION: No acute abnormality. WSN: [id number] Ordering Physician: Paul Lim Dictated By: Jose Alberto Eckert MD Dictated Date/Time: 08/28/21 2:05 pm Reviewed By: Jose Alberto Eckert MD Signed By: Jose Alberto Eckert MD Signed Date/Time: 08/28/21 2:05 pm Transcribed By: STANLEY Transcribed Date/Time: 08/28/21 2:04 pm Vital Signs Most recent to oldest [Reference Range]: 1 2 3 Height 170 cm (08/29/21 10:56 AM) 170 cm (08/29/21 7:36 AM) 170 cm (08/29/21 3:17 AM) Weight 113 kg (08/28/21 7:48 PM) Oxygen Saturation [94-100 %] 100 % (08/29/21 10:56 AM) 99 % (08/29/21 7:36 AM) 98 % (08/29/21 3:17 AM) Pulse Rate [55-90 bpm] 65 bpm (08/29/21 10:56 AM) 68 bpm (08/29/21 9:39 AM) 68 bpm (08/29/21 7:36 AM) Body Mass Index [18.5-24.99] 39.1 *>HHI* (08/28/21 7:48 PM) Blood Pressure [90-138/55-84 mm Hg] 149/73mm Hg *H* (08/29/21 10:56 AM) 146/83mm Hg *H* (08/29/21 9:39 AM) 146/83mm Hg *H* (08/29/21 9:39 AM) Respiratory Rate [16-30 br/min] 17 br/min (08/29/21 10:56 AM) 16 br/min (08/29/21 9:47 AM) 18 br/min (08/29/21 7:36 AM) Temperature [96.8-100.4 DegF] 97.4 DegF (08/29/21 10:56 AM) 98.0 DegF (08/29/21 7:36 AM) 97.6 DegF (08/29/21 3:17 AM) Mode of Delivery (Oxygen) Room air (08/29/21 10:56 AM) Room air (08/29/21 7:36 AM) Room air (08/29/21 3:17 AM) Blood pressure sites Arm, left (08/29/21 7:36 AM) Arm, right (08/29/21 3:17 AM) Arm, right (08/28/21 10:57 PM) Temperature Route Oral (08/29/21 10:56 AM) Oral (08/29/21 7:36 AM) Oral (08/29/21 3:17 AM) Dry Weight 113 kg (08/28/21 7:48 PM) Social History Social History Type Response Smoking Status Current every day adrián smart; Type: Cigarettes entered on: 10/29/13 Sex Female
--- OUTSIDE RECORDS SUMMARY | 2023-07-02 19:14 | XMS_ITS | Continuity of Care Document ---
Author Name Unknown Organization [facility] Address [address] [place] [address]- Care Team Providers Care Pie Baker Name Role Phone Abiel Nickerson Primary Care Physician Encounter [facility] Date(s): 02/26/23 - 03/28/23 [facility] [address], [place] [address] Allergies, Adverse Reactions, Alerts Substance Reaction Severity Status penicillin hives Active sulfamethoxazole hives Active Latex Active Cortisporin Active Immunizations Given and Recorded Vaccine Date Status Refusal Reason SARS-CoV-2 mRNA (fefyczj-agsx-njjpu) vax 08/28/21 Given influenza virus vaccine, inactivated [...] tablet, 1 Refills, Maintenance, 02/04/23 12:49:00 EDT, [facility] #[id number], Partial fill upon patient request if the prescriptionis for a schedule II opioid drug., 175, cm, ... Start Date: 02/04/23 Status: Ordered aspirin 81 mg oral tablet, chewable 81 mg, By Mouth, Daily, # 30 tablet, Refills 2, Tot. Refills 2, Maintenance, 03/18/23 9:59:00 EDT, Route to Pharmacy Electronically, [facility] #[id number], Partial fill upon patient request if the [...] 03/12/23 9:37:00 EDT, Route to Pharmacy Electronically, [facility] #[id number], Partial fill upon patien... Start Date: 03/12/23 Status: Ordered Eliquis 5 mg oral tablet See Instructions, TAKE 1 TABLET BY MOUTH TWICE DAILY STOPPING WARFARIN, # 60 tablet, 11 Refills, Maintenance, 05/06/22 9:53:00 EDT, [facility] #[id number], 170, cm, 03/27/22 8:35:00 EDT, Height,113, kg, 08/28/21 19:48:00 EST, Dry Weight Start Date: 05/06/22 Status: Ordered fluticasone 50 mcg/inh nasal spray See Instructions, SHAKE LIQUID AND USE 1 SPRAY IN EACH NOSTRIL TWICE DAILY, # 16 Gm, 0 Refills, Maintenance, [facility] #[id number], 30, SHAKE LIQUID AND USE 1 SPRAY [...] mL, 5 Refills, Maintenance, 09/03/22 9:40:00 EST, [facility] #[id number], 30, USE 2 SPRAYS IN EACH NOSTRIL TWICE DAILY IN EACH NOSTRIL, NEED... Start Date: 09/03/22 Status: Ordered isopropyl alcohol 70% topical pad See Instructions, CLEANSE SKIN BEFORE TESTING BLOOD SUGAR, # 100 Unknown, 5 Refills, Maintenance, 03/26/23 18:08:00 EDT, [facility] #[id number], 30, CLEANSE SKIN BEFORE TESTING BLOOD SUGAR, 166,cm, 03/18/23 7:51:00 EDT, Height, 99, kg, 03/15/23... Start Date: 03/26/23 Status: Ordered ketoconazole 2% topical cream See Instructions, APPLY BENEATH BREAST AND GROIN AREAS TWICE DAILY, # 120 Gm, 2 Refills, Maintenance, 03/12/23 9:33:00 EDT, [facility] #[id number], 30, APPLY BENEATH BREAST AND GROIN AREAS TWICEDAILY, 175, cm, 03/12/23 8:47:00 EDT, Height, 100.5... Start Date: 03/12/23 Status: Ordered Lipitor 40 mg oral tablet 1 tablet = 40 mg, By Mouth, Daily, # 30 tablet, 0 Refills, Maintenance, 03/18/23 10:00:00 EDT, Tablet, [facility] #[id number], Partial fill upon patient request if the prescription is for a schedule II opioid drug., 166, cm, 03/18/23 7:51:00 EDT,... Start Date: 03/18/23 Stop Date: 04/17/23 Status: Ordered melatonin 5 mg oral tablet 1 tablet = 5 mg, By Mouth, Daily at bedtime, for 30 days, to help sleep, # 30 tablet, 1 Refills, Acute 04/05/23 12:48:00 EDT, 02/04/23 12:48:00 EDT, [facility] #[id number], Partial fill upon patient request if the prescription is for a schedule I... Start Date: 02/04/23 Stop Date: 04/05/23 Status: Ordered Metoprolol Succinate ER 50 mg oral tablet, extended release 1 tablet, By Mouth, Daily, # 90 tablet, 3 Refills, Maintenance, 02/04/23 12:35:00 EDT, [facility] #[id number], 175, cm, 01/20/23 10:13:00 EDT, Height, 108.5, [...] each, 0 Refills, Maintenance, 08/26/22 11:04:00 EST, [facility] #[id number], Parti... Start Date: 08/26/22 Status: Ordered polyethylene glycol 3350 oral powder for reconstitution See Instructions, DISSOLVE 17 GM IN WATER EVERY DAY NEEDED FOR CONSTIPATION, # 510 Gm, 0 Refills, Maintenance, 03/26/22 8:19:00 EDT, [facility] #[id number], 30, DISSOLVE 17 GM IN WATER EVERY DAY NEEDED FOR CONSTIPATION, 170, cm, 01/24/22 18... Start Date: 03/26/22 Status: Ordered potassium chloride 20 mEq oral powder for reconstitution = 10 mEq, By Mouth, Daily, # 30 pack/packet, 0 Refills, Maintenance, 03/18/23 9:58:00 EDT, REC Powder, [facility] #[id number], Partial fill upon patient request if the [...] Gm, 1 Refills, Maintenance, 03/12/23 9:33:00 EDT, [facility] #[id number], APPLY TOPICALLY TOTHE AFFECTED AREA TWICE DAILY FOR UP TO 14 DAYS FOR... Start Date: 03/12/23 Status: Ordered Trulicity Pen 0.75 mg/0.5 mL subcutaneous solution 0.5 mL = 0.75 mg, Subcutaneous Injection, Every week, # 2 mL, 11 Refills, Maintenance, 03/27/22 8:27:00 EDT, Solution, [facility] #64211, Partial fill upon patient request if the prescription is for a schedule II opioid drug., 170, cm, 03/27... Start Date: 03/27/22 Status: Ordered Vitamin D3 1000 intl units oral capsule 1 capsule = 25 mcg, By Mouth, Daily, with food, # 90 capsule, 3 Refills, Maintenance, 02/03/23 17:53:00 EDT, [facility] #[id number], Partial fill upon patient request if the prescription is for a schedule II opioid drug., 175, cm, 01/20/23 10:13:... Start Date: 02/03/23 Stop Date: 01/29/24 Status: Ordered Voltaren 1% topical gel = 2 Gm, Topically, 4 times a day, PRN arthritis pain, # 150 Gm, 3 Refills, Maintenance, 08/28/21 9:02:00 EST, [facility] #[id number], Partial fill upon patient request if the [...] Care Team Personnel Name: Abiel Nickerson Position: [facility] PC[facility] Associate Professional Member Role: PCP Address: Address: [address] [place] [address] [place] [address]- Name: Germania Wynn RN Position: S RN Member Role: Primary Care Nurse Name: Bertha Valdes RN Position: S RN Member Role: Primary Care Nurse Name: Jennifer Rodriguez RN Position: S RN Member Role: Primary Care Nurse Name: Lyndsey Macias RN Position: S RN Member Role: Primary Care Nurse Care Team Related Persons Name: KINGA ACOSTA Address: [address] [address] Name: VELVET ACOSTA Address: [place] [address]
--- OUTSIDE RECORDS SUMMARY | 2023-07-02 19:14 | XMS_ITS | Continuity of Care Document ---
Author Name Unknown Organization [facility] [place] Address [address] [place] [address]- Care Team Providers Care Continuity Person Name Role Phone Abiel Nickerson Primary Care Physician Encounter [facility] Date(s): 08/26/22 - 09/25/22 [facility] [place] [address] [place], [place] [address] Attending Physician: AdmPaulina ramos Admitting Physician: Admtr, Paulina Referring Physician: Admtr, Ar8 Allergies, Adverse Reactions, Alerts Substance Reaction Severity Status penicillin hives Active sulfamethoxazole hives Active Cortisporin Active Latex Active Immunizations Given and Recorded Vaccine Date Status Refusal Reason SARS-CoV-2 mRNA (icmleav-ujkx-lvynl) vax 08/28/21 Given influenza virus vaccine, inactivated [...] tablet, 1 Refills, Maintenance, 02/25/22 11:19:00 EDT, [facility] #[id number], 170, cm, 01/24/22 18:11:00 EDT, Height, 113, kg, 08/28/21 19:48:00 EST, Dry Weight Start Date: 02/25/22 Status: Ordered cetirizine 10 mg oral tablet 1 tablet, By Mouth, Daily, # 30 tablet, 5 Refills, Maintenance, 04/08/22 11:24:00 EDT, [facility] #[id number], 170, cm, 03/27/22 8:35:00 EDT, Height, 113, kg, 08/28/21 19:48:00 EST, Dry Weight Start Date: 04/08/22 Status: Ordered Eliquis 5 mg oral tablet 1 tablet, By Mouth, 2 times a day, STOPPING WARFARIN., # 60 tablet, 0 Refills, Maintenance, 05/02/22 13:12:00 EDT, [facility] #[id number], 170, cm, 03/27/22 8:35:00 EDT, Height, 113, kg, 08/28/21 19:48:00 EST, Dry Weight Start Date: 05/02/22 Status: Ordered Eliquis 5 mg oral tablet See Instructions, TAKE 1 TABLET BY MOUTH TWICE DAILY STOPPING WARFARIN, # 60 tablet, 11 Refills, Maintenance, 05/06/22 9:53:00 EDT, [facility] #[id number], 170, cm, 03/27/22 8:35:00 EDT, Height,113, kg, 08/28/21 19:48:00 EST, Dry Weight Start Date: 05/06/22 Status: Ordered fluticasone 50 mcg/inh nasal spray See Instructions, SHAKE LIQUID AND USE 1 SPRAY IN EACH NOSTRIL TWICE DAILY, # 16 Gm, 0 Refills, Maintenance, [facility] #[id number], 30, SHAKE LIQUID AND USE 1 SPRAY [...] 30 tablet, 11 Refills, 03/27/22 8:29:00 EDT, [facility] #[id number], 30, 1 tablet By Mouth Daily, 170, cm, 03/27/22 8:17:00 EDT, Height, 113, kg, 08/28/21 19:48:00 EST, Dry Weight Start Date: 03/27/22 Status: Ordered ipratropium nasal 21 mcg/inh spray See Instructions, USE 2 SPRAYS IN EACH NOSTRIL TWICE DAILY IN EACH NOSTRIL, NEEDED CONGESTION, #30 mL, 5 Refills, Maintenance, 09/03/22 9:40:00 EST, [facility] #[id number], 30, USE 2 SPRAYS IN EACH NOSTRIL TWICE DAILY IN EACH NOSTRIL, NEED... Start Date: 09/03/22 Status: Ordered ketoconazole 2% topical cream See Instructions, APPLY BENEATH BREAST AND GROIN AREAS TWICE DAILY, # 120 Gm, 0 Refills, Maintenance, 05/06/22 8:40:00 EDT, [facility] #[id number], 30, APPLY BENEATH BREAST AND GROIN AREAS TWICEDAILY, 170, cm, 03/27/22 8:35:00 EDT, Height, 113,... Start Date: 05/06/22 Status: Ordered Metamucil 3.4 gm/5.2 gm oral powder for reconstitution = 1.7 Gm, By Mouth, 3 times a day, PRN as needed for constipation, dissolve in 8 oz of fluid. drinkplenty of water., # 570 Gm, 5 Refills, Maintenance, 09/02/19 14:32:00 EST, REC Powder, [facility] #[id number], 176, cm, 09/02/19 13:59:00 EST, Hei... Start Date: 09/02/19 Status: Ordered Metoprolol Succinate ER 50 mg oral tablet, extended release 1 tablet, By Mouth, Daily, # 90 tablet, 0 Refills, Maintenance, 09/03/22 9:40:00 EST, [facility] #[id number], 170, cm, 08/28/22 14:45:00 EST, Height, 113, kg, 08/28/21 19:48:00 EST, Dry Weight Start Date: 09/03/22 Status: Ordered omeprazole 20 mg oral enteric coated capsule 1 capsule, By Mouth, Daily, PRN NEEDED, ACID INDIGESTION., # 90 capsule, 0 Refills, Maintenance,09/03/22 9:40:00 EST, [facility] #[id number], 170, cm, 08/28/22 14:45:00 EST, Height, 113, kg,08/28/21 19:48:00 EST, Dry Weight Start Date: 09/03/22 Status: Ordered PEG-3350 with Electrolytes (Eqv-NuLYTELY) oral powder for reconstitution See Instructions, Mix powder withn water according to the product label. Drink 8 oz of prep fluid every 15-20 minutes ion the evening before the colonoscopy., # 1 each, 0 Refills, Maintenance, 08/26/22 11:04:00 EST, [facility] #[id number], Parti... Start Date: 08/26/22 Status: Ordered polyethylene glycol 3350 oral powder for reconstitution See Instructions, DISSOLVE 17 GM IN WATER EVERY DAY NEEDED FOR CONSTIPATION, # 510 Gm, 0 Refills, Maintenance, 03/26/22 8:19:00 EDT, [facility] #[id number], 30, DISSOLVE 17 GM IN WATER EVERY DAY NEEDED FOR CONSTIPATION, 170, cm, 01/24/22 18... Start Date: 03/26/22 Status: Ordered Potassium Chloride (Oom-Vdke-Uao 10) 10 mEq oral tablet, extended release 1 tablet = 10 mEq, By Mouth, Daily, # 30 tablet, 5 Refills, Maintenance, 10/02/21 16:06:00 EDT, [facility] #[id number], Partial fill upon patient request if the prescription is for a schedule IIopioid drug., 170, cm, 10/02/21 15:32:00 EDT, Heigh... Start Date: 10/02/21 Status: Ordered Shingrix intramuscular injection = 0.5 mL, Intramuscular, Once, repeat dose in 2 to 6 months, # 2 each, 0 Refills, Soft Stop, 03/21/21 8:37:00 EDT, Powder, [facility] #[id number], Partial fill upon patient request if the prescription is for a schedule II opioid drug., 0.5 mL Int... Start Date: 03/21/21 Status: Ordered triamcinolone 0.5% topical ointment See Instructions, APPLY TOPICALLY TO THE AFFECTED AREA TWICE DAILY FOR UP TO 14 DAYS FOR ECZEMA, # 60 Gm, 0 Refills, Maintenance, 09/03/22 12:03:00 EST, [facility] #[id number], 28, APPLY TOPICALLY TO THE AFFECTED AREA TWICE DAILY FOR UP TO 14 DAY... Start Date: 09/03/22 Status: Ordered Trulicity Pen 0.75 mg/0.5 mL subcutaneous solution 0.5 mL = 0.75 mg, Subcutaneous Injection, Every week, # 2 mL, 11 Refills, Maintenance, 03/27/22 8:27:00 EDT, Solution, [facility] #[id number], Partial fill upon patient request if the prescription is for a schedule II opioid drug., 170, cm, 03/27... Start Date: 03/27/22 Status: Ordered Voltaren 1% topical gel = 2 Gm, Topically, 4 times a day, PRN arthritis pain, # 150 Gm, 3 Refills, Maintenance, 08/28/21 9:02:00 EST, [facility] #[id number], Partial fill upon patient request if the [...] Response Smoking Status Current every day adrián cantreller; Type: Cigarettes entered on: 10/29/13 Sex Female Patient Care team information Care Team Personnel Name: Abiel Nickerson Position: [facility] Associate Professional Member Role: PCP Address: Address: [address] [place] [address] [place], [place] [address] Name: Jennifer Rodriguez RN Position: Stephon RN Member Role: Primary Care Nurse Care Team Related Persons Name: KINGA ACOSTA Address: [address] [address] Name: VELVET ACOSTA Address: [place] [address]
--- OUTSIDE RECORDS SUMMARY | 2023-07-02 19:14 | XMS_ITS | Continuity of Care Document ---
Author Name Unknown Organization [facility] Address [address] [place] [address]- Care Team Providers Care Science Education Professor Name Role Phone Abiel Nickerson Primary Care Physician [facility]): 03/03/23 - 04/02/23 [facility] [address] [place] [address]- Allergies, Adverse Reactions, Alerts Substance Reaction Severity Status penicillin hives Active sulfamethoxazole hives Active Cortisporin Active Latex Active Immunizations Given and Recorded Vaccine Date Status Refusal Reason SARS-CoV-2 mRNA (lbqncji-efei-kffyh) vax 08/28/21 Given influenza virus vaccine, inactivated [...] tablet, 1 Refills, Maintenance, 02/04/23 12:49:00 EDT, [facility] #[id number], Partial fill upon patient request if the prescriptionis for a schedule II opioid drug., 175, cm, ... Start Date: 02/04/23 Status: Ordered aspirin 81 mg oral tablet, chewable 81 mg, By Mouth, Daily, # 30 tablet, Refills 2, Tot. Refills 2, Maintenance, 03/18/23 9:59:00 EDT, Route to Pharmacy Electronically, [facility] #[id number], Partial fill upon patient request if the [...] 03/12/23 9:37:00 EDT, Route to Pharmacy Electronically, [facility] #[id number], Partial fill upon patien... Start Date: 03/12/23 Status: Ordered Eliquis 5 mg oral tablet See Instructions, TAKE 1 TABLET BY MOUTH TWICE DAILY STOPPING WARFARIN, # 60 tablet, 11 Refills, Maintenance, 05/06/22 9:53:00 EDT, [facility] #[id number], 170, cm, 03/27/22 8:35:00 EDT, Height,113, kg, 08/28/21 19:48:00 EST, Dry Weight Start Date: 05/06/22 Status: Ordered fluticasone 50 mcg/inh nasal spray See Instructions, SHAKE LIQUID AND USE 1 SPRAY IN EACH NOSTRIL TWICE DAILY, # 16 Gm, 0 Refills, Maintenance, [facility] #[id number], 30, SHAKE LIQUID AND USE 1 SPRAY [...] mL, 5 Refills, Maintenance, 09/03/22 9:40:00 EST, [facility] #[id number], 30, USE 2 SPRAYS IN EACH NOSTRIL TWICE DAILY IN EACH NOSTRIL, NEED... Start Date: 09/03/22 Status: Ordered isopropyl alcohol 70% topical pad See Instructions, CLEANSE SKIN BEFORE TESTING BLOOD SUGAR, # 100 Unknown, 5 Refills, Maintenance, 03/26/23 18:08:00 EDT, [facility] #[id number], 30, CLEANSE SKIN BEFORE TESTING BLOOD SUGAR, 166,cm, 03/18/23 7:51:00 EDT, Height, 99, kg, 03/15/23... Start Date: 03/26/23 Status: Ordered ketoconazole 2% topical cream See Instructions, APPLY BENEATH BREAST AND GROIN AREAS TWICE DAILY, # 120 Gm, 2 Refills, Maintenance, 03/12/23 9:33:00 EDT, [facility] #[id number], 30, APPLY BENEATH BREAST AND GROIN AREAS TWICEDAILY, 175, cm, 03/12/23 8:47:00 EDT, Height, 100.5... Start Date: 03/12/23 Status: Ordered Lipitor 40 mg oral tablet 1 tablet = 40 mg, By Mouth, Daily, # 30 tablet, 0 Refills, Maintenance, 03/18/23 10:00:00 EDT, Tablet, [email or web address] #[id number], Partial fill upon patient request if the prescription is for a schedule II opioid drug., 166, cm, 03/18/23 7:51:00 EDT,... Start Date: 03/18/23 Stop Date: 04/17/23 Status: Ordered melatonin 5 mg oral tablet 1 tablet = 5 mg, By Mouth, Daily at bedtime, for 30 days, to help sleep, # 30 tablet, 1 Refills, Acute 04/05/23 12:48:00 EDT, 02/04/23 12:48:00 EDT, [facility] #[id number], Partial fill upon patient request if the prescription is for a schedule I... Start Date: 02/04/23 Stop Date: 04/05/23 Status: Ordered Metoprolol Succinate ER 50 mg oral tablet, extended release 1 tablet, By Mouth, Daily, # 90 tablet, 3 Refills, Maintenance, 02/04/23 12:35:00 EDT, [facility] #[id number], 175, cm, 01/20/23 10:13:00 EDT, Height, 108.5, [...] each, 0 Refills, Maintenance, 08/26/22 11:04:00 EST, [facility] #[id number], Parti... Start Date: 08/26/22 Status: Ordered polyethylene glycol 3350 oral powder for reconstitution See Instructions, DISSOLVE 17 GM IN WATER EVERY DAY NEEDED FOR CONSTIPATION, # 510 Gm, 0 Refills, Maintenance, 03/26/22 8:19:00 EDT, [email or web address] #[id number], 30, DISSOLVE 17 GM IN WATER EVERY DAY NEEDED FOR CONSTIPATION, 170, cm, 01/24/22 18... Start Date: 03/26/22 Status: Ordered potassium chloride 20 mEq oral powder for reconstitution = 10 mEq, By Mouth, Daily, # 30 pack/packet, 0 Refills, Maintenance, 03/18/23 9:58:00 EDT, REC Powder, [facility] #[id number], Partial fill upon patient request if the [...] Gm, 1 Refills, Maintenance, 03/12/23 9:33:00 EDT, [facility] #[id number], APPLY TOPICALLY TOTHE AFFECTED AREA TWICE DAILY FOR UP TO 14 DAYS FOR... Start Date: 03/12/23 Status: Ordered Trulicity Pen 0.75 mg/0.5 mL subcutaneous solution 0.5 mL = 0.75 mg, Subcutaneous Injection, Every week, # 2 mL, 11 Refills, Maintenance, 03/27/22 8:27:00 EDT, Solution, [facility] #[id number], Partial fill upon patient request if the prescription is for a schedule II opioid drug., 170, cm, 03/27... Start Date: 03/27/22 Status: Ordered Vitamin D3 1000 intl units oral capsule 1 capsule = 25 mcg, By Mouth, Daily, with food, # 90 capsule, 3 Refills, Maintenance, 02/03/23 17:53:00 EDT, [facility] #[id number], Partial fill upon patient request if the prescription is for a schedule II opioid drug., 175, cm, 01/20/23 10:13:... Start Date: 02/03/23 Stop Date: 01/29/24 Status: Ordered Voltaren 1% topical gel = 2 Gm, Topically, 4 times a day, PRN arthritis pain, # 150 Gm, 3 Refills, Maintenance, 08/28/21 9:02:00 EST, [facility] #[id number], Partial fill upon patient request if the [...] Care Team Personnel Name: Abiel Nickerson Position: [facility] PCO Associate Professional Member Role: PCP Address: Address: [address] [place] [address] [place] [address]- Name: Germania Wynn RN Position: S RN Member Role: Primary Care Nurse Name: Bertha Valdes RN Position: S RN Member Role: Primary Care Nurse Name: Jennifer Rodriguez RN Position: S RN Member Role: Primary Care Nurse Name: Lyndsey Macias RN Position: S RN Member Role: Primary Care Nurse Care Team Related Persons Name: KINGA ACOSTA Address: [address] [address] Name: VELVET ACOSTA Address: [place] [address]
--- OUTSIDE RECORDS SUMMARY | 2023-07-02 19:14 | XMS_ITS | Continuity of Care Document ---
Author Name Unknown Organization [facility] Address [address] [place] [address]- Care Team Providers Care Academic Affairs Specialist Name Role Phone Abiel Nickerson Primary Care Physician [phone] [facility]counter [facility] Date[facility]s): 09/10/22 - 10/10/22 [facility] [address] [place], [place] [address] Allergies, Adverse Reactions, Alerts Substance Reaction Severity Status penicillin hives Active sulfamethoxazole hives Active Latex Active Cortisporin Active Immunizations Given and Recorded Vaccine Date Status Refusal Reason SARS-CoV-2 mRNA (ibljwrw-artu-rutaq) vax 08/28/21 Given influenza virus vaccine, inactivated [...] tablet, 3 Refills, Maintenance, 09/30/22 10:07:00 EDT, [facility] #[id number], 170, cm, 09/30/22 9:28:00 EDT, Height, 113, kg, 08/28/21 19:48:00 EST, Dry Weight Start Date: 09/30/22 Status: Ordered cetirizine 10 mg oral tablet 1 tablet, By Mouth, Daily, # 30 tablet, 5 Refills, Maintenance, 09/30/22 10:07:00 EDT, [facility] #[id number], 170, cm, 09/30/22 9:28:00 EDT, Height, 113, kg, 08/28/21 19:48:00 EST, Dry Weight Start Date: 09/30/22 Status: Ordered Eliquis 5 mg oral tablet 1 tablet, By Mouth, 2 times a day, STOPPING WARFARIN., # 60 tablet, 0 Refills, Maintenance, 05/02/22 13:12:00 EDT, [facility] #[id number], 170, cm, 03/27/22 8:35:00 EDT, Height, 113, kg, 08/28/21 19:48:00 EST, Dry Weight Start Date: 05/02/22 Status: Ordered Eliquis 5 mg oral tablet See Instructions, TAKE 1 TABLET BY MOUTH TWICE DAILY STOPPING WARFARIN, # 60 tablet, 11 Refills, Maintenance, 05/06/22 9:53:00 EDT, [facility] #[id number], 170, cm, 03/27/22 8:35:00 EDT, Height,113, kg, 08/28/21 19:48:00 EST, Dry Weight Start Date: 05/06/22 Status: Ordered fluticasone 50 mcg/inh nasal spray See Instructions, SHAKE LIQUID AND USE 1 SPRAY IN EACH NOSTRIL TWICE DAILY, # 16 Gm, 0 Refills, Maintenance, [facility] #[id number], 30, SHAKE LIQUID AND USE 1 SPRAY [...] 30 tablet, 11 Refills, 03/27/22 8:29:00 EDT, [facility] #[id number], 30, 1 tablet By Mouth Daily, 170, cm, 03/27/22 8:17:00 EDT, Height, 113, kg, 08/28/21 19:48:00 EST, Dry Weight Start Date: 03/27/22 Status: Ordered ipratropium nasal 21 mcg/inh spray See Instructions, USE 2 SPRAYS IN EACH NOSTRIL TWICE DAILY IN EACH NOSTRIL, NEEDED CONGESTION, #30 mL, 5 Refills, Maintenance, 09/03/22 9:40:00 EST, [facility] #[id number], 30, USE 2 SPRAYS IN EACH NOSTRIL TWICE DAILY IN EACH NOSTRIL, NEED... Start Date: 09/03/22 Status: Ordered ketoconazole 2% topical cream See Instructions, APPLY BENEATH BREAST AND GROIN AREAS TWICE DAILY, # 120 Gm, 2 Refills, Maintenance, 09/30/22 10:09:00 EDT, [facility] #[id number], 30, APPLY BENEATH BREAST AND GROIN AREAS TWICE DAILY, 170, cm, 09/30/22 9:28:00 EDT, Height, 113,... Start Date: 09/30/22 Status: Ordered Metamucil 3.4 gm/5.2 gm oral powder for reconstitution = 1.7 Gm, By Mouth, 3 times a day, PRN as needed for constipation, dissolve in 8 oz of fluid. drinkplenty of water., # 570 Gm, 5 Refills, Maintenance, 09/02/19 14:32:00 EST, REC Powder, [facility] #[id number], 176, cm, 09/02/19 13:59:00 EST, Hei... Start Date: 09/02/19 Status: Ordered Metoprolol Succinate ER 50 mg oral tablet, extended release 1 tablet, By Mouth, Daily, # 90 tablet, 0 Refills, Maintenance, 09/03/22 9:40:00 EST, [facility] #[id number], 170, cm, 08/28/22 14:45:00 EST, Height, 113, kg, 08/28/21 19:48:00 EST, Dry Weight Start Date: 09/03/22 Status: Ordered omeprazole 20 mg oral enteric coated capsule 1 capsule, By Mouth, Daily, PRN NEEDED, ACID INDIGESTION., # 90 capsule, 0 Refills, Maintenance,09/03/22 9:40:00 EST, [facility] #[id number], 170, cm, 08/28/22 14:45:00 EST, Height, 113, kg,08/28/21 19:48:00 EST, Dry Weight Start Date: 09/03/22 Status: Ordered PEG-3350 with Electrolytes (Eqv-NuLYTELY) oral powder for reconstitution See Instructions, Mix powder withn water according to the product label. Drink 8 oz of prep fluid every 15-20 minutes ion the evening before the colonoscopy., # 1 each, 0 Refills, Maintenance, 08/26/22 11:04:00 EST, [facility] #[id number], Parti... Start Date: 08/26/22 Status: Ordered polyethylene glycol 3350 oral powder for reconstitution See Instructions, DISSOLVE 17 GM IN WATER EVERY DAY NEEDED FOR CONSTIPATION, # 510 Gm, 0 Refills, Maintenance, 03/26/22 8:19:00 EDT, [facility] #[id number], 30, DISSOLVE 17 GM IN WATER EVERY DAY NEEDED FOR CONSTIPATION, 170, cm, 01/24/22 18... Start Date: 03/26/22 Status: Ordered Potassium Chloride (Upf-Baix-Bfp 10) 10 mEq oral tablet, extended release 1 tablet = 10 mEq, By Mouth, Daily, # 30 tablet, 5 Refills, Maintenance, 10/02/21 16:06:00 EDT, [facility] #[id number], Partial fill upon patient request if the prescription is for a schedule IIopioid drug., 170, cm, 10/02/21 15:32:00 EDT, [facility]... Start Date: 10/02/21 Status: Ordered Shingrix intramuscular injection = 0.5 mL, Intramuscular, Once, repeat dose in 2 to 6 months, # 2 each, 0 Refills, Soft Stop, 03/21/21 8:37:00 EDT, Powder, [facility] #[id number], Partial fill upon patient request if the prescription is for a schedule II opioid drug., 0.5 mL Int... Start Date: 03/21/21 Status: Ordered traZODone 50 mg oral tablet 50 mg, 1, tablet, By Mouth, Daily at bedtime, # 30 tablet, Refills 5, Tot. Refills 5, Maintenance, 09/30/22 10:00:00 EDT, Route to Pharmacy Electronically, [facility] #[id number], Partial fill upon patient request if the prescription is for a brenda... Start Date: 09/30/22 Status: Ordered triamcinolone 0.5% topical ointment See Instructions, APPLY TOPICALLY TO THE AFFECTED AREA TWICE DAILY FOR UP TO 14 DAYS FOR ECZEMA, # 60 Gm, 1 Refills, Maintenance, 09/30/22 10:09:00 EDT, [facility] #[id number], 28, APPLY TOPICALLY TO THE AFFECTED AREA TWICE DAILY FOR UP TO 14 DAY... Start Date: 09/30/22 Status: Ordered Trulicity Pen 0.75 mg/0.5 mL subcutaneous solution 0.5 mL = 0.75 mg, Subcutaneous Injection, Every week, # 2 mL, 11 Refills, Maintenance, 03/27/22 8:27:00 EDT, Solution, [facility] #[id number], Partial fill upon patient request if the prescription is for a schedule II opioid drug., 170, cm, 03/27... Start Date: 03/27/22 Status: Ordered Voltaren 1% topical gel = 2 Gm, Topically, 4 times a day, PRN arthritis pain, # 150 Gm, 3 Refills, Maintenance, 08/28/21 9:02:00 EST, [facility] #[id number], Partial fill upon patient request if the [...] Associate Professional Member Role: PCP Address: Address: [address] [place] [address] [place] [address]- Name: Jennifer Rodriguez RN Position: [facility] RN Member Role: Primary Care Nurse Care Team Related Persons Name: KINGA ACOSTA Address: [facility] [address] [place] [id number] Name: VELVET ACOSTA Address: [place] [address]
--- OUTSIDE RECORDS SUMMARY | 2023-07-02 19:14 | XMS_ITS | Continuity of Care Document ---
Author Name Unknown Organization [facility] Address [address] [place] [address]- Care Team Providers Care Facility Manager Name Role Phone Abiel Nickerson Primary Care Physician [facility]s): 03/07/23 - 04/06/23 [facility] [address] [place] [address]- Allergies, Adverse Reactions, Alerts Substance Reaction Severity Status penicillin hives Active sulfamethoxazole hives Active Latex Active Cortisporin Active Immunizations Given and Recorded Vaccine Date Status Refusal Reason SARS-CoV-2 mRNA (vufqqmr-qqsg-cvqyh) vax 08/28/21 Given influenza virus vaccine, inactivated [...] tablet, 1 Refills, Maintenance, 02/04/23 12:49:00 EDT, [facility] #[id number], Partial fill upon patient request if the prescriptionis for a schedule II opioid drug., 175, cm, ... Start Date: 02/04/23 Status: Ordered aspirin 81 mg oral tablet, chewable 81 mg, By Mouth, Daily, # 30 tablet, Refills 2, Tot. Refills 2, Maintenance, 03/18/23 9:59:00 EDT, Route to Pharmacy Electronically, [facility] #[id number], Partial fill upon patient request if the [...] 03/12/23 9:37:00 EDT, Route to Pharmacy Electronically, [facility] #[id number], Partial fill upon patien... Start Date: 03/12/23 Status: Ordered Eliquis 5 mg oral tablet See Instructions, TAKE 1 TABLET BY MOUTH TWICE DAILY STOPPING WARFARIN, # 60 tablet, 11 Refills, Maintenance, 05/06/22 9:53:00 EDT, [facility] #[id number], 170, cm, 03/27/22 8:35:00 EDT, Height,113, kg, 08/28/21 19:48:00 EST, Dry Weight Start Date: 05/06/22 Status: Ordered fluticasone 50 mcg/inh nasal spray See Instructions, SHAKE LIQUID AND USE 1 SPRAY IN EACH NOSTRIL TWICE DAILY, # 16 Gm, 0 Refills, Maintenance, [facility] #[id number], 30, SHAKE LIQUID AND USE 1 SPRAY [...] mL, 5 Refills, Maintenance, 09/03/22 9:40:00 EST, [facility] #[id number], 30, USE 2 SPRAYS IN EACH NOSTRIL TWICE DAILY IN EACH NOSTRIL, NEED... Start Date: 09/03/22 Status: Ordered isopropyl alcohol 70% topical pad See Instructions, CLEANSE SKIN BEFORE TESTING BLOOD SUGAR, # 100 Unknown, 5 Refills, Maintenance, 03/26/23 18:08:00 EDT, [facility] #[id number], 30, CLEANSE SKIN BEFORE TESTING BLOOD SUGAR, 166,cm, 03/18/23 7:51:00 EDT, Height, 99, kg, 03/15/23... Start Date: 03/26/23 Status: Ordered ketoconazole 2% topical cream See Instructions, APPLY BENEATH BREAST AND GROIN AREAS TWICE DAILY, # 120 Gm, 2 Refills, Maintenance, 03/12/23 9:33:00 EDT, [facility] #[id number], 30, APPLY BENEATH BREAST AND GROIN AREAS TWICEDAILY, 175, cm, 03/12/23 8:47:00 EDT, Height, 100.5... Start Date: 03/12/23 Status: Ordered Lipitor 40 mg oral tablet 1 tablet = 40 mg, By Mouth, Daily, # 30 tablet, 0 Refills, Maintenance, 03/18/23 10:00:00 EDT, Tablet, [facility] #[id number], Partial fill upon patient request if the prescription is for a schedule II opioid drug., 166, cm, 03/18/23 7:51:00 EDT,... Start Date: 03/18/23 Stop Date: 04/17/23 Status: Ordered Metoprolol Succinate ER 50 mg oral tablet, extended release 1 tablet, By Mouth, Daily, # 90 tablet, 3 Refills, Maintenance, 02/04/23 12:35:00 EDT, [facility] #[id number], 175, cm, 01/20/23 10:13:00 EDT, Height, 108.5, [...] each, 0 Refills, Maintenance, 08/26/22 11:04:00 EST, [facility] #[id number], Parti... Start Date: 08/26/22 Status: Ordered polyethylene glycol 3350 oral powder for reconstitution See Instructions, DISSOLVE 17 GM IN WATER EVERY DAY NEEDED FOR CONSTIPATION, # 510 Gm, 0 Refills, Maintenance, 03/26/22 8:19:00 EDT, [facility] #[id number], 30, DISSOLVE 17 GM IN WATER EVERY DAY NEEDED FOR CONSTIPATION, 170, cm, 01/24/22 18... Start Date: 03/26/22 Status: Ordered potassium chloride 20 mEq oral powder for reconstitution = 10 mEq, By Mouth, Daily, # 30 pack/packet, 0 Refills, Maintenance, 03/18/23 9:58:00 EDT, REC Powder, [facility] #[id number], Partial fill upon patient request if the [...] Gm, 1 Refills, Maintenance, 03/12/23 9:33:00 EDT, [facility] #[id number], APPLY TOPICALLY TOTHE AFFECTED AREA TWICE DAILY FOR UP TO 14 DAYS FOR... Start Date: 03/12/23 Status: Ordered Trulicity Pen 0.75 mg/0.5 mL subcutaneous solution 0.5 mL = 0.75 mg, Subcutaneous Injection, Every week, # 2 mL, 11 Refills, Maintenance, 03/27/22 8:27:00 EDT, Solution, [facility] #[id number], Partial fill upon patient request if the prescription is for a schedule II opioid drug., 170, cm, 03/27... Start Date: 03/27/22 Status: Ordered Vitamin D3 1000 intl units oral capsule 1 capsule = 25 mcg, By Mouth, Daily, with food, # 90 capsule, 3 Refills, Maintenance, 02/03/23 17:53:00 EDT, [facility] #[id number], Partial fill upon patient request if the prescription is for a schedule II opioid drug., 175, cm, 01/20/23 10:13:... Start Date: 02/03/23 Stop Date: 01/29/24 Status: Ordered Voltaren 1% topical gel = 2 Gm, Topically, 4 times a day, PRN arthritis pain, # 150 Gm, 3 Refills, Maintenance, 08/28/21 9:02:00 EST, [facility] #[id number], Partial fill upon patient request if the [...] Care Team Personnel Name: Abiel Nickerson Position: [facility] PCO Associate Professional Member Role: PCP Address: Address: [address] [place] [address] Name: Germania Wynn RN Position: S RN Member Role: Primary Care Nurse Name: Bertha Valdes RN Position: S RN Member Role: Primary Care Nurse Name: Jennifer Rodriguez RN Position: S RN Member Role: Primary Care Nurse Name: Lyndsey Macias RN Position: S RN Member Role: Primary Care Nurse Care Team Related Persons Name: KINGA ACOSTA Address: [address] [address] Name: VELVET ACOSTA Address: [place] [address]
--- OUTSIDE RECORDS SUMMARY | 2023-07-02 19:14 | XMS_ITS | Continuity of Care Document ---
Author Name Unknown Organization [facility] Address [address] [place] [address]- Care Team Providers Care Forester Aide Name Role Phone Abiel Nickerson Primary Care Physician [facility]): [facility] - 02/24/20 [facility] [address] [place] [id number] [facility] Attending Physician: Admrachel, Paulina Admitting Physician: AdmtrPaulina Referring Physician: Admtr, Ar8 Allergies, Adverse Reactions, [...] 08/04/19 10:07:00 EST, Route to Pharmacy Electronically, [facility] #[id number], 176, cm, 08/04... Start Date: 08/04/19 Status: Ordered apixaban 5 mg oral tablet 1 tablet = 5 mg, By Mouth, 2 times a day, STOPPING WARFARIN., # 60 tablet, 11 Refills, Maintenance,11/15/19 12:12:00 EDT, [facility] #[id number], 176, cm, 09/16/19 14:40:00 EST, Height, 123.2, kg, 08/21/19 20:54:00 EST, Dry Weight Start Date: 11/15/19 Status: Ordered atorvastatin 20 mg oral tablet 1 tablet, By Mouth, Daily, # 30 tablet, 0 Refills, Maintenance, 02/09/20 8:24:00 EDT, [facility] #[id number], 176, cm, 12/08/19 10:38:00 EDT, Height, 123.2, kg, 08/21/19 20:54:00 EST, Dry Weight Start Date: 02/09/20 Status: Ordered cetirizine 10 mg oral tablet 1 tablet = 10 mg, By Mouth, Daily, # 30 tablet, 5 Refills, Maintenance, 11/15/19 11:43:00 EDT, Tablet, [facility] #[id number], 176, cm, 09/16/19 14:40:00 EST, Height, 123.2, [...] 5 Refills, Maintenance, 11/15/19 11:45:00 EDT, Tablet, [facility] #[id number], 176, cm, 09/16/19 14:40:00 EST, Height, 123.2, kg, 08/21/19 20:54:00 EST, Dry Weight Start Date: 11/15/19 Status: Ordered Flonase 50 mcg/inh nasal spray 1 sprays, Nares, Both, 2 times a day, # 1 each, 2 Refills, Maintenance, 12/31/19 12:09:00 EDT, [place], [facility] #[id number], 1 sprays Nares, Both 2 times a day,x30 days, 176, cm, 12/08/19 10:38:00 EDT, Height, 123.2, kg, 08/21/19 20:54:00 EST, D... Start Date: 12/31/19 Stop Date: 03/30/20 Status: Ordered hydrochlorothiazide-lisinopril 25 mg-20 mg oral tablet 1 tablet, By Mouth, Daily, # 30 tablet, 2 Refills, Maintenance, 12/31/19 9:24:00 EDT, Tablet, [facility] #[id number], 1 tablet By Mouth Daily,x30 days, 176, [...] Refills, Maintenance, 09/02/19 14:32:00 EST, REC Powder, [facility] #[id number], 176, cm, 09/02/19 13:59:00 EST, Hei... Start Date: 09/02/19 Status: Ordered MiraLax oral powder for reconstitution = 17 Gm, By Mouth, Daily, PRN Constipation, dissolve in water before taking, # 12 each, 5 Refills, Maintenance, 09/02/19 14:32:00 EST, REC Powder, [facility] #[id number], 17 Gm By Mouth Daily,PRN:Constipation,Instr:dissolve in water before taking... Start Date: 09/02/19 Status: Ordered nitroglycerin 0.4 mg sublingual tablet 1 tablet = 0.4 mg, Sublingual, Every 5 minutes, PRN for chest pain, If chest pain not relieved in 5minutes after first dose, seek immediate medical attention, # 1 tablet, 0 Refills, Maintenance, 08/19/16 10:23:57, Tablet Start Date: 08/19/16 Status: Ordered nystatin topical 039866 u/gm powder 1 application, Topically, 2 times [...] Refills, Maintenance, 11/15/19 11:44:00 EDT, EC Capsule, [facility] #[id number], 176, cm, 09/16/19 14:40:00 EST, Height,123.2, kg, 08/21/19 20:54:00 EST, Dry Weight Start Date: 11/15/19 Stop Date: 02/13/20 Status: Ordered PARoxetine 10 mg oral tablet 10 mg, 1, tablet, By Mouth, Daily, please d/c 7.5mg order, # 30 tablet, Refills 5, Tot. Refills 5, Maintenance, 09/17/19 13:12:00 EST, Route to Pharmacy Electronically, [facility] #[id number], 176, cm, 09/16/19 14:40:00 EST, Height, 123.2, kg, 02... Start Date: 09/17/19 Status: Ordered PARoxetine 7.5 mg oral capsule 1 capsule = 7.5 mg, By Mouth, Daily at bedtime, # 30 capsule, 2 Refills, Maintenance, 09/16/19 15:43:00 EST, [facility] #[id number], 176, cm, 09/16/19 14:40:00 EST, Height, 123.2, [...] 12/14/19 8:51:00 EDT, Route to Pharmacy Electronically, [facility] #[id number], 176, cm, 12/08/19 10:38:00EDT, Height, 123.2, kg, 08/21/19 20:54:00 EST, Dry... Start Date: 12/14/19 Status: Ordered triamcinolone 0.025% topical cream 1 applicator, Topically, 3 times a day, apply a thin film for eczema, # 30 Gm, 3 Refills, Maintenance, 08/18/19 10:35:00 EST, [facility] #[id number], 1 applicator Topically 3 times a day,Instr:apply a thin film for eczema, 176, cm, 08/18/19 9:16:... Start Date: 08/18/19 Status: Ordered Triple Antibiotic topical ointment 1 application, Topically, 2 times a day, # 28 Gm, 0 Refills, Acute, 11/15/19 12:12:00 EDT, [facility] #[id number], 7, APPLY 1 APPLICATION TOPICALLY TWICE DAILY, [...]
--- OUTSIDE RECORDS SUMMARY | 2023-07-02 19:14 | XMS_ITS | Continuity of Care Document ---
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 Discharge Disposition: A-D/C Home Attending Physician: Katlyn Mercado DO Admitting Physician: Katlyn Mercado DO Referring Physician: Not on Staff, Referring MD Allergies, Adverse Reactions, Alerts Substance Reaction Severity Status penicillin hives Active sulfamethoxazole hives Active Latex Active Cortisporin Active Immunizations Given and Recorded Vaccine Date Status Refusal Reason SARS-CoV-2 mRNA (nqhuhvc-them-[id number]) vax 08/28/21 Given influenza virus vaccine, inactivated [...] tablet, 3 Refills, Maintenance, 09/30/22 10:07:00 EDT, [facility] #[id number], 170, cm, 09/30/22 9:28:00 EDT, Height, 113, kg, 08/28/21 19:48:00 EST, Dry Weight Start Date: 09/30/22 Status: Ordered atorvastatin 20 mg oral tablet 1 tablet = 20 mg, By Mouth, Daily, TAKE 1 TABLET BY MOUTH DAILY Start Date: 12/10/22 Status: Ordered cetirizine 10 mg oral tablet 1 tablet, By Mouth, Daily, # 30 tablet, 5 Refills, Maintenance, 11/26/22 17:55:00 EDT, [facility] #[id number], 175, cm, 11/05/22 22:16:00 EDT, Height, 108.5, kg, 11/05/22 22:16:00 EDT, Dry Weight Start Date: 11/26/22 Status: Ordered cetirizine 10 mg oral tablet 1 tablet = 10 mg, By Mouth, Daily Start Date: 12/10/22 Status: Ordered Eliquis 5 mg oral tablet 1 tablet, By Mouth, 2 times a day, STOPPING WARFARIN., # 60 tablet, 0 Refills, Maintenance, 05/02/22 13:12:00 EDT, [facility] #[id number], 170, cm, 03/27/22 8:35:00 EDT, Height, 113, kg, 08/28/21 19:48:00 EST, Dry Weight Start Date: 05/02/22 Status: Ordered Eliquis 5 mg oral tablet See Instructions, TAKE 1 TABLET BY MOUTH TWICE DAILY STOPPING WARFARIN, # 60 tablet, 11 Refills, Maintenance, 05/06/22 9:53:00 EDT, [facility] #[id number], 170, cm, 03/27/22 8:35:00 EDT, Height,113, kg, [...] DAILY, # 16 Gm, 0 Refills, Maintenance, [facility] #[id number], 30, SHAKE LIQUID AND USE 1 SPRAY [...] 30 tablet, 11 Refills, 03/27/22 8:29:00 EDT, [facility] #[id number], 30, 1 tablet By Mouth Daily, 170, cm, 03/27/22 8:17:00 EDT, Height, 113, kg, 08/28/21 19:48:00 EST, Dry Weight Start Date: 03/27/22 Status: Ordered ipratropium nasal 21 mcg/inh spray See Instructions, USE 2 SPRAYS IN EACH NOSTRIL TWICE DAILY IN EACH NOSTRIL, NEEDED CONGESTION, #30 mL, 5 Refills, Maintenance, 09/03/22 9:40:00 EST, [facility] #[id number], 30, USE 2 SPRAYS IN EACH NOSTRIL TWICE DAILY IN EACH NOSTRIL, NEED... Start Date: 09/03/22 Status: Ordered ketoconazole 2% topical cream See Instructions, APPLY BENEATH BREAST AND GROIN AREAS TWICE DAILY, # 120 Gm, 2 Refills, Maintenance, 09/30/22 10:09:00 EDT, [facility] #[id number], 30, APPLY BENEATH BREAST AND GROIN AREAS TWICE DAILY, 170, cm, 09/30/22 9:28:00 EDT, Height, 113,... Start Date: 09/30/22 Status: Ordered lisinopril 20 mg oral tablet 20 mg, Tablet, By Mouth, 01/08/23 9:00:00 EDT Start Date: 01/08/23 Stop Date: 01/08/23 Status: Completed Metamucil 3.4 gm/5.2 gm oral powder for reconstitution = 1.7 Gm, By Mouth, 3 times a day, PRN as needed for constipation, dissolve in 8 oz of fluid. drinkplenty of water., # 570 Gm, 5 Refills, Maintenance, 09/02/19 14:32:00 EST, REC Powder, [facility] #[id number], 176, cm, 09/02/19 13:59:00 EST, Hei... Start Date: 09/02/19 Status: Ordered Metoprolol Succinate ER 50 mg oral tablet, extended release 50 mg, XL Tablet, By Mouth, 01/08/23 9:00:00 EDT Start Date: 01/08/23 Stop Date: 01/08/23 Status: Completed Metoprolol Succinate ER 50 mg oral tablet, extended release 1 tablet = 50 mg, By Mouth, Daily, TAKE 1 TABLET BY MOUTH DAILY Start Date: 12/10/22 Status: Ordered Metoprolol Succinate ER 50 mg oral tablet, extended release 1 tablet, By Mouth, Daily, # 90 tablet, 0 Refills, Maintenance, 11/24/22 20:53:00 EDT, [facility] #[id number], 175, cm, 11/05/22 22:16:00 EDT, Height, 108.5, [...] 90 capsule, 0 Refills, Maintenance,11/24/22 20:54:00 EDT, [facility] #[id number], 175, cm, 11/05/22 22:16:00 EDT, Height, 108.5, kg, 11/05/22 22:16:00 EDT, Dry Weight Start Date: 11/24/22 Status: Ordered PEG-3350 with Electrolytes (Eqv-NuLYTELY) oral powder for reconstitution See Instructions, Mix powder withn water according to the product label. Drink 8 oz of prep fluid every 15-20 minutes ion the evening before the colonoscopy., # 1 each, 0 Refills, Maintenance, 08/26/22 11:04:00 EST, [facility] #[id number], Parti... Start Date: 08/26/22 Status: Ordered polyethylene glycol 3350 oral powder for reconstitution See Instructions, DISSOLVE 17 GM IN WATER EVERY DAY NEEDED FOR CONSTIPATION, # 510 Gm, 0 Refills, Maintenance, 03/26/22 8:19:00 EDT, [facility] #[id number], 30, DISSOLVE 17 GM IN WATER EVERY DAY NEEDED FOR CONSTIPATION, 170, cm, 01/24/22 18... Start Date: 03/26/22 Status: Ordered Potassium Chloride (Qjy-Poyy-Ulz 10) 10 mEq oral tablet, extended release 1 tablet = 10 mEq, By Mouth, Daily, # 30 tablet, 5 Refills, Maintenance, 10/02/21 16:06:00 EDT, [facility] #[id number], Partial fill upon patient request if the prescription is for a schedule IIopioid drug., 170, cm, 10/02/21 15:32:00 EDT, [facility]... Start Date: 10/02/21 Status: Ordered Shingrix intramuscular injection = 0.5 mL, Intramuscular, Once, repeat dose in 2 to 6 months, # 2 each, 0 Refills, Soft Stop, 03/21/21 8:37:00 EDT, Powder, [facility] #[id number], Partial fill upon patient request if the prescription is for a schedule II opioid drug., 0.5 mL Int... Start Date: 03/21/21 Status: Ordered traZODone 50 mg oral tablet 75 mg, 1.5, tablet, By Mouth, Daily at bedtime, # 45 tablet, Refills 5, Tot. Refills 5, Maintenance, 10/21/22 15:02:00 EDT, Route to Pharmacy Electronically, [facility] #[id number], dose increase to 75mg qhs 10/21/22., 170, [...] Gm, 1 Refills, Maintenance, 12/04/22 16:55:00 EDT, [facility] #[id number], APPLY TOPICALLY TO THE AFFECTED AREA TWICE DAILY FOR UP TO 14 DAYS FO... Start Date: 12/04/22 Status: Ordered Trulicity Pen 0.75 mg/0.5 mL subcutaneous solution 0.5 mL = 0.75 mg, Subcutaneous Injection, Every week, # 2 mL, 11 Refills, Maintenance, 03/27/22 8:27:00 EDT, Solution, [facility] #[id number], Partial fill upon patient request if the prescription is for a schedule II opioid drug., 170, cm, 03/27... Start Date: 03/27/22 Status: Ordered Vitamin D3 50,000 intl units oral capsule 1 capsule = 1,250 mcg, By Mouth, Every week, with food, # 4 each, 1 Refills, Maintenance, 10/23/22 16:25:00 EDT, [facility] #[id number], Partial fill upon patient request if the prescription is for a schedule II opioid drug., 170, cm, 10/21/22 14... Start Date: 10/23/22 Stop Date: 02/12/23 Status: Ordered Voltaren 1% topical gel = 2 Gm, Topically, 4 times a day, PRN arthritis pain, # 150 Gm, 3 Refills, Maintenance, 08/28/21 9:02:00 EST, [facility] #[id number], Partial fill upon patient request if the [...] 3 Oxygen Saturation [94-100 %] 99 % (01/08/23 9:50 AM) 100 % (01/08/23 5:50 AM) 99 % (01/07/23 8:51 PM) Pulse Rate [55-90 bpm] 70 bpm (01/08/23 9:50 AM) 58 bpm (01/08/23 5:50 AM) 70 bpm (01/07/23 8:51 PM) Blood Pressure [90-138/55-84 mm Hg] 121/84mm Hg (01/08/23 9:50 AM) 121/84mm Hg (01/08/23 9:50 AM) 118/86mm Hg (01/08/23 5:50 AM) Respiratory Rate [16-30 br/min] 18 br/min (01/08/23 9:50 AM) 16 br/min (01/08/23 5:50 AM) 16 br/min (01/07/23 8:51 PM) Temperature [96.8-100.4 DegF] 98.2 DegF (01/08/23 9:50 AM) 98.0 DegF (01/08/23 5:50 AM) 98.0 DegF (01/07/23 8:51 PM) Mode of Delivery (Oxygen) Room air (01/08/23 9:50 AM) Room air (01/08/23 5:50 AM) Room air (01/07/23 8:51 PM) Blood pressure sites Arm, left (01/08/23 9:50 AM) Arm, left (01/08/23 5:50 AM) Arm, left (01/07/23 8:51 PM) Temperature Route Oral (01/08/23 9:50 AM) Oral (01/08/23 5:50 AM) Oral (01/07/23 8:51 PM) Social History Social History Type Response Smoking Status Current every day adrián smart; Type: Cigarettes entered on: 4/11/14 Sex Female Patient Care team information Care Team Personnel Name: Abiel Nickerson Position: [facility] PCO Associate Professional Member Role: PCP Address: Address: [address] [place] [address] [place] [address]- Name: Jennifer Rodriguez RN Position: [facility] RN Member Role: Primary Care Nurse Name: *[facility], ED Attending Position: [facility] ED Attendings Patient Name: Barney Ross RN Position: [facility] SN RN Member Role: Patient Care Provider Name: Vinay Carrero Position: [facility] ED TA [facility] Member Role: Patient Care Provider Name: Katlyn Mercado DO Position: [facility] ED Medicine MD Member Role: Admitting Physician Address: Address: [address] [place] [id number]- Care Team Related Persons Name: KINGA ACOSTA Address: [facility] [address] [place] [id number] Name: VELVET ACOSTA Address: [place] [address]
--- OUTSIDE RECORDS SUMMARY | 2023-07-02 19:14 | XMS_ITS | Continuity of Care Document ---
Author Name Unknown Organization [facility] Address [address] [place] [address]- Care Team Providers Care Java Sql Developer Name Role Phone Abiel Nickerson Primary Care Physician [phone] [facility]): 05/[facility]22 - 06/05/22 [facility] [address] [place], [place] [address] Allergies, Adverse Reactions, Alerts Substance Reaction Severity Status penicillin hives Active sulfamethoxazole hives Active Cortisporin Active Latex Active Immunizations Given and Recorded Vaccine Date Status Refusal Reason SARS-CoV-2 mRNA (hyjzbes-rfhn-wxohf) vax 08/28/21 Given influenza virus vaccine, inactivated [...] tablet, 1 Refills, Maintenance, 02/25/22 11:19:00 EDT, [facility] #[id number], 170, cm, 01/24/22 18:11:00 EDT, Height, 113, kg, 08/28/21 19:48:00 EST, Dry Weight Start Date: 02/25/22 Status: Ordered cetirizine 10 mg oral tablet 1 tablet, By Mouth, Daily, # 30 tablet, 5 Refills, Maintenance, 04/08/22 11:24:00 EDT, [facility] #[id number], 170, cm, 03/27/22 8:35:00 EDT, Height, 113, kg, 08/28/21 19:48:00 EST, Dry Weight Start Date: 04/08/22 Status: Ordered Eliquis 5 mg oral tablet 1 tablet, By Mouth, 2 times a day, STOPPING WARFARIN., # 60 tablet, 0 Refills, Maintenance, 05/02/22 13:12:00 EDT, [facility] #[id number], 170, cm, 03/27/22 8:35:00 EDT, Height, 113, kg, 08/28/21 19:48:00 EST, Dry Weight Start Date: 05/02/22 Status: Ordered Eliquis 5 mg oral tablet See Instructions, TAKE 1 TABLET BY MOUTH TWICE DAILY STOPPING WARFARIN, # 60 tablet, 11 Refills, Maintenance, 05/06/22 9:53:00 EDT, [facility] #[id number], 170, cm, 03/27/22 8:35:00 EDT, Height,113, kg, 08/28/21 19:48:00 EST, Dry Weight Start Date: 05/06/22 Status: Ordered fluticasone 50 mcg/inh nasal spray See Instructions, SHAKE LIQUID AND USE 1 SPRAY IN EACH NOSTRIL TWICE DAILY, # 16 Gm, 0 Refills, Maintenance, [facility] #[id number], 30, SHAKE LIQUID AND USE 1 SPRAY [...] 30 tablet, 11 Refills, 03/27/22 8:29:00 EDT, [facility] #[id number], 30, 1 tablet By Mouth Daily, 170, cm, 03/27/22 8:17:00 EDT, Height, 113, kg, 08/28/21 19:48:00 EST, Dry Weight Start Date: 03/27/22 Status: Ordered ipratropium nasal 21 mcg/inh spray See Instructions, USE 2 SPRAYS IN EACH NOSTRIL TWICE DAILY IN EACH NOSTRIL, NEEDED CONGESTION, #30 mL, 0 Refills, Maintenance, 05/29/22 9:42:00 EST, [facility] #[id number], 30, USE 2 SPRAYS IN EACH NOSTRIL TWICE DAILY IN EACH NOSTRIL, NEED... Start Date: 05/29/22 Status: Ordered ketoconazole 2% topical cream See Instructions, APPLY BENEATH BREAST AND GROIN AREAS TWICE DAILY, # 120 Gm, 0 Refills, Maintenance, 05/06/22 8:40:00 EDT, [facility] #[id number], 30, APPLY BENEATH BREAST AND GROIN AREAS TWICEDAILY, 170, cm, 03/27/22 8:35:00 EDT, Height, 113,... Start Date: 05/06/22 Status: Ordered Metamucil 3.4 gm/5.2 gm oral powder for reconstitution = 1.7 Gm, By Mouth, 3 times a day, PRN as needed for constipation, dissolve in 8 oz of fluid. drinkplenty of water., # 570 Gm, 5 Refills, Maintenance, 09/02/19 14:32:00 EST, REC Powder, [facility] #[id number], 176, cm, 09/02/19 13:59:00 EST, Hei... Start Date: 09/02/19 Status: Ordered Metoprolol Succinate ER 50 mg oral tablet, extended release 1 tablet, By Mouth, Daily, # 90 tablet, 0 Refills, Maintenance, 02/25/22 11:18:00 EDT, [facility] #[id number], 170, cm, 01/24/22 18:11:00 EDT, Height, 113, kg, 08/28/21 19:48:00 EST, Dry Weight Start Date: 02/25/22 Status: Ordered omeprazole 20 mg oral enteric coated capsule 1 capsule, By Mouth, Daily, PRN NEEDED, ACID INDIGESTION., # 90 capsule, 0 Refills, Maintenance,06/01/22 8:08:00 EST, [facility] #[id number], 170, cm, 03/27/22 8:35:00 EDT, Height, 113, kg, 08/28/21 19:48:00 EST, Dry Weight Start Date: 06/01/22 Status: Ordered polyethylene glycol 3350 oral powder for reconstitution See Instructions, DISSOLVE 17 GM IN WATER EVERY DAY NEEDED FOR CONSTIPATION, # 510 Gm, 0 Refills, Maintenance, 03/26/22 8:19:00 EDT, [facility] #[id number], 30, DISSOLVE 17 GM IN WATER EVERY DAY NEEDED FOR CONSTIPATION, 170, cm, 01/24/22 18... Start Date: 03/26/22 Status: Ordered Potassium Chloride (Mvs-Faxm-Gcb 10) 10 mEq oral tablet, extended release 1 tablet = 10 mEq, By Mouth, Daily, # 30 tablet, 5 Refills, Maintenance, 10/02/21 16:06:00 EDT, [facility] #[id number], Partial fill upon patient request if the prescription is for a schedule IIopioid drug., 170, cm, 10/02/21 15:32:00 EDT, Heigh... Start Date: 10/02/21 Status: Ordered Shingrix intramuscular injection = 0.5 mL, Intramuscular, Once, repeat dose in 2 to 6 months, # 2 each, 0 Refills, Soft Stop, 03/21/21 8:37:00 EDT, Powder, [facility] #[id number], Partial fill upon patient request if the prescription is for a schedule II opioid drug., 0.5 mL Int... Start Date: 03/21/21 Status: Ordered triamcinolone 0.5% topical ointment See Instructions, APPLY TOPICALLY TO THE AFFECTED AREA TWICE DAILY FOR UP TO 14 DAYS FOR ECZEMA, # 60 Gm, 1 Refills, Maintenance, 03/27/22 8:23:00 EDT, [facility] #[id number], 28, APPLY TOPICALLY TO THE AFFECTED AREA TWICE DAILY FOR UP TO 14 DAYS... Start Date: 03/27/22 Status: Ordered Trulicity Pen 0.75 mg/0.5 mL subcutaneous solution 0.5 mL = 0.75 mg, Subcutaneous Injection, Every week, # 2 mL, 11 Refills, Maintenance, 03/27/22 8:27:00 EDT, Solution, [facility] #[id number], Partial fill upon patient request if the prescription is for a schedule II opioid drug., 170, cm, 03/27... Start Date: 03/27/22 Status: Ordered Voltaren 1% topical gel = 2 Gm, Topically, 4 times a day, PRN arthritis pain, # 150 Gm, 3 Refills, Maintenance, 08/28/21 9:02:00 [facility], [facility] #[id number], Partial fill upon patient request if the [...] Care Team Personnel Name: Abiel Nickerson Position: [facility] PCO Associate Professional Member Role: PCP Address: Address: [address] [place] [address] [place] [address]- Name: Jennifer Rodriguez RN Position: [facility] RN Member Role: Primary Care Nurse Care Team Related Persons Name: KINGA ACOSTA Address: home [address] [place] [id number]
--- OUTSIDE RECORDS SUMMARY | 2023-07-02 19:15 | XMS_ITS | Continuity of Care Document ---
Author Name Unknown Organization [facility] Address [address] [place] [address]- Care Team Providers Care Foreclosure Specialist Name Role Phone Abiel Nickerson Primary Care Physician [phone] [facility]): 03/06/23 - 04/05/23 [facility] [address] [place] [id number]- Allergies, Adverse Reactions, Alerts Substance Reaction Severity Status penicillin hives Active sulfamethoxazole hives Active Cortisporin Active Latex Active Immunizations Given and Recorded Vaccine Date Status Refusal Reason SARS-CoV-2 mRNA (xgvzmgv-arhv-[id number]) vax 08/28/21 Given influenza virus vaccine, inactivated [...] tablet, 1 Refills, Maintenance, 02/04/23 12:49:00 EDT, [facility] #[id number], Partial fill upon patient request if the prescriptionis for a schedule II opioid drug., 175, cm, ... Start Date: 02/04/23 Status: Ordered aspirin 81 mg oral tablet, chewable 81 mg, By Mouth, Daily, # 30 tablet, Refills 2, Tot. Refills 2, Maintenance, 03/18/23 9:59:00 EDT, Route to Pharmacy Electronically, [facility] #[id number], Partial fill upon patient request if the [...] 03/12/23 9:37:00 EDT, Route to Pharmacy Electronically, [facility] #[id number], Partial fill upon patien... Start Date: 03/12/23 Status: Ordered Eliquis 5 mg oral tablet See Instructions, TAKE 1 TABLET BY MOUTH TWICE DAILY STOPPING WARFARIN, # 60 tablet, 11 Refills, Maintenance, 05/06/22 9:53:00 EDT, [facility] #[id number], 170, cm, 03/27/22 8:35:00 EDT, Height,113, kg, 08/28/21 19:48:00 EST, Dry Weight Start Date: 05/06/22 Status: Ordered fluticasone 50 mcg/inh nasal spray See Instructions, SHAKE LIQUID AND USE 1 SPRAY IN EACH NOSTRIL TWICE DAILY, # 16 Gm, 0 Refills, Maintenance, [facility] #[id number], 30, SHAKE LIQUID AND USE 1 SPRAY [...] mL, 5 Refills, Maintenance, 09/03/22 9:40:00 EST, [facility] #[id number], 30, USE 2 SPRAYS IN EACH NOSTRIL TWICE DAILY IN EACH NOSTRIL, NEED... Start Date: 09/03/22 Status: Ordered isopropyl alcohol 70% topical pad See Instructions, CLEANSE SKIN BEFORE TESTING BLOOD SUGAR, # 100 Unknown, 5 Refills, Maintenance, 03/26/23 18:08:00 EDT, [facility] #[id number], 30, CLEANSE SKIN BEFORE TESTING BLOOD SUGAR, 166,cm, 03/18/23 7:51:00 EDT, Height, 99, kg, 03/15/23... Start Date: 03/26/23 Status: Ordered ketoconazole 2% topical cream See Instructions, APPLY BENEATH BREAST AND GROIN AREAS TWICE DAILY, # 120 Gm, 2 Refills, Maintenance, 03/12/23 9:33:00 EDT, [facility] #[id number], 30, APPLY BENEATH BREAST AND GROIN AREAS TWICEDAILY, 175, cm, 03/12/23 8:47:00 EDT, Height, 100.5... Start Date: 03/12/23 Status: Ordered Lipitor 40 mg oral tablet 1 tablet = 40 mg, By Mouth, Daily, # 30 tablet, 0 Refills, Maintenance, 03/18/23 10:00:00 EDT, Tablet, [facility] #[id number], Partial fill upon patient request if the prescription is for a schedule II opioid drug., 166, cm, 03/18/23 7:51:00 EDT,... Start Date: 03/18/23 Stop Date: 04/17/23 Status: Ordered Metoprolol Succinate ER 50 mg oral tablet, extended release 1 tablet, By Mouth, Daily, # 90 tablet, 3 Refills, Maintenance, 02/04/23 12:35:00 EDT, [facility] #[id number], 175, cm, 01/20/23 10:13:00 EDT, Height, 108.5, [...] each, 0 Refills, Maintenance, 08/26/22 11:04:00 EST, [facility] #[id number], Parti... Start Date: 08/26/22 Status: Ordered polyethylene glycol 3350 oral powder for reconstitution See Instructions, DISSOLVE 17 GM IN WATER EVERY DAY NEEDED FOR CONSTIPATION, # 510 Gm, 0 Refills, Maintenance, 03/26/22 8:19:00 EDT, [facility] #[id number], 30, DISSOLVE 17 GM IN WATER EVERY DAY NEEDED FOR CONSTIPATION, 170, cm, 01/24/22 18... Start Date: 03/26/22 Status: Ordered potassium chloride 20 mEq oral powder for reconstitution = 10 mEq, By Mouth, Daily, # 30 pack/packet, 0 Refills, Maintenance, 03/18/23 9:58:00 EDT, REC Powder, [facility] #[id number], Partial fill upon patient request if the [...] Gm, 1 Refills, Maintenance, 03/12/23 9:33:00 EDT, [facility] #[id number], APPLY TOPICALLY TOTHE AFFECTED AREA TWICE DAILY FOR UP TO 14 DAYS FOR... Start Date: 03/12/23 Status: Ordered Trulicity Pen 0.75 mg/0.5 mL subcutaneous solution 0.5 mL = 0.75 mg, Subcutaneous Injection, Every week, # 2 mL, 11 Refills, Maintenance, 03/27/22 8:27:00 EDT, Solution, [facility] #[id number], Partial fill upon patient request if the prescription is for a schedule II opioid drug., 170, cm, 03/27... Start Date: 03/27/22 Status: Ordered Vitamin D3 1000 intl units oral capsule 1 capsule = 25 mcg, By Mouth, Daily, with food, # 90 capsule, 3 Refills, Maintenance, 02/03/23 17:53:00 EDT, [facility] #[id number], Partial fill upon patient request if the prescription is for a schedule II opioid drug., 175, cm, 01/20/23 10:13:... Start Date: 02/03/23 Stop Date: 01/29/24 Status: Ordered Voltaren 1% topical gel = 2 Gm, Topically, 4 times a day, PRN arthritis pain, # 150 Gm, 3 Refills, Maintenance, 08/28/21 9:02:00 EST, [facility] #[id number], Partial fill upon patient request if the [...] Care Team Personnel Name: Abiel Nickerson Position: [facility] PC[facility] Associate Professional Member Role: PCP Address: Address: [address] [place] [address] Name: Germania Wynn RN Position: S RN Member Role: Primary Care Nurse Name: Bertha Valdes RN Position: S RN Member Role: Primary Care Nurse Name: Jennifer Rodriguez RN Position: S RN Member Role: Primary Care Nurse Name: Lyndsey Macias RN Position: S RN Member Role: Primary Care Nurse Care Team Related Persons Name: KINGA ACOSTA Address: [address] [address] Name: VELVET ACOSTA Address: [place] [address]
--- OUTSIDE RECORDS SUMMARY | 2023-07-02 19:15 | XMS_ITS | Continuity of Care Document ---
Author Name Unknown Organization [facility] Address [address] [place] [address]- Care Team Providers Care Biomechanical Engineer Name Role Phone Abiel Nickerson Primary Care Physician [phone] [facility]counter [facility] Date[facility]): 10[facility] - 12/26/22 [facility] [address], [place] [address] Attending Physician: Not on Staff, Attending MD Allergies, Adverse Reactions, Alerts Substance Reaction Severity Status penicillin hives Active sulfamethoxazole hives Active Cortisporin Active Latex Active Immunizations Given and Recorded Vaccine Date Status Refusal Reason SARS-CoV-2 mRNA (lhpivpj-xikn-ryixh) vax 08/28/21 Given influenza virus vaccine, inactivated [...] tablet, 3 Refills, Maintenance, 09/30/22 10:07:00 EDT, [facility] #[id number], 170, cm, 09/30/22 9:28:00 EDT, Height, 113, kg, 08/28/21 19:48:00 EST, Dry Weight Start Date: 09/30/22 Status: Ordered atorvastatin 20 mg oral tablet 1 tablet = 20 mg, By Mouth, Daily, TAKE 1 TABLET BY MOUTH DAILY Start Date: 12/10/22 Status: Ordered cetirizine 10 mg oral tablet 1 tablet, By Mouth, Daily, # 30 tablet, 5 Refills, Maintenance, 11/26/22 17:55:00 EDT, [facility] #[id number], 175, cm, 11/05/22 22:16:00 EDT, Height, 108.5, kg, 11/05/22 22:16:00 EDT, Dry Weight Start Date: 11/26/22 Status: Ordered cetirizine 10 mg oral tablet 1 tablet = 10 mg, By Mouth, Daily Start Date: 12/10/22 Status: Ordered Eliquis 5 mg oral tablet 1 tablet, By Mouth, 2 times a day, STOPPING WARFARIN., # 60 tablet, 0 Refills, Maintenance, 05/02/22 13:12:00 EDT, [facility] #[id number], 170, cm, 03/27/22 8:35:00 EDT, Height, 113, kg, 08/28/21 19:48:00 EST, Dry Weight Start Date: 05/02/22 Status: Ordered Eliquis 5 mg oral tablet See Instructions, TAKE 1 TABLET BY MOUTH TWICE DAILY STOPPING WARFARIN, # 60 tablet, 11 Refills, Maintenance, 05/06/22 9:53:00 EDT, [facility] #[id number], 170, cm, 03/27/22 8:35:00 EDT, Height,113, kg, [...] DAILY, # 16 Gm, 0 Refills, Maintenance, [facility] #[id number], 30, SHAKE LIQUID AND USE 1 SPRAY [...] 30 tablet, 11 Refills, 03/27/22 8:29:00 EDT, [facility] #[id number], 30, 1 tablet By Mouth Daily, 170, cm, 03/27/22 8:17:00 EDT, Height, 113, kg, 08/28/21 19:48:00 EST, Dry Weight Start Date: 03/27/22 Status: Ordered ipratropium nasal 21 mcg/inh spray See Instructions, USE 2 SPRAYS IN EACH NOSTRIL TWICE DAILY IN EACH NOSTRIL, NEEDED CONGESTION, #30 mL, 5 Refills, Maintenance, 09/03/22 9:40:00 EST, [facility] #[id number], 30, USE 2 SPRAYS IN EACH NOSTRIL TWICE DAILY IN EACH NOSTRIL, NEED... Start Date: 09/03/22 Status: Ordered ketoconazole 2% topical cream See Instructions, APPLY BENEATH BREAST AND GROIN AREAS TWICE DAILY, # 120 Gm, 2 Refills, Maintenance, 09/30/22 10:09:00 EDT, [facility] #[id number], 30, APPLY BENEATH BREAST AND GROIN AREAS TWICE DAILY, 170, cm, 09/30/22 9:28:00 EDT, Height, 113,... Start Date: 09/30/22 Status: Ordered Metamucil 3.4 gm/5.2 gm oral powder for reconstitution = 1.7 Gm, By Mouth, 3 times a day, PRN as needed for constipation, dissolve in 8 oz of fluid. drinkplenty of water., # 570 Gm, 5 Refills, Maintenance, 09/02/19 14:32:00 EST, REC Powder, [facility] #[id number], 176, cm, 09/02/19 13:59:00 EST, Hei... Start Date: 09/02/19 Status: Ordered Metoprolol Succinate ER 50 mg oral tablet, extended release 1 tablet = 50 mg, By Mouth, Daily, TAKE 1 TABLET BY MOUTH DAILY Start Date: 12/10/22 Status: Ordered Metoprolol Succinate ER 50 mg oral tablet, extended release 1 tablet, By Mouth, Daily, # 90 tablet, 0 Refills, Maintenance, 11/24/22 20:53:00 EDT, [facility] #[id number], 175, cm, 11/05/22 22:16:00 EDT, Height, 108.5, [...] 90 capsule, 0 Refills, Maintenance,11/24/22 20:54:00 EDT, [facility] #[id number], 175, cm, 11/05/22 22:16:00 EDT, Height, 108.5, kg, 11/05/22 22:16:00 EDT, Dry Weight Start Date: 11/24/22 Status: Ordered PEG-3350 with Electrolytes (Eqv-NuLYTELY) oral powder for reconstitution See Instructions, Mix powder withn water according to the product label. Drink 8 oz of prep fluid every 15-20 minutes ion the evening before the colonoscopy., # 1 each, 0 Refills, Maintenance, 08/26/22 11:04:00 EST, [facility] #[id number], Parti... Start Date: 08/26/22 Status: Ordered polyethylene glycol 3350 oral powder for reconstitution See Instructions, DISSOLVE 17 GM IN WATER EVERY DAY NEEDED FOR CONSTIPATION, # 510 Gm, 0 Refills, Maintenance, 03/26/22 8:19:00 EDT, [facility] #[id number], 30, DISSOLVE 17 GM IN WATER EVERY DAY NEEDED FOR CONSTIPATION, 170, cm, 01/24/22 18... Start Date: 03/26/22 Status: Ordered Potassium Chloride (Tlu-Qqhb-Xcd 10) 10 mEq oral tablet, extended release 1 tablet = 10 mEq, By Mouth, Daily, # 30 tablet, 5 Refills, Maintenance, 10/02/21 16:06:00 EDT, [facility] #[id number], Partial fill upon patient request if the prescription is for a schedule IIopioid drug., 170, cm, 10/02/21 15:32:00 EDT, [facility]... Start Date: 10/02/21 Status: Ordered Shingrix intramuscular injection = 0.5 mL, Intramuscular, Once, repeat dose in 2 to 6 months, # 2 each, 0 Refills, Soft Stop, 03/21/21 8:37:00 EDT, Powder, [facility] #[id number], Partial fill upon patient request if the prescription is for a schedule II opioid drug., 0.5 mL Int... Start Date: 03/21/21 Status: Ordered traZODone 50 mg oral tablet 75 mg, 1.5, tablet, By Mouth, Daily at bedtime, # 45 tablet, Refills 5, Tot. Refills 5, Maintenance, 10/21/22 15:02:00 EDT, Route to Pharmacy Electronically, [facility] #[id number], dose increase to 75mg qhs 10/21/22., 170, [...] Gm, 1 Refills, Maintenance, 12/04/22 16:55:00 EDT, [facility] #[id number], APPLY TOPICALLY TO THE AFFECTED AREA TWICE DAILY FOR UP TO 14 DAYS FO... Start Date: 12/04/22 Status: Ordered Trulicity Pen 0.75 mg/0.5 mL subcutaneous solution 0.5 mL = 0.75 mg, Subcutaneous Injection, Every week, # 2 mL, 11 Refills, Maintenance, 03/27/22 8:27:00 EDT, Solution, [facility] #[id number], Partial fill upon patient request if the prescription is for a schedule II opioid drug., 170, cm, 03/27... Start Date: 03/27/22 Status: Ordered Vitamin D3 50,000 intl units oral capsule 1 capsule = 1,250 mcg, By Mouth, Every week, with food, # 4 each, 1 Refills, Maintenance, 10/23/22 16:25:00 EDT, [facility] #[id number], Partial fill upon patient request if the prescription is for a schedule II opioid drug., 170, cm, 10/21/22 14... Start Date: 10/23/22 Stop Date: 02/12/23 Status: Ordered Voltaren 1% topical gel = 2 Gm, Topically, 4 times a day, PRN arthritis pain, # 150 Gm, 3 Refills, Maintenance, 08/28/21 9:02:00 EST, [facility] #[id number], Partial fill upon patient request if the [...] Care Team Personnel Name: Abiel Nickerson Position: [facility] PCO Associate Professional Member Role: PCP Address: Address: [address] [place] [address] Adult [address] Name: Jennifer Rodriguez RN Position: S RN Member Role: Primary Care Nurse Care Team Related Persons Name: KINGA ACOSTA Address: [address] [address] Name: VELVET ACOSTA Address: [place] [id number]
--- OUTSIDE RECORDS SUMMARY | 2023-07-02 19:15 | XMS_ITS | Continuity of Care Document ---
Author Name Unknown Organization [facility] Address [address] [place] [address]- Care Team Providers Care Lbd Teacher Name Role Phone Abiel Nickerson Primary Care Physician [facility]): 08[facility]/22 - 09/29/22 [facility] [address] [place] [id number]- Allergies, Adverse Reactions, Alerts Substance Reaction Severity Status penicillin hives Active sulfamethoxazole hives Active Latex Active Cortisporin Active Immunizations Given and Recorded Vaccine Date Status Refusal Reason SARS-CoV-2 mRNA (fgwuzni-rjll-frnck) vax 08/28/21 Given influenza virus vaccine, inactivated [...] tablet, 1 Refills, Maintenance, 02/25/22 11:19:00 EDT, [facility] #[id number], 170, cm, 01/24/22 18:11:00 EDT, Height, 113, kg, 08/28/21 19:48:00 EST, Dry Weight Start Date: 02/25/22 Status: Ordered cetirizine 10 mg oral tablet 1 tablet, By Mouth, Daily, # 30 tablet, 5 Refills, Maintenance, 04/08/22 11:24:00 EDT, [facility] #[id number], 170, cm, 03/27/22 8:35:00 EDT, Height, 113, kg, 08/28/21 19:48:00 EST, Dry Weight Start Date: 04/08/22 Status: Ordered Eliquis 5 mg oral tablet 1 tablet, By Mouth, 2 times a day, STOPPING WARFARIN., # 60 tablet, 0 Refills, Maintenance, 05/02/22 13:12:00 EDT, [facility] #[id number], 170, cm, 03/27/22 8:35:00 EDT, Height, 113, kg, 08/28/21 19:48:00 EST, Dry Weight Start Date: 05/02/22 Status: Ordered Eliquis 5 mg oral tablet See Instructions, TAKE 1 TABLET BY MOUTH TWICE DAILY STOPPING WARFARIN, # 60 tablet, 11 Refills, Maintenance, 05/06/22 9:53:00 EDT, [facility] #[id number], 170, cm, 03/27/22 8:35:00 EDT, Height,113, kg, 08/28/21 19:48:00 EST, Dry Weight Start Date: 05/06/22 Status: Ordered fluticasone 50 mcg/inh nasal spray See Instructions, SHAKE LIQUID AND USE 1 SPRAY IN EACH NOSTRIL TWICE DAILY, # 16 Gm, 0 Refills, Maintenance, [facility] #[id number], 30, SHAKE LIQUID AND USE 1 SPRAY [...] 30 tablet, 11 Refills, 03/27/22 8:29:00 EDT, [facility] #[id number], 30, 1 tablet By Mouth Daily, 170, cm, 03/27/22 8:17:00 EDT, Height, 113, kg, 08/28/21 19:48:00 EST, Dry Weight Start Date: 03/27/22 Status: Ordered ipratropium nasal 21 mcg/inh spray See Instructions, USE 2 SPRAYS IN EACH NOSTRIL TWICE DAILY IN EACH NOSTRIL, NEEDED CONGESTION, #30 mL, 5 Refills, Maintenance, 09/03/22 9:40:00 EST, [facility] #[id number], 30, USE 2 SPRAYS IN EACH NOSTRIL TWICE DAILY IN EACH NOSTRIL, NEED... Start Date: 09/03/22 Status: Ordered ketoconazole 2% topical cream See Instructions, APPLY BENEATH BREAST AND GROIN AREAS TWICE DAILY, # 120 Gm, 0 Refills, Maintenance, 05/06/22 8:40:00 EDT, [facility] #[id number], 30, APPLY BENEATH BREAST AND GROIN AREAS TWICEDAILY, 170, cm, 03/27/22 8:35:00 EDT, Height, 113,... Start Date: 05/06/22 Status: Ordered Metamucil 3.4 gm/5.2 gm oral powder for reconstitution = 1.7 Gm, By Mouth, 3 times a day, PRN as needed for constipation, dissolve in 8 oz of fluid. drinkplenty of water., # 570 Gm, 5 Refills, Maintenance, 09/02/19 14:32:00 EST, REC Powder, [facility] #[id number], 176, cm, 09/02/19 13:59:00 EST, Hei... Start Date: 09/02/19 Status: Ordered Metoprolol Succinate ER 50 mg oral tablet, extended release 1 tablet, By Mouth, Daily, # 90 tablet, 0 Refills, Maintenance, 09/03/22 9:40:00 EST, [facility] #[id number], 170, cm, 08/28/22 14:45:00 EST, Height, 113, kg, 08/28/21 19:48:00 EST, Dry Weight Start Date: 09/03/22 Status: Ordered omeprazole 20 mg oral enteric coated capsule 1 capsule, By Mouth, Daily, PRN NEEDED, ACID INDIGESTION., # 90 capsule, 0 Refills, Maintenance,09/03/22 9:40:00 EST, [facility] #[id number], 170, cm, 08/28/22 14:45:00 EST, Height, 113, kg,08/28/21 19:48:00 EST, Dry Weight Start Date: 09/03/22 Status: Ordered PEG-3350 with Electrolytes (Eqv-NuLYTELY) oral powder for reconstitution See Instructions, Mix powder withn water according to the product label. Drink 8 oz of prep fluid every 15-20 minutes ion the evening before the colonoscopy., # 1 each, 0 Refills, Maintenance, 08/26/22 11:04:00 EST, [facility] #[id number], Parti... Start Date: 08/26/22 Status: Ordered polyethylene glycol 3350 oral powder for reconstitution See Instructions, DISSOLVE 17 GM IN WATER EVERY DAY NEEDED FOR CONSTIPATION, # 510 Gm, 0 Refills, Maintenance, 03/26/22 8:19:00 EDT, [facility] #[id number], 30, DISSOLVE 17 GM IN WATER EVERY DAY NEEDED FOR CONSTIPATION, 170, cm, 01/24/22 18... Start Date: 03/26/22 Status: Ordered Potassium Chloride (Fxx-Auzi-Epe 10) 10 mEq oral tablet, extended release 1 tablet = 10 mEq, By Mouth, Daily, # 30 tablet, 5 Refills, Maintenance, 10/02/21 16:06:00 EDT, [facility] #[id number], Partial fill upon patient request if the prescription is for a schedule IIopioid drug., 170, cm, 10/02/21 15:32:00 EDT, [facility]... Start Date: 10/02/21 Status: Ordered Shingrix intramuscular injection = 0.5 mL, Intramuscular, Once, repeat dose in 2 to 6 months, # 2 each, 0 Refills, Soft Stop, 03/21/21 8:37:00 EDT, Powder, [facility] #[id number], Partial fill upon patient request if the prescription is for a schedule II opioid drug., 0.5 mL Int... Start Date: 03/21/21 Status: Ordered triamcinolone 0.5% topical ointment See Instructions, APPLY TOPICALLY TO THE AFFECTED AREA TWICE DAILY FOR UP TO 14 DAYS FOR ECZEMA, # 60 Gm, 0 Refills, Maintenance, 09/03/22 12:03:00 EST, [facility] #[id number], 28, APPLY TOPICALLY TO THE AFFECTED AREA TWICE DAILY FOR UP TO 14 DAY... Start Date: 09/03/22 Status: Ordered Trulicity Pen 0.75 mg/0.5 mL subcutaneous solution 0.5 mL = 0.75 mg, Subcutaneous Injection, Every week, # 2 mL, 11 Refills, Maintenance, 03/27/22 8:27:00 EDT, Solution, [facility] #[id number], Partial fill upon patient request if the prescription is for a schedule II opioid drug., 170, cm, 03/27... Start Date: 03/27/22 Status: Ordered Voltaren 1% topical gel = 2 Gm, Topically, 4 times a day, PRN arthritis pain, # 150 Gm, 3 Refills, Maintenance, 08/28/21 9:02:00 EST, [facility] #[id number], Partial fill upon patient request if the [...] Care Team Personnel Name: Abiel Nickerson Position: [facility] PCO Associate Professional Member Role: PCP Address: Address: [address] [place] [address] Adult [place], [place] [address] Name: Jennifer Rodriguez RN Position: Stephon RN Member Role: Primary Care Nurse Care Team Related Persons Name: KINGA ACOSTA Address: [address] [address] Name: VELVET ACOSTA Address: [place] [address]
--- OUTSIDE RECORDS SUMMARY | 2023-07-02 19:15 | XMS_ITS | Continuity of Care Document ---
Author Name Unknown Organization [facility] Address [address] [place] [address]- Care Team Providers Care Director Stars Name Role Phone Abiel Nickerson Primary Care Physician [facility]22 - 01/09/23 [facility] [address] [place], [place] [address] Attending Physician: Not on Staff, Attending MD Allergies, Adverse Reactions, Alerts Substance Reaction Severity Status penicillin hives Active sulfamethoxazole hives Active Latex Active Cortisporin Active Immunizations Given and Recorded Vaccine Date Status Refusal Reason SARS-CoV-2 mRNA (rmbvlnh-abde-sptcd) vax 08/28/21 Given influenza virus vaccine, inactivated [...] tablet, 3 Refills, Maintenance, 09/30/22 10:07:00 EDT, [facility] #[id number], 170, cm, 09/30/22 9:28:00 EDT, Height, 113, kg, 08/28/21 19:48:00 EST, Dry Weight Start Date: 09/30/22 Status: Ordered atorvastatin 20 mg oral tablet 1 tablet = 20 mg, By Mouth, Daily, TAKE 1 TABLET BY MOUTH DAILY Start Date: 12/10/22 Status: Ordered cetirizine 10 mg oral tablet 1 tablet, By Mouth, Daily, # 30 tablet, 5 Refills, Maintenance, 11/26/22 17:55:00 EDT, [facility] #[id number], 175, cm, 11/05/22 22:16:00 EDT, Height, 108.5, kg, 11/05/22 22:16:00 EDT, Dry Weight Start Date: 11/26/22 Status: Ordered cetirizine 10 mg oral tablet 1 tablet = 10 mg, By Mouth, Daily Start Date: 12/10/22 Status: Ordered Eliquis 5 mg oral tablet 1 tablet, By Mouth, 2 times a day, STOPPING WARFARIN., # 60 tablet, 0 Refills, Maintenance, 05/02/22 13:12:00 EDT, [facility] #[id number], 170, cm, 03/27/22 8:35:00 EDT, Height, 113, kg, 08/28/21 19:48:00 EST, Dry Weight Start Date: 05/02/22 Status: Ordered Eliquis 5 mg oral tablet See Instructions, TAKE 1 TABLET BY MOUTH TWICE DAILY STOPPING WARFARIN, # 60 tablet, 11 Refills, Maintenance, 05/06/22 9:53:00 EDT, [facility] #[id number], 170, cm, 03/27/22 8:35:00 EDT, Height,113, kg, [...] DAILY, # 16 Gm, 0 Refills, Maintenance, [facility] #[id number], 30, SHAKE LIQUID AND USE 1 SPRAY [...] 30 tablet, 11 Refills, 03/27/22 8:29:00 EDT, [facility] #[id number], 30, 1 tablet By Mouth Daily, 170, cm, 03/27/22 8:17:00 EDT, Height, 113, kg, 08/28/21 19:48:00 EST, Dry Weight Start Date: 03/27/22 Status: Ordered ipratropium nasal 21 mcg/inh spray See Instructions, USE 2 SPRAYS IN EACH NOSTRIL TWICE DAILY IN EACH NOSTRIL, NEEDED CONGESTION, #30 mL, 5 Refills, Maintenance, 09/03/22 9:40:00 EST, [facility] #[id number], 30, USE 2 SPRAYS IN EACH NOSTRIL TWICE DAILY IN EACH NOSTRIL, NEED... Start Date: 09/03/22 Status: Ordered ketoconazole 2% topical cream See Instructions, APPLY BENEATH BREAST AND GROIN AREAS TWICE DAILY, # 120 Gm, 2 Refills, Maintenance, 09/30/22 10:09:00 EDT, [facility] #[id number], 30, APPLY BENEATH BREAST AND GROIN AREAS TWICE DAILY, 170, cm, 09/30/22 9:28:00 EDT, Height, 113,... Start Date: 09/30/22 Status: Ordered Metamucil 3.4 gm/5.2 gm oral powder for reconstitution = 1.7 Gm, By Mouth, 3 times a day, PRN as needed for constipation, dissolve in 8 oz of fluid. drinkplenty of water., # 570 Gm, 5 Refills, Maintenance, 09/02/19 14:32:00 EST, REC Powder, [facility] #[id number], 176, cm, 09/02/19 13:59:00 EST, Hei... Start Date: 09/02/19 Status: Ordered Metoprolol Succinate ER 50 mg oral tablet, extended release 1 tablet = 50 mg, By Mouth, Daily, TAKE 1 TABLET BY MOUTH DAILY Start Date: 12/10/22 Status: Ordered Metoprolol Succinate ER 50 mg oral tablet, extended release 1 tablet, By Mouth, Daily, # 90 tablet, 0 Refills, Maintenance, 11/24/22 20:53:00 EDT, [facility] #[id number], 175, cm, 11/05/22 22:16:00 EDT, Height, 108.5, [...] 90 capsule, 0 Refills, Maintenance,11/24/22 20:54:00 EDT, [facility] #[id number], 175, cm, 11/05/22 22:16:00 EDT, Height, 108.5, kg, 11/05/22 22:16:00 EDT, Dry Weight Start Date: 11/24/22 Status: Ordered PEG-3350 with Electrolytes (Eqv-NuLYTELY) oral powder for reconstitution See Instructions, Mix powder withn water according to the product label. Drink 8 oz of prep fluid every 15-20 minutes ion the evening before the colonoscopy., # 1 each, 0 Refills, Maintenance, 08/26/22 11:04:00 EST, [facility] #[id number], Parti... Start Date: 08/26/22 Status: Ordered polyethylene glycol 3350 oral powder for reconstitution See Instructions, DISSOLVE 17 GM IN WATER EVERY DAY NEEDED FOR CONSTIPATION, # 510 Gm, 0 Refills, Maintenance, 03/26/22 8:19:00 EDT, [facility] #[id number], 30, DISSOLVE 17 GM IN WATER EVERY DAY NEEDED FOR CONSTIPATION, 170, cm, 01/24/22 18... Start Date: 03/26/22 Status: Ordered Potassium Chloride (Yqx-Xrqt-Mcr 10) 10 mEq oral tablet, extended release 1 tablet = 10 mEq, By Mouth, Daily, # 30 tablet, 5 Refills, Maintenance, 10/02/21 16:06:00 EDT, [facility] #[id number], Partial fill upon patient request if the prescription is for a schedule IIopioid drug., 170, cm, 10/02/21 15:32:00 EDT, [facility]... Start Date: 10/02/21 Status: Ordered Shingrix intramuscular injection = 0.5 mL, Intramuscular, Once, repeat dose in 2 to 6 months, # 2 each, 0 Refills, Soft Stop, 03/21/21 8:37:00 EDT, Powder, [facility] #[id number], Partial fill upon patient request if the prescription is for a schedule II opioid drug., 0.5 mL Int... Start Date: 03/21/21 Status: Ordered traZODone 50 mg oral tablet 75 mg, 1.5, tablet, By Mouth, Daily at bedtime, # 45 tablet, Refills 5, Tot. Refills 5, Maintenance, 10/21/22 15:02:00 EDT, Route to Pharmacy Electronically, [facility] #[id number], dose increase to 75mg qhs 10/21/22., 170, [...] Gm, 1 Refills, Maintenance, 12/04/22 16:55:00 EDT, [facility] #[id number], APPLY TOPICALLY TO THE AFFECTED AREA TWICE DAILY FOR UP TO 14 DAYS FO... Start Date: 12/04/22 Status: Ordered Trulicity Pen 0.75 mg/0.5 mL subcutaneous solution 0.5 mL = 0.75 mg, Subcutaneous Injection, Every week, # 2 mL, 11 Refills, Maintenance, 03/27/22 8:27:00 EDT, Solution, [facility] #[id number], Partial fill upon patient request if the prescription is for a schedule II opioid drug., 170, cm, 03/27... Start Date: 03/27/22 Status: Ordered Vitamin D3 50,000 intl units oral capsule 1 capsule = 1,250 mcg, By Mouth, Every week, with food, # 4 each, 1 Refills, Maintenance, 10/23/22 16:25:00 EDT, [facility] #[id number], Partial fill upon patient request if the prescription is for a schedule II opioid drug., 170, cm, 10/21/22 14... Start Date: 10/23/22 Stop Date: 02/12/23 Status: Ordered Voltaren 1% topical gel = 2 Gm, Topically, 4 times a day, PRN arthritis pain, # 150 Gm, 3 Refills, Maintenance, 08/28/21 9:02:00 EST, [facility] #[id number], Partial fill upon patient request if the [...] Associate Professional Member Role: PCP Address: Address: [address] [place] [address] Name: Jennifer Rodriguez RN Position: S RN Member Role: Primary Care Nurse Care Team Related Persons Name: KINGA ACOSTA Address: [address] [address] Name: VELVET ACOSTA Address: [place] [id number]
--- OUTSIDE RECORDS SUMMARY | 2023-07-02 19:15 | XMS_ITS | Continuity of Care Document ---
Author Name Unknown Organization [facility] Address [address] [place] [address]- Care Team Providers Care Gas Meter Mechanic Name Role Phone Abiel Nickerson Primary Care Physician [facility] 07[facility] - 08/04/20 [facility] [address], [place] [address] Attending Physician: Paulina Gay Allergies, Adverse Reactions, Alerts Substance Reaction Severity Status penicillin hives Active sulfamethoxazole hives Active Cortisporin Active Latex Active Immunizations Given and Recorded Vaccine Date Status Refusal Reason influenza virus vaccine, inactivated 07/05/20 Give n [...] 08/04/19 10:07:00 EST, Route to Pharmacy Electronically, [facility] #[id number], 176, cm, 08/04... Start Date: 08/04/19 Status: Ordered apixaban 5 mg oral tablet 1 tablet = 5 mg, By Mouth, 2 times a day, STOPPING WARFARIN., # 60 tablet, 11 Refills, Maintenance,07/05/20 17:18:00 EST, [facility] #[id number], 176, cm, 07/05/20 15:49:00 EST, Height, 123.2, kg, 08/21/19 20:54:00 EST, Dry Weight Start Date: 07/05/20 Status: Ordered atorvastatin 20 mg oral tablet 1 tablet, By Mouth, Daily, # 30 tablet, 11 Refills, Maintenance, 04/21/20 12:04:00 EDT, [facility] #[id number], 176, cm, 04/17/20 16:08:00 EDT, Height, 123.2, kg, 08/21/19 20:54:00 EST, Dry Weight Start Date: 04/21/20 Status: Ordered cetirizine 10 mg oral tablet 1 tablet = 10 mg, By Mouth, Daily, # 30 tablet, 5 Refills, Maintenance, 06/28/20 13:48:00 EST, Tablet, [facility] #[id number], 176, cm, 04/17/20 16:08:00 EDT, Height, 123.2, kg, 08/21/19 20:54:00 EST, Dry Weight Start Date: 06/28/20 Stop Date: 12/25/20 Status: Ordered ciclopirox 0.77% topical cream 1 [...] tablet, 11 Refills, Maintenance, 07/05/20 17:16:00EST, Tablet, [facility] #[id number], 176, cm, 07/05/20 15:49:00 EST, Height, 123.2, kg, 08/21/19 20:54:00 EST, Dry Weight Start Date: 07/05/20 Status: Ordered Flonase 50 mcg/inh nasal spray 1 sprays, Nares, Both, 2 times a day, # 1 each, 2 Refills, Maintenance, 08/03/20 17:23:00 EST, [place], [facility] #[id number], 1 sprays Nares, Both 2 times a day,x30 days, 176, cm, 07/05/20 15:49:00 EST, Height, 123.2, kg, 08/21/19 20:54:00 EST, D... Start Date: 08/03/20 Stop Date: 11/01/20 Status: Ordered hydrochlorothiazide-lisinopril 25 mg-20 mg oral tablet 1 tablet, By Mouth, Daily, # 30 tablet, 5 Refills, Maintenance, 07/04/20 18:17:00 EST, Tablet, [facility] #[id number], 1 tablet By Mouth Daily,x30 days, 176, cm, 04/17/20 16:08:00 EDT, Height, 123.2, kg, 08/21/19 20:54:00 EST, Dry Weight Start Date: 07/04/20 Stop Date: 12/31/20 Status: Ordered ketoconazole 2% topical cream See Instructions, APPLY EXTERNALLY TO THE AFFECTED AREA TWICE DAILY TO THE AFFECTED AREA, # 100 Gm,2 Refills, Maintenance, 06/13/20 18:25:00 EST, [facility] #[id number], APPLY EXTERNALLY TO THEAFFECTED AREA TWICE DAILY TO THE AFFECTED AREA, 176... Start Date: 06/13/20 Status: Ordered lidocaine 5% topical cream 1 application, Topically, 3 times a day, # 100 Gm, 2 Refills, Maintenance, 04/17/20 16:42:00 EDT, Cream, [facility] #[id number], 1 application Topically 3 times a day,x14 [...] Refills, Maintenance, 09/02/19 14:32:00 EST, REC Powder, [facility] #[id number], 176, cm, 09/02/19 13:59:00 EST, Hei... Start Date: 09/02/19 Status: Ordered Metoprolol Succinate ER 50 mg oral tablet, extended release 1 tablet, By Mouth, Daily, # 60 tablet, 11 Refills, Maintenance, 07/05/20 17:18:00 EST, [facility] #[id number], 176, cm, 07/05/20 15:49:00 EST, Height, 123.2, kg, 08/21/19 20:54:00 EST, Dry Weight Start Date: 07/05/20 Status: Ordered MiraLax oral powder for reconstitution = 17 Gm, By Mouth, Daily, PRN Constipation, dissolve in water before taking, # 12 each, 5 Refills, Maintenance, 09/02/19 14:32:00 EST, REC Powder, [facility] #[id number], 17 Gm By Mouth Daily,PRN:Constipation,Instr:dissolve in water before taking... Start Date: 09/02/19 Status: Ordered nitroglycerin 0.4 mg sublingual tablet 1 tablet = 0.4 mg, Sublingual, Every 5 minutes, PRN for chest pain, If chest pain not relieved in 5minutes after first dose, seek immediate medical attention, # 1 tablet, 0 Refills, Maintenance, 08/19/16 10:23:57, Tablet Start Date: 08/19/16 Status: Ordered nystatin topical 700593 u/gm powder 1 application, Topically, 2 times a day, for rash under breasts, # 60 Gm, 1 Refills, Maintenance, 04/20/19 11:09:55 EDT, Powder, 1 application Topically 2 times a day,Instr:for rash under breasts Start Date: 04/20/19 Status: Ordered omeprazole 20 mg oral enteric coated capsule 1 capsule = 20 mg, By Mouth, Daily, prn acid indigestion, # 90 capsule, 0 Refills, Maintenance, 06/19/20 16:17:00 EST, EC Capsule, [facility] #[id number], 176, cm, 04/17/20 16:08:00 EDT, Height,123.2, kg, 08/21/19 20:54:00 EST, Dry Weight Start Date: 06/19/20 Stop Date: 09/17/20 Status: Ordered PARoxetine 10 mg oral tablet 1, tablet, By Mouth, Daily, # 30 tablet, Refills 2, Tot. Refills 2, Maintenance, 07/04/20 18:17:00 EST, Route to Pharmacy Electronically, [facility] #[id number], 176, cm, 04/17/20 16:08:00 EDT, Height, 123.2, kg, 08/21/19 20:54:00 EST, Dry Weight Start Date: 07/04/20 Status: Ordered potassium chloride 20 mEq oral tablet, extended release 1 tablet = 20 mEq, By Mouth, Daily, # 90 tablet, 1 Refills, Maintenance, 01/12/19 17:42:00 EDT Start Date: 01/12/19 Status: Ordered triamcinolone 0.025% topical cream 1 applicator, Topically, 3 times a day, apply a thin film for eczema, # 30 Gm, 3 Refills, Maintenance, 07/05/20 17:19:00 EST, [facility] #[id number], 1 applicator Topically 3 times a day,Instr:apply a thin film for eczema, 176, cm, 07/05/20 15:49... Start Date: 07/05/20 Status: Ordered Triple Antibiotic topical ointment 1 application, Topically, 2 times a day, # 28 Gm, 0 Refills, Acute, 11/15/19 12:12:00 EDT, [facility] #[id number], 7, APPLY 1 APPLICATION TOPICALLY TWICE DAILY, [...]
--- OUTSIDE RECORDS SUMMARY | 2023-07-02 19:15 | XMS_ITS | Continuity of Care Document ---
Author Name Unknown Organization [facility] Address [address] [place] [address]- Care Team Providers Care Rn Tele Name Role Phone Abiel Nickerson Primary Care Physician [facility]): 10/02/22 - 11/01/22 [facility] [address], [place] [address] Allergies, Adverse Reactions, Alerts Substance Reaction Severity Status penicillin hives Active sulfamethoxazole hives Active Cortisporin Active Latex Active Immunizations Given and Recorded Vaccine Date Status Refusal Reason SARS-CoV-2 mRNA ([id number]) vax 08/28/21 Given influenza virus vaccine, inactivated [...] tablet, 3 Refills, Maintenance, 09/30/22 10:07:00 EDT, [facility] #[id number], 170, cm, 09/30/22 9:28:00 EDT, Height, 113, kg, 08/28/21 19:48:00 EST, Dry Weight Start Date: 09/30/22 Status: Ordered cetirizine 10 mg oral tablet 1 tablet, By Mouth, Daily, # 30 tablet, 5 Refills, Maintenance, 09/30/22 10:07:00 EDT, [facility] #[id number], 170, cm, 09/30/22 9:28:00 EDT, Height, 113, kg, 08/28/21 19:48:00 EST, Dry Weight Start Date: 09/30/22 Status: Ordered Eliquis 5 mg oral tablet 1 tablet, By Mouth, 2 times a day, STOPPING WARFARIN., # 60 tablet, 0 Refills, Maintenance, 05/02/22 13:12:00 EDT, [facility] #[id number], 170, cm, 03/27/22 8:35:00 EDT, Height, 113, kg, 08/28/21 19:48:00 EST, Dry Weight Start Date: 05/02/22 Status: Ordered Eliquis 5 mg oral tablet See Instructions, TAKE 1 TABLET BY MOUTH TWICE DAILY STOPPING WARFARIN, # 60 tablet, 11 Refills, Maintenance, 05/06/22 9:53:00 EDT, [facility] #[id number], 170, cm, 03/27/22 8:35:00 EDT, Height,113, kg, 08/28/21 19:48:00 EST, Dry Weight Start Date: 05/06/22 Status: Ordered fluticasone 50 mcg/inh nasal spray See Instructions, SHAKE LIQUID AND USE 1 SPRAY IN EACH NOSTRIL TWICE DAILY, # 16 Gm, 0 Refills, Maintenance, [facility] #[id number], 30, SHAKE LIQUID AND USE 1 SPRAY [...] 30 tablet, 11 Refills, 03/27/22 8:29:00 EDT, [facility] #[id number], 30, 1 tablet By Mouth Daily, 170, cm, 03/27/22 8:17:00 EDT, Height, 113, kg, 08/28/21 19:48:00 EST, Dry Weight Start Date: 03/27/22 Status: Ordered ipratropium nasal 21 mcg/inh spray See Instructions, USE 2 SPRAYS IN EACH NOSTRIL TWICE DAILY IN EACH NOSTRIL, NEEDED CONGESTION, #30 mL, 5 Refills, Maintenance, 09/03/22 9:40:00 EST, [facility] #[id number], 30, USE 2 SPRAYS IN EACH NOSTRIL TWICE DAILY IN EACH NOSTRIL, NEED... Start Date: 09/03/22 Status: Ordered ketoconazole 2% topical cream See Instructions, APPLY BENEATH BREAST AND GROIN AREAS TWICE DAILY, # 120 Gm, 2 Refills, Maintenance, 09/30/22 10:09:00 EDT, [facility] #[id number], 30, APPLY BENEATH BREAST AND GROIN AREAS TWICE DAILY, 170, cm, 09/30/22 9:28:00 EDT, Height, 113,... Start Date: 09/30/22 Status: Ordered Metamucil 3.4 gm/5.2 gm oral powder for reconstitution = 1.7 Gm, By Mouth, 3 times a day, PRN as needed for constipation, dissolve in 8 oz of fluid. drinkplenty of water., # 570 Gm, 5 Refills, Maintenance, 09/02/19 14:32:00 EST, REC Powder, [facility] #[id number], 176, cm, 09/02/19 13:59:00 EST, Hei... Start Date: 09/02/19 Status: Ordered Metoprolol Succinate ER 50 mg oral tablet, extended release 1 tablet, By Mouth, Daily, # 90 tablet, 0 Refills, Maintenance, 09/03/22 9:40:00 EST, [facility] #[id number], 170, cm, 08/28/22 14:45:00 EST, Height, 113, kg, 08/28/21 19:48:00 EST, Dry Weight Start Date: 09/03/22 Status: Ordered omeprazole 20 mg oral enteric coated capsule 1 capsule, By Mouth, Daily, PRN NEEDED, ACID INDIGESTION., # 90 capsule, 0 Refills, Maintenance,09/03/22 9:40:00 EST, [facility] #[id number], 170, cm, 08/28/22 14:45:00 EST, Height, 113, kg,08/28/21 19:48:00 EST, Dry Weight Start Date: 09/03/22 Status: Ordered PEG-3350 with Electrolytes (Eqv-NuLYTELY) oral powder for reconstitution See Instructions, Mix powder withn water according to the product label. Drink 8 oz of prep fluid every 15-20 minutes ion the evening before the colonoscopy., # 1 each, 0 Refills, Maintenance, 08/26/22 11:04:00 EST, [facility] #[id number], Parti... Start Date: 08/26/22 Status: Ordered polyethylene glycol 3350 oral powder for reconstitution See Instructions, DISSOLVE 17 GM IN WATER EVERY DAY NEEDED FOR CONSTIPATION, # 510 Gm, 0 Refills, Maintenance, 03/26/22 8:19:00 EDT, [facility] #[id number], 30, DISSOLVE 17 GM IN WATER EVERY DAY NEEDED FOR CONSTIPATION, 170, cm, 01/24/22 18... Start Date: 03/26/22 Status: Ordered Potassium Chloride (Cgh-[id number]-[id number] 10) 10 mEq oral tablet, extended release 1 tablet = 10 mEq, By Mouth, Daily, # 30 tablet, 5 Refills, Maintenance, 10/02/21 16:06:00 EDT, [facility] #[id number], Partial fill upon patient request if the prescription is for a schedule IIopioid drug., 170, cm, 10/02/21 15:32:00 EDT, [facility]... Start Date: 10/02/21 Status: Ordered Shingrix intramuscular injection = 0.5 mL, Intramuscular, Once, repeat dose in 2 to 6 months, # 2 each, 0 Refills, Soft Stop, 03/21/21 8:37:00 EDT, Powder, [facility] #[id number], Partial fill upon patient request if the prescription is for a schedule II opioid drug., 0.5 mL Int... Start Date: 03/21/21 Status: Ordered traZODone 50 mg oral tablet 75 mg, 1.5, tablet, By Mouth, Daily at bedtime, # 45 tablet, Refills 5, Tot. Refills 5, Maintenance, 10/21/22 15:02:00 EDT, Route to Pharmacy Electronically, [facility] #[id number], dose increase to 75mg qhs 10/21/22., 170, cm, 10/21/22 14:25:00 ED... Start Date: 10/21/22 Stop Date: 04/19/23 Status: Ordered triamcinolone 0.5% topical ointment See Instructions, APPLY TOPICALLY TO THE AFFECTED AREA TWICE DAILY FOR UP TO 14 DAYS FOR ECZEMA, # 60 Gm, 1 Refills, Maintenance, 09/30/22 10:09:00 EDT, [facility] #[id number], 28, APPLY TOPICALLY TO THE AFFECTED AREA TWICE DAILY FOR UP TO 14 DAY... Start Date: 09/30/22 Status: Ordered Trulicity Pen 0.75 mg/0.5 mL subcutaneous solution 0.5 mL = 0.75 mg, Subcutaneous Injection, Every week, # 2 mL, 11 Refills, Maintenance, 03/27/22 8:27:00 EDT, Solution, [facility] #[id number], Partial fill upon patient request if the prescription is for a schedule II opioid drug., 170, cm, 03/27... Start Date: 03/27/22 Status: Ordered Vitamin D3 50,000 intl units oral capsule 1 capsule = 1,250 mcg, By Mouth, Every week, with food, # 4 each, 1 Refills, Maintenance, 10/23/22 16:25:00 EDT, [facility] #[id number], Partial fill upon patient request if the prescription is for a schedule II opioid drug., 170, cm, 10/21/22 14... Start Date: 10/23/22 Stop Date: 02/12/23 Status: Ordered Voltaren 1% topical gel = 2 Gm, Topically, 4 times a day, PRN arthritis pain, # 150 Gm, 3 Refills, Maintenance, 08/28/21 9:02:00 EST, [facility] #[id number], Partial fill upon patient request if the [...] Associate Professional Member Role: PCP Address: Address: [address] [place] [address] [place] [address]- Name: Jennifer Rodriguez RN Position: [facility] RN Member Role: Primary Care Nurse Care Team Related Persons Name: KINGA ACOSTA Address: [address] [address] Name: VELVET [place]COSTA Address: [place] [address]
--- OUTSIDE RECORDS SUMMARY | 2023-07-02 19:15 | XMS_ITS | Continuity of Care Document ---
Author Name Unknown Organization [facility] Address [address] [place] [address]- Care Team Providers Care Casino Duty Manager Name Role Phone Abiel Nickerson Primary Care Physician [phone] [facility]): [facility]13[facility]20 - 04/12/20 [facility] [address] [place] [address] Attending Physician: Chauncey POPE, Arlin Levin Admitting Physician: Chauncey POPE, Arlin Levin Allergies, Adverse Reactions, Alerts Substance Reaction Severity [...] 08/04/19 10:07:00 EST, Route to Pharmacy Electronically, [facility] #[id number], 176, cm, 08/04... Start Date: 08/04/19 Status: Ordered apixaban 5 mg oral tablet 1 tablet = 5 mg, By Mouth, 2 times a day, STOPPING WARFARIN., # 60 tablet, 11 Refills, Maintenance,11/15/19 12:12:00 EDT, [facility] #[id number], 176, cm, 09/16/19 14:40:00 EST, Height, 123.2, kg, 08/21/19 20:54:00 EST, Dry Weight Start Date: 11/15/19 Status: Ordered atorvastatin 20 mg oral tablet 1 tablet, By Mouth, Daily, # 30 tablet, 0 Refills, Maintenance, 03/13/20 10:14:00 EDT, [facility] #[id number], 176, cm, 12/08/19 10:38:00 EDT, Height, 123.2, kg, 08/21/19 20:54:00 EST, Dry Weight Start Date: 03/13/20 Status: Ordered cetirizine 10 mg oral tablet 1 tablet = 10 mg, By Mouth, Daily, # 30 tablet, 5 Refills, Maintenance, 11/15/19 11:43:00 EDT, Tablet, [email or web address] #[id number], 176, cm, 09/16/19 14:40:00 EST, Height, 123.2, [...] 5 Refills, Maintenance, 11/15/19 11:45:00 EDT, Tablet, [facility] #[id number], 176, cm, 09/16/19 14:40:00 EST, Height, 123.2, kg, 08/21/19 20:54:00 EST, Dry Weight Start Date: 11/15/19 Status: Ordered Flonase 50 mcg/inh nasal spray 1 sprays, Nares, Both, 2 times a day, # 1 each, 2 Refills, Maintenance, 04/04/20 17:25:00 EDT, [place], [facility] #[id number], 1 sprays Nares, Both 2 times a day,x30 days, 176, cm, 12/08/19 10:38:00 EDT, Height, 123.2, kg, 08/21/19 20:54:00 EST, D... Start Date: 04/04/20 Stop Date: 07/03/20 Status: Ordered hydrochlorothiazide-lisinopril 25 mg-20 mg oral tablet 1 tablet, By Mouth, Daily, # 30 tablet, 2 Refills, Maintenance, 03/30/20 18:29:00 EDT, Tablet, [email or web address] #[id number], 1 tablet By Mouth Daily,x30 days, 176, cm, 12/08/19 10:38:00 EDT, Height, 123.2, kg, 08/21/19 20:54:00 EST, Dry Weight Start Date: 03/30/20 Stop Date: 06/28/20 Status: Ordered ketoconazole 2% topical cream See Instructions, APPLY EXTERNALLY TO THE AFFECTED AREA TWICE DAILY TO THE AFFECTED AREA, # 60 Gm, 0 Refills, Acute, [facility] #[id number], 25, APPLY EXTERNALLY TO THE AFFECTED AREA [...] Refills, Maintenance, 09/02/19 14:32:00 EST, REC Powder, [facility] #[id number], 176, cm, 09/02/19 13:59:00 EST, Hei... Start Date: 09/02/19 Status: Ordered Metoprolol Succinate ER 50 mg oral tablet, extended release 1 tablet, By Mouth, Daily, # 60 tablet, 0 Refills, Maintenance, 03/13/20 10:14:00 EDT, [facility] #[id number], 176, cm, 12/08/19 10:38:00 EDT, Height, 123.2, kg, 08/21/19 20:54:00 EST, Dry Weight Start Date: 03/13/20 Status: Ordered MiraLax oral powder for reconstitution = 17 Gm, By Mouth, Daily, PRN Constipation, dissolve in water before taking, # 12 each, 5 Refills, Maintenance, 09/02/19 14:32:00 EST, REC Powder, [facility] #[id number], 17 Gm By Mouth Daily,PRN:Constipation,Instr:dissolve in water before taking... Start Date: 09/02/19 Status: Ordered nitroglycerin 0.4 mg sublingual tablet 1 tablet = 0.4 mg, Sublingual, Every 5 minutes, PRN for chest pain, If chest pain not relieved in 5minutes after first dose, seek immediate medical attention, # 1 tablet, 0 Refills, Maintenance, 08/19/16 10:23:57, Tablet Start Date: 08/19/16 Status: Ordered nystatin topical 369658 u/gm powder 1 application, Topically, 2 times [...] Refills, Maintenance, 03/17/20 19:11:00 EDT, EC Capsule, [facility] #[id number], 176, cm, 12/08/19 10:38:00 EDT, Height,123.2, kg, 08/21/19 20:54:00 EST, Dry Weight Start Date: 03/17/20 Stop Date: 06/15/20 Status: Ordered PARoxetine 10 mg oral tablet 10 mg, 1, tablet, By Mouth, Daily, please d/c 7.5mg order, # 30 tablet, Refills 5, Tot. Refills 5, Maintenance, 09/17/19 13:12:00 EST, Route to Pharmacy Electronically, [facility] #[id number], 176, cm, 09/16/19 14:40:00 EST, Height, 123.2, kg, 02... Start Date: 09/17/19 Status: Ordered PARoxetine 7.5 mg oral capsule 1 capsule = 7.5 mg, By Mouth, Daily at bedtime, # 30 capsule, 2 Refills, Maintenance, 09/16/19 15:43:00 EST, [facility] #[id number], 176, cm, 09/16/19 14:40:00 EST, Height, 123.2, [...] Gm, 3 Refills, Maintenance, 08/18/19 10:35:00 EST, [facility] #[id number], 1 applicator Topically 3 times a day,Instr:apply a thin film for eczema, 176, cm, 08/18/19 9:16:... Start Date: 08/18/19 Status: Ordered Triple Antibiotic topical ointment 1 application, Topically, 2 times a day, # 28 Gm, 0 Refills, Acute, 11/15/19 12:12:00 EDT, [email or web address] #[id number], 7, APPLY 1 APPLICATION TOPICALLY TWICE DAILY, [...]
--- OUTSIDE RECORDS SUMMARY | 2023-07-02 19:15 | XMS_ITS | Continuity of Care Document ---
Author Name Unknown Organization [facility] Address [address] [place] [address]- Care Team Providers Care Telescope Operator Name Role Phone Abiel Nickerson Primary Care Physician [facility]23 - 03/26/23 [facility] [address], [place] [address] Allergies, Adverse Reactions, Alerts Substance Reaction Severity Status penicillin hives Active sulfamethoxazole hives Active Latex Active Cortisporin Active Immunizations Given and Recorded Vaccine Date Status Refusal Reason SARS-CoV-2 mRNA ([id number]) vax 08/28/21 Given influenza virus vaccine, inactivated [...] tablet, 1 Refills, Maintenance, 02/04/23 12:49:00 EDT, [facility] #[id number], Partial fill upon patient request if the prescriptionis for a schedule II opioid drug., 175, cm, ... Start Date: 02/04/23 Status: Ordered aspirin 81 mg oral tablet, chewable 81 mg, By Mouth, Daily, # 30 tablet, Refills 2, Tot. Refills 2, Maintenance, 03/18/23 9:59:00 EDT, Route to Pharmacy Electronically, [facility] #[id number], Partial fill upon patient request if the [...] 03/12/23 9:37:00 EDT, Route to Pharmacy Electronically, [facility] #[id number], Partial fill upon patien... Start Date: 03/12/23 Status: Ordered Eliquis 5 mg oral tablet See Instructions, TAKE 1 TABLET BY MOUTH TWICE DAILY STOPPING WARFARIN, # 60 tablet, 11 Refills, Maintenance, 05/06/22 9:53:00 EDT, [facility] #[id number], 170, cm, 03/27/22 8:35:00 EDT, Height,113, kg, 08/28/21 19:48:00 EST, Dry Weight Start Date: 05/06/22 Status: Ordered fluticasone 50 mcg/inh nasal spray See Instructions, SHAKE LIQUID AND USE 1 SPRAY IN EACH NOSTRIL TWICE DAILY, # 16 Gm, 0 Refills, Maintenance, [facility] #[id number], 30, SHAKE LIQUID AND USE 1 SPRAY [...] mL, 5 Refills, Maintenance, 09/03/22 9:40:00 EST, [facility] #[id number], 30, USE 2 SPRAYS IN EACH NOSTRIL TWICE DAILY IN EACH NOSTRIL, NEED... Start Date: 09/03/22 Status: Ordered isopropyl alcohol 70% topical pad See Instructions, CLEANSE SKIN BEFORE TESTING BLOOD SUGAR, # 100 Unknown, 5 Refills, Maintenance, 03/26/23 18:08:00 EDT, [facility] #[id number], 30, CLEANSE SKIN BEFORE TESTING BLOOD SUGAR, 166,cm, 03/18/23 7:51:00 EDT, Height, 99, kg, 03/15/23... Start Date: 03/26/23 Status: Ordered ketoconazole 2% topical cream See Instructions, APPLY BENEATH BREAST AND GROIN AREAS TWICE DAILY, # 120 Gm, 2 Refills, Maintenance, 03/12/23 9:33:00 EDT, [facility] #[id number], 30, APPLY BENEATH BREAST AND GROIN AREAS TWICEDAILY, 175, cm, 03/12/23 8:47:00 EDT, Height, 100.5... Start Date: 03/12/23 Status: Ordered Lipitor 40 mg oral tablet 1 tablet = 40 mg, By Mouth, Daily, # 30 tablet, 0 Refills, Maintenance, 03/18/23 10:00:00 EDT, Tablet, [facility] #[id number], Partial fill upon patient request if the prescription is for a schedule II opioid drug., 166, cm, 03/18/23 7:51:00 EDT,... Start Date: 03/18/23 Stop Date: 04/17/23 Status: Ordered melatonin 5 mg oral tablet 1 tablet = 5 mg, By Mouth, Daily at bedtime, for 30 days, to help sleep, # 30 tablet, 1 Refills, Acute 04/05/23 12:48:00 EDT, 02/04/23 12:48:00 EDT, [facility] #[id number], Partial fill upon patient request if the prescription is for a schedule I... Start Date: 02/04/23 Stop Date: 04/05/23 Status: Ordered Metoprolol Succinate ER 50 mg oral tablet, extended release 1 tablet, By Mouth, Daily, # 90 tablet, 3 Refills, Maintenance, 02/04/23 12:35:00 EDT, [facility] #[id number], 175, cm, 01/20/23 10:13:00 EDT, Height, 108.5, [...] each, 0 Refills, Maintenance, 08/26/22 11:04:00 EST, [facility] #[id number], Parti... Start Date: 08/26/22 Status: Ordered polyethylene glycol 3350 oral powder for reconstitution See Instructions, DISSOLVE 17 GM IN WATER EVERY DAY NEEDED FOR CONSTIPATION, # 510 Gm, 0 Refills, Maintenance, 03/26/22 8:19:00 EDT, [facility] #[id number], 30, DISSOLVE 17 GM IN WATER EVERY DAY NEEDED FOR CONSTIPATION, 170, cm, 01/24/22 18... Start Date: 03/26/22 Status: Ordered potassium chloride 20 mEq oral powder for reconstitution = 10 mEq, By Mouth, Daily, # 30 pack/packet, 0 Refills, Maintenance, 03/18/23 9:58:00 EDT, REC Powder, [facility] #[id number], Partial fill upon patient request if the [...] Gm, 1 Refills, Maintenance, 03/12/23 9:33:00 EDT, [facility] #[id number], APPLY TOPICALLY TOTHE AFFECTED AREA TWICE DAILY FOR UP TO 14 DAYS FOR... Start Date: 03/12/23 Status: Ordered Trulicity Pen 0.75 mg/0.5 mL subcutaneous solution 0.5 mL = 0.75 mg, Subcutaneous Injection, Every week, # 2 mL, 11 Refills, Maintenance, 03/27/22 8:27:00 EDT, Solution, [facility] #[id number], Partial fill upon patient request if the prescription is for a schedule II opioid drug., 170, cm, 03/27... Start Date: 03/27/22 Status: Ordered Vitamin D3 1000 intl units oral capsule 1 capsule = 25 mcg, By Mouth, Daily, with food, # 90 capsule, 3 Refills, Maintenance, 02/03/23 17:53:00 EDT, [facility] #[id number], Partial fill upon patient request if the prescription is for a schedule II opioid drug., 175, cm, 01/20/23 10:13:... Start Date: 02/03/23 Stop Date: 01/29/24 Status: Ordered Voltaren 1% topical gel = 2 Gm, Topically, 4 times a day, PRN arthritis pain, # 150 Gm, 3 Refills, Maintenance, 08/28/21 9:02:00 EST, [facility] #[id number], Partial fill upon patient request if the [...] Care Team Personnel Name: Abiel Nickerson Position: [facility] Associate Professional Member Role: PCP Address: Address: [address] [place] [address] [place] [address]- Name: Germania Wynn RN Position: S RN Member Role: Primary Care Nurse Name: Bertha Valdes RN Position: S RN Member Role: Primary Care Nurse Name: Jennifer Rodriguez RN Position: S RN Member Role: Primary Care Nurse Name: Lyndsey Macias RN Position: S RN Member Role: Primary Care Nurse Care Team Related Persons Name: KINGA ACOSTA Address: [address] [address] Name: VELVET ACOSTA Address: [place] [address]
--- OUTSIDE RECORDS SUMMARY | 2023-07-02 19:15 | XMS_ITS | Continuity of Care Document ---
Author Name Unknown Organization [facility] Address [address] [place] [address]- Care Team Providers Care Procurement Coordinator Name Role Phone Abiel Nickerson Primary Care Physician [facility]23 - 02/06/23 [facility] [address] [place], [place] [address] Allergies, Adverse Reactions, Alerts Substance Reaction Severity Status penicillin hives Active sulfamethoxazole hives Active Cortisporin Active Latex Active Immunizations Given and Recorded Vaccine Date Status Refusal Reason SARS-CoV-2 mRNA ([id number]) vax 08/28/21 Given influenza virus vaccine, inactivated [...] tablet, 1 Refills, Maintenance, 02/04/23 12:49:00 EDT, [facility] #[id number], Partial fill upon patient request if the [...] tablet, 3 Refills, Maintenance, 09/30/22 10:07:00 EDT, [facility] #[id number], 170, cm, 09/30/22 9:28:00 EDT, Height, 113, kg, 08/28/21 19:48:00 EST, Dry Weight Start Date: 09/30/22 Status: Ordered atorvastatin 20 mg oral tablet 1 tablet = 20 mg, By Mouth, Daily, TAKE 1 TABLET BY MOUTH DAILY Start Date: 12/10/22 Status: Ordered cetirizine 10 mg oral tablet 1 tablet, By Mouth, Daily, # 30 tablet, 5 Refills, Maintenance, 11/26/22 17:55:00 EDT, [facility] #[id number], 175, cm, 11/05/22 22:16:00 EDT, Height, 108.5, kg, 11/05/22 22:16:00 EDT, Dry Weight Start Date: 11/26/22 Status: Ordered cetirizine 10 mg oral tablet 1 tablet = 10 mg, By Mouth, Daily Start Date: 12/10/22 Status: Ordered Eliquis 5 mg oral tablet 1 tablet, By Mouth, 2 times a day, STOPPING WARFARIN., # 60 tablet, 0 Refills, Maintenance, 05/02/22 13:12:00 EDT, [facility] #[id number], 170, cm, 03/27/22 8:35:00 EDT, Height, 113, kg, 08/28/21 19:48:00 EST, Dry Weight Start Date: 05/02/22 Status: Ordered Eliquis 5 mg oral tablet See Instructions, TAKE 1 TABLET BY MOUTH TWICE DAILY STOPPING WARFARIN, # 60 tablet, 11 Refills, Maintenance, 05/06/22 9:53:00 EDT, [facility] #[id number], 170, cm, 03/27/22 8:35:00 EDT, Height,113, kg, [...] DAILY, # 16 Gm, 0 Refills, Maintenance, [facility] #[id number], 30, SHAKE LIQUID AND USE 1 SPRAY [...] 30 tablet, 11 Refills, 02/04/23 12:38:00 EDT, [facility] #[id number], 30, 1 tablet By Mouth Daily, 175, [...] tablet, 1 Refills, Maintenance, 02/04/23 12:47:00 EDT, [facility] #[id number], Partial fill upon patient request if theprescription is for a schedule II opioid drug., 175... Start Date: 02/04/23 Status: Ordered ipratropium nasal 21 mcg/inh spray See Instructions, USE 2 SPRAYS IN EACH NOSTRIL TWICE DAILY IN EACH NOSTRIL, NEEDED CONGESTION, #30 mL, 5 Refills, Maintenance, 09/03/22 9:40:00 EST, [facility] #[id number], 30, USE 2 SPRAYS IN EACH NOSTRIL TWICE DAILY IN EACH NOSTRIL, NEED... Start Date: 09/03/22 Status: Ordered isopropyl alcohol 70% topical pad See Instructions, CLEANSE SKIN BEFORE TESTING BLOOD SUGAR, # 100 Unknown, 5 Refills, Maintenance, 02/03/23 9:08:00 EDT, [facility] #[id number], 30, CLEANSE SKIN BEFORE TESTING BLOOD SUGAR, 175, cm, 01/20/23 10:13:00 EDT, Height, 108.5, kg, ... Start Date: 02/03/23 Status: Ordered ketoconazole 2% topical cream See Instructions, APPLY BENEATH BREAST AND GROIN AREAS TWICE DAILY, # 120 Gm, 2 Refills, Maintenance, 09/30/22 10:09:00 EDT, [facility] #[id number], 30, APPLY BENEATH BREAST AND GROIN AREAS TWICE DAILY, 170, cm, 09/30/22 9:28:00 EDT, Height, 113,... Start Date: 09/30/22 Status: Ordered melatonin 5 mg oral tablet 1 tablet = 5 mg, By Mouth, Daily at bedtime, for 30 days, to help sleep, # 30 tablet, 1 Refills, Acute 04/05/23 12:48:00 EDT, 02/04/23 12:48:00 EDT, [facility] #[id number], Partial fill upon patient request if the prescription is for a schedule I... Start Date: 02/04/23 Stop Date: 04/05/23 Status: Ordered Metamucil 3.4 gm/5.2 gm oral powder for reconstitution = 1.7 Gm, By Mouth, 3 times a day, PRN as needed for constipation, dissolve in 8 oz of fluid. drinkplenty of water., # 570 Gm, 5 Refills, Maintenance, 09/02/19 14:32:00 EST, REC Powder, [facility] #[id number], 176, cm, 09/02/19 13:59:00 EST, Hei... Start Date: 09/02/19 Status: Ordered Metoprolol Succinate ER 50 mg oral tablet, extended release 1 tablet, By Mouth, Daily, # 90 tablet, 3 Refills, Maintenance, 02/04/23 12:35:00 EDT, [facility] #[id number], 175, cm, 01/20/23 10:13:00 EDT, Height, 108.5, [...] 90 capsule, 0 Refills, Maintenance,02/04/23 12:36:00 EDT, [facility] #[id number], 175, cm, 01/20/23 10:13:00 EDT, Height, 108.5, [...] each, 0 Refills, Maintenance, 08/26/22 11:04:00 EST, [facility] #[id number], Parti... Start Date: 08/26/22 Status: Ordered polyethylene glycol 3350 oral powder for reconstitution See Instructions, DISSOLVE 17 GM IN WATER EVERY DAY NEEDED FOR CONSTIPATION, # 510 Gm, 0 Refills, Maintenance, 03/26/22 8:19:00 EDT, [facility] #[id number], 30, DISSOLVE 17 GM IN WATER EVERY DAY NEEDED FOR CONSTIPATION, 170, cm, 01/24/22 18... Start Date: 03/26/22 Status: Ordered Potassium Chloride (Jiu-Xkky-Zsa 10) 10 mEq oral tablet, extended release 1 tablet = 10 mEq, By Mouth, Daily, # 30 tablet, 5 Refills, Maintenance, 10/02/21 16:06:00 EDT, [facility] #[id number], Partial fill upon patient request if the prescription is for a schedule IIopioid drug., 170, cm, 10/02/21 15:32:00 EDT, Heigh... Start Date: 10/02/21 Status: Ordered risperiDONE 0.5 mg oral tablet 0.5 mg, 1, tablet, By Mouth, Daily, # 30 tablet, Refills 1, Tot. Refills 1, Maintenance, 02/04/23 12:45:00 EDT, Route to Pharmacy Electronically, [facility] #[id number], Partial fill upon patient request if the prescription is for a schedule II o... Start Date: 02/04/23 Status: Ordered Shingrix intramuscular injection = 0.5 mL, Intramuscular, Once, repeat dose in 2 to 6 months, # 2 each, 0 Refills, Soft Stop, 03/21/21 8:37:00 EDT, Powder, [facility] #[id number], Partial fill upon patient request if the [...] Gm, 1 Refills, Maintenance, 12/04/22 16:55:00 EDT, [facility] #[id number], APPLY TOPICALLY TO THE AFFECTED AREA TWICE DAILY FOR UP TO 14 DAYS FO... Start Date: 12/04/22 Status: Ordered Trulicity Pen 0.75 mg/0.5 mL subcutaneous solution 0.5 mL = 0.75 mg, Subcutaneous Injection, Every week, # 2 mL, 11 Refills, Maintenance, 03/27/22 8:27:00 EDT, Solution, [facility] #[id number], Partial fill upon patient request if the prescription is for a schedule II opioid drug., 170, cm, 03/27... Start Date: 03/27/22 Status: Ordered Vitamin D3 1000 intl units oral capsule 1 capsule = 25 mcg, By Mouth, Daily, with food, # 90 capsule, 3 Refills, Maintenance, 02/03/23 17:53:00 EDT, [facility] #[id number], Partial fill upon patient request if the prescription is for a schedule II opioid drug., 175, cm, 01/20/23 10:13:... Start Date: 02/03/23 Stop Date: 01/29/24 Status: Ordered Voltaren 1% topical gel = 2 Gm, Topically, 4 times a day, PRN arthritis pain, # 150 Gm, 3 Refills, Maintenance, 08/28/21 9:02:00 [facility], [facility][id number], Partial fill upon patient request if the [...] Care Team Personnel Name: Abiel Nickerson Position: [facility] PCO Associate Professional Member Role: PCP Address: Address: [address] [place] [address] [place] [address]- Name: Jennifer Rodriguez RN Position: S RN Member Role: Primary Care Nurse Care Team Related Persons Name: KINGA ACOSTA Address: [address] [address] Name: VELVET ACOSTA Address: [place] [address]
--- OUTSIDE RECORDS SUMMARY | 2023-07-02 19:15 | XMS_ITS | Continuity of Care Document ---
Author Name Unknown Organization [facility] Address [address] [place] [address]- Care Team Providers Care Director Of Market Intelligence Name Role Phone Abiel Nickerson Primary Care Physician [facility] - 11/22/21 [facility] [address] [place] [id number] Attending Physician: Paulina Gay Allergies, Adverse Reactions, Alerts Substance Reaction Severity Status penicillin hives Active sulfamethoxazole hives Active Latex Active Cortisporin Active Immunizations Given and Recorded Vaccine Date Status Refusal Reason SARS-CoV-2 mRNA ([id number]) vax 08/28/21 Given influenza virus vaccine, inactivated [...] 60 tablet, 11 Refills, Maintenance,02/19/21 8:31:00 EDT, [facility] #[id number], 176, cm, 02/19/21 8:02:00 EDT, Height, 123.2, kg, 08/21/19 20:54:00 EST, Dry Weight Start Date: 02/19/21 Status: Ordered atorvastatin 20 mg oral tablet 1 tablet, By Mouth, Daily, # 30 tablet, 11 Refills, Maintenance, 02/19/21 8:31:00 EDT, [facility] #[id number], 176, cm, 02/19/21 8:02:00 EDT, Height, 123.2, kg, 08/21/19 20:54:00 EST, Dry Weight Start Date: 02/19/21 Status: Ordered cetirizine 10 mg oral tablet 1 tablet = 10 mg, By Mouth, Daily, # 30 tablet, 5 Refills, Maintenance, 06/04/21 8:15:00 EST, Tablet, [facility] #[id number], 176, cm, 06/04/21 8:04:00 EST, Height, 123.2, kg, 08/21/19 20:54:00 EST, Dry Weight Start Date: 06/04/21 Stop Date: 12/01/21 Status: Ordered fluticasone 50 mcg/inh nasal spray See Instructions, SHAKE LIQUID AND USE 1 SPRAY IN EACH NOSTRIL TWICE DAILY, # 16 Gm, 0 Refills, Maintenance, [facility] #[id number], 30, SHAKE LIQUID AND USE 1 SPRAY [...] 30 tablet, 11 Refills, 03/23/21 11:53:00 EDT, [facility] #[id number], 30, 1 tablet By Mouth Daily, 176, cm, 03/21/21 8:05:00 EDT, Height, 123.2, kg, 08/21/19 20:54:00 EST, Dry Weight Start Date: 03/23/21 Status: Ordered ipratropium nasal 21 mcg/inh spray 2 sprays, Nares, Both, 2 times a day, for 30 days, in each nostril, prn congestion, # 1 each, 2 Refills, Acute 02/18/22 8:14:00 EDT, 11/20/21 8:14:00 EDT, [place], [facility] #[id number], Partial fill upon patient request if the prescription is for... Start Date: 11/20/21 Stop Date: 02/18/22 Status: Ordered Metamucil 3.4 gm/5.2 gm oral powder for reconstitution = 1.7 Gm, By Mouth, 3 times a day, PRN as needed for constipation, dissolve in 8 oz of fluid. drinkplenty of water., # 570 Gm, 5 Refills, Maintenance, 09/02/19 14:32:00 EST, REC Powder, [facility] #[id number], 176, cm, 09/02/19 13:59:00 EST, Hei... Start Date: 09/02/19 Status: Ordered Metoprolol Succinate ER 50 mg oral tablet, extended release 1 tablet, By Mouth, Daily, # 60 tablet, 11 Refills, Maintenance, 02/19/21 8:32:00 EDT, [facility] #[id number], 176, cm, 02/19/21 8:02:00 EDT, Height, 123.2, kg, 08/21/19 20:54:00 EST, Dry Weight Start Date: 02/19/21 Status: Ordered omeprazole 20 mg oral enteric coated capsule 1 capsule, By Mouth, Daily, PRN NEEDED, ACID INDIGESTION., # 90 capsule, 0 Refills, [facility] #[id number], 170, cm, 10/23/21 14:39:00 EDT, Height, 113, kg, 08/28/21 19:48:00 EST, Dry Weight Start Date: 11/01/21 Status: Ordered Potassium Chloride (Coi-Mkkw-Zfk 10) 10 mEq oral tablet, extended release 1 tablet = 10 mEq, By Mouth, Daily, # 30 tablet, 5 Refills, Maintenance, 10/02/21 16:06:00 EDT, [facility] #[id number], Partial fill upon patient request if the prescription is for a schedule IIopioid drug., 170, cm, 10/02/21 15:32:00 EDT, Heigh... Start Date: 10/02/21 Status: Ordered Shingrix intramuscular injection = 0.5 mL, Intramuscular, Once, repeat dose in 2 to 6 months, # 2 each, 0 Refills, Soft Stop, 03/21/21 8:37:00 EDT, Powder, [facility] #[id number], Partial fill upon patient request if the prescription is for a schedule II opioid drug., 0.5 mL Int... Start Date: 03/21/21 Status: Ordered triamcinolone 0.5% topical ointment See Instructions, APPLY TOPICALLY TO THE AFFECTED AREA TWICE DAILY FOR UP TO 14 DAYS FOR ECZEMA, # 60 Gm, 0 Refills, [facility] #[id number], 28, APPLY TOPICALLY TO THE AFFECTED AREA TWICE DAILY FOR UP TO 14 DAYS FOR ECZEMA, 170, cm, 10/23/21 14:3... Start Date: 10/24/21 Status: Ordered Trulicity Pen 0.75 mg/0.5 mL subcutaneous solution 0.5 mL = 0.75 mg, Subcutaneous Injection, Every week, please d/c metformin. cannot take glipizide as allergic to sulfa, # 2 mL, 5 Refills, Maintenance, 10/02/21 16:07:00 EDT, Solution, [facility] #[id number], Partial fill upon patient request if... Start Date: 10/02/21 Status: Ordered Voltaren 1% topical gel = 2 Gm, Topically, 4 times a day, PRN arthritis pain, # 150 Gm, 3 Refills, Maintenance, 08/28/21 9:02:00 EST, [facility] #[id number], Partial fill upon patient request if the [...]
--- OUTSIDE RECORDS SUMMARY | 2023-07-02 19:15 | XMS_ITS | Continuity of Care Document ---
Author Name Unknown Organization [facility] ter Address [address] [place] [address]- Care Team Providers Care Administrative Services Coordinator Name Role Phone Abiel Nickerson Primary Care Physician [place] [facility] [place] 11/27/[address] [address]- Encounter Diagnosis Traumatic brain injury without loss of consciousness(Final) - 11/26/20 Mild TBI (traumatic brain injury)(Final) - 11/26/20 Postconcussive syndrome(Final) - 11/26/20 Discharge Disposition: A-D/C Home Attending Physician: Lorenzo Lang DO Admitting Physician: Lorenzo Lang DO Referring Physician: Not on Staff, Referring [...] 08/04/19 10:07:00 EST, Route to Pharmacy Electronically, [facility] #[id number], 176, cm, 08/04... Start Date: 08/04/19 Status: Ordered apixaban 5 mg oral tablet 1 tablet = 5 mg, By Mouth, 2 times a day, STOPPING WARFARIN., # 60 tablet, 11 Refills, Maintenance,07/05/20 17:18:00 EST, [facility] #[id number], 176, cm, 07/05/20 15:49:00 EST, Height, 123.2, kg, 08/21/19 20:54:00 EST, Dry Weight Start Date: 07/05/20 Status: Ordered atorvastatin 20 mg oral tablet 1 tablet, By Mouth, Daily, # 30 tablet, 11 Refills, Maintenance, 04/21/20 12:04:00 EDT, [facility] #[id number], 176, cm, 04/17/20 16:08:00 EDT, Height, 123.2, kg, 08/21/19 20:54:00 EST, Dry Weight Start Date: 04/21/20 Status: Ordered cetirizine 10 mg oral tablet 1 tablet = 10 mg, By Mouth, Daily, # 30 tablet, 5 Refills, Maintenance, 06/28/20 13:48:00 EST, Tablet, [facility] #25089, 176, cm, 04/17/20 16:08:00 EDT, Height, 123.2, [...] tablet, 11 Refills, Maintenance, 07/05/20 17:16:00EST, Tablet, [facility] #[id number], 176, cm, 07/05/20 15:49:00 EST, Height, 123.2, kg, 08/21/19 20:54:00 EST, Dry Weight Start Date: 07/05/20 Status: Ordered Flonase 50 mcg/inh nasal spray 1 sprays, Nares, Both, 2 times a day, # 1 each, 2 Refills, Maintenance, 08/03/20 17:23:00 EST, [place], [facility] #63068, 1 sprays Nares, Both 2 times a day,x30 days, 176, cm, 07/05/20 15:49:00 EST, Height, 123.2, kg, 08/21/19 20:54:00 EST, D... Start Date: 08/03/20 Stop Date: 11/01/20 Status: Ordered hydrochlorothiazide-lisinopril 25 mg-20 mg oral tablet 1 tablet, By Mouth, Daily, # 30 tablet, 5 Refills, Maintenance, 07/04/20 18:17:00 EST, Tablet, [facility] #58087, 1 tablet By Mouth Daily,x30 days, 176, cm, 04/17/20 16:08:00 EDT, Height, 123.2, kg, 08/21/19 20:54:00 EST, Dry Weight Start Date: 07/04/20 Stop Date: 12/31/20 Status: Ordered ketoconazole 2% topical cream See Instructions, APPLY EXTERNALLY TO THE AFFECTED AREA TWICE DAILY TO THE AFFECTED AREA, # 100 Gm,2 Refills, Maintenance, 06/13/20 18:25:00 EST, [facility] #88681, APPLY EXTERNALLY TO THEAFFECTED AREA TWICE DAILY TO THE AFFECTED AREA, 176... Start Date: 06/13/20 Status: Ordered lidocaine 5% topical cream 1 application, Topically, 3 times a day, # 100 Gm, 2 Refills, Maintenance, 04/17/20 16:42:00 EDT, Cream, [facility] #89496, 1 application Topically 3 times a day,x14 [...] Refills, Maintenance, 09/02/19 14:32:00 EST, REC Powder, [facility] #[id number], 176, cm, 09/02/19 13:59:00 EST, Hei... Start Date: 09/02/19 Status: Ordered Metoprolol Succinate ER 50 mg oral tablet, extended release 1 tablet, By Mouth, Daily, # 60 tablet, 11 Refills, Maintenance, 07/05/20 17:18:00 EST, [facility] #[id number], 176, cm, 07/05/20 15:49:00 EST, Height, 123.2, kg, 08/21/19 20:54:00 EST, Dry Weight Start Date: 07/05/20 Status: Ordered MiraLax oral powder for reconstitution = 17 Gm, By Mouth, Daily, PRN Constipation, dissolve in water before taking, # 12 each, 5 Refills, Maintenance, 09/04/20 11:17:00 EST, REC Powder, [facility] #[id number], 17 Gm By Mouth Daily,PRN:Constipation,Instr:dissolve in water before taking... Start Date: 09/04/20 Status: Ordered nitroglycerin 0.4 mg sublingual tablet 1 tablet = 0.4 mg, Sublingual, Every 5 minutes, PRN for chest pain, If chest pain not relieved in 5minutes after first dose, seek immediate medical attention, # 1 tablet, 0 Refills, Maintenance, 08/19/16 10:23:57, Tablet Start Date: 08/19/16 Status: Ordered nystatin topical 276339 u/gm powder 1 application, Topically, 2 times a day, for rash under breasts, # 60 Gm, 1 Refills, Maintenance, 04/20/19 11:09:55 EDT, Powder, 1 application Topically 2 times a day,Instr:for rash under breasts Start Date: 04/20/19 Status: Ordered omeprazole 20 mg oral enteric coated capsule 1 capsule = 20 mg, By Mouth, Daily, prn acid indigestion, # 90 capsule, 0 Refills, Maintenance, 10/02/20 10:31:00 EDT, EC Capsule, [facility] #[id number], 176, cm, 07/05/20 15:49:00 EST, Height,123.2, kg, 08/21/19 20:54:00 EST, Dry Weight Start Date: 10/02/20 Stop Date: 12/31/20 Status: Ordered PARoxetine 10 mg oral tablet 1, tablet, By Mouth, Daily, # 30 tablet, Refills 0, Tot. Refills 0, Maintenance, 11/03/20 13:04:00 EDT, Route to Pharmacy Electronically, [facility] #[id number], 176, cm, 07/05/20 15:49:00 EST, Height, 123.2, kg, 08/21/19 20:54:00 EST, Dry Weight Start Date: 11/03/20 Status: Ordered potassium chloride 20 mEq oral tablet, extended release 1 tablet = 20 mEq, By Mouth, Daily, # 90 tablet, 1 Refills, Maintenance, 01/12/19 17:42:00 EDT Start Date: 01/12/19 Status: Ordered triamcinolone 0.025% topical cream 1 applicator, Topically, 3 times a day, apply a thin film for eczema, # 30 Gm, 3 Refills, Maintenance, 07/05/20 17:19:00 EST, [facility] #[id number], 1 applicator Topically 3 times a day,Instr:apply a thin film for eczema, 176, cm, 07/05/20 15:49... Start Date: 07/05/20 Status: Ordered Triple Antibiotic topical ointment 1 application, Topically, 2 times a day, # 28 Gm, 0 Refills, Acute, 11/15/19 12:12:00 EDT, [facility] #[id number], 7, APPLY 1 APPLICATION TOPICALLY TWICE DAILY, [...] 1 2 3 Oxygen Saturation [94-100 %] 98 % (11/27/20 12:12 AM) 99 % (11/26/20 3:25 PM) 99 % (11/26/20 3:08 PM) Pulse Rate [55-90 bpm] 76 bpm (11/27/20 12:12 AM) 66 bpm (11/26/20 3:25 PM) 91 bpm *H* (11/26/20 3:08 PM) Blood Pressure [90-138/55-84 mm Hg] 147/81mm Hg *H* (11/27/20 12:12 AM) 151/85mm Hg *H* (11/26/20 3:25 PM) Respiratory Rate [16-30 br/min] 17 br/min (11/27/20 12:12 AM) 16 br/min (11/26/20 3:25 PM) Temperature [96.8-100.4 DegF] 98.3 DegF (11/26/20 3:25 PM) Mode of Delivery (Oxygen) Room air (11/27/20 12:12 AM) Room air (11/26/20 3:25 PM) Room air (11/26/20 3:08 PM) Blood pressure sites Arm, right (11/26/20 3:25 PM) Temperature Route Oral (11/26/20 3:25 PM) Social History Social History Type Response Smoking Status Current every day adrián smart; Type: Cigarettes entered on: 10/29/13 Sex Female
--- OUTSIDE RECORDS SUMMARY | 2023-07-02 19:15 | XMS_ITS | Continuity of Care Document ---
Author Name Unknown Organization [facility] Address [address] [place] [address]- Care Team Providers Care Official Court Interpreter Name Role Phone Abiel Nickerson Primary Care Physician [phone] Encounter [facility] Date(s): 12/08/19 - 01/07/20 [facility] [address] [place] [address]- [facility] Attending Physician: Admtr, Ar8 Allergies, Adverse Reactions, [...] 08/04/19 10:07:00 EST, Route to Pharmacy Electronically, [facility] #[id number], 176, cm, 08/04... Start Date: 08/04/19 Status: Ordered apixaban 5 mg oral tablet 1 tablet = 5 mg, By Mouth, 2 times a day, STOPPING WARFARIN., # 60 tablet, 11 Refills, Maintenance,11/15/19 12:12:00 EDT, [facility] #[id number], 176, cm, 09/16/19 14:40:00 EST, Height, 123.2, kg, 08/21/19 20:54:00 EST, Dry Weight Start Date: 11/15/19 Status: Ordered atorvastatin 20 mg oral tablet 1 tablet = 20 mg, By Mouth, Daily, Dose increase to 20mg qd 12/04/16., # 30 tablet, 11 Refills, Maintenance, Route to Pharmacy Electronically, [id number], [facility] [id number] Start Date: 01/19/19 Status: Ordered cetirizine 10 mg oral tablet 1 tablet = 10 mg, By Mouth, Daily, # 30 tablet, 5 Refills, Maintenance, 11/15/19 11:43:00 EDT, Tablet, [facility] #[id number], 176, cm, 09/16/19 14:40:00 EST, Height, 123.2, [...] 5 Refills, Maintenance, 11/15/19 11:45:00 EDT, Tablet, [facility] #[id number], 176, cm, 09/16/19 14:40:00 EST, Height, 123.2, kg, 08/21/19 20:54:00 EST, Dry Weight Start Date: 11/15/19 Status: Ordered Flonase 50 mcg/inh nasal spray 1 sprays, Nares, Both, 2 times a day, # 1 each, 2 Refills, Maintenance, 12/31/19 12:09:00 EDT, [place], [facility] #[id number], 1 sprays Nares, Both 2 times a day,x30 days, 176, cm, 12/08/19 10:38:00 EDT, Height, 123.2, kg, 08/21/19 20:54:00 EST, D... Start Date: 12/31/19 Stop Date: 03/30/20 Status: Ordered hydrochlorothiazide-lisinopril 25 mg-20 mg oral tablet 1 tablet, By Mouth, Daily, # 30 tablet, 2 Refills, Maintenance, 12/31/19 9:24:00 EDT, Tablet, [facility] #54539, 1 tablet By Mouth Daily,x30 days, 176, cm, 12/08/19 10:38:00 EDT, Height, 123.2, kg, 08/21/19 20:54:00 EST, Dry Weight Start Date: 12/31/19 Stop Date: 03/30/20 Status: Ordered ketoconazole 2% topical cream 1 application, Topically, 2 times a day, for 28 days, to affected area, # 60 Gm, 1 Refills, Acute 02/18/20 10:20:00 EDT, 12/24/19 10:20:00 EDT, Cream, [facility] #35135, 1 application Topically 2 times a day,x28 days,Instr:to affected area,... Start Date: 12/24/19 Stop Date: 02/18/20 Status: Ordered lidocaine 5% topical cream 1 [...] Refills, Maintenance, 09/02/19 14:32:00 EST, REC Powder, [facility] #30722, 176, cm, 09/02/19 13:59:00 EST, Hei... Start Date: 09/02/19 Status: Ordered MiraLax oral powder for reconstitution = 17 Gm, By Mouth, Daily, PRN Constipation, dissolve in water before taking, # 12 each, 5 Refills, Maintenance, 09/02/19 14:32:00 EST, REC Powder, [facility] #[id number], 17 Gm By Mouth Daily,PRN:Constipation,Instr:dissolve in water before taking... Start Date: 09/02/19 Status: Ordered nitroglycerin 0.4 mg sublingual tablet 1 tablet = 0.4 mg, Sublingual, Every 5 minutes, PRN for chest pain, If chest pain not relieved in 5minutes after first dose, seek immediate medical attention, # 1 tablet, 0 Refills, Maintenance, 08/19/16 10:23:57, Tablet Start Date: 08/19/16 Status: Ordered nystatin topical 148844 u/gm powder 1 application, Topically, 2 times [...] Refills, Maintenance, 11/15/19 11:44:00 EDT, EC Capsule, [facility] #[id number], 176, cm, 09/16/19 14:40:00 EST, Height,123.2, kg, 08/21/19 20:54:00 EST, Dry Weight Start Date: 11/15/19 Stop Date: 02/13/20 Status: Ordered PARoxetine 10 mg oral tablet 10 mg, 1, tablet, By Mouth, Daily, please d/c 7.5mg order, # 30 tablet, Refills 5, Tot. Refills 5, Maintenance, 09/17/19 13:12:00 EST, Route to Pharmacy Electronically, [facility] #[id number], 176, cm, 09/16/19 14:40:00 EST, Height, 123.2, kg, 02... Start Date: 09/17/19 Status: Ordered PARoxetine 7.5 mg oral capsule 1 capsule = 7.5 mg, By Mouth, Daily at bedtime, # 30 capsule, 2 Refills, Maintenance, 09/16/19 15:43:00 EST, [facility] #[id number], 176, cm, 09/16/19 14:40:00 EST, Height, 123.2, [...] 12/14/19 8:51:00 EDT, Route to Pharmacy Electronically, [facility] #[id number], 176, cm, 12/08/19 10:38:00EDT, Height, 123.2, kg, 08/21/19 20:54:00 EST, Dry... Start Date: 12/14/19 Status: Ordered triamcinolone 0.025% topical cream 1 applicator, Topically, 3 times a day, apply a thin film for eczema, # 30 Gm, 3 Refills, Maintenance, 08/18/19 10:35:00 EST, [facility] #[id number], 1 applicator Topically 3 times a day,Instr:apply a thin film for eczema, 176, cm, 08/18/19 9:16:... Start Date: 08/18/19 Status: Ordered Triple Antibiotic topical ointment 1 application, Topically, 2 times a day, # 28 Gm, 0 Refills, Acute, 11/15/19 12:12:00 EDT, [facility] #[id number], 7, APPLY 1 APPLICATION TOPICALLY TWICE DAILY, [...]
--- OUTSIDE RECORDS SUMMARY | 2023-07-02 19:15 | XMS_ITS | Continuity of Care Document ---
Author Name Unknown Organization [facility] Address [address] [place] [address]- Care Team Providers Care Commercial Project Manager Name Role Phone Abiel Nickerson Primary Care Physician [facility]counter [facility] Date(s): 10/15/19 - 10/25/19 [facility] [address] [place] [address]- [facility] Attending Physician: Admtr, Ar8 Allergies, Adverse Reactions, [...] 08/04/19 10:07:00 EST, Route to Pharmacy Electronically, [facility] #[id number], 176, cm, 08/04... Start Date: 08/04/19 Status: [...] 11 Refills, Maintenance, Route to Pharmacy Electronically, [id number], [facility] [id number] Start Date: 01/19/19 Status: Ordered bacitracin/neomycin/polymyxin B topical 400 u-3.5 mg-5000 u/gm ointment 1 application, Topically, 2 times a day, # 30 Gm, 0 Refills, Maintenance, 08/04/19 10:09:00 EST, Ointment, [facility] #02499, 1 application Topically 2 times a day, 176, cm, 08/04/19 9:12:00 EST, Height, 124, kg, 04/07/18 17:51:00 EDT, Dry W... Start Date: 08/04/19 Status: Ordered cetirizine 10 mg oral tablet 1 tablet = 10 mg, By Mouth, Daily, # 30 tablet, 5 Refills, Maintenance, 08/18/19 10:35:00 EST, Tablet, [facility] #[id number], 176, cm, 08/18/19 9:16:00 EST, Height, 124, [...] each, 2 Refills, Maintenance, 08/24/18 16:36:46 EST, [place], 1 sprays Nares, Both 2 times a [...] Refills, Maintenance, 09/02/19 14:32:00 EST, REC Powder, [facility] #[id number], 176, cm, 09/02/19 13:59:00 EST, Hei... Start Date: 09/02/19 Status: Ordered MiraLax oral powder for reconstitution = 17 Gm, By Mouth, Daily, PRN Constipation, dissolve in water before taking, # 12 each, 5 Refills, Maintenance, 09/02/19 14:32:00 EST, REC Powder, [facility] #52139, 17 Gm By Mouth Daily,PRN:Constipation,Instr:dissolve in water before taking... Start Date: 09/02/19 Status: Ordered nitroglycerin 0.4 mg sublingual tablet 1 tablet = 0.4 mg, Sublingual, Every 5 minutes, PRN for chest pain, If chest pain not relieved in 5minutes after first dose, seek immediate medical attention, # 1 tablet, 0 Refills, Maintenance, 08/19/16 10:23:57, Tablet Start Date: 08/19/16 Status: Ordered nystatin topical 777953 u/gm powder 1 application, Topically, 2 times [...] Refills, Maintenance, 09/02/19 15:58:00 EST, EC Capsule, [facility] #[id number], 176, cm, 09/02/19 13:59:00 EST, Height,123.2, kg, 08/21/19 20:54:00 EST, Dry Weight Start Date: 09/02/19 Stop Date: 12/01/19 Status: Ordered PARoxetine 10 mg oral tablet 10 mg, 1, tablet, By Mouth, Daily, please d/c 7.5mg order, # 30 tablet, Refills 5, Tot. Refills 5, Maintenance, 09/17/19 13:12:00 EST, Route to Pharmacy Electronically, [facility] #[id number], 176, cm, 09/16/19 14:40:00 EST, Height, 123.2, kg, 02... Start Date: 09/17/19 Status: Ordered PARoxetine 7.5 mg oral capsule 1 capsule = 7.5 mg, By Mouth, Daily at bedtime, # 30 capsule, 2 Refills, Maintenance, 09/16/19 15:43:00 EST, [facility] #21059, 176, cm, 09/16/19 14:40:00 EST, Height, 123.2, [...] 12/01/18 8:44:39 EDT, Route to Pharmacy Electronically, [id number][facility] Start Date: 12/01/18 Status: Ordered triamcinolone 0.025% topical cream 1 applicator, Topically, 3 times a day, apply a thin film for eczema, # 30 Gm, 3 Refills, Maintenance, 08/18/19 10:35:00 EST, [facility][id number], 1 applicator Topically 3 times a day,Instr:apply [...]
--- OUTSIDE RECORDS SUMMARY | 2023-07-02 19:15 | XMS_ITS | Continuity of Care Document ---
Author Name Unknown Organization [facility] Address [address] [place] [address]- Care Team Providers Care Cloth Bleaching Range Operator Chief Name Role Phone Abiel Nickerson Primary Care Physician [phone] Encounter [facility] Date(s): 10/16/22 - 11/15/22 [facility] [address] [place], [place] [address] Allergies, Adverse Reactions, Alerts Substance Reaction Severity Status penicillin hives Active sulfamethoxazole hives Active Cortisporin Active Latex Active Immunizations Given and Recorded Vaccine Date Status Refusal Reason SARS-CoV-2 mRNA ([id number]) vax 08/28/21 Given influenza virus vaccine, inactivated [...] tablet, 3 Refills, Maintenance, 09/30/22 10:07:00 EDT, [facility] #82195, 170, cm, 09/30/22 9:28:00 EDT, Height, 113, kg, 08/28/21 19:48:00 EST, Dry Weight Start Date: 09/30/22 Status: Ordered cetirizine 10 mg oral tablet 1 tablet, By Mouth, Daily, # 30 tablet, 5 Refills, Maintenance, 09/30/22 10:07:00 EDT, [facility] #09140, 170, cm, 09/30/22 9:28:00 EDT, Height, 113, kg, 08/28/21 19:48:00 EST, Dry Weight Start Date: 09/30/22 Status: Ordered Eliquis 5 mg oral tablet 1 tablet, By Mouth, 2 times a day, STOPPING WARFARIN., # 60 tablet, 0 Refills, Maintenance, 05/02/22 13:12:00 EDT, [facility] #10472, 170, cm, 03/27/22 8:35:00 EDT, Height, 113, kg, 08/28/21 19:48:00 EST, Dry Weight Start Date: 05/02/22 Status: Ordered Eliquis 5 mg oral tablet See Instructions, TAKE 1 TABLET BY MOUTH TWICE DAILY STOPPING WARFARIN, # 60 tablet, 11 Refills, Maintenance, 05/06/22 9:53:00 EDT, [facility] #44114, 170, cm, 03/27/22 8:35:00 EDT, Height,113, kg, 08/28/21 19:48:00 EST, Dry Weight Start Date: 05/06/22 Status: Ordered fluticasone 50 mcg/inh nasal spray See Instructions, SHAKE LIQUID AND USE 1 SPRAY IN EACH NOSTRIL TWICE DAILY, # 16 Gm, 0 Refills, Maintenance, [facility] #05271, 30, SHAKE LIQUID AND USE 1 SPRAY [...] 30 tablet, 11 Refills, 03/27/22 8:29:00 EDT, [facility] #97201, 30, 1 tablet By Mouth Daily, 170, cm, 03/27/22 8:17:00 EDT, Height, 113, kg, 08/28/21 19:48:00 EST, Dry Weight Start Date: 03/27/22 Status: Ordered ipratropium nasal 21 mcg/inh spray See Instructions, USE 2 SPRAYS IN EACH NOSTRIL TWICE DAILY IN EACH NOSTRIL, NEEDED CONGESTION, #30 mL, 5 Refills, Maintenance, 09/03/22 9:40:00 EST, [facility] #32675, 30, USE 2 SPRAYS IN EACH NOSTRIL TWICE DAILY IN EACH NOSTRIL, NEED... Start Date: 09/03/22 Status: Ordered ketoconazole 2% topical cream See Instructions, APPLY BENEATH BREAST AND GROIN AREAS TWICE DAILY, # 120 Gm, 2 Refills, Maintenance, 09/30/22 10:09:00 EDT, [facility] #03605, 30, APPLY BENEATH BREAST AND GROIN AREAS TWICE DAILY, 170, cm, 09/30/22 9:28:00 EDT, Height, 113,... Start Date: 09/30/22 Status: Ordered Metamucil 3.4 gm/5.2 gm oral powder for reconstitution = 1.7 Gm, By Mouth, 3 times a day, PRN as needed for constipation, dissolve in 8 oz of fluid. drinkplenty of water., # 570 Gm, 5 Refills, Maintenance, 09/02/19 14:32:00 EST, REC Powder, [facility] #84328, 176, cm, 09/02/19 13:59:00 EST, Hei... Start Date: 09/02/19 Status: Ordered Metoprolol Succinate ER 50 mg oral tablet, extended release 1 tablet, By Mouth, Daily, # 90 tablet, 0 Refills, Maintenance, 09/03/22 9:40:00 EST, [facility] #13504, 170, cm, 08/28/22 14:45:00 EST, Height, 113, kg, 08/28/21 19:48:00 EST, Dry Weight Start Date: 09/03/22 Status: Ordered omeprazole 20 mg oral enteric coated capsule 1 capsule, By Mouth, Daily, PRN NEEDED, ACID INDIGESTION., # 90 capsule, 0 Refills, Maintenance,09/03/22 9:40:00 EST, [facility] #42327, 170, cm, 08/28/22 14:45:00 EST, Height, 113, kg,08/28/21 19:48:00 EST, Dry Weight Start Date: 09/03/22 Status: Ordered PEG-3350 with Electrolytes (Eqv-NuLYTELY) oral powder for reconstitution See Instructions, Mix powder withn water according to the product label. Drink 8 oz of prep fluid every 15-20 minutes ion the evening before the colonoscopy., # 1 each, 0 Refills, Maintenance, 08/26/22 11:04:00 EST, [facility] #[id number], Parti... Start Date: 08/26/22 Status: Ordered polyethylene glycol 3350 oral powder for reconstitution See Instructions, DISSOLVE 17 GM IN WATER EVERY DAY NEEDED FOR CONSTIPATION, # 510 Gm, 0 Refills, Maintenance, 03/26/22 8:19:00 EDT, [facility] #33750, 30, DISSOLVE 17 GM IN WATER EVERY DAY NEEDED FOR CONSTIPATION, 170, cm, 01/24/22 18... Start Date: 03/26/22 Status: Ordered Potassium Chloride (Sla-Cltg-Oty 10) 10 mEq oral tablet, extended release 1 tablet = 10 mEq, By Mouth, Daily, # 30 tablet, 5 Refills, Maintenance, 10/02/21 16:06:00 EDT, [facility] #50368, Partial fill upon patient request if the prescription is for a schedule IIopioid drug., 170, cm, 10/02/21 15:32:00 EDT, [facility]... Start Date: 10/02/21 Status: Ordered Shingrix intramuscular injection = 0.5 mL, Intramuscular, Once, repeat dose in 2 to 6 months, # 2 each, 0 Refills, Soft Stop, 03/21/21 8:37:00 EDT, Powder, [facility] #61329, Partial fill upon patient request if the prescription is for a schedule II opioid drug., 0.5 mL Int... Start Date: 03/21/21 Status: Ordered traZODone 50 mg oral tablet 75 mg, 1.5, tablet, By Mouth, Daily at bedtime, # 45 tablet, Refills 5, Tot. Refills 5, Maintenance, 10/21/22 15:02:00 EDT, Route to Pharmacy Electronically, [facility] #[id number], dose increase to 75mg qhs 10/21/22., 170, cm, 10/21/22 14:25:00 ED... Start Date: 10/21/22 Stop Date: 04/19/23 Status: Ordered triamcinolone 0.5% topical ointment See Instructions, APPLY TOPICALLY TO THE AFFECTED AREA TWICE DAILY FOR UP TO 14 DAYS FOR ECZEMA, # 60 Gm, 1 Refills, Maintenance, 09/30/22 10:09:00 EDT, [facility] #33694, 28, APPLY TOPICALLY TO THE AFFECTED AREA TWICE DAILY FOR UP TO 14 DAY... Start Date: 09/30/22 Status: Ordered Trulicity Pen 0.75 mg/0.5 mL subcutaneous solution 0.5 mL = 0.75 mg, Subcutaneous Injection, Every week, # 2 mL, 11 Refills, Maintenance, 03/27/22 8:27:00 EDT, Solution, [facility] #06902, Partial fill upon patient request if the prescription is for a schedule II opioid drug., 170, cm, 03/27... Start Date: 03/27/22 Status: Ordered Vitamin D3 50,000 intl units oral capsule 1 capsule = 1,250 mcg, By Mouth, Every week, with food, # 4 each, 1 Refills, Maintenance, 10/23/22 16:25:00 EDT, [facility] #86150, Partial fill upon patient request if the prescription is for a schedule II opioid drug., 170, cm, 10/21/22 14... Start Date: 10/23/22 Stop Date: 02/12/23 Status: Ordered Voltaren 1% topical gel = 2 Gm, Topically, 4 times a day, PRN arthritis pain, # 150 Gm, 3 Refills, Maintenance, 08/28/21 9:02:00 EST, [facility] #03511, Partial fill upon patient request if the [...] Personnel Name: Abiel Nickerson Position: [facility] PCO Associate Professional Member Role: PCP Address: Address: [address] [place] [address] [place] [address]- Name: Jennifer Rodriguez RN Position: [facility] RN Member Role: Primary Care Nurse Care Team Related Persons Name: KINGA ACOSTA Address: [address] [address] Name: VELVET ACOSTA Address: [place] [address]
--- OUTSIDE RECORDS SUMMARY | 2023-07-02 19:15 | XMS_ITS | Continuity of Care Document ---
Author Name Unknown Organization [facility] Address [address] [place] [address]- Care Team Providers Care Hi Ranger Operator Name Role Phone Abiel Nickerson Primary Care Physician [facility] Date[facility]): 10/07/22 - 11/06/22 [facility] [address] [place], [place] [address] Allergies, Adverse Reactions, Alerts Substance Reaction Severity Status penicillin hives Active sulfamethoxazole hives Active Latex Active Cortisporin Active Immunizations Given and Recorded Vaccine Date Status Refusal Reason SARS-CoV-2 mRNA ([id number]) vax 08/28/21 Given influenza virus vaccine, inactivated [...] tablet, 3 Refills, Maintenance, 09/30/22 10:07:00 EDT, [facility] #[id number], 170, cm, 09/30/22 9:28:00 EDT, Height, 113, kg, 08/28/21 19:48:00 EST, Dry Weight Start Date: 09/30/22 Status: Ordered cetirizine 10 mg oral tablet 1 tablet, By Mouth, Daily, # 30 tablet, 5 Refills, Maintenance, 09/30/22 10:07:00 EDT, [facility] #[id number], 170, cm, 09/30/22 9:28:00 EDT, Height, 113, kg, 08/28/21 19:48:00 EST, Dry Weight Start Date: 09/30/22 Status: Ordered Eliquis 5 mg oral tablet 1 tablet, By Mouth, 2 times a day, STOPPING WARFARIN., # 60 tablet, 0 Refills, Maintenance, 05/02/22 13:12:00 EDT, [facility] #[id number], 170, cm, 03/27/22 8:35:00 EDT, Height, 113, kg, 08/28/21 19:48:00 EST, Dry Weight Start Date: 05/02/22 Status: Ordered Eliquis 5 mg oral tablet See Instructions, TAKE 1 TABLET BY MOUTH TWICE DAILY STOPPING WARFARIN, # 60 tablet, 11 Refills, Maintenance, 05/06/22 9:53:00 EDT, [facility] #[id number], 170, cm, 03/27/22 8:35:00 EDT, Height,113, kg, 08/28/21 19:48:00 EST, Dry Weight Start Date: 05/06/22 Status: Ordered fluticasone 50 mcg/inh nasal spray See Instructions, SHAKE LIQUID AND USE 1 SPRAY IN EACH NOSTRIL TWICE DAILY, # 16 Gm, 0 Refills, Maintenance, [facility] #[id number], 30, SHAKE LIQUID AND USE 1 SPRAY [...] 30 tablet, 11 Refills, 03/27/22 8:29:00 EDT, [facility] #[id number], 30, 1 tablet By Mouth Daily, 170, cm, 03/27/22 8:17:00 EDT, Height, 113, kg, 08/28/21 19:48:00 EST, Dry Weight Start Date: 03/27/22 Status: Ordered ipratropium nasal 21 mcg/inh spray See Instructions, USE 2 SPRAYS IN EACH NOSTRIL TWICE DAILY IN EACH NOSTRIL, NEEDED CONGESTION, #30 mL, 5 Refills, Maintenance, 09/03/22 9:40:00 EST, [facility] #[id number], 30, USE 2 SPRAYS IN EACH NOSTRIL TWICE DAILY IN EACH NOSTRIL, NEED... Start Date: 09/03/22 Status: Ordered ketoconazole 2% topical cream See Instructions, APPLY BENEATH BREAST AND GROIN AREAS TWICE DAILY, # 120 Gm, 2 Refills, Maintenance, 09/30/22 10:09:00 EDT, [facility] #[id number], 30, APPLY BENEATH BREAST AND GROIN AREAS TWICE DAILY, 170, cm, 09/30/22 9:28:00 EDT, Height, 113,... Start Date: 09/30/22 Status: Ordered Metamucil 3.4 gm/5.2 gm oral powder for reconstitution = 1.7 Gm, By Mouth, 3 times a day, PRN as needed for constipation, dissolve in 8 oz of fluid. drinkplenty of water., # 570 Gm, 5 Refills, Maintenance, 09/02/19 14:32:00 EST, REC Powder, [facility] #[id number], 176, cm, 09/02/19 13:59:00 EST, Hei... Start Date: 09/02/19 Status: Ordered Metoprolol Succinate ER 50 mg oral tablet, extended release 1 tablet, By Mouth, Daily, # 90 tablet, 0 Refills, Maintenance, 09/03/22 9:40:00 EST, [facility] #[id number], 170, cm, 08/28/22 14:45:00 EST, Height, 113, kg, 08/28/21 19:48:00 EST, Dry Weight Start Date: 09/03/22 Status: Ordered omeprazole 20 mg oral enteric coated capsule 1 capsule, By Mouth, Daily, PRN NEEDED, ACID INDIGESTION., # 90 capsule, 0 Refills, Maintenance,09/03/22 9:40:00 EST, [facility] #[id number], 170, cm, 08/28/22 14:45:00 EST, Height, 113, kg,08/28/21 19:48:00 EST, Dry Weight Start Date: 09/03/22 Status: Ordered PEG-3350 with Electrolytes (Eqv-NuLYTELY) oral powder for reconstitution See Instructions, Mix powder withn water according to the product label. Drink 8 oz of prep fluid every 15-20 minutes ion the evening before the colonoscopy., # 1 each, 0 Refills, Maintenance, 08/26/22 11:04:00 EST, [facility] #[id number], Parti... Start Date: 08/26/22 Status: Ordered polyethylene glycol 3350 oral powder for reconstitution See Instructions, DISSOLVE 17 GM IN WATER EVERY DAY NEEDED FOR CONSTIPATION, # 510 Gm, 0 Refills, Maintenance, 03/26/22 8:19:00 EDT, [facility] #[id number], 30, DISSOLVE 17 GM IN WATER EVERY DAY NEEDED FOR CONSTIPATION, 170, cm, 01/24/22 18... Start Date: 03/26/22 Status: Ordered Potassium Chloride (Zqx-[id number] 10) 10 mEq oral tablet, extended release 1 tablet = 10 mEq, By Mouth, Daily, # 30 tablet, 5 Refills, Maintenance, 10/02/21 16:06:00 EDT, [facility] #[id number], Partial fill upon patient request if the prescription is for a schedule IIopioid drug., 170, cm, 10/02/21 15:32:00 EDT, [facility]... Start Date: 10/02/21 Status: Ordered Shingrix intramuscular injection = 0.5 mL, Intramuscular, Once, repeat dose in 2 to 6 months, # 2 each, 0 Refills, Soft Stop, 03/21/21 8:37:00 EDT, Powder, [facility] #[id number], Partial fill upon patient request if the prescription is for a schedule II opioid drug., 0.5 mL Int... Start Date: 03/21/21 Status: Ordered traZODone 50 mg oral tablet 75 mg, 1.5, tablet, By Mouth, Daily at bedtime, # 45 tablet, Refills 5, Tot. Refills 5, Maintenance, 10/21/22 15:02:00 EDT, Route to Pharmacy Electronically, [facility] #[id number], dose increase to 75mg qhs 10/21/22., 170, cm, 10/21/22 14:25:00 ED... Start Date: 10/21/22 Stop Date: 04/19/23 Status: Ordered triamcinolone 0.5% topical ointment See Instructions, APPLY TOPICALLY TO THE AFFECTED AREA TWICE DAILY FOR UP TO 14 DAYS FOR ECZEMA, # 60 Gm, 1 Refills, Maintenance, 09/30/22 10:09:00 EDT, [facility] #[id number], 28, APPLY TOPICALLY TO THE AFFECTED AREA TWICE DAILY FOR UP TO 14 DAY... Start Date: 09/30/22 Status: Ordered Trulicity Pen 0.75 mg/0.5 mL subcutaneous solution 0.5 mL = 0.75 mg, Subcutaneous Injection, Every week, # 2 mL, 11 Refills, Maintenance, 03/27/22 8:27:00 EDT, Solution, [facility] #[id number], Partial fill upon patient request if the prescription is for a schedule II opioid drug., 170, cm, 03/27... Start Date: 03/27/22 Status: Ordered Vitamin D3 50,000 intl units oral capsule 1 capsule = 1,250 mcg, By Mouth, Every week, with food, # 4 each, 1 Refills, Maintenance, 10/23/22 16:25:00 EDT, [facility] #[id number], Partial fill upon patient request if the prescription is for a schedule II opioid drug., 170, cm, 10/21/22 14... Start Date: 10/23/22 Stop Date: 02/12/23 Status: Ordered Voltaren 1% topical gel = 2 Gm, Topically, 4 times a day, PRN arthritis pain, # 150 Gm, 3 Refills, Maintenance, 08/28/21 9:02:00 EST, [facility] #[id number], Partial fill upon patient request if the [...] Care Team Personnel Name: Abiel Nickerson Position: [facility] PCO Associate Professional Member Role: PCP Address: Address: [address] [place] [address] [place] [address]- Name: Jennifer Rodriguez RN Position: [facility] RN Member Role: Primary Care Nurse Care Team Related Persons Name: KINGA ACOSTA Address: [address] [address] Name: VELVET ACOSTA Address: [place] [address]
--- OUTSIDE RECORDS SUMMARY | 2023-07-02 19:15 | XMS_ITS | Continuity of Care Document ---
Author Name Unknown Organization [facility] Address [address] [place] [address]- Care Team Providers Care Psychology Physician Name Role Phone Abiel Nickerson Primary Care Physician [phone] [facility]10[facility]20 - 05/10/20 [facility] [address] [place] [address]- [facility] Allergies, Adverse Reactions, Alerts Substance Reaction Severity [...] 08/04/19 10:07:00 EST, Route to Pharmacy Electronically, [facility] #[id number], 176, cm, 08/04... Start Date: 08/04/19 Status: Ordered apixaban 5 mg oral tablet 1 tablet = 5 mg, By Mouth, 2 times a day, STOPPING WARFARIN., # 60 tablet, 11 Refills, Maintenance,11/15/19 12:12:00 EDT, [facility] #[id number], 176, cm, 09/16/19 14:40:00 EST, Height, 123.2, kg, 08/21/19 20:54:00 EST, Dry Weight Start Date: 11/15/19 Status: Ordered atorvastatin 20 mg oral tablet 1 tablet, By Mouth, Daily, # 30 tablet, 11 Refills, Maintenance, 04/21/20 12:04:00 EDT, [facility] #[id number], 176, cm, 04/17/20 16:08:00 EDT, Height, 123.2, kg, 08/21/19 20:54:00 EST, Dry Weight Start Date: 04/21/20 Status: Ordered cetirizine 10 mg oral tablet 1 tablet = 10 mg, By Mouth, Daily, # 30 tablet, 5 Refills, Maintenance, 11/15/19 11:43:00 EDT, Tablet, [facility] #[id number], 176, cm, 09/16/19 14:40:00 EST, Height, 123.2, [...] 5 Refills, Maintenance, 11/15/19 11:45:00 EDT, Tablet, [facility] #[id number], 176, cm, 09/16/19 14:40:00 EST, Height, 123.2, kg, 08/21/19 20:54:00 EST, Dry Weight Start Date: 11/15/19 Status: Ordered Flonase 50 mcg/inh nasal spray 1 sprays, Nares, Both, 2 times a day, # 1 each, 2 Refills, Maintenance, 04/04/20 17:25:00 EDT, [place], [facility] #[id number], 1 sprays Nares, Both 2 times a day,x30 days, 176, cm, 12/08/19 10:38:00 EDT, Height, 123.2, kg, 08/21/19 20:54:00 EST, D... Start Date: 04/04/20 Stop Date: 07/03/20 Status: Ordered hydrochlorothiazide-lisinopril 25 mg-20 mg oral tablet 1 tablet, By Mouth, Daily, # 30 tablet, 2 Refills, Maintenance, 03/30/20 18:29:00 EDT, Tablet, [facility] #[id number], 1 tablet By Mouth Daily,x30 days, 176, cm, 12/08/19 10:38:00 EDT, Height, 123.2, kg, 08/21/19 20:54:00 EST, Dry Weight Start Date: 03/30/20 Stop Date: 06/28/20 Status: Ordered ketoconazole 2% topical cream See Instructions, APPLY EXTERNALLY TO THE AFFECTED AREA TWICE DAILY TO THE AFFECTED AREA, # 100 Gm,2 Refills, Maintenance, 04/17/20 16:42:00 EDT, [facility] #[id number], APPLY EXTERNALLY TO THEAFFECTED AREA TWICE DAILY TO THE AFFECTED AREA, 176... Start Date: 04/17/20 Status: Ordered lidocaine 5% topical cream 1 application, Topically, 3 times a day, # 100 Gm, 2 Refills, Maintenance, 04/17/20 16:42:00 EDT, Cream, [facility] #[id number], 1 application Topically 3 times a day,x14 [...] Refills, Maintenance, 09/02/19 14:32:00 EST, REC Powder, [facility] #[id number], 176, cm, 09/02/19 13:59:00 EST, Hei... Start Date: 09/02/19 Status: Ordered Metoprolol Succinate ER 50 mg oral tablet, extended release 1 tablet, By Mouth, Daily, # 60 tablet, 0 Refills, Maintenance, 03/13/20 10:14:00 EDT, [facility] #[id number], 176, cm, 12/08/19 10:38:00 EDT, Height, 123.2, kg, 08/21/19 20:54:00 EST, Dry Weight Start Date: 03/13/20 Status: Ordered MiraLax oral powder for reconstitution = 17 Gm, By Mouth, Daily, PRN Constipation, dissolve in water before taking, # 12 each, 5 Refills, Maintenance, 09/02/19 14:32:00 EST, REC Powder, [facility] #[id number], 17 Gm By Mouth Daily,PRN:Constipation,Instr:dissolve in water before taking... Start Date: 09/02/19 Status: Ordered nitroglycerin 0.4 mg sublingual tablet 1 tablet = 0.4 mg, Sublingual, Every 5 minutes, PRN for chest pain, If chest pain not relieved in 5minutes after first dose, seek immediate medical attention, # 1 tablet, 0 Refills, Maintenance, 08/19/16 10:23:57, Tablet Start Date: 08/19/16 Status: Ordered nystatin topical 109672 u/gm powder 1 application, Topically, 2 times [...] Refills, Maintenance, 03/17/20 19:11:00 EDT, EC Capsule, [facility] #[id number], 176, cm, 12/08/19 10:38:00 EDT, Height,123.2, kg, 08/21/19 20:54:00 EST, Dry Weight Start Date: 03/17/20 Stop Date: 06/15/20 Status: Ordered PARoxetine 10 mg oral tablet 1, tablet, By Mouth, Daily, # 30 tablet, Refills 0, Tot. Refills 0, Maintenance, 05/05/20 17:32:00 EDT, Route to Pharmacy Electronically, [facility] #[id number], 176, cm, 04/17/20 16:08:00 EDT, Height, 123.2, [...] Gm, 3 Refills, Maintenance, 08/18/19 10:35:00 EST, [facility] #[id number], 1 applicator Topically 3 times a day,Instr:apply a thin film for eczema, 176, cm, 08/18/19 9:16:... Start Date: 08/18/19 Status: Ordered Triple Antibiotic topical ointment 1 application, Topically, 2 times a day, # 28 Gm, 0 Refills, Acute, 11/15/19 12:12:00 EDT, [facility] #[id number], 7, APPLY 1 APPLICATION TOPICALLY TWICE DAILY, [...]
[2023-07-02 19:25] VITALS: BP 162/83; PULSE 63; RESP 18; TEMP 36.2; O2SAT 100
[2023-07-02 19:31] VITALS: BMI 34.5
--- NOTE | 2023-07-02 19:37 | PC.ADMIT ---
Nursing note: 63 year olf female DX: Unspecified Schizophrenia. Signed conditional voluntary for admission followed by 3 day notice. Reports understanding 3 day does not go into effet until MD accepts conditional voluntary. Patient skin check completed with RN EG. History of eczema. Nursing handoff given to on coming shift who will complete admission.
[2023-07-02] MEDS: Apixaban 5 MG TABLET PO (23:21)
[2023-07-02] MEDS: Docusate Sodium 100 MG CAPSULE PO (23:22)
--- NOTE | 2023-07-02 23:27 | PC.NURSE ---
Brittany is guarded but pleasant, she has aviodant eye contact. she refused HS Risperdal but took her other scheduled medications
[2023-07-03 07:00] VITALS: BMI 34.5
[2023-07-03 07:40] VITALS: BP 198/94; PULSE 62; RESP 16; TEMP 35.8; O2SAT 100
[2023-07-03] MEDS: Docusate Sodium 100 MG CAPSULE PO ×2 (08:19→23:00)
[2023-07-03] MEDS: hydroCHLOROthiazide 25 MG TABLET PO (08:20)
[2023-07-03] MEDS: Cholecalciferol (Vitamin D3) 25 MCG TABLET PO (08:20)
[2023-07-03] MEDS: Metoprolol Succinate ER 50 MG TAB.ER.24H PO (08:20)
[2023-07-03] MEDS: Atorvastatin Calcium 40 MG TABLET PO (08:21)
[2023-07-03] MEDS: lisinopriL 20 MG TABLET PO (08:21)
[2023-07-03] MEDS: Apixaban 5 MG TABLET PO ×2 (08:22→23:00)
[2023-07-03] MEDS: risperiDONE 1 MG TABLET PO (08:23)
[2023-07-03 08:41] LABS: MANUAL DIFF FLAG NO
[2023-07-03 08:51] LABS: Basophils Percent Auto 0.3 % (0-2); Eosinophils Absolute Auto 0.1 X10*3/uL (0.0-0.4); Eosinophils Percent Auto 1.6 % (0-4); Hematocrit 40.6 % (37.0-47.0); Hemoglobin 13.1 g/dl (12.0-16.0); Lymphocytes Absolute Auto 3.1 X10*3/uL (1.2-4.9); Lymphocytes Percent Auto 51.1 % (20-40); Mean Corpuscular HGB Conc 32.3 g/dl (31.0-35.0); Mean Corpuscular Hemoglobin 26.6 pg (27.0-33.0); Mean Corpuscular Volume 82.5 fL (80.0-98.0); Mean Platelet Volume 9.6 fL (9.4-12.3); Monocytes Absolute Auto 0.4 X10*3/uL (0.1-1.2); Monocytes Percent Auto 6.3 % (2-11); Neutrophils Absolute Auto 2.5 x10*3/uL (2.0-8.3); Neutrophils Percent Auto 40.7 % (45-73); Platelet Count 234 X10*3/uL (160-400); Red Blood Count 4.92 X10*6/uL (4.20-5.50); Red Cell Distribution Width 13.3 % (11.0-16.0); White Blood Count 6.1 X10*3/uL (4.8-10.8)
[2023-07-03] MEDS: Acetaminophen 325 MG TABLET 650 MG PO ×2 (09:01→21:57)
[2023-07-03 09:12] LABS: Alanine Aminotransferase 36 U/L (0-31); Albumin Level 3.4 g/dL (3.5-5.0); Alkaline Phosphatase 191 U/L (39-117); Anion Gap 13 (12-20); Aspartate Amino Transferase 33 U/L (5-31); Bilirubin Direct 0.1 mg/dL (0.0-0.5); Bilirubin Total 0.3 mg/dL (0.0-1.0); Blood Urea Nitrogen 18 mg/dL (9-16); Carbon Dioxide 31 mmol/L (22-29); Chloride 102 mmol/L (96-108); Cholesterol 124 mg/dL (<200); Creatinine Clr Calc Pharmacy 77.2; Estimated Glomerular Filt Rate 58; Glucose Fasting 104 mg/dL (60-99); HDL Cholesterol 47 mg/dL (>40); LDL Cholesterol Calculated 66 mg/dL (<100); Potassium 4.6 mmol/L (3.3-5.1); Sodium 141 mmol/L (135-145); Triglycerides 56 mg/dL (<150)
[2023-07-03 09:26] LABS: Estimated Average Glucose 128 mg/dL; Hemoglobin A1c % 6.1 % (<6.0)
[2023-07-03 09:29] LABS: Free T4 (Free Thyroxine) 1.12 ng/dL (0.71-1.85); Thyroid Stimulating Hormone 0.89 uIU/mL (0.32-4.0)
[2023-07-03 09:42] LABS: Vitamin B12 542 pg/mL (200-900)
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
[2023-07-03 20:20] VITALS: BP 175/89; PULSE 63; RESP 16; TEMP 36.2; O2SAT 100
[2023-07-03 21:52] VITALS: BP 170/77; PULSE 66; RESP 18; TEMP 36.4; O2SAT 100
[2023-07-03 22:19] VITALS: BP 172/86
[2023-07-03] MEDS: Triamcinolone Acet 0.5 % Oint 15 GM TUBE 1 APPL TOPICAL (22:59)
[2023-07-04 07:45] VITALS: BP 170/87; PULSE 66; RESP 14; TEMP 36.1; O2SAT 100
[2023-07-04] MEDS: risperiDONE 0.5 MG TABLET 1.5 MG PO (08:26)
[2023-07-04] MEDS: Loratadine 10 MG TABLET PO (08:26)
[2023-07-04] MEDS: Metoprolol Succinate ER 50 MG TAB.ER.24H PO (08:28)
[2023-07-04] MEDS: Apixaban 5 MG TABLET PO ×2 (08:28→22:58)
[2023-07-04] MEDS: Cholecalciferol (Vitamin D3) 25 MCG TABLET PO (08:29)
[2023-07-04] MEDS: lisinopriL 20 MG TABLET PO (08:29)
[2023-07-04] MEDS: Atorvastatin Calcium 40 MG TABLET PO (08:29)
[2023-07-04] MEDS: hydroCHLOROthiazide 25 MG TABLET PO (08:30)
[2023-07-04] MEDS: Docusate Sodium 100 MG CAPSULE PO ×2 (08:30→22:58)
[2023-07-04] MEDS: Ipratropium Bromide Nas 0.03 % 30 ML SPRAY 2 SPRAY NOSTRIL-B (08:35)
[2023-07-04] MEDS: Triamcinolone Acet 0.1 % Cream 15 GM TUBE 1 APPL TOPICAL (08:36)
[2023-07-04] MEDS: Triamcinolone Acet 0.5 % Oint 15 GM TUBE 1 APPL TOPICAL (08:40)
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
[2023-07-04 19:20] VITALS: BP 160/78; PULSE 67; RESP 16; TEMP 37.2; O2SAT 100
[2023-07-04] MEDS: Acetaminophen 325 MG TABLET 650 MG PO (22:57)
[2023-07-04] MEDS: risperiDONE 2 MG TABLET PO (22:57)
[2023-07-05 06:00] VITALS: BP 160/65; PULSE 66; TEMP 35.8
[2023-07-05] MEDS: Metoprolol Succinate ER 50 MG TAB.ER.24H PO (09:21)
[2023-07-05] MEDS: lisinopriL 20 MG TABLET PO (09:21)
[2023-07-05] MEDS: Atorvastatin Calcium 40 MG TABLET PO (09:21)
[2023-07-05] MEDS: Cholecalciferol (Vitamin D3) 25 MCG TABLET PO (09:22)
[2023-07-05] MEDS: hydroCHLOROthiazide 25 MG TABLET PO (09:23)
[2023-07-05] MEDS: Docusate Sodium 100 MG CAPSULE PO ×2 (09:23→23:07)
[2023-07-05] MEDS: Apixaban 5 MG TABLET PO ×2 (09:23→23:07)
[2023-07-05] MEDS: Loratadine 10 MG TABLET PO (09:23)
[2023-07-05] MEDS: Acetaminophen 325 MG TABLET 650 MG PO (16:01)
--- NOTE | 2023-07-05 17:20 | HO.PSYCHPN ---
Subjective Subjective Date of Service: 07/05/23 Reason For Visit: Unspec Psychosis Trauma and Stressor Related D/O Interim History: Patient seen and discussed. Remains guarded and denies any mental illness or symptoms. Says she is fine and denies SI/HI/AVH. Appears preoccupied. Adherent to medications. Isolative in her room. ] Received a walker. Review of Systems Review of Systems No acute medical complaints at this time. Mental Status Exam Mental Status Exam Narrative: wearing street clothes. generally cooperative. PMA of frequent shifts in her seat and strong gesticulations with her upper extremities. speech incr in amount, rate, loudness. nml prosody. decr latency. thoughts more organized. confabulation. paranoid delusions. affect full range, hyper-intense, mod-labile. mood good denies SI/HI/AVH. Diagnostics Vital Signs (24Hr): Vital Signs - 24 hr 07/04/23 19:20 07/05/23 06:00 Temperature 98.9 F 96.4 F L Pulse Rate 67 66 Respiratory Rate 16 Blood Pressure 160/78 H 160/65 H Pulse Oximetry 100 Oxygen Delivery Method Room Air BMI result Body Mass Index 34.5 Labs 07/03/23 08:28 07/03/23 08:28 Medications Medications Current Medications Acetaminophen (Acetaminophen 325 Mg Tablet) 650 mg PO Q6H PRN PRN Reason: Headache/Pain Mild Scale (1-3) Last Admin: 07/05/23 16:01 Dose: 650 mg Al Hydroxide/Mg Hydroxide (Magnesium Hydrox/Alum Hydrox 30 Ml Oral.Susp) 30 ml PO Q6H PRN PRN Reason: Heartburn/Nausea Apixaban (Apixaban 5 Mg Tablet) 5 mg PO BID [facility] Last Admin: 07/05/23 09:23 Dose: 5 mg Atorvastatin Calcium (Atorvastatin Calcium 40 Mg Tablet) 40 mg PO DAILY [facility] Last Admin: 07/05/23 09:21 Dose: 40 mg Docusate Sodium (Docusate Sodium 100 Mg Capsule) 100 mg PO BID [facility] Last Admin: 07/05/23 09:23 Dose: 100 mg Fluticasone Propionate (Fluticasone Propionate Nasal 16 Gm [place]) 1 spray NOSTRIL-B BID [facility] Last Admin: 07/05/23 09:25 Dose: Not Given Hydrochlorothiazide (Hydrochlorothiazide 25 Mg Tablet) 25 mg PO DAILY [facility] Last Admin: 07/05/23 09:23 Dose: 25 mg Hydroxyzine HCl (Hydroxyzine Hcl 25 Mg Tablet) 25 mg PO Q6H PRN PRN Reason: Anxiety Ipratropium [place] (Ipratropium [place] Demetrio 0.03 % 30 Ml [place]) 2 spray NOSTRIL-B BID [facility] Last Admin: 07/05/23 09:25 Dose: Not Given Lactulose (Lactulose 20 Gm/30 Ml Solution) 10 gm PO DAILY PRN PRN Reason: Constipation Lisinopril (Lisinopril 20 Mg Tablet) 20 mg PO DAILY [facility] Last Admin: 07/05/23 09:21 Dose: 20 mg Loratadine (Loratadine 10 Mg Tablet) 10 mg PO DAILY [facility] Last Admin: 07/05/23 09:23 Dose: 10 mg Magnesium Hydroxide (Milk Of Magnesia 30 Ml Oral.Susp) 30 ml PO DAILY PRN PRN Reason: Constipation Metoprolol Succinate (Metoprolol Succinate Er 50 Mg Tab.Er.24h) 50 mg PO DAILY [facility]; Protocol Last Admin: 07/05/23 09:21 Dose: 50 mg Nicotine Polacrilex (Nicotine Polacrilex 2 Mg Gum) 4 mg BUCCAL Q2H PRN PRN Reason: Nicotine Cravings Omeprazole (Omeprazole 20 Mg Capsule.Dr) 20 mg PO DAILY PRN PRN Reason: Acid Reflux Risperidone (Risperidone 1 Mg Tablet) 1 mg PO BID PRN PRN Reason: Agitation Risperidone (Risperidone 3 Mg Tablet) 3 mg PO BEDTIME [facility] Trazodone HCl (Trazodone Hcl 50 Mg Tablet) 50 mg PO BEDTIME MRX1 PRN PRN Reason: Insomnia Triamcinolone Acetonide (Triamcinolone Acet 0.5 % Oint 15 Gm Tube) 1 appl TOPICAL BID PRN PRN Reason: eczema Last Admin: 07/04/23 08:40 Dose: 1 appl Triamcinolone Acetonide (Triamcinolone Acet 0.1 % Cream 15 Gm Tube) 1 appl TOPICAL BID [facility]; Protocol Last Admin: 07/05/23 09:25 Dose: Not Given Vitamin D (Cholecalciferol (Vitamin D3) 25 Mcg Tablet) 25 mcg PO DAILY [facility] Last Admin: 07/05/23 09:22 Dose: 25 mcg Allergies Allergies Allergy/AdvReac Type Severity Reaction Status Date / Time bacitracin [From Cortisporin] Allergy Unknown Verified 07/03/23 00:08 hydrocortisone Allergy Unknown Verified 07/03/23 00:08 [From Cortisporin] latex Allergy Unknown Verified 07/03/23 00:08 neomycin [From Cortisporin] Allergy Unknown Verified 07/03/23 00:08 Penicillins Allergy Unknown Verified 07/03/23 00:08 polymyxin B Allergy Unknown Verified 07/03/23 00:08 [From Cortisporin] sulfamethizole Allergy Unknown Verified 07/03/23 00:08 Assessment & Plan Assessment & Plan (1) Medical clearance for psychiatric admission: Status: Acute Code(s): Z00.8 - Encounter for other general examination (2) Radha: Status: Acute Code(s): F30.9 - Manic episode, unspecified Assessment and Plan: Pt is a 63-year-old female with a PMH significant for?paroxysmal afib on Eliquis, HTN, HLD, GERD, 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 Pt has apparently been noncompliant with her psychiatric medication and speaking with people who are not there. Medical consult for admission H&P. ?Pt has no acute medical complaints at this time. Ambulation on the unit Pt reports using a cane at home PT evaluation for possible walker (2) Radah: Status: Acute Code(s): F30.9 - Manic episode, unspecified Plan 07/03: restart/continue home meds. only on 3 mg risperidone daily. due to likely bipolar disorder, will attempt to convince to take mood stabilizer. 07/04: slightly more organized and less labile today. had only 2 mg risperidone in the past 24H due to her partial refusal of home medications regimen. discussed that she was on 3 mg daily (1.5 BID) prior to admission but that since she c/o sedation from it, all 3 mg has been rescheduled for HS. attempting to achieve whatever improvement possible with risperidone, establish rapport, then add mood stabilizer. per collateral from pt's obtained by [facility], 's reports in referral documents regarding grabbing steering wheel, punching him in the face, and lining up knives in the kitchen to prepare a defense were affirmed. 07/05: Continue current management and treatment plan. 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 Pt has apparently been noncompliant with her psychiatric medication and speaking with people who are not there. Medical consult for admission H&P. ?Pt has no acute medical complaints at this time. Mood disorder Plan as per psychiatry Paroxysmal AFib Continue Eliquis HLD Continue statin HTN Continue lisinopril/hydrochlorothiazide Ambulation on the unit Pt reports using a cane at home PT evaluation for possible walker Thank you for allowing us to participate in the care of this patient. Signing off at this time. Please re-consult if any acute complaints or issues arise. Reason for continued inpatient stay Substantial Risk for: inability to function and rapid decompensation Time Spent With Patient Time: Total time managing care of this patient today ____ minutes.
[2023-07-05 20:15] VITALS: BP 140/65; PULSE 72; RESP 18; TEMP 36.6; O2SAT 100
[2023-07-05] MEDS: risperiDONE 3 MG TABLET PO (23:07)
[2023-07-06 08:10] VITALS: BP 153/90; PULSE 66; RESP 18; TEMP 36.1; O2SAT 98
[2023-07-06] MEDS: Loratadine 10 MG TABLET PO (08:32)
[2023-07-06] MEDS: hydroCHLOROthiazide 25 MG TABLET PO (08:33)
[2023-07-06] MEDS: Cholecalciferol (Vitamin D3) 25 MCG TABLET PO (08:33)
[2023-07-06] MEDS: Docusate Sodium 100 MG CAPSULE PO ×2 (08:33→23:03)
[2023-07-06] MEDS: Atorvastatin Calcium 40 MG TABLET PO (08:33)
[2023-07-06] MEDS: lisinopriL 20 MG TABLET PO (08:34)
[2023-07-06] MEDS: Metoprolol Succinate ER 50 MG TAB.ER.24H PO (08:34)
[2023-07-06] MEDS: Apixaban 5 MG TABLET PO ×2 (08:34→23:03)
[2023-07-06] MEDS: Acetaminophen 325 MG TABLET 650 MG PO (16:25)
--- NOTE | 2023-07-06 16:29 | PC.NURSE ---
Pt reported feeling dizzy and drunk. Vitals: 142/70 67 99.1 100%. Administered PRN Tylenol 650mg, encouraged pt to drink fluids. Dr. Gordy lawson.
--- NOTE | 2023-07-06 19:36 | HO.PSYCHPN ---
Subjective Subjective Date of Service: 07/06/23 Reason For Visit: Unspec Psychosis Trauma and Stressor Related D/O Interim History: Patient seen and discussed. Tolerating Risperidone well. Remains guarded and isolated. Denies any mental illness or symptoms. Says she is fine and denies SI/HI/AVH. Appears preoccupied. Adherent to medications. Isolative in her room. Review of Systems Review of Systems No acute medical complaints at this time. Mental Status Exam Mental Status Exam Narrative: wearing street clothes. generally cooperative. PMA of frequent shifts in her seat and strong gesticulations with her upper extremities. speech incr in amount, rate, loudness. nml prosody. decr latency. thoughts more organized. confabulation. paranoid delusions. affect full range, hyper-intense, mod-labile. mood good denies SI/HI/AVH. Diagnostics Vital Signs (24Hr): Vital Signs - 24 hr 07/05/23 20:15 07/06/23 08:10 Temperature 97.9 F 96.9 F Pulse Rate 72 66 Respiratory Rate 18 18 Blood Pressure 140/65 H 153/90 H Pulse Oximetry 100 98 Oxygen Delivery Method Room Air Room Air BMI result Body Mass Index 34.5 Labs 07/03/23 08:28 07/03/23 08:28 Medications Medications Current Medications Acetaminophen (Acetaminophen 325 Mg Tablet) 650 mg PO Q6H PRN PRN Reason: Headache/Pain Mild Scale (1-3) Last Admin: 07/06/23 16:25 Dose: 650 mg Al Hydroxide/Mg Hydroxide (Magnesium Hydrox/Alum Hydrox 30 Ml Oral.Susp) 30 ml PO Q6H PRN PRN Reason: Heartburn/Nausea Apixaban (Apixaban 5 Mg Tablet) 5 mg PO BID [facility] Last Admin: 07/06/23 08:34 Dose: 5 mg Atorvastatin Calcium (Atorvastatin Calcium 40 Mg Tablet) 40 mg PO DAILY [facility] Last Admin: 07/06/23 08:33 Dose: 40 mg Docusate Sodium (Docusate Sodium 100 Mg Capsule) 100 mg PO BID [facility] Last Admin: 07/06/23 08:33 Dose: 100 mg Fluticasone Propionate (Fluticasone Propionate Nasal 16 Gm [place]) 1 spray NOSTRIL-B BID [facility] Last Admin: 07/06/23 08:45 Dose: Not Given Hydrochlorothiazide (Hydrochlorothiazide 25 Mg Tablet) 25 mg PO DAILY [facility] Last Admin: 07/06/23 08:33 Dose: 25 mg Hydroxyzine HCl (Hydroxyzine Hcl 25 Mg Tablet) 25 mg PO Q6H PRN PRN Reason: Anxiety Ipratropium [place] (Ipratropium [place] Demetrio 0.03 % 30 Ml [place]) 2 spray NOSTRIL-B BID [facility] Last Admin: 07/06/23 08:45 Dose: Not Given Lactulose (Lactulose 20 Gm/30 Ml Solution) 10 gm PO DAILY PRN PRN Reason: Constipation Lisinopril (Lisinopril 20 Mg Tablet) 20 mg PO DAILY [facility] Last Admin: 07/06/23 08:34 Dose: 20 mg Loratadine (Loratadine 10 Mg Tablet) 10 mg PO DAILY [facility] Last Admin: 07/06/23 08:32 Dose: 10 mg Magnesium Hydroxide (Milk Of Magnesia 30 Ml Oral.Susp) 30 ml PO DAILY PRN PRN Reason: Constipation Metoprolol Succinate (Metoprolol Succinate Er 50 Mg Tab.Er.24h) 50 mg PO DAILY [facility]; Protocol Last Admin: 07/06/23 08:34 Dose: 50 mg Nicotine Polacrilex (Nicotine Polacrilex 2 Mg Gum) 4 mg BUCCAL Q2H PRN PRN Reason: Nicotine Cravings Omeprazole (Omeprazole 20 Mg Capsule.Dr) 20 mg PO DAILY PRN PRN Reason: Acid Reflux Risperidone (Risperidone 1 Mg Tablet) 1 mg PO BID PRN PRN Reason: Agitation Risperidone (Risperidone 3 Mg Tablet) 3 mg PO BEDTIME [facility] Last Admin: 07/05/23 23:07 Dose: 3 mg Trazodone HCl (Trazodone Hcl 50 Mg Tablet) 50 mg PO BEDTIME MRX1 PRN PRN Reason: Insomnia Triamcinolone Acetonide (Triamcinolone Acet 0.5 % Oint 15 Gm Tube) 1 appl TOPICAL BID PRN PRN Reason: eczema Last Admin: 07/04/23 08:40 Dose: 1 appl Triamcinolone Acetonide (Triamcinolone Acet 0.1 % Cream 15 Gm Tube) 1 appl TOPICAL BID [facility]; Protocol Last Admin: 07/06/23 08:45 Dose: Not Given Vitamin D (Cholecalciferol (Vitamin D3) 25 Mcg Tablet) 25 mcg PO DAILY [facility] Last Admin: 07/06/23 08:33 Dose: 25 mcg Allergies Allergies Allergy/AdvReac Type Severity Reaction Status Date / Time bacitracin [From Cortisporin] Allergy Unknown Verified 07/03/23 00:08 hydrocortisone Allergy Unknown Verified 07/03/23 00:08 [From Cortisporin] latex Allergy Unknown Verified 07/03/23 00:08 neomycin [From Cortisporin] Allergy Unknown Verified 07/03/23 00:08 Penicillins Allergy Unknown Verified 07/03/23 00:08 polymyxin B Allergy Unknown Verified 07/03/23 00:08 [From Cortisporin] sulfamethizole Allergy Unknown Verified 07/03/23 00:08 Assessment & Plan Assessment & Plan (1) Medical clearance for psychiatric admission: Status: Acute Code(s): Z00.8 - Encounter for other general examination (2) Radha: Status: Acute Code(s): F30.9 - Manic episode, unspecified Assessment and Plan: Pt is a 63-year-old female with a PMH significant for?paroxysmal afib on Eliquis, HTN, HLD, GERD, 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 Pt has apparently been noncompliant with her psychiatric medication and speaking with people who are not there. Medical consult for admission H&P. ?Pt has no acute medical complaints at this time. Ambulation on the unit Pt reports using a cane at home PT evaluation for possible walker (2) Radha: Status: Acute Code(s): F30.9 - Manic episode, unspecified Plan 07/03: restart/continue home meds. only on 3 mg risperidone daily. due to likely bipolar disorder, will attempt to convince to take mood stabilizer. 07/04: slightly more organized and less labile today. had only 2 mg risperidone in the past 24H due to her partial refusal of home medications regimen. discussed that she was on 3 mg daily (1.5 BID) prior to admission but that since she c/o sedation from it, all 3 mg has been rescheduled for HS. attempting to achieve whatever improvement possible with risperidone, establish rapport, then add mood stabilizer. per collateral from pt's obtained by [facility], 's reports in referral documents regarding grabbing steering wheel, punching him in the face, and lining up knives in the kitchen to prepare a defense were affirmed. 12/16: Continue current management and treatment plan. 07/06: Continue current management and treatment plan. 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 Pt has apparently been noncompliant with her psychiatric medication and speaking with people who are not there. Medical consult for admission H&P. ?Pt has no acute medical complaints at this time. Mood disorder Plan as per psychiatry Paroxysmal AFib Continue Eliquis HLD Continue statin HTN Continue lisinopril/hydrochlorothiazide Ambulation on the unit Pt reports using a cane at home PT evaluation for possible walker Thank you for allowing us to participate in the care of this patient. Signing off at this time. Please re-consult if any acute complaints or issues arise. Reason for continued inpatient stay Substantial Risk for: inability to function and rapid decompensation Time Spent With Patient Time: Total time managing care of this patient today ____ minutes.
[2023-07-06 20:01] VITALS: BP 139/64; PULSE 67; RESP 18; TEMP 36; O2SAT 100
[2023-07-06] MEDS: risperiDONE 3 MG TABLET PO (23:03)
[2023-07-06] MEDS: Fluticasone Propionate Nasal 16 GM SPRAY 1 SPRAY NOSTRIL-B (23:06)
[2023-07-07 07:10] VITALS: BP 132/68; PULSE 63; RESP 18; TEMP 36.1; O2SAT 96
[2023-07-07] MEDS: hydroCHLOROthiazide 25 MG TABLET PO (09:07)
[2023-07-07] MEDS: Docusate Sodium 100 MG CAPSULE PO ×2 (09:07→22:55)
[2023-07-07] MEDS: Loratadine 10 MG TABLET PO (09:07)
[2023-07-07] MEDS: Metoprolol Succinate ER 50 MG TAB.ER.24H PO (09:07)
[2023-07-07] MEDS: Apixaban 5 MG TABLET PO ×2 (09:07→22:55)
[2023-07-07] MEDS: Cholecalciferol (Vitamin D3) 25 MCG TABLET PO (09:08)
[2023-07-07] MEDS: lisinopriL 20 MG TABLET PO (09:08)
[2023-07-07] MEDS: Atorvastatin Calcium 40 MG TABLET PO (09:08)
[2023-07-07] MEDS: Triamcinolone Acet 0.5 % Oint 15 GM TUBE 1 APPL TOPICAL (09:08)
--- NOTE | 2023-07-07 15:41 | HO.PSYCHPN ---
Subjective Subjective Date of Service: 07/07/23 Reason For Visit: Unspec Psychosis Trauma and Stressor Related D/O Interim History: more organized and less grandiose than last week, but very labile and delusional. informed of plan to file for commitment tomorrow. states she is sleeping, eating, getting along with others well. my brain is so strong! denies mental illness. yelling, labile, crying on being told she will not leave the hospital. per staff, 3-day notice up tomorrow. brighter yesterday. eating well. social, brighter, broad affect. Mental Status Exam Mental Status Exam Narrative: wearing street clothes. generally cooperative. PMA of frequent shifts in her seat and strong gesticulations with her upper extremities. speech variable, from WNL to incr in amount, rate, loudness. nml prosody. decr latency. thoughts more organized, remains with paranoid delusions of imposters. affect full range, hyper-intense, labile. mood good denies SI/HI/AVH. Diagnostics Vital Signs (24Hr): Vital Signs - 24 hr 07/06/23 20:01 07/07/23 07:10 Temperature 96.8 F 97.0 F Pulse Rate 67 63 Respiratory Rate 18 18 Blood Pressure 139/64 132/68 Pulse Oximetry 100 96 Oxygen Delivery Method Room Air Room Air BMI result Body Mass Index 34.5 Labs 07/03/23 08:28 07/03/23 08:28 Medications Medications Current Medications Acetaminophen (Acetaminophen 325 Mg Tablet) 650 mg PO Q6H PRN PRN Reason: Headache/Pain Mild Scale (1-3) Last Admin: 07/06/23 16:25 Dose: 650 mg Al Hydroxide/Mg Hydroxide (Magnesium Hydrox/Alum Hydrox 30 Ml Oral.Susp) 30 ml PO Q6H PRN PRN Reason: Heartburn/Nausea Apixaban (Apixaban 5 Mg Tablet) 5 mg PO BID [facility] Last Admin: 07/07/23 09:07 Dose: 5 mg Atorvastatin Calcium (Atorvastatin Calcium 40 Mg Tablet) 40 mg PO DAILY [facility] Last Admin: 07/07/23 09:08 Dose: 40 mg Divalproex Sodium (Divalproex Sodium Er 500 Mg Tab.Er.24h) 1,000 mg PO BEDTIME [facility] Docusate Sodium (Docusate Sodium 100 Mg Capsule) 100 mg PO BID [facility] Last Admin: 07/07/23 09:07 Dose: 100 mg Fluticasone Propionate (Fluticasone Propionate Nasal 16 Gm [place]) 1 spray NOSTRIL-B BID [facility] Last Admin: 07/07/23 09:12 Dose: Not Given Hydrochlorothiazide (Hydrochlorothiazide 25 Mg Tablet) 25 mg PO DAILY [facility] Last Admin: 07/07/23 09:07 Dose: 25 mg Hydroxyzine HCl (Hydroxyzine Hcl 25 Mg Tablet) 25 mg PO Q6H PRN PRN Reason: Anxiety Ipratropium [place] (Ipratropium [place] Demetrio 0.03 % 30 Ml [place]) 2 spray NOSTRIL-B BID [facility] Last Admin: 07/07/23 09:12 Dose: Not Given Lactulose (Lactulose 20 Gm/30 Ml Solution) 10 gm PO DAILY PRN PRN Reason: Constipation Lisinopril (Lisinopril 20 Mg Tablet) 20 mg PO DAILY [facility] Last Admin: 07/07/23 09:08 Dose: 20 mg Loratadine (Loratadine 10 Mg Tablet) 10 mg PO DAILY [facility] Last Admin: 07/07/23 09:07 Dose: 10 mg Magnesium Hydroxide (Milk Of Magnesia 30 Ml Oral.Susp) 30 ml PO DAILY PRN PRN Reason: Constipation Metoprolol Succinate (Metoprolol Succinate Er 50 Mg Tab.Er.24h) 50 mg PO DAILY [facility]; Protocol Last Admin: 07/07/23 09:07 Dose: 50 mg Nicotine Polacrilex (Nicotine Polacrilex 2 Mg Gum) 4 mg BUCCAL Q2H PRN PRN Reason: Nicotine Cravings Omeprazole (Omeprazole 20 Mg Capsule.Dr) 20 mg PO DAILY PRN PRN Reason: Acid Reflux Risperidone (Risperidone 1 Mg Tablet) 1 mg PO BID PRN PRN Reason: Agitation Risperidone (Risperidone 3 Mg Tablet) 3 mg PO BEDTIME [facility] Last Admin: 07/06/23 23:03 Dose: 3 mg Trazodone HCl (Trazodone Hcl 50 Mg Tablet) 50 mg PO BEDTIME MRX1 PRN PRN Reason: Insomnia Triamcinolone Acetonide (Triamcinolone Acet 0.5 % Oint 15 Gm Tube) 1 appl TOPICAL BID PRN PRN Reason: eczema Last Admin: 07/07/23 09:08 Dose: 1 appl Triamcinolone Acetonide (Triamcinolone Acet 0.1 % Cream 15 Gm Tube) 1 appl TOPICAL BID [facility]; Protocol Last Admin: 07/07/23 09:10 Dose: Not Given Vitamin D (Cholecalciferol (Vitamin D3) 25 Mcg Tablet) 25 mcg PO DAILY [facility] Last Admin: 07/07/23 09:08 Dose: 25 mcg Allergies Allergies Allergy/AdvReac Type Severity Reaction Status Date / Time bacitracin [From Cortisporin] Allergy Unknown Verified 07/03/23 00:08 hydrocortisone Allergy Unknown Verified 07/03/23 00:08 [From Cortisporin] latex Allergy Unknown Verified 07/03/23 00:08 neomycin [From Cortisporin] Allergy Unknown Verified 07/03/23 00:08 Penicillins Allergy Unknown Verified 07/03/23 00:08 polymyxin B Allergy Unknown Verified 07/03/23 00:08 [From Cortisporin] sulfamethizole Allergy Unknown Verified 07/03/23 00:08 Assessment & Plan Assessment & Plan (1) Medical clearance for psychiatric admission: Status: Acute Code(s): Z00.8 - Encounter for other general examination (2) Radha: Status: Acute Code(s): F30.9 - Manic episode, unspecified Assessment and Plan: Pt is a 63-year-old female with a PMH significant for?paroxysmal afib on Eliquis, HTN, HLD, GERD, 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 Pt has apparently been noncompliant with her psychiatric medication and speaking with people who are not there. Medical consult for admission H&P. ?Pt has no acute medical complaints at this time. Ambulation on the unit Pt reports using a cane at home PT evaluation for possible walker (2) Radha: Status: Acute Code(s): F30.9 - Manic episode, unspecified Plan 07/03: restart/continue home meds. only on 3 mg risperidone daily. due to likely bipolar disorder, will attempt to convince to take mood stabilizer. 07/04: slightly more organized and less labile today. had only 2 mg risperidone in the past 24H due to her partial refusal of home medications regimen. discussed that she was on 3 mg daily (1.5 BID) prior to admission but that since she c/o sedation from it, all 3 mg has been rescheduled for HS. attempting to achieve whatever improvement possible with risperidone, establish rapport, then add mood stabilizer. per collateral from pt's obtained by [facility], 's reports in referral documents regarding grabbing steering wheel, punching him in the face, and lining up knives in the kitchen to prepare a defense were affirmed. 07/05: Continue current management and treatment plan. 07/06: Continue current management and treatment plan. 07/07: add depakote ER 1000 mg QHS, otherwise continue current mgmt. 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 Pt has apparently been noncompliant with her psychiatric medication and speaking with people who are not there. Medical consult for admission H&P. ?Pt has no acute medical complaints at this time. Mood disorder Plan as per psychiatry Paroxysmal AFib Continue Eliquis HLD Continue statin HTN Continue lisinopril/hydrochlorothiazide Ambulation on the unit Pt reports using a cane at home PT evaluation for possible walker Thank you for allowing us to participate in the care of this patient. Signing off at this time. Please re-consult if any acute complaints or issues arise. Reason for continued inpatient stay Substantial Risk for: harm to others, inability to function and rapid decompensation Time Spent With Patient Time: Total time managing care of this patient today __35__ minutes.
[2023-07-07 19:21] VITALS: BP 142/79; PULSE 70; RESP 18; TEMP 36.6; O2SAT 100
[2023-07-07] MEDS: risperiDONE 3 MG TABLET PO (22:55)
[2023-07-07] MEDS: Triamcinolone Acet 0.1 % Cream 15 GM TUBE 1 APPL TOPICAL (23:04)
--- NOTE | 2023-07-08 05:18 | PC.NURSE ---
TW reviewed that doctor had ordered pt to start depakote at bedtime. Pt requested to see the pills, then stated that they were too big and she would not be able to swallow them. She reported taking a medication in the past, which she identified as potassium, and the pills were also large and difficult to swallow. She stated that when she swallowed them she felt them get stuck in her chest; the provider reportedly changed the med to a powder form instead. Pt commented that she hoped she was not going to get in trouble and have to stay in the hospital longer now after refusing the medication, saying that it was not that she didn't want to take it but that it was too large and she was afraid of having another episode like in the past. Pt was encouraged to speak with doctor about other possible forms of medication.
[2023-07-08 08:20] VITALS: BP 152/75; PULSE 62; RESP 18; TEMP 35.8; O2SAT 99
[2023-07-08] MEDS: lisinopriL 20 MG TABLET PO (09:27)
[2023-07-08] MEDS: Atorvastatin Calcium 40 MG TABLET PO (09:27)
[2023-07-08] MEDS: Metoprolol Succinate ER 50 MG TAB.ER.24H PO (09:27)
[2023-07-08] MEDS: Docusate Sodium 100 MG CAPSULE PO ×2 (09:27→23:05)
[2023-07-08] MEDS: Cholecalciferol (Vitamin D3) 25 MCG TABLET PO (09:27)
[2023-07-08] MEDS: Apixaban 5 MG TABLET PO ×2 (09:28→23:05)
[2023-07-08] MEDS: hydroCHLOROthiazide 25 MG TABLET PO (09:28)
[2023-07-08] MEDS: Loratadine 10 MG TABLET PO (09:28)
[2023-07-08] MEDS: Ipratropium Bromide Nas 0.03 % 30 ML SPRAY 2 SPRAY NOSTRIL-B (10:32)
[2023-07-08] MEDS: Triamcinolone Acet 0.5 % Oint 15 GM TUBE 1 APPL TOPICAL (10:33)
[2023-07-08] MEDS: Divalproex Sodium Sprinkles 125 MG CAP.DR.SPR 750 MG PO ×2 (10:38→23:05)
--- NOTE | 2023-07-08 11:54 | PC.NURSE ---
Pt retracted 3 day notice submitted 07/02/23 and submitted new 3 day notice which is up on 07/11/23. Behavioral health team notified.
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
[2023-07-08 19:40] VITALS: BP 123/67; PULSE 76; RESP 16; TEMP 36.4; O2SAT 100
[2023-07-08] MEDS: risperiDONE 3 MG TABLET PO (23:05)
[2023-07-09 08:30] VITALS: BP 152/83; PULSE 65; RESP 16; TEMP 36.4; O2SAT 100
[2023-07-09] MEDS: Triamcinolone Acet 0.5 % Oint 15 GM TUBE 1 APPL TOPICAL (09:08)
[2023-07-09] MEDS: hydroCHLOROthiazide 25 MG TABLET PO (09:09)
[2023-07-09] MEDS: Atorvastatin Calcium 40 MG TABLET PO (09:09)
[2023-07-09] MEDS: Docusate Sodium 100 MG CAPSULE PO ×2 (09:09→21:29)
[2023-07-09] MEDS: Loratadine 10 MG TABLET PO (09:09)
[2023-07-09] MEDS: Cholecalciferol (Vitamin D3) 25 MCG TABLET PO (09:09)
[2023-07-09] MEDS: Metoprolol Succinate ER 50 MG TAB.ER.24H PO (09:09)
[2023-07-09] MEDS: Apixaban 5 MG TABLET PO ×2 (09:10→21:29)
[2023-07-09] MEDS: lisinopriL 20 MG TABLET PO (09:10)
[2023-07-09] MEDS: Ipratropium Bromide Nas 0.03 % 30 ML SPRAY 2 SPRAY NOSTRIL-B (09:10)
[2023-07-09] MEDS: Divalproex Sodium Sprinkles 125 MG CAP.DR.SPR 750 MG PO ×2 (09:11→21:29)
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
[2023-07-09 20:05] VITALS: BP 144/73; PULSE 73; RESP 18; TEMP 36.1; O2SAT 100
[2023-07-09] MEDS: risperiDONE 3 MG TABLET PO (21:29)
[2023-07-10 07:00] VITALS: BMI 35.5
[2023-07-10 09:39] VITALS: BP 177/94; PULSE 80; RESP 18; TEMP 36.4; O2SAT 99
[2023-07-10] MEDS: lisinopriL 20 MG TABLET PO (09:47)
[2023-07-10] MEDS: Docusate Sodium 100 MG CAPSULE PO ×2 (09:47→22:20)
[2023-07-10] MEDS: Metoprolol Succinate ER 50 MG TAB.ER.24H PO (09:47)
[2023-07-10] MEDS: Loratadine 10 MG TABLET PO (09:47)
[2023-07-10] MEDS: Cholecalciferol (Vitamin D3) 25 MCG TABLET PO (09:48)
[2023-07-10] MEDS: Atorvastatin Calcium 40 MG TABLET PO (09:48)
[2023-07-10] MEDS: Apixaban 5 MG TABLET PO ×2 (09:48→22:20)
[2023-07-10] MEDS: hydroCHLOROthiazide 25 MG TABLET PO (09:48)
[2023-07-10] MEDS: Divalproex Sodium Sprinkles 125 MG CAP.DR.SPR 750 MG PO ×2 (09:49→22:17)
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
[2023-07-10 20:21] LABS: MANUAL DIFF FLAG NO
[2023-07-10 20:23] LABS: Basophils Percent Auto 0.4 % (0-2); Eosinophils Absolute Auto 0.2 X10*3/uL (0.0-0.4); Eosinophils Percent Auto 2.1 % (0-4); Hematocrit 36.2 % (37.0-47.0); Hemoglobin 11.7 g/dl (12.0-16.0); Imm Gran Abs Auto 0.01 X10*3/uL (0.00-0.03); Imm Gran Pct Auto 0.1 % (0.0-0.4); Lymphocytes Absolute Auto 3.4 X10*3/uL (1.2-4.9); Lymphocytes Percent Auto 47.1 % (20-40); Mean Corpuscular HGB Conc 32.3 g/dl (31.0-35.0); Mean Corpuscular Volume 83.6 fL (80.0-98.0); Mean Platelet Volume 9.5 fL (9.4-12.3); Monocytes Absolute Auto 0.5 X10*3/uL (0.1-1.2); Monocytes Percent Auto 7.3 % (2-11); Neutrophils Absolute Auto 3.1 x10*3/uL (2.0-8.3); Platelet Count 202 X10*3/uL (160-400); Red Blood Count 4.33 X10*6/uL (4.20-5.50); Red Cell Distribution Width 13.9 % (11.0-16.0); White Blood Count 7.3 X10*3/uL (4.8-10.8)
[2023-07-10 20:30] VITALS: BP 175/74; PULSE 70; RESP 16; TEMP 36.2; O2SAT 100
[2023-07-10 20:37] LABS: Alanine Aminotransferase 45 U/L (0-31); Albumin Level 3.5 g/dL (3.5-5.0); Alkaline Phosphatase 187 U/L (39-117); Anion Gap 13 (12-20); Aspartate Amino Transferase 32 U/L (5-31); Bilirubin Direct < 0.2 mg/dL (0.0-0.5); Bilirubin Total 0.2 mg/dL (0.0-1.0); Blood Urea Nitrogen 23 mg/dL (9-16); Calcium 9.5 mg/dL (8.4-10.2); Carbon Dioxide 31 mmol/L (22-29); Chloride 101 mmol/L (96-108); Creatinine Clr Calc Pharmacy 83.3; Estimated Glomerular Filt Rate > 60; Glucose Random 125 mg/dL (60-115); Potassium 4.2 mmol/L (3.3-5.1); Sodium 141 mmol/L (135-145)
[2023-07-10] MEDS: risperiDONE 3 MG TABLET PO (22:19)
[2023-07-11 06:00] VITALS: BP 100/55; PULSE 88; RESP 16; TEMP 36.1; O2SAT 99
[2023-07-11] MEDS: Docusate Sodium 100 MG CAPSULE PO (09:01)
[2023-07-11] MEDS: Divalproex Sodium Sprinkles 125 MG CAP.DR.SPR 750 MG PO (09:01)
[2023-07-11] MEDS: Apixaban 5 MG TABLET PO (09:02)
[2023-07-11] MEDS: lisinopriL 20 MG TABLET PO (09:02)
[2023-07-11] MEDS: Cholecalciferol (Vitamin D3) 25 MCG TABLET PO (09:02)
[2023-07-11] MEDS: Metoprolol Succinate ER 50 MG TAB.ER.24H PO (09:02)
[2023-07-11] MEDS: hydroCHLOROthiazide 25 MG TABLET PO (09:02)
[2023-07-11] MEDS: Atorvastatin Calcium 40 MG TABLET PO (09:02)
[2023-07-11] MEDS: Loratadine 10 MG TABLET PO (09:02)
[2023-07-11] MEDS: Triamcinolone Acet 0.5 % Oint 15 GM TUBE 1 APPL TOPICAL (09:17)
== END 2023-07-11 10:52 | disposition home or self-care (01) | DRG 753 ==
PROVIDERS: Admitting Provider Psychiatry & Neurology Psychiatry; Visit Provider Psychiatry & Neurology Psychiatry
DX: F31.2 Bipolar disorder, current episode manic severe with psychotic features (principal); Z91.148 Patient's other noncompliance with medication regimen for other reason; E78.5 Hyperlipidemia, unspecified; I48.0 Paroxysmal atrial fibrillation; I10 Essential (primary) hypertension; F17.210 Nicotine dependence, cigarettes, uncomplicated; Z71.6 Tobacco abuse counseling; Z79.01 Long term (current) use of anticoagulants; Z79.899 Other long term (current) drug therapy
CPT/HCPCS: 36415; 80048; 80053; 80061; 80076; 80164; 82607; 82746; 83036; 84439; 84443; 85025; 97161

== ENCOUNTER → 2023-07-02 19:07 | Outpatient (BNV) | payer OTHER, SELFPAY | PROVIDERS: Admitting Provider Psychiatry & Neurology Psychiatry; Visit Provider Psychiatry & Neurology Psychiatry | DX: F31.73 Bipolar disorder, in partial remission, most recent episode manic (principal) | CPT/HCPCS: 99231; 99232; 99233 ==

== ENCOUNTER → 2023-07-02 19:07 | Outpatient (BNV) | payer OTHER, SELFPAY | PROVIDERS: Admitting Provider Psychiatry & Neurology Psychiatry; Visit Provider Student in an Organized Health Care Education/Training Program | DX: Z02.2 Encounter for examination for admission to residential institution (principal) | CPT/HCPCS: 99429 ==